=== PATIENT | female | born 1950 | race Caucasian/White ===

== ENCOUNTER → 2016-06-30 | Outpatient (CLI) | payer MEDICARE, OTHER ==
[~2016-06-30] MED LIST: ALFU10TA PO; ASPI-587 PO; ASPI-999 PO; CALC-654 PO; CATHETER FLUSH 10 ML SYR IV PRN; CEFU250T PO; CEPH500T PO; CLOT10TR11 PO; DICL50TA4 PO; EFFEXOR; ERGO400C PO; GABA-488 PO; HYDR-3720 PO; HYDR-3812 PO; HYOS0.1283 SL; INSU100C7 SQ; INSU100V5 SQ; INSULIN; IOHEXOL 350 MG/ML 100 ML (OMNIPAQUE 350) VIAL IV ONE; LEVO750T9 PO; LINA5TAB PO; LISI-552 PO; LISI10TA2 PO; LOVA20TA2 PO; METF-479 PO; METF1000 PO; METF500T8 PO; NITR100C10 PO; NS 100 ML (IVPB) BAG IV ONE; OMEP20CA12 PO; ONDA4TAB11 PO; OXYC-465 PO; SULF1TAB35 PO; TERBIN250T PO; VENL150C PO; VNL37.5T PO; novalog SC
[2016-06-30 08:32] LABS: BLOOD UREA NITROGEN 13 MG/DL (7-18); BUN/CREATININE RATIO 17; CREATININE SERUM 0.75 MG/DL (0.60-1.30); GFR ESTIMATED > 60
--- NOTE | 2016-06-30 10:33 | Diagnostic Imaging Report ---
PROCEDURE: CT abdomen with contrast only. TECHNIQUE: Multiple contiguous axial images were obtained through the abdomen after the administration of intravenous contrast. INDICATION: Pyelonephritis. Unenhanced CT on 06/18/2016 demonstrated high density content within the right renal collecting system with mild distention. Rule out underlying mass. 100 mL of Omnipaque 350 is administered intravenously. FINDINGS: The lung bases appear clear. The liver demonstrates multiple low density lesions with well defined margins compatible with cysts up to 1.7 cm in the inferior aspect of the right hepatic lobe. The spleen is not enlarged. The pancreas appears unremarkable. Cholecystectomy clips are seen. The right renal pelvis is again noted to be minimally distended with slightly higher density content than simple fluid on the arterial phase similar to the previous exam. However, this fills completely with contrast on the delayed phase imaging with no evidence of a renal collecting system mass. The higher than simple urine density could be related to cellular or proteinaceous material from infection or proteinuria with no evidence of mass. Bilateral simple renal cysts seen. The abdominal aorta is normal in caliber. No para-aortic significantly enlarged lymph nodes are seen. No fluid collection or free fluid is seen in the abdomen. The osseous structures appear grossly unremarkable. IMPRESSION: No enhancing mass. The increased density in the uterine could relate to increased protein or cellular contents possibly from infection. Dictated by: Dictated on workstation # [id number]
== END ==
LOC: RAD 08:00
PROVIDERS: ATTEND Urology
DX: N12 Tubulo-interstitial nephritis, not specified as acute or chronic (principal)
CPT/HCPCS: 36415; 74160; 82565; 84520

== ENCOUNTER → 2016-08-30 | Outpatient (CLI) | payer MEDICARE, OTHER ==
[~2016-08-30] MED LIST changes: -CATHETER FLUSH 10 ML SYR IV PRN; -IOHEXOL 350 MG/ML 100 ML (OMNIPAQUE 350) VIAL IV ONE; -NS 100 ML (IVPB) BAG IV ONE
--- NOTE | 2016-08-30 13:43 | Diagnostic Imaging Report ---
PROCEDURE: CT cervical spine without contrast. TECHNIQUE: Multiple contiguous axial images were obtained through the cervical spine without the use of intravenous contrast. Sagittal and coronal reformations were then performed. INDICATION: Neck pain. Patient had cervical spine fusion surgery. FINDINGS: There is minimal anterior translation of C2 over C3 and minimal anterior translation of C4 over C5. There is also mild anterior translation at C7/T1 and mild disc height loss at this level. There is uncovertebral and facet joint fusion involving C2/C3, C3/C4, and C4/C5 level bilaterally. Minimal anterior syndesmophyte fusion along the vertebral body C3/C4 and C4/C5 is seen. At C5-C7, there is anterior fusion intact-appearing hardware and C6 corpectomy with prosthesis placed. There is suggestion of a fused bone graft bridging C5-C7 vertebral bodies through and around the prosthesis. At these levels, the facet joints demonstrate fusion on the left side at C5/C6 and suggestion of early fusion changes on the right side. At C6/C7 facet joints, there are no signs of osseous fusion. The neural foramina are generally patent without significant stenosis except for bilateral moderate to severe stenosis at C6/C7 foramina. There is no significant posterior osteophyte at any level that appears to compromise the spinal canal. There is degenerative change along the atlantodental joint. No widening of the predental space. Satisfactory alignment of the lateral masses of C1 and C2 and atlanto-occipital joint seen. IMPRESSION: There are minimal alignment abnormalities as described. Postsurgical changes and fusion are described above. There is moderate to severe neural foraminal narrowing bilaterally at C6/C7 level. Dictated by: Dictated on workstation # [id number]
== END ==
LOC: RAD 11:38
PROVIDERS: ATTEND Orthopaedic Surgery Orthopaedic Surgery of the Spine
DX: Z48.89 Encounter for other specified surgical aftercare (principal); Z98.1 Arthrodesis status
CPT/HCPCS: 72125

== ENCOUNTER 2016-09-08 16:49 | Emergency (ER) | payer MEDICARE, OTHER ==
[~2016-09-08] VITALS: Ht 175.3 cm; Wt 90.7 kg
[~2016-09-08 16:49] MED LIST changes: -ASPI-999 PO; -ERGO400C PO; -HYOS0.1283 SL; -OMEP20CA12 PO; -ONDA4TAB11 PO; -SULF1TAB35 PO
[2016-09-08] MEDS ORDERED: diphenhydrAMINE 50 MG/ML INJ (BENADRYL) IVP ONE (17:00)
--- NOTE | 2016-09-08 17:04 | ED Headache ---
General Chief Complaint: Head/Cervical Problems Stated Complaint: HEADACHE Nursing Triage Note: PT STATES SHE HAS HAD A HEADACHE FOR 5 DAYS, STATES SHE HAS BEEN TAKING OTC MEDICATIONS AND NOTHING HAS HELPED, STATES SHE HAS NOT TAKEN ANYTHING TODAY Nursing Sepsis Screen: No Definite Risk Source: patient Exam Limitations: no limitations History of Present Illness Time seen by provider: 17:00 Initial Comments To ER with reports of a global headache for 5 days. She states that on the first day of this it was in the front of her head. She believed at that time that may have just been sinus though she's not had any fevers or sinus congestion/nasal discharge. Over the course of the following 4 days the headache intensified and seemed to affect the entire head and she reports slightly blurred vision. As mentioned, no fevers or chills. She denies nausea or vomiting. She denies any focal neurologic symptoms such as unilateral weakness or tingling. She denies any history of headaches. She is unaware of any exacerbating or alleviating factors. She has taken [id number] Tylenol and Motrin at home without relief. Typically, when she gets a headache Motrin does relieve it. She denies any head trauma or anticoagulant use. Timing/Duration: 1 week Severity/Quality: constant Location: global Prior Headaches/Recent Trauma: no recent headache/trauma Associated Symptoms: No confusion, No fatigue, No facial pain, No fever/chills , No flushing, No loss of consciousness, No nausea/vomiting, No nasal congestion , No numbness in legs/feet, No seizures, No sinus infection, No stiff neck, No vision changes, No weakness Allergies and Home Medications Allergies Coded Allergies: No Known Drug Allergies (Unverified , 01/19/16) Home Medications Hydrocodone/Acetaminophen 1 Each Tablet, 1-2 TAB PO Q4H PRN for MODERATE TO SEVERE PAIN, #60 Ref 0 Prescribed by: ZAID MENG on 04/27/16 0507 Insulin Determir 1,000 Units/10 Ml Soln, 30 UNITS SQ BID, (Reported) USES NO MATTER WHAT BS IS Lisinopril 20 Mg Tablet, 20 MG PO DAILY, (Reported) Lovastatin 20 Mg Tablet, 20 MG PO DAILY, (Reported) Metformin HCl 1,000 Mg Tab.er.24, 1,000 MG PO DAILY, (Reported) Sulfamethoxazole/Trimethoprim 1 Each Tablet, 1 EACH PO BID for 7 Days Prescribed by: ADRIA DIALLO on 09/08/16 1740 Venlafaxine HCl 150 Mg Cap.er.24h, 150 MG PO DAILY, (Reported) Constitutional: see HPI, No chills, No fever Eyes: See HPI, Blurred Vision, Denies Foreign Body Sensation, Denies Inflammation, Denies Pain, Denies Photophobia, Denies Shadows, Denies Tunnel Vision, Denies Vision Changes, Denies Contact Lenses Ears, Nose, Mouth, Throat: no symptoms reported Respiratory: no symptoms reported Cardiovascular: no symptoms reported Genitourinary: no symptoms reported Musculoskeletal: no symptoms reported Skin: no symptoms reported Psychiatric/Neurological: No Symptoms Reported Past Egshyzv-Wzrqin-Sbsnkt Hx Patient Social History Alcohol Use: Denies Use Recreational Drug Use: No Smoking Status: Never a Smoker Recent Foreign Travel: No Contact w/Someone Who Travel: No Recent Infectious Disease Expo: No Recent Hopitalizations: No Immunizations Up To Date Tetanus Booster (TDap): More than 5yrs PED Vaccines UTD: No Seasonal Allergies Seasonal Allergies: No Surgeries HX Surgeries: Yes (neck surg) Surgeries: Gallbladder, Hysterectomy Respiratory Hx Respiratory Disorders: No Cardiovascular Hx Cardiac Disorders: Yes Cardiac Disorders: Hypertension Neurological Hx Neurological Disorders: Yes (VERY LITTLE NEUROPATHY IN FEET) 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 System Hx 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 Disorders: No Sexually Transmitted Disease: No HIV/AIDS: No Female 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 Disorders: Denies 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 Genitourinary Hx Genitourinary Disorders: Yes (SEPSIS FROM UTI Apr) Genitourinary Disorders: Kidney Stones, UTI-Chronic Gastrointestinal Hx Gastrointestinal Disorders: Yes Gastrointestinal Disorders: Gastroesophageal Reflux Musculoskeletal Hx Musculoskeletal Disorders: Yes (CHRONIC NECK PAIN, STENOSIS) Musculoskeletal Disorders: Degenerate Disk Disease, Arthritis Endocrine Hx Endocrine Disorders: Yes Endocrine Disorders: Diabetes, Insulin dep HEENT HX ENT Disorders: Yes (GLASSES, DRY EYES) Loss of Vision: Bilateral Hearing Impairment: Denies Cancer Hx Cancer: No Psychosocial Hx Psychiatric Problems: Yes Behavioral Health Disorders: Depression Integumentary HX Skin/Integumentary Disorder: No Blood Transfusions Hx Blood Disorders: Yes (HX OF ANEMIA PRIOR TO HYSTERECTOMY) Adverse Reaction to a Blood Tr: No (HAS HAD BLOOD TRANSFUSION WITH NO PROBLEMS) Family Medical History Family Medial History: Arthritis 19 MOTHER Cataracts 19 FATHER 19 MOTHER Hypercholesterolemia 19 FATHER Hypertension 19 FATHER Physical Exam Vital Signs Vital Sign - Last 12Hours 3/22/17 16:56 Temp 98.5 Pulse 112 Resp 16 B/P (MAP) 151/79 Capillary Refill : Less Than 3 Seconds General Appearance: WD/WN, no apparent distress HEENT: PERRL/EOMI, normal ENT inspection, TMs normal, other (pupils equal round react to light and accommodate. There is no scleral injection) Neck: non-tender, full range of motion Cardiovascular: no edema, tachycardia Respiratory: no respiratory distress, no accessory muscle use Gastrointestinal: normal bowel sounds, non tender, soft Extremities: normal range of motion, non-tender Psychiatric: alert, oriented x 3 Crainal Nerves: normal hearing, normal speech Motor/Sensory: no motor deficit, no sensory deficit Skin: normal color, warm/dry Progress/Results/Core Measures Results/Orders Lab Results Laboratory Tests Test 09/08/16 17:05 09/08/16 17:11 Range/Units White Blood Count 13.2 H 4.3-11.0 10^3/uL Red Blood Count 4.62 4.35-5.85 10^6/uL Hemoglobin 13.9 11.5-16.0 G/DL Hematocrit 40 35-52 % Mean Corpuscular Volume 87 80-99 FL Mean Corpuscular Hemoglobin 30 25-34 PG Mean Corpuscular Hemoglobin Concent 35 32-36 G/DL Red Cell Distribution Width 13.3 10.0-14.5 % Platelet Count 272 130-400 10^3/uL Mean Platelet Volume 10.4 7.4-10.4 FL Neutrophils (%) (Auto) 76 H 42-75 % Lymphocytes (%) (Auto) 15 12-44 % Monocytes (%) (Auto) 9 0-12 % Eosinophils (%) (Auto) 1 0-10 % Basophils (%) (Auto) 0 0-10 % Neutrophils # (Auto) 10.0 H 1.8-7.8 X 10^3 Lymphocytes # (Auto) 2.0 1.0-4.0 X 10^3 Monocytes # (Auto) 1.2 H 0.0-1.0 X 10^3 Eosinophils # (Auto) 0.1 0.0-0.3 10^3/uL Basophils # (Auto) 0.0 0.0-0.1 10^3/uL Erythrocyte Sedimentation Rate 4 0-30 MM/HR Sodium Level 136 135-145 MMOL/L Potassium Level 4.4 3.6-5.0 MMOL/L Chloride Level 100 98-107 MMOL/L Carbon Dioxide Level 20 L 21-32 MMOL/L Anion Gap 16 H 5-14 MMOL/L Blood Urea Nitrogen 10 7-18 MG/DL Creatinine 0.76 0.60-1.30 MG/DL Estimat Glomerular Filtration Rate > 60 BUN/Creatinine Ratio 13 Glucose Level 240 H 70-105 MG/DL Calcium Level 9.3 8.5-10.1 MG/DL Total Bilirubin 0.7 0.1-1.0 MG/DL Aspartate Amino Transf (AST/SGOT) 25 5-34 U/L Alanine Aminotransferase (ALT/SGPT) 19 0-55 U/L Alkaline Phosphatase 87 40-136 U/L Total Protein 7.0 6.4-8.2 G/DL Albumin 4.0 3.2-4.5 G/DL Urine Color YELLOW Urine Clarity SLIGHTLY CLOUDY Urine pH 5 5-9 Urine Specific [place] 1.020 1.016-1.022 Urine Protein 2+ H NEGATIVE Urine Glucose (UA) 3+ H NEGATIVE Urine Ketones 1+ H NEGATIVE Urine Nitrite POSITIVE H NEGATIVE Urine Bilirubin NEGATIVE NEGATIVE Urine Urobilinogen NORMAL NORMAL MG/DL Urine Leukocyte Esterase 3+ H NEGATIVE Urine RBC (Auto) 5+ H NEGATIVE Urine RBC 50-100 H /HPF Urine WBC 25-50 H /HPF Urine Squamous Epithelial Cells 10-25 H /HPF Urine Crystals NONE /LPF Urine Bacteria LARGE H /HPF Urine Casts NONE /LPF Urine Mucus NEGATIVE /LPF Urine Culture Indicated YES My Orders Orders - ADRIA DIALLO APRN Cbc With Automated Diff (09/08/16 16:58) Erythrocyte Sedimentation Rate (09/08/16 16:58) Comprehensive Metabolic Panel (09/08/16 16:58) Saline Lock/Iv-Start (09/08/16 16:58) Ua Culture If Indicated (09/08/16 16:58) Ct Head Wo (09/08/16 16:58) Diphenhydramine Injection (Benadryl Inje (09/08/16 17:00) Urine Culture (09/08/16 17:11) Ceftriaxone Injection (Rocephin Injectio (09/08/16 17:45) Fentanyl Injection (Sublimaze Injection (09/08/16 18:15) Medications Given in ED Current Medications Medications Dose Ordered Sig/Asuncion Route Start Time Stop Time Status Last Admin Dose Admin Ceftriaxone Sodium 1000 mg/ Sodium Chloride 50 ml @ 100 mls/hr ONCE ONCE IV 09/08/16 17:45 09/08/16 18:14 09/08/16 17:47 100 MLS/HR Diphenhydramine HCl 12.5 mg ONCE ONCE IVP 09/08/16 17:00 09/08/16 17:52 DC 09/08/16 17:15 12.5 MG Vital Signs/I&O Vital Sign - Last 12Hours 09/08/16 16:56 Temp 98.5 Pulse 112 Resp 16 B/P (MAP) 151/79 Blood Pressure Mean: 103 Departure Communication Progress Notes I discussed her urinary tract infection with her. She reports a history of these but currently denies any suprapubic, abdominal or flank pain. No nausea. Impression Impression: Primary Impression: Urinary tract infection Qualified Codes: N30.00 - Acute cystitis without hematuria Additional Impression: Headache Disposition: HOME, SELF-CARE Condition: Stable Departure-Patient Inst. Decision time for Depature: 17:39 Referrals: [facility] (PCP) Primary Care Physician SUZE KIM APRN (Family) Primary Care Physician Patient Instructions: Headache, Adult (DC) Add. Discharge Instructions: 1. Return to emergency room for any concerns 2. Antibiotic as directed 3. Follow-up with your doctor later this week for recheck 4. All discharge instructions reviewed with patient and/or family. Voiced understanding. Scripts Sulfamethoxazole/Trimethoprim (Bactrim Ds Tablet) 1 Each Tablet 1 EACH PO BID for 7 Days, TAB Prov: ADRIA DIALLO APRN 09/08/16 ADRIA DIALLO APRN Sep 08, 2016 17:04
[2016-09-08 17:11] LABS: BASOPHILS % (AUTO) 0 % (0-10); EOSINOPHILS # (AUTO) 0.1 10^3/uL (0.0-0.3); EOSINOPHILS % (AUTO) 1 % (0-10); LYMPHOCYTES % (AUTO) 15 % (12-44); MEAN CORPUSCULAR HEMOGLOBIN 30 PG (25-34); MEAN CORPUSCULAR HGB CONC 35 G/DL (32-36); MEAN CORPUSCULAR VOLUME 87 FL (80-99); MEAN PLATELET VOLUME 10.4 FL (7.4-10.4); MONOCYTES # (AUTO) 1.2 X 10^3 (0.0-1.0); MONOCYTES % (AUTO) 9 % (0-12); NEUTROPHILS % (AUTO) 76 % (42-75); PLATELET COUNT 272 10^3/uL (130-400); RED BLOOD COUNT 4.62 10^6/uL (4.35-5.85); RED CELL DISTRIBUTION WIDTH 13.3 % (10.0-14.5); WHITE BLOOD COUNT 13.2 10^3/uL (4.3-11.0)
[2016-09-08 17:27] LABS: BILIRUBIN,URINE NEGATIVE (NEGATIVE); KETONES,URINE 1+ (NEGATIVE); LEUKOCYTE ESTERASE ,URINE 3+ (NEGATIVE); NITRITE,URINE POSITIVE (NEGATIVE); PH,URINE 5 (5-9); PROTEIN,URINE 2+ (NEGATIVE); UROBILINOGEN,URINE NORMAL (NORMAL)
[2016-09-08 17:33] LABS: ALANINE AMINOTRANSFERASE 19 U/L (0-55); ANION GAP 16 MMOL/L (5-14); ASPARTATE AMINO TRANSFERASE 25 U/L (5-34); BILIRUBIN,TOTAL 0.7 MG/DL (0.1-1.0); BLOOD UREA NITROGEN 10 MG/DL (7-18); BUN/CREATININE RATIO 13; CALCIUM 9.3 MG/DL (8.5-10.1); CARBON DIOXIDE 20 MMOL/L (21-32); CHLORIDE 100 MMOL/L (98-107); CREATININE SERUM 0.76 MG/DL (0.60-1.30); ERYTHROCYTE SEDIMENTATION RATE 4 MM/HR (0-30); GFR ESTIMATED > 60; GLUCOSE 240 MG/DL (70-105); POTASSIUM 4.4 MMOL/L (3.6-5.0); SODIUM 136 MMOL/L (135-145)
[2016-09-08 17:34] LABS: WBC,URINE 25-50 /HPF
[2016-09-08] MEDS ORDERED: SULF1TAB35 PO (17:40)
[2016-09-08] MEDS ORDERED: cefTRIAXone INJECTION 1,000 MG in NS (IVPB) 50 ML IV ONE (17:45)
--- NOTE | 2016-09-08 17:59 | Diagnostic Imaging Report ---
INDICATION: Headache x5 days. Noncontrast brain CT is performed. There are mild diffuse atrophic changes. There are patchy low-density changes in the deep white matter compatible with chronic ischemic change. There is no acute hemorrhage, mass effect, or midline shift. There are vascular calcifications noted. Calvarial windows show no overt bony abnormality. Visualized portions of the sinuses and mastoid air cells show no fluid. IMPRESSION: Mild atrophic changes and chronic changes in deep white matter. No acute intracranial abnormality. Dictated by: Dictated on workstation # [id number]
[2016-09-08] MEDS ORDERED: fentaNYL INJECTION 100 MCG/2 ML AMP IVP ONE (18:15)
[2016-09-08 18:45] VITALS: BP 153/75
--- OUTSIDE RECORDS SUMMARY | 2016-09-12 05:12 | XMS REPORT ---
Author Author JULI GARRIDO [facility] eClinicalWorks Address Unknown Phone Unavailable Care Team Providers Care Rigger Helper Name Role Phone JULI GARRIDO Unavailable Allergies No Known Allergies Problems Problem Type Condition Code Onset Dates Condition Status Problem Unspecified astigmatism 367.20 Active Problem Diabetes with ophthalmic manifestations, type II or unspecified type, not stated as uncontrolled 250.50 Active Problem Presbyopia 367.4 Active Problem Diarrhea 787.91 Active Problem Hypercholesterolemia 272.0 Active Problem Urinary tract infection N39.0 Active Problem Unspecified cataract 366.9 Active Problem Hypermetropia 367.0 Active Problem Depression 311 Active Problem Neuropathy 355.9 Active Problem Personal history of noncompliance with medical treatment, presenting hazards to health V15.81 Active Problem Other chronic pain 338.29 Active Problem Diabetes mellitus without mention of complication, type II or unspecified type, uncontrolled 250.02 Active Problem Diabetes with neurological manifestations, type II or unspecified type , not stated as uncontrolled 250.60 Active Problem Dietary surveillance and counseling V65.3 Active Problem Essential hypertension, benign 401.1 Active Problem Other mucopurulent conjunctivitis 372.03 Active Medications No Known Medications Results No Known Results Summary Purpose eClinicalWorks Submission
--- OUTSIDE RECORDS SUMMARY | 2016-09-12 05:12 | XMS REPORT ---
Author Author SUZE KIM Organization e[employer] Address Unknown Phone Unavailable Care Team Providers Care Sample Grinder Name Role Phone USZE KIM CP Unavailable Allergies No Known Allergies Problems Problem Type Condition Code Onset Dates Condition Status Problem Peripheral neuropathy G62.9 Active Problem Chronic pain G89.29 Active Problem Anxiety associated with depression F41.8 Active Problem Type 2 diabetes mellitus with hyperglycemia E11.65 Active Problem Pain in right hip M25.551 Active Problem Onycholysis L60.1 Active Problem Hypertension I10 Active Problem Hypertriglyceridemia E78.1 Active Problem Pain in left hip M25.552 Active Problem History of spinal stenosis Z87.39 Active Problem Degenerative disc disease, 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
--- OUTSIDE RECORDS SUMMARY | 2016-09-12 05:12 | XMS REPORT ---
Author Author JULI GARRIDO [facility] eClinicalWorks Address Unknown Phone Unavailable Care Team Providers Care Estimator Lumber Name Role Phone JUIL GARRIDO CP Unavailable Allergies, Adverse Reactions, Alerts Substance Reaction Event Type N.K.D.A. Info Not Available Non Drug Allergy Problems Problem Type Condition Code Onset Dates [...] Depression 311 Active Problem Neuropathy 355.9 Active Assessment Dysuria R30.0 Active Problem Personal history of noncompliance with medical treatment, presenting hazards to health V15.81 Active Assessment Urinary tract infection N39.0 Active Problem Other chronic pain 338.29 Active Problem Diabetes mellitus without mention of complication, type II or unspecified type, uncontrolled 250.02 Active Problem Diabetes with neurological manifestations, type II or unspecified type , not stated as uncontrolled 250.60 Active Problem Dietary surveillance and counseling V65.3 Active Problem Essential hypertension, benign 401.1 Active Problem Other mucopurulent conjunctivitis 372.03 Active Medications Medication Code System Code Instructions Start Date End Date Status Dosage Lisinopril [facility] 02673560112 20 MG Orally Once a day 1 tablet Levemir FlexTouch [facility] [address]-22 100 UNIT/ML Subcutaneous 2 times a day 30 units Calcium 500 + D [facility] 37543-69169 500 mg(1,250mg) -200 unit November 05, 2013 1 Tablet 1 time per day Aspirin [facility] [address]-92 81 mg November 05, 2013 1 tablet by Oral route 1 time per day Effexor XR [facility] [address]-62 150 MG Orally Once a day November 05, 2013 1 capsule with food Neurontin [facility] [address]-58 300 MG Orally Three times a day Aug 02, 2014 1 capsule by Oral route 3 times per day PRN for pain MetFORMIN HCl ER [facility] 41779240598 500 MG TAKE TWO TABLETS BY MOUTH TWICE DAILY WITH MEALS Lancets [facility] 0 - November 05, 2013 1 time per day Macrobid [facility] [address]-85 100 MG Orally every 12 hrs Apr 23, 2015Apr 1 capsule with food Lovastatin [facility] 11888692779 20 MG Orally Once a day 1 tablet with a meal Procedures Procedure Coding System Code Date URINE CULTURE/COLONY COUNT CPT-4 18024 Apr 23, 2015 Office Visit, Est Pt., Level 4 CPT-4 04088 Apr 23, 2015 URINALYSIS, AUTO, W/O SCOPE CPT-4 49796 Apr 23, 2015 Vital Signs Date/Time: Apr 23, 2015 Temperature 98.1 F Weight 203.4 lbs Height 69 in BMI 30.03 Index Blood Pressure Diastolic 76 mmHg Blood Pressure Systolic 116 mmHg Cardiac Monitoring Heart Rate 100 bpm Results Name Result Date Reference Range Unit Abnormality Flag UA LONG DIP (IN HOUSE) Summary Purpose eClinicalWorks Submission
--- OUTSIDE RECORDS SUMMARY | 2016-09-12 05:12 | XMS REPORT ---
Author Author JULI GARRIDO Organization e[employer] Address Unknown Phone Unavailable Care Team Providers Care Butcher Or Smallgoods Maker Name Role Phone JULI GARRIDO Unavailable Allergies No Known Allergies Problems Problem Type Condition Code Onset Dates Condition Status Problem Other mucopurulent conjunctivitis 372.03 Active Problem Presbyopia 367.4 Active Problem Unspecified astigmatism 367.20 Active Problem Hypercholesterolemia 272.0 Active Problem Depression 311 Active Problem Diarrhea 787.91 Active Problem Hypermetropia 367.0 Active Problem Diabetes with ophthalmic manifestations, type II or unspecified type, not stated as uncontrolled 250.50 Active Problem Neuropathy 355.9 Active Problem Unspecified cataract 366.9 Active Problem Essential hypertension, benign 401.1 Active Problem Other chronic pain 338.29 Active Problem Personal history of noncompliance with medical treatment, presenting hazards to health V15.81 Active Problem Diabetes mellitus without mention of complication, type II or unspecified type, uncontrolled 250.02 Active Problem Diabetes with neurological manifestations, type II or unspecified type , not stated as uncontrolled 250.60 Active Problem Dietary surveillance and counseling V65.3 Active Medications Medication Code System Code Instructions Start Date End Date Status Dosage Effexor XR [facility] [address]-56 150 MG Orally Once a day November 05, 2013 1 capsule with food Ceftin [facility] [address]-17 250 MG Orally Twice a day Apr 03, 2015 Apr 13, 2015 1 tablet Uroxatral [facility] [address]-89 10 MG Orally Once a day Apr 03, 2015 May 03, 2015 1 tablet immediately after the same meal Results No Known Results Summary Purpose eClinicalWorks Submission
--- OUTSIDE RECORDS SUMMARY | 2016-09-12 05:13 | XMS REPORT | Continuity of Care Document ---
Author Author [facility] Address Unknown Phone Unavailable Allergies Active Description Code Type Severity Reaction Onset Reported/Identified Relationship to Patient Clinical Status Yes metformin 500 mg tablet Drug Allergy N/A N/A 11/05/2013 Yes No Known Drug Allergies [id number] Drug Allergy Unknown N/ A 01/19/2016 Medications Problems Date Dx Coded Attending Type Code Diagnosis Diagnosed By 12/23/2009 Ot 462 10/15/2013 ADRIA DIALLO APRN Ot 250.02 DIAB RENE WO COMPL, TYPE II OR UNSPEC TY 11/05/2013 JENN SPRINGER DO 250.02 DIABETES II UNCONTROLLED (UNCOMPLICATED) 11/05/2013 JENN SPRINGER DO 250.60 DIABETES WITH NEUROLOGICAL MANIFESTATIONS TYPE II OR UNSPECIFIED TYPE NOT STATED UNCONTROLLED 11/05/2013 JENN SPRINGER DO K 338.29 OTHER CHRONIC PAIN 11/05/2013 RHONDA SPRINGER DOA K 401.1 HYPERTENSION, BENIGN ESSENTIAL 11/05/2013 RHONDA SPRINGER DOA K V15.81 PERSONAL HISTORY OF NONCOMPLIANCE WITH MEDICAL TREATMENT PRESENTING HAZARDS TO HEALTH 11/05/2013 JENN SPRINGER DO V65.3 COUNSELING - DIETARY 11/05/2013 JENN SPRINGER DO 250.02 DIABETES II UNCONTROLLED (UNCOMPLICATED) 11/05/2013 JENN SPRINGER DO 250.60 DIABETES WITH NEUROLOGICAL MANIFESTATIONS TYPE II OR UNSPECIFIED TYPE NOT STATED UNCONTROLLED 11/05/2013 JENN SPRINGER DO K 338.29 OTHER CHRONIC PAIN 11/05/2013 RHONDA SPRINGER DOA K 401.1 HYPERTENSION, BENIGN ESSENTIAL 11/05/2013 RHONDA SPRINGER DOA K V15.81 PERSONAL HISTORY OF NONCOMPLIANCE WITH MEDICAL TREATMENT PRESENTING HAZARDS TO HEALTH 11/05/2013 RHONDA SPRINGER DOA K V65.3 COUNSELING - DIETARY 11/05/2013 RHONDA SPRINGER DOA K 250.02 DIABETES II UNCONTROLLED (UNCOMPLICATED) 11/05/2013 JENN SPRINGER DO 250.60 DIABETES WITH NEUROLOGICAL MANIFESTATIONS TYPE II OR UNSPECIFIED TYPE NOT STATED UNCONTROLLED 11/05/2013 SPRINGER DO, JENN K 338.29 OTHER CHRONIC PAIN 11/05/2013 SPRINGER DO, JENN K 401.1 HYPERTENSION, BENIGN ESSENTIAL 11/05/2013 SPRINGER DO, JENN K V15.81 PERSONAL HISTORY OF NONCOMPLIANCE WITH MEDICAL TREATMENT PRESENTING HAZARDS TO HEALTH 11/05/2013 SPRINGER DO, JENN K V65.3 COUNSELING - DIETARY 11/05/2013 MASOOD FLORENCE DDS 250.02 DIABETES II UNCONTROLLED (UNCOMPLICATED) 11/05/2013 [place] AIXASMASOOD 250.60 DIABETES WITH NEUROLOGICAL MANIFESTATIONS TYPE II OR UNSPECIFIED TYPE NOT STATED UNCONTROLLED 11/05/2013 [place] AIXASMASOOD 338.29 OTHER CHRONIC PAIN 11/05/2013 [place] MASOOD SNOW 401.1 HYPERTENSION, BENIGN ESSENTIAL 11/05/2013 [place] AIXASMASOOD V15.81 PERSONAL HISTORY OF NONCOMPLIANCE WITH MEDICAL TREATMENT PRESENTING HAZARDS TO HEALTH 11/05/2013 MASOOD [place] DDS V65.3 COUNSELING - DIETARY 11/05/2013 GIAN PEREIRA JENN K 250.02 DIABETES II UNCONTROLLED (UNCOMPLICATED) 11/05/2013 SPRINGER DO, JENN K 250.60 DIABETES WITH NEUROLOGICAL MANIFESTATIONS TYPE II OR UNSPECIFIED TYPE NOT STATED UNCONTROLLED 11/05/2013 SPRINGER DO, JENN K 338.29 OTHER CHRONIC PAIN 11/05/2013 SPRINGER DO, JENN K 401.1 HYPERTENSION, BENIGN ESSENTIAL 11/05/2013 SPRINGER DO, JENN K V15.81 PERSONAL HISTORY OF NONCOMPLIANCE WITH MEDICAL TREATMENT PRESENTING HAZARDS TO HEALTH 11/05/2013 SPRINGER DO, JENN K V65.3 COUNSELING - DIETARY 12/31/2013 SPRINGER DO, JENN K 250.50 DIABETES WITH OPHTHALMIC MANIFESTATIONS TYPE II OR UNSPECIFIED TYPE NOT STATED UNCONTROLLED 12/31/2013 SPRINGER DO, JENN K 366.9 UNSPECIFIED CATARACT 12/31/2013 SPRINGER DO, JENN K 367.0 HYPERMETROPIA 12/31/2013 SPRINGER DO, JENN K 367.20 ASTIGMATISM UNSPECIFIED 12/31/2013 SPRINGER DO, JENN K 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 12/31/2013 SPRINGER DO, JENN K 250.50 DIABETES WITH OPHTHALMIC MANIFESTATIONS TYPE II OR UNSPECIFIED TYPE NOT STATED UNCONTROLLED 12/31/2013 SPRINGER DO, JENN K 366.9 UNSPECIFIED CATARACT 12/31/2013 SPRINGER DO, JENN K 367.0 HYPERMETROPIA 12/31/2013 SPRINGER DO, JENN K 367.20 ASTIGMATISM UNSPECIFIED 12/31/2013 SPRINGER DO, JENN K 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 12/31/2013 [place] DDS, MASOOD 250.50 DIABETES WITH OPHTHALMIC MANIFESTATIONS TYPE II OR UNSPECIFIED TYPE NOT STATED UNCONTROLLED 12/31/2013 [place] DDS, MASOOD 366.9 UNSPECIFIED CATARACT 12/31/2013 [place] DDS, MASOOD 367.0 HYPERMETROPIA 12/31/2013 [place] DDS, MASOOD 367.20 ASTIGMATISM UNSPECIFIED 12/31/2013 [place] DDS, MASOOD 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 12/31/2013 SPRINGER DO, JENN K 250.50 DIABETES WITH OPHTHALMIC MANIFESTATIONS TYPE II OR UNSPECIFIED TYPE NOT STATED UNCONTROLLED 12/31/2013 SPRINGER DO, JENN K 366.9 UNSPECIFIED CATARACT 12/31/2013 SPRINGER DO, JENN K 367.0 HYPERMETROPIA 12/31/2013 SPRINGER DO, JENN K 367.20 ASTIGMATISM UNSPECIFIED 12/31/2013 SPRINGER DO, JENN K 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 04/02/2014 SPRINGER DO, JENN K 372.03 OTHER MUCOPURULENT CONJUNCTIVITIS 04/02/2014 [place] DDS, MASOOD 372.03 OTHER MUCOPURULENT CONJUNCTIVITIS 04/02/2014 SPRINGER DO, JENN K 372.03 OTHER MUCOPURULENT CONJUNCTIVITIS 03/20/2015 MATTHEW AMAYA [facility] Ot V76.12 03/20/2015 KATLIN FAULKNER MD Ot E11.9 TYPE 2 DIABETES MELLITUS WITHOUT COMPLIC 03/20/2015 KATLIN FAULKNER MD Ot R10.31 RIGHT LOWER QUADRANT PAIN 03/20/2015 KATLIN FAULKNER MD Ot R19.7 DIARRHEA, UNSPECIFIED 03/20/2015 KATLIN FAULKNER MD Ot Z79.4 GROUP HOME (CURRENT) USE OF INSULIN 03/20/2015 MATTHEW AMAYA [facility] Ot V76.12 03/29/2015 Ot E11.9 TYPE 2 DIABETES MELLITUS WITHOUT COMPLIC 03/29/2015 Ot I10 ESSENTIAL (PRIMARY) HYPERTENSION 03/29/2015 Ot N13.5 CROSSING VESSEL AND STRICTURE OF URETER 03/29/2015 Ot N39.0 URINARY TRACT INFECTION, SITE NOT SPECIF 03/29/2015 Ot R10.9 UNSPECIFIED ABDOMINAL PAIN 03/29/2015 Ot Z79.4 FRUIT FARMER (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) 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 OF INSULIN 04/22/2015 MATTHEW AMAYA GIN FEEDER Ot V76.12 05/02/2015 MATTHEW AMAYA GIN FEEDER Ot V76.12 05/05/2015 MARK LANDAVERDE, JAIMIE F Ot A41.89 05/05/2015 MARK LANDAVERDE, JAIMIE F Ot B96.1 05/05/2015 MARK LANDAVERDE, JAIMIE F Ot B96.89 05/05/2015 MARK LANDAVERDE, JAIMIE F Ot E11.9 05/05/2015 MARK LANDAVERDE, JAIMIE F Ot E78.5 05/05/2015 MARK LANDAVERDE, JAIMIE F Ot F32.9 05/05/2015 MARK LANDAVERDE, JAIMIE F Ot G60.9 05/05/2015 MARK LANDAVERDE, JAIMIE F Ot I10 05/05/2015 MARK LANDAVERDE, JAIMIE F Ot N12 05/05/2015 MARK LANDAVERDE, JAIMIE F Ot N13.30 05/05/2015 MARK LANDAVERDE, JAIMIE F Ot N13.5 05/05/2015 MARK LANDAVERDE, JAIMIE F Ot Z79.4 05/05/2015 MARK LANDAVERDE, JAIMIE F Ot Z87.442 05/09/2015 ALCIDES LANDAVERDE, HANNAH T Ot E87.6 HYPOKALEMIA 05/09/2015 ALCIDES LANDAVERDE, HANNAH T Ot M54.5 LOW BACK PAIN 05/09/2015 ALCIDES LANDAVERDE, HANNAH T Ot N12 TUBULO-INTERSTITIAL NEPHRITIS, NOT SPCF 05/09/2015 ALCIDES LANDAVERDE, HANNAH T Ot R10.10 UPPER ABDOMINAL PAIN, UNSPECIFIED 05/09/2015 MATTHEW AMAYA GIN FEEDER Ot V76.12 11/27/2015 MATTHEW AMAYA GIN FEEDER Ot V76.12 OT SCREEN MAMMO-MALIGN NEOPLASM OF DERIK 11/28/2015 SUZE KIM SAFETY EQUIPMENT TESTING SPECIALIST Ot M51.34 OTHER INTERVERTEBRAL DISC DEGENERATION , 12/03/2015 SUZE KIM SAFETY EQUIPMENT TESTING SPECIALIST Ot M50.30 OTHER CERVICAL DISC DEGENERATION, UNSP C 12/03/2015 SUZE KIM R SAFETY EQUIPMENT TESTING SPECIALIST Ot M51.16 INTERVERTEBRAL DISC DISORDERS W RADICULO 12/03/2015 SUZE KIM R SAFETY EQUIPMENT TESTING SPECIALIST Ot M51.34 OTHER INTERVERTEBRAL DISC DEGENERATION , 12/03/2015 SUZE KIM R SAFETY EQUIPMENT TESTING SPECIALIST Ot M51.36 OTHER INTERVERTEBRAL DISC DEGENERATION , 12/23/2015 MONIQUE MATTHEW Iza GIN FEEDER Ot V76.12 OTH SCREEN MAMMO-MALIGN NEOPLASM OF DERIK 12/23/2015 SUZE KIM R SAFETY EQUIPMENT TESTING SPECIALIST Ot M50.30 OTHER CERVICAL DISC DEGENERATION, [facility] C 12/23/2015 SUZE KIM R SAFETY EQUIPMENT TESTING SPECIALIST Ot M51.16 INTERVERTEBRAL DISC DISORDERS W RADICULO 12/23/2015 SUZE KIM R SAFETY EQUIPMENT TESTING SPECIALIST Ot M51.34 OTHER INTERVERTEBRAL DISC DEGENERATION , 12/23/2015 SUZE KIM R SAFETY EQUIPMENT TESTING SPECIALIST Ot M51.36 OTHER INTERVERTEBRAL DISC DEGENERATION , 12/24/2015 SUZE KIM R SAFETY EQUIPMENT TESTING SPECIALIST Ot M50.30 OTHER CERVICAL DISC DEGENERATION, [facility] C 12/24/2015 SUZE KIM R SAFETY EQUIPMENT TESTING SPECIALIST Ot M51.16 INTERVERTEBRAL DISC DISORDERS W RADICULO 12/24/2015 SUZE KIM R SAFETY EQUIPMENT TESTING SPECIALIST Ot M51.34 OTHER INTERVERTEBRAL DISC DEGENERATION , 12/24/2015 SUZE KIM R SAFETY EQUIPMENT TESTING SPECIALIST Ot M51.36 OTHER INTERVERTEBRAL DISC DEGENERATION , 01/16/2016 SUZE KIM R SAFETY EQUIPMENT TESTING SPECIALIST Ot M50.30 OTHER CERVICAL DISC DEGENERATION, [facility] C 01/16/2016 SUZE KIM R SAFETY EQUIPMENT TESTING SPECIALIST Ot M51.16 INTERVERTEBRAL DISC DISORDERS W RADICULO 01/16/2016 SUZE KIM R SAFETY EQUIPMENT TESTING SPECIALIST Ot M51.34 OTHER INTERVERTEBRAL DISC DEGENERATION , 01/16/2016 SUZE KIM R SAFETY EQUIPMENT TESTING SPECIALIST Ot M51.36 OTHER INTERVERTEBRAL DISC DEGENERATION , 01/16/2016 SUZE KIM R SAFETY EQUIPMENT TESTING SPECIALIST Ot M50.30 OTHER CERVICAL DISC DEGENERATION, [facility] C 01/16/2016 SUZE KIM R SAFETY EQUIPMENT TESTING SPECIALIST Ot M51.16 INTERVERTEBRAL DISC DISORDERS W RADICULO 01/16/2016 SUZE KIM R SAFETY EQUIPMENT TESTING SPECIALIST Ot M51.34 OTHER INTERVERTEBRAL DISC DEGENERATION , 01/16/2016 SUZE KIM R SAFETY EQUIPMENT TESTING SPECIALIST Ot M51.36 OTHER INTERVERTEBRAL DISC DEGENERATION , 01/19/2016 CHIDI LANDAVERDE, LAY Couch Ot M48.02 SPINAL STENOSIS, CERVICAL REGION 01/19/2016 LAY MURILLO MD, Ot Z01.812 ENCOUNTER FOR PREPROCEDURAL LABORATORY E 01/19/2016 LAY MURILLO MD, Ot Z11.2 ENCOUNTER FOR SCREENING FOR OTHER BACTER 02/04/2016 LAY MURILLO MD Ot E11.65 TYPE 2 DIABETES MELLITUS WITH HYPERGLYCE 02/04/2016 LAY MURILLO MD Ot E78.5 HYPERLIPIDEMIA, UNSPECIFIED 02/04/2016 LAY MURILLO MD, Ot F32.9 MAJOR DEPRESSIVE DISORDER, SINGLE EPISOD 02/04/2016 LAY MURILLO MD, Ot G62.9 POLYNEUROPATHY, UNSPECIFIED 02/04/2016 LAY MURILLO MD Ot I10 ESSENTIAL (PRIMARY) HYPERTENSION 02/04/2016 LAY MURILLO MD Ot M47.12 OTHER SPONDYLOSIS WITH MYELOPATHY, CERVI 02/04/2016 LAY MURILLO MD Ot M48.02 SPINAL STENOSIS, CERVICAL REGION 02/04/2016 LAY MURILLO MD Ot M54.12 RADICULOPATHY, CERVICAL REGION 04/13/2016 MATTHEW AMAYA GIN FEEDER Ot V76.12 OTH SCREEN MAMMO-MALIGN NEOPLASM OF DERIK 04/13/2016 SUZE KIM SAFETY EQUIPMENT TESTING SPECIALIST Ot M50.30 OTHER CERVICAL DISC DEGENERATION, UNSP C 04/13/2016 SUZE KIM SAFETY EQUIPMENT TESTING SPECIALIST Ot M51.16 INTERVERTEBRAL DISC DISORDERS W RADICULO 04/13/2016 SUZE KMI APRN Ot M51.34 OTHER INTERVERTEBRAL DISC DEGENERATION , 04/13/2016 SUZE KIM APRN Ot M51.36 OTHER INTERVERTEBRAL DISC DEGENERATION , 04/13/2016 ANTHONY URIBE MD Ot E11.9 TYPE 2 DIABETES MELLITUS WITHOUT COMPLIC 04/13/2016 ANTHONY URIBE MD Ot N39.0 URINARY TRACT INFECTION, SITE NOT SPECIF 04/13/2016 ANTHONY URIBE MD Ot R30.0 DYSURIA 04/13/2016 ANTHONY URIBE MD, Ot Z79.82 FRUIT FARMER (CURRENT) USE OF ASPIRIN 04/13/2016 ANTHONY URIBE MD, Ot Z79.84 GROUP HOME (CURRENT) USE OF ORAL HYPOGLYC 04/13/2016 ANTHONY URIBE MD, Ot Z79.899 OTHER GROUP HOME (CURRENT) DRUG THERAPY 04/14/2016 MATTHEW AMAYA Iza GIN FEEDER Ot V76.12 OTH SCREEN MAMMO-MALIGN NEOPLASM OF DERIK 04/14/2016 SUZE KIM APRN Ot M50.30 OTHER CERVICAL DISC DEGENERATION, UNSP C 04/14/2016 SUZE KIM SAFETY EQUIPMENT TESTING SPECIALIST Ot M51.16 INTERVERTEBRAL DISC DISORDERS W RADICULO 04/14/2016 SUZE KIM APRN Ot M51.34 OTHER INTERVERTEBRAL DISC DEGENERATION , 04/14/2016 SUZE KIM APRN Ot M51.36 OTHER INTERVERTEBRAL DISC DEGENERATION , 04/15/2016 ANTHONY URIBE MD, Ot E11.9 TYPE 2 DIABETES MELLITUS WITHOUT COMPLIC 04/15/2016 ANTHONY URIBE MD, Ot N39.0 URINARY TRACT INFECTION, SITE NOT SPECIF 04/15/2016 ANTHONY URIBE MD, Ot R30.0 DYSURIA 04/15/2016 ANTHONY URIBE MD Ot Z79.82 GROUP HOME (CURRENT) USE OF ASPIRIN 04/15/2016 ANTHONY URIBE MD Ot Z79.84 FRUIT FARMER (CURRENT) USE OF ORAL HYPOGLYC 04/15/2016 ANTHONY URIBE MD, Ot Z79.899 OTHER GROUP HOME (CURRENT) DRUG THERAPY 04/15/2016 LAY MURILLO MD Ot M48.06 SPINAL STENOSIS, LUMBAR REGION 04/15/2016 LAY MURILLO MD Ot Z01.818 ENCOUNTER FOR OTHER PREPROCEDURAL EXAMIN 04/15/2016 LAY MURILLO MD Ot Z11.2 ENCOUNTER FOR SCREENING FOR OTHER BACTER 04/15/2016 LAY MURILLO MD Ot M48.06 SPINAL STENOSIS, LUMBAR REGION 04/15/2016 LAY MURILLO MD Ot Z01.818 ENCOUNTER FOR OTHER PREPROCEDURAL EXAMIN 04/15/2016 LAY MURILLO MD Ot Z11.2 ENCOUNTER FOR SCREENING FOR OTHER BACTER 04/19/2016 ANTHONY URIBE MD Ot E11.9 TYPE 2 DIABETES MELLITUS WITHOUT COMPLIC 04/19/2016 ANTHONY URIBE MD Ot N39.0 URINARY TRACT INFECTION, SITE NOT SPECIF 04/19/2016 ANTHONY URIBE MD Ot R30.0 DYSURIA 04/19/2016 ANTHONY URIBE MD, Ot Z79.82 GROUP HOME (CURRENT) USE OF ASPIRIN 04/19/2016 ANTHONY URIBE MD, Ot Z79.84 GROUP HOME (CURRENT) USE OF ORAL HYPOGLYC 04/19/2016 ANTHONY URIBE MD, Ot Z79.899 OTHER GROUP HOME (CURRENT) DRUG THERAPY 04/27/2016 LAY MURILLO MD Ot E11.9 TYPE 2 DIABETES MELLITUS WITHOUT COMPLIC 04/27/2016 LAY MURILLO MD, Ot M48.06 SPINAL STENOSIS, LUMBAR REGION 04/27/2016 LAY MURILLO MD, Ot E11.9 TYPE 2 DIABETES MELLITUS WITHOUT COMPLIC 04/27/2016 LAY MURILLO MD, Ot M48.06 SPINAL STENOSIS, LUMBAR REGION 05/02/2016 LAY MURILLO MD, Ot E11.9 TYPE 2 DIABETES MELLITUS WITHOUT COMPLIC 05/02/2016 LAY MURILLO MD, Ot M48.06 SPINAL STENOSIS, LUMBAR REGION 06/18/2016 MATTHEW AMAYA GIN FEEDER Ot V76.12 OTH SCREEN MAMMO-MALIGN NEOPLASM OF DERIK 06/18/2016 SUZE KIM SAFETY EQUIPMENT TESTING SPECIALIST Ot M50.30 OTHER CERVICAL DISC DEGENERATION, UNSP C 06/18/2016 SUZE KIM SAFETY EQUIPMENT TESTING SPECIALIST Ot M51.16 INTERVERTEBRAL DISC DISORDERS W RADICULO 06/18/2016 SUZE KIM SAFETY EQUIPMENT TESTING SPECIALIST Ot M51.34 OTHER INTERVERTEBRAL DISC DEGENERATION , 06/18/2016 SUZE KIM SAFETY EQUIPMENT TESTING SPECIALIST Ot M51.36 OTHER INTERVERTEBRAL DISC DEGENERATION , 06/22/2016 POLLY LANDAVERDE, RALPH Malone Ot N12 TUBULO-INTERSTITIAL NEPHRITIS, NOT SPCF 07/01/2016 POLLY LANDAVERDE, RALPH A Ot 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 TUBULO-INTERSTITIAL NEPHRITIS, NOT SPCF 07/12/2016 POLLY LANDAVERDE, RALPH Malone Ot N12 TUBULO-INTERSTITIAL NEPHRITIS, NOT SPCF 07/30/2016 POLLY LANDAVERDE, RALPH A Ot N12 TUBULO-INTERSTITIAL NEPHRITIS, NOT SPCF 08/31/2016 LAY MURILLO MD, Ot Z48.89 ENCOUNTER FOR OTHER SPECIFIED SURGICAL A 08/31/2016 LAY MURILLO MD, Ot Z98.1 ARTHRODESIS STATUS 08/31/2016 LAY MURILLO MD, Ot Z48.89 ENCOUNTER FOR OTHER SPECIFIED SURGICAL A 08/31/2016 LAY MURILLO MD, Ot Z98.1 ARTHRODESIS STATUS Procedures Code Description Performed By Performed On FOOT EXAM PERFORMED 11/05/2013 3008F BODY MASS INDEX DOCD 11/05/2013 54196 EYE EXAM PERFORMED 11/05/2013 14271 MEDICAL NUTRITION INDIV IN 11/05/2013 FOOT EXAM PERFORMED 04/02/2014 69459 A1C (IN-HOUSE) 76177 CMP 04/02/2014 88432 A1C (IN-HOUSE) [id number] EXCISION OF CERVICAL VERTEBRAL JOINT, OP 02/02/2016 [id number] EXCISION OF CERVICAL VERTEBRAL DISC, OPE 02/02/2016 [id number] FUSION 2-6 C JT W INTBD FUS DEV, ANT ANGELINE 02/02/2016 Results Test Result Range Methicillin resistant Staphylococcus aureus (MRSA) screening culture - 14:30 Methicillin resistant Staphylococcus aureus (MRSA) screening culture NEG NRG Complete blood count (CBC) with automated white blood cell (WBC) differential - 01/19/16 14:35 Blood leukocytes automated count (number/volume) 7.2 10*3/ uL 4.3-11.0 Blood erythrocytes automated count (number/volume) 4.32 10*6 /uL 4.35-5.85 Venous blood hemoglobin measurement (mass/volume) 13.3 g/dL 11.5-16.0 Blood hematocrit (volume fraction) 39 % 35-52 Automated erythrocyte mean corpuscular volume 89 [foz_us] 80-99 Automated erythrocyte mean corpuscular hemoglobin (mass per erythrocyte) 31 pg 25-34 Automated erythrocyte mean corpuscular hemoglobin concentration measurement ( mass/volume) 35 g/dL 32-36 Automated erythrocyte distribution width ratio 12.9 % 10.0-14.5 Automated blood platelet count (count/volume) 282 10*3/uL 130-400 Automated blood platelet mean volume measurement 10.5 [foz_ us] 7.4-10.4 Automated blood neutrophils/100 leukocytes 69 % 42-75 Automated blood lymphocytes/100 leukocytes 22 % 12-44 Blood monocytes/100 leukocytes 7 % 0-12 Automated blood eosinophils/100 leukocytes 2 % 0-10 Automated blood basophils/100 leukocytes 0 % 0-10 Blood neutrophils automated count (number/volume) 5.0 10*3 1.8-7.8 Blood lymphocytes automated count (number/volume) 1.6 10*3 1.0-4.0 Blood monocytes automated count (number/volume) 0.5 10*3 0.0-1.0 Automated eosinophil count 0.1 10*3/uL 0.0-0.3 Automated blood basophil count (count/volume) 0.0 10*3/uL 0.0-0.1 Blood type T Indirect antibody screen panel - 01/19/16 14:35 ABO+Rh group OP NRG Blood group antibody screen NEGATIVE NRG Capillary blood glucose measurement by glucometer (mass/volume) - 02/02/16 06: 15 Capillary blood glucose measurement by glucometer (mass/volume) 208 mg/dL 70-110 Blood type T Indirect antibody screen panel - 02/02/16 06:16 ABO+Rh group OP NRG Transfusion band number [id number] NRG Blood group antibody screen NEGATIVE NRG Capillary blood glucose measurement by glucometer (mass/volume) - 02/02/16 10: 55 Capillary blood glucose measurement by glucometer (mass/volume) 260 mg/dL 70-110 Capillary blood glucose measurement by glucometer (mass/volume) - 02/02/16 16: 08 Capillary blood glucose measurement by glucometer (mass/volume) 225 mg/dL 70-110 Capillary blood glucose measurement by glucometer (mass/volume) - 02/02/16 20: 56 Capillary blood glucose measurement by glucometer (mass/volume) 234 mg/dL 70-110 Capillary blood glucose measurement by glucometer (mass/volume) - 02/03/16 05: 15 Capillary blood glucose measurement by glucometer (mass/volume) 144 mg/dL 70-110 Capillary blood glucose measurement by glucometer (mass/volume) - 02/03/16 10: 51 Capillary blood glucose measurement by glucometer (mass/volume) 350 mg/dL 70-110 Capillary blood glucose measurement by glucometer (mass/volume) - 02/03/16 15: 59 Capillary blood glucose measurement by glucometer (mass/volume) 279 mg/dL 70-110 Capillary blood glucose measurement by glucometer (mass/volume) - 02/03/16 20: 50 Capillary blood glucose measurement by glucometer (mass/volume) 238 mg/dL 70-110 Capillary blood glucose measurement by glucometer (mass/volume) - 02/04/16 05: 12 Capillary blood glucose measurement by glucometer (mass/volume) 203 mg/dL 70-110 Capillary blood glucose measurement by glucometer (mass/volume) - 02/04/16 08: 32 Capillary blood glucose measurement by glucometer (mass/volume) 215 mg/dL 70-110 Capillary blood glucose measurement by glucometer (mass/volume) - 02/04/16 11: 19 Capillary blood glucose measurement by glucometer (mass/volume) 247 mg/dL 70-110 Complete blood count (CBC) with automated white blood cell (WBC) differential - 04/13/16 09:25 Blood leukocytes automated count (number/volume) 11.7 10*3/ uL 4.3-11.0 Blood erythrocytes automated count (number/volume) 4.38 10*6 /uL 4.35-5.85 Venous blood hemoglobin measurement (mass/volume) 13.3 g/dL 11.5-16.0 Blood hematocrit (volume fraction) 39 % 35-52 Automated erythrocyte mean corpuscular volume 89 [foz_us] 80-99 Automated erythrocyte mean corpuscular hemoglobin (mass per erythrocyte) 30 pg 25-34 Automated erythrocyte mean corpuscular hemoglobin concentration measurement ( mass/volume) 34 g/dL 32-36 Automated erythrocyte distribution width ratio 13.1 % 10.0-14.5 Automated blood platelet count (count/volume) 310 10*3/uL 130-400 Automated blood platelet mean volume measurement 10.7 [foz_ us] 7.4-10.4 Automated blood neutrophils/100 leukocytes 82 % 42-75 Automated blood lymphocytes/100 leukocytes 8 % 12-44 Blood monocytes/100 leukocytes 8 % 0-12 Automated blood eosinophils/100 leukocytes 1 % 0-10 Automated blood basophils/100 leukocytes 0 % 0-10 Blood neutrophils automated count (number/volume) 9.7 10*3 1.8-7.8 Blood lymphocytes automated count (number/volume) 1.0 10*3 1.0-4.0 Blood monocytes automated count (number/volume) 1.0 10*3 0.0-1.0 Automated eosinophil count 0.1 10*3/uL 0.0-0.3 Automated blood basophil count (count/volume) 0.0 10*3/uL 0.0-0.1 Comprehensive metabolic panel - 04/13/16 09:25 Serum or plasma sodium measurement (moles/volume) 138 mmol/ L 135-145 Serum or plasma potassium measurement (moles/volume) 4.1 mmol/L 3.6-5.0 Serum or plasma chloride measurement (moles/volume) 106 mmol /L 98-107 Carbon dioxide 22 mmol/L 21-32 Serum or plasma anion gap determination (moles/volume) 10 mmol/L 5-14 Serum or plasma urea nitrogen measurement (mass/volume) 10 mg/dL 7-18 Serum or plasma creatinine measurement (mass/volume) 0.69 mg /dL 0.60-1.30 Serum or plasma urea nitrogen/creatinine mass ratio 14 NRG Serum or plasma creatinine measurement with calculation of estimated glomerular filtration rate > NRG Serum or plasma glucose measurement (mass/volume) 304 mg/dL 70-105 Serum or plasma calcium measurement (mass/volume) 8.9 mg/dL 8.5-10.1 Serum or plasma total bilirubin measurement (mass/volume) 0.6 mg/dL 0.1-1.0 Serum or plasma alkaline phosphatase measurement (enzymatic activity/volume) 100 U/L 40-136 Serum or plasma aspartate aminotransferase measurement (enzymatic activity/ volume) 14 U/L 5-34 Serum or plasma alanine aminotransferase measurement (enzymatic activity/volume ) 19 U/L 0-55 Serum or plasma protein measurement (mass/volume) 6.4 g/dL 6.4-8.2 Serum or plasma albumin measurement (mass/volume) 3.9 g/dL 3.2-4.5 Serum or plasma C reactive protein measurement (mass/volume) - 04/13/16 09:25 Serum or plasma C reactive protein measurement (mass/volume) 0.63 mg/dL 0.00-0.50 Complete urinalysis with reflex to culture - 04/13/16 09:30 Urine color determination YELLOW NRG Urine clarity determination SLIGHTLY CLOUDY NRG Urine pH measurement by test strip 5 5- 9 Specific gravity of urine by test strip 1.020 1.016-1.022 Urine protein assay by test strip, semi-quantitative 3+ NEGATIVE Urine glucose detection by automated test strip 4+ NEGATIVE Erythrocytes detection in urine sediment by light microscopy 4+ NEGATIVE Urine ketones detection by automated test strip 1+ NEGATIVE Urine nitrite detection by test strip NEGATIVE NEGATIVE Urine total bilirubin detection by test strip NEGATIVE NEGATIVE Urine urobilinogen measurement by automated test strip (mass/volume) NORMAL NORMAL Urine leukocyte esterase detection by dipstick 3+ NEGATIVE Automated urine sediment erythrocyte count by microscopy (number/high power field) [HPF] NRG Automated urine sediment leukocyte count by microscopy (number/high power field ) TNTC NRG Bacteria detection in urine sediment by light microscopy NEGATIVE NRG Squamous epithelial cells detection in urine sediment by light microscopy NONE NRG Crystals detection in urine sediment by light microscopy NONE NRG Casts detection in urine sediment by light microscopy NONE NRG Mucus detection in urine sediment by light microscopy NEGATIVE NRG Complete urinalysis with reflex to culture YES NRG Bacterial urine culture - 04/13/16 09:30 Bacterial urine culture [id number] NRG COLONY COUNT 10,000/ML - 100,000/ML NRG FTX;REPORTABLE SENSITIVITY REPORTED AT 0942, 04-15-16 NRG Bacterial susceptibility panel - 04/13/16 09:30 Gentamicin susceptibility test by minimum inhibitory concentration <= NRG Trimethoprim/sulfamethoxazole susceptibility test by minimum inhibitoryconcentration <= NRG Ampicillin susceptibility test by minimum inhibitory concentration >= NRG Tobramycin susceptibility test by minimum inhibitory concentration <= NRG Cefazolin susceptibility test by minimum inhibitory concentration <= NRG Ceftriaxone susceptibility test by minimum inhibitory concentration <= NRG Ampicillin/sulbactam susceptibility test by minimum inhibitory concentration 4 NRG Piperacillin/tazobactam susceptibility test by minimum inhibitory concentration <= NRG Ciprofloxacin susceptibility test by minimum inhibitory concentration <= NRG Meropenem susceptibility test by minimum inhibitory concentration <= NRG Nitrofurantoin susceptibility test by minimum inhibitory concentration 64 NRG Aztreonam susceptibility test by minimum inhibitory concentration <= NRG Extended spectrum beta lactamase (ESBL) producing bacteria susceptibility test by minimum inhibitory concentration - NRG Methicillin resistant Staphylococcus aureus (MRSA) screening culture - 10:00 Methicillin resistant Staphylococcus aureus (MRSA) screening culture NEG NRG Capillary blood glucose measurement by glucometer (mass/volume) - 04/26/16 07: 41 Capillary blood glucose measurement by glucometer (mass/volume) 248 mg/dL 70-110 Capillary blood glucose measurement by glucometer (mass/volume) - 04/26/16 10: 12 Capillary blood glucose measurement by glucometer (mass/volume) 278 mg/dL 70-110 Capillary blood glucose measurement by glucometer (mass/volume) - 04/26/16 15: 34 Capillary blood glucose measurement by glucometer (mass/volume) 295 mg/dL 70-110 Capillary blood glucose measurement by glucometer (mass/volume) - 04/26/16 21: 04 Capillary blood glucose measurement by glucometer (mass/volume) 284 mg/dL 70-110 Capillary blood glucose measurement by glucometer (mass/volume) - 04/27/16 05: 07 Capillary blood glucose measurement by glucometer (mass/volume) 153 mg/dL 70-110 Capillary blood glucose measurement by glucometer (mass/volume) - 04/27/16 10: 59 Capillary blood glucose measurement by glucometer (mass/volume) 256 mg/dL 70-110 [id number] - 06/30/16 08:09 Serum or plasma urea nitrogen measurement (mass/volume) 13 mg/dL 7-18 Serum or plasma creatinine measurement (mass/volume) 0.75 mg /dL 0.60-1.30 Serum or plasma urea nitrogen/creatinine mass ratio 17 NRG Serum or plasma creatinine measurement with calculation of estimated glomerular filtration rate > NRG Complete blood count (CBC) with automated white blood cell (WBC) differential - 09/08/16 17:05 Blood leukocytes automated count (number/volume) 13.2 10*3/ uL 4.3-11.0 Blood erythrocytes automated count (number/volume) 4.62 10*6 /uL 4.35-5.85 Venous blood hemoglobin measurement (mass/volume) 13.9 g/dL 11.5-16.0 Blood hematocrit (volume fraction) 40 % 35-52 Automated erythrocyte mean corpuscular volume 87 [foz_us] 80-99 Automated erythrocyte mean corpuscular hemoglobin (mass per erythrocyte) 30 pg 25-34 Automated erythrocyte mean corpuscular hemoglobin concentration measurement ( mass/volume) 35 g/dL 32-36 Automated erythrocyte distribution width ratio 13.3 % 10.0-14.5 Automated blood platelet count (count/volume) 272 10*3/uL 130-400 Automated blood platelet mean volume measurement 10.4 [foz_ us] 7.4-10.4 Automated blood neutrophils/100 leukocytes 76 % 42-75 Automated blood lymphocytes/100 leukocytes 15 % 12-44 Blood monocytes/100 leukocytes 9 % 0-12 Automated blood eosinophils/100 leukocytes 1 % 0-10 Automated blood basophils/100 leukocytes 0 % 0-10 Blood neutrophils automated count (number/volume) 10.0 10*3 1.8-7.8 Blood lymphocytes automated count (number/volume) 2.0 10*3 1.0-4.0 Blood monocytes automated count (number/volume) 1.2 10*3 0.0-1.0 Automated eosinophil count 0.1 10*3/uL 0.0-0.3 Automated blood basophil count (count/volume) 0.0 10*3/uL 0.0-0.1 Erythrocyte sedimentation rate by westergren method - 09/08/16 17:05 Erythrocyte sedimentation rate by westergren method 4 mm 0-30 Comprehensive metabolic panel - 09/08/16 17:05 Serum or plasma sodium measurement (moles/volume) 136 mmol/ L 135-145 Serum or plasma potassium measurement (moles/volume) 4.4 mmol/L 3.6-5.0 Serum or plasma chloride measurement (moles/volume) 100 mmol /L 98-107 Carbon dioxide 20 mmol/L 21-32 Serum or plasma anion gap determination (moles/volume) 16 mmol/L 5-14 Serum or plasma urea nitrogen measurement (mass/volume) 10 mg/dL 7-18 Serum or plasma creatinine measurement (mass/volume) 0.76 mg /dL 0.60-1.30 Serum or plasma urea nitrogen/creatinine mass ratio 13 NRG Serum or plasma creatinine measurement with calculation of estimated glomerular filtration rate > NRG Serum or plasma glucose measurement (mass/volume) 240 mg/dL 70-105 Serum or plasma calcium measurement (mass/volume) 9.3 mg/dL 8.5-10.1 Serum or plasma total bilirubin measurement (mass/volume) 0.7 mg/dL 0.1-1.0 Serum or plasma alkaline phosphatase measurement (enzymatic activity/volume) 87 U/L 40-136 Serum or plasma aspartate aminotransferase measurement (enzymatic activity/ volume) 25 U/L 5-34 Serum or plasma alanine aminotransferase measurement (enzymatic activity/volume ) 19 U/L 0-55 Serum or plasma protein measurement (mass/volume) 7.0 g/dL 6.4-8.2 Serum or plasma albumin measurement (mass/volume) 4.0 g/dL 3.2-4.5 Complete urinalysis with reflex to culture - 09/08/16 17:11 Urine color determination YELLOW NRG Urine clarity determination SLIGHTLY CLOUDY NRG Urine pH measurement by test strip 5 5- 9 Specific gravity of urine by test strip 1.020 1.016-1.022 Urine protein assay by test strip, semi-quantitative 2+ NEGATIVE Urine glucose detection by automated test strip 3+ NEGATIVE Erythrocytes detection in urine sediment by light microscopy 5+ NEGATIVE Urine ketones detection by automated test strip 1+ NEGATIVE Urine nitrite detection by test strip POSITIVE NEGATIVE Urine total bilirubin detection by test strip NEGATIVE NEGATIVE Urine urobilinogen measurement by automated test strip (mass/volume) NORMAL NORMAL Urine leukocyte esterase detection by dipstick 3+ NEGATIVE Automated urine sediment erythrocyte count by microscopy (number/high power field) [HPF] NRG Automated urine sediment leukocyte count by microscopy (number/high power field ) [HPF] NRG Bacteria detection in urine sediment by light microscopy LARGE NRG Squamous epithelial cells detection in urine sediment by light microscopy 10-25 NRG Crystals detection in urine sediment by light microscopy NONE NRG Casts detection in urine sediment by light microscopy NONE NRG Mucus detection in urine sediment by light microscopy NEGATIVE NRG Complete urinalysis with reflex to culture YES NRG Bacterial urine culture - 09/08/16 17:11 Bacterial urine culture FOOTNOTE NRG Encounters ACCT No. Visit Date/Time Discharge Status Pt. Type Provider Facility Loc./Unit Complaint [id number] 08/02/2014 15:41:00 08/02/2014 23: 59:59 [facility] Outpatient JENN SPRINGER DO [id number] 07/04/2014 00:00:00 07/04/2014 23: 59:59 [facility] Outpatient LUDIVINA SNOW MASOOD [id number] 04/02/2014 11:25:00 04/02/2014 23: 59:59 [facility] Outpatient JENN SPRINGER DO [id number] 12/14/2013 09:56:00 12/14/2013 23: 59:59 [facility] Outpatient JENN SPRINGER DO [id number] 11/05/2013 12:39:00 11/05/2013 23: 59:59 [facility] Outpatient JENN SPRINGER DO
--- OUTSIDE RECORDS SUMMARY | 2016-09-12 05:13 | XMS REPORT ---
Author Author JULI GARRIDO [facility] [place] eClinicalWorks Address Unknown Phone Unavailable Care Team Providers Care Peanut Separator Name Role Phone JULI GARRIDO Unavailable Allergies [...]
--- OUTSIDE RECORDS SUMMARY | 2016-09-12 05:13 | XMS REPORT ---
Author Author SUZE KIM Organization [employer] Address Unknown Phone Unavailable Care Team Providers Care Apartment Hotel Manager Name Role Phone SUZE KIM CP Unavailable Allergies No Known Allergies [...] Instructions Start Date End Date Status Dosage Cholecalciferol [facility] 41928-[address] 5000 UNIT Orally Once a day- start once 10380 unit rx is completed. Apr 27, 2016 1 tablet Cholecalciferol [facility] 59[address] 93628 UNIT Orally one time per week for 12 weeks Apr 27, 2016 1 tablet Results No Known Results Summary Purpose eClinicalWorks Submission
--- OUTSIDE RECORDS SUMMARY | 2016-09-12 05:13 | XMS REPORT ---
Author Author SUZE KIM Organization [employer] Address Unknown Phone Unavailable Care Team Providers Care Site Project Manager Name Role Phone SUZE KIM CP Unavailable Allergies No Known Allergies Problems Problem Type Condition Code Onset Dates Condition Status Problem Presbyopia 367.4 Active Problem Hypermetropia 367.0 Active Problem Diabetes with ophthalmic manifestations, type II or unspecified type, not stated as uncontrolled 250.50 Active Problem Urinary tract infection N39.0 Active Problem Diarrhea 787.91 Active Problem Diabetes mellitus without complication E11.9 Active Problem Neuropathy 355.9 Active Problem Unspecified cataract 366.9 Active Problem Hypercholesterolemia 272.0 Active Problem Depression 311 Active Problem Personal history of noncompliance with medical treatment, presenting hazards to health V15.81 Active Problem Diabetes with neurological manifestations, type II or unspecified type , not stated as uncontrolled 250.60 Active Problem Diabetes mellitus without mention of complication, type II or unspecified type, uncontrolled 250.02 Active Problem Dietary surveillance and counseling V65.3 Active Problem Essential hypertension, benign 401.1 Active Problem Other mucopurulent conjunctivitis 372.03 Active Problem Other chronic pain 338.29 Active Problem Unspecified astigmatism 367.20 Active Medications Medication Code System Code Instructions Start Date End Date Status Dosage Lisinopril [facility] 48076294708 20 MG Orally Once a day 1 tablet Levemir FlexTouch [facility] [address]-51 100 UNIT/ML Subcutaneous 2 times a day May 02, 2015 25 units Lovastatin [facility] 31653219557 20 MG Orally Once a day 1 tablet with a meal Results No Known Results Summary Purpose eClinicalWorks Submission
--- OUTSIDE RECORDS SUMMARY | 2016-09-12 05:13 | XMS REPORT ---
Author Author JULI GARRIDO [facility] eClinicalWorks Address Unknown Phone Unavailable Care Team Providers Care Supervisor Tubing Name Role Phone JULI GARRIDO CP Unavailable Allergies, Adverse Reactions, Alerts [...] 355.9 Active Problem Unspecified cataract 366.9 Active Assessment Diabetes mellitus without mention of complication, type II or unspecified type, uncontrolled 250.02 Active Assessment Diarrhea 787.91 Active Problem Essential hypertension, benign 401.1 Active [...] Date End Date Status Dosage Effexor XR [facility] [address]-72 150 MG Orally Once a day November 05, 2013 1 capsule with food Levemir FlexTouch [facility] [address]-75 100 UNIT/ML Subcutaneous 2 times a day 30 units Aspirin [facility] [address]-28 81 mg November 05, 2013 1 tablet by Oral route 1 time per day Lancets [facility] 0 - November 05, 2013 1 time per day Neurontin [facility] [address]-30 300 MG Orally Three times a day Aug 02, 2014 1 capsule by Oral route 3 times per day PRN for pain Bentyl [facility] [address]-57 10 MG Orally Four times a day Mar 21, 2015Apr 1 capsule Lisinopril [facility] [address]-73 20 MG Orally Once a day 1 tablet Calcium 500 + D [facility] [address] 500 mg(1,250mg) -200 unit November 05, 2013 1 Tablet 1 time per day metformin [place] 0 500 mg Apr 02, 2014 take 2 tablet by Oral route 2 times per day with the evening meal Lovastatin [facility] [address]-50 20 MG Orally Once a day 1 tablet with a meal Cipro [facility] [address]-13 500 MG Orally Twice a day Mar 21, 2015 Mar 31, 2015 1 tablet Probiotic [facility] [address]1292-[address]175 1 tablet Orally 2 times a day Mar 03, 2015 Jun 01, 2015 as directed Procedures Procedure Coding System Code Date Office Visit, Donn Pt., Level 4 CPT-4 43658 Mar 21, 2015 Vital Signs Date/Time: Mar 21, 2015 Temperature 96.6 F Weight 206.4 lbs Height 69 in BMI 30.48 Index Blood Pressure Diastolic 80 mmHg Blood Pressure Systolic 150 mmHg Cardiac Monitoring Heart Rate 88 bpm Results No Known Results Summary Purpose eClinicalWorks Submission
--- OUTSIDE RECORDS SUMMARY | 2016-09-12 05:14 | XMS REPORT ---
Author Author SUZE KIM Organization [employer] Address Unknown Phone Unavailable Care Team Providers Care Cardiac Tech Name Role Phone SUZE KIM CP Unavailable [...] , not stated as uncontrolled 250.60 Active Assessment Diabetes mellitus type 2, uncomplicated E11.9 Active Problem Diabetes mellitus without mention of complication, type II or unspecified type, uncontrolled 250.02 Active Problem Dietary surveillance and counseling V65.3 Active Problem Essential hypertension, benign 401.1 Active Problem Other mucopurulent conjunctivitis 372.03 Active Problem Other chronic pain 338.29 Active Problem Unspecified astigmatism 367.20 Active Medications Medication Code System Code Instructions Start Date End Date Status Dosage BD Ultra-Fine Pen [place] [facility] 8290-274360 32G x 4mm 2 times a day Jul 16, 2015 as directed Results No Known Results Summary Purpose eClinicalWorks Submission
--- OUTSIDE RECORDS SUMMARY | 2016-09-12 05:14 | XMS REPORT ---
Author Author SUZE KIM Organization e[employer] Address Unknown Phone Unavailable Care Team Providers Care Office Technology Instructor Name Role Phone SUZE KIM CP Unavailable [...] Instructions Start Date End Date Status Dosage MetFORMIN HCl ER [facility] [address]-72 500 MG Orally Once a day May 02, 2015 1 tablet with evening meal Results No Known Results Summary Purpose eClinicalWorks Submission
--- OUTSIDE RECORDS SUMMARY | 2016-09-12 05:14 | XMS REPORT ---
Author Author JENSEN REESE Organization e[employer] Address Unknown Phone Unavailable Care Team Providers Care Poising Inspector Name Role Phone JENSEN REESE Unavailable Allergies No Known Allergies Problems Problem Type Condition ICD-9 Code Onset Dates Condition Status Problem Essential hypertension, benign 401.1 Active Problem Diabetes mellitus without mention of complication, type II or unspecified type, uncontrolled 250.02 Active Problem Other chronic pain 338.29 Active Problem Hypermetropia 367.0 Active Problem Diabetes with ophthalmic manifestations, type II or unspecified type, not stated as uncontrolled 250.50 Active Problem Unspecified cataract 366.9 Active Problem Other mucopurulent conjunctivitis 372.03 Active Problem Dietary surveillance and counseling V65.3 Active Problem Presbyopia 367.4 Active Problem Unspecified astigmatism 367.20 Active Assessment Dental examination V72.2 Active Problem Personal history of noncompliance with medical treatment, presenting hazards to health V15.81 Active Problem Diabetes with neurological manifestations, type II or unspecified type , not stated as uncontrolled 250.60 Active Medications No Known Medications Procedures Procedure Coding System Code Date Billing Notes on claim CPT-4 EC109 December 04, 2014 Results No Known Results Summary Purpose eClinicalWorks Submission
--- OUTSIDE RECORDS SUMMARY | 2016-09-12 05:14 | XMS REPORT ---
Author Author JULI GARRIDO [facility] eClinicalWorks Address Unknown Phone Unavailable Care Team Providers Care Glass Mold Repairer Name Role Phone JULI GARRIDO CP Unavailable Allergies, Adverse Reactions, Alerts Substance Reaction Event Type N.K.D.A. Info Not Available Non Drug Allergy Problems Problem Type Condition ICD-9 Code Onset Dates Condition Status Problem Other mucopurulent conjunctivitis 372.03 Active Problem Presbyopia 367.4 Active Problem Unspecified astigmatism 367.20 Active Problem Hypercholesterolemia 272.0 Active Assessment Essential hypertension 401.9 Active Problem Depression 311 Active Problem Diarrhea 787.91 Active Problem Hypermetropia 367.0 Active Problem Diabetes with ophthalmic manifestations, type II or unspecified type, not stated as uncontrolled 250.50 Active Problem Neuropathy 355.9 Active Problem Unspecified cataract 366.9 Active Assessment Diabetes mellitus without mention of complication, type II or unspecified type, uncontrolled 250.02 Active Assessment Diarrhea 787.91 Active Assessment Depression 311 Active Assessment Other chronic pain 338.29 Active Problem Essential hypertension, benign 401.1 Active [...] Instructions Start Date End Date Status Dosage Aspirin [facility] [address]-57 81 mg November 05, 2013 1 tablet by Oral route 1 time per day Lovastatin [facility] [address]-66 20 MG Orally Once a day 1 tablet with a meal metformin [facility] 0 500 mg Apr 02, 2014 take 2 tablet by Oral route 2 times per day with the evening meal Lancets [facility] 0 - November 05, 2013 1 time per day Levemir FlexTouch [facility] [address]-15 100 UNIT/ML Subcutaneous 2 times a day 30 units Lisinopril [facility] [address]-20 20 MG Orally Once a day 1 tablet Probiotic [facility] [address]76 1 tablet Orally 2 times a day Mar 03, 2015 Jun 01, 2015 as directed Calcium 500 + D [facility] [address]24 500 mg(1,250mg) -200 unit November 05, 2013 1 Tablet 1 time per day Neurontin [facility] [address]-42 300 MG Orally Three times a day Aug 02, 2014 1 capsule by Oral route 3 times per day PRN for pain Effexor XR [facility] [address]-51 150 MG Orally Once a day November 05, 2013 1 capsule with food Procedures Procedure Coding System Code Date COMPREHEN METABOLIC PANEL CPT-4 31338 Mar 03, 2015 Office Visit, Est Pt., Level 4 CPT-4 79625 Mar 03, 2015 COMPLETE CBC W/AUTO DIFF WBC CPT-4 48093 Mar 03, 2015 VENIPUNCT, ROUTINE* CPT-4 52936 Mar 03, 2015 Vital Signs Date/Time: Mar 03, 2015 Temperature 96.8 F Weight 206.0 lbs Height 69 in BMI 30.42 Index Blood Pressure Diastolic 70 mmHg Blood Pressure Systolic 140 mmHg Cardiac Monitoring Heart Rate 92 bpm Results Name Result Date Reference Range Unit Abnormality Flag ROUTINE VENIPUNCTURE Summary Purpose eClinicalWorks Submission
--- OUTSIDE RECORDS SUMMARY | 2016-09-12 05:14 | XMS REPORT ---
Author Author SUZE KIM Organization eClinicalWorks Address Unknown Phone Unavailable Care Team Providers Care Adjunct Philosophy Faculty Name Role Phone SUZE KIM CP Unavailable Allergies, Adverse Reactions, Alerts Substance Reaction Event Type N.K.D.A. Info Not Available Non Drug Allergy Problems Problem Type Condition Code Onset Dates Condition Status Problem Peripheral neuropathy G62.9 Active Problem Chronic pain G89.29 Active Problem Anxiety associated with depression F41.8 Active Problem Type 2 diabetes mellitus with hyperglycemia E11.65 Active Assessment OM (onychomycosis) B35.1 Active Problem Pain in right hip M25.551 Active Problem Onycholysis L60.1 Active Problem Hypertension I10 Active Problem Hypertriglyceridemia E78.1 Active Problem Pain in left hip M25.552 Active Problem History of spinal stenosis Z87.39 Active Assessment Onycholysis L60.1 Active Assessment Hypertriglyceridemia E78.1 Active Assessment Anxiety associated with depression F41.8 Active Assessment Chronic pain G89.29 Active Problem Degenerative disc disease, 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 Problem Degenerative disc disease, lumbar M51.36 Active Assessment Hypertension I10 Active Problem Degenerative disc disease, cervical M50.30 Active Assessment Type 2 diabetes mellitus with hyperglycemia E11.65 Active Problem Radiculopathy due to disorder of intervertebral disc of lumbar spine M51.16 Active Medications Medication Code System Code Instructions Start Date End Date Status Dosage Levemir FlexTouch [facility] 51017313967 100 UNIT/ML Subcutaneous 2 times a day INJECT 25 UNITS SUBCUTANEOUSLY TWICE DAILY Lancets [facility] 0 - November 05, 2013 1 time per day Aspirin [facility] [address]-48 81 mg Orally Once a day November 05, 2013 1 tablet by Oral route 1 time per day BD Ultra-Fine Pen [place] [facility] 8290-706357 32G x 4mm 2 times a day Jul 16, 2015 as directed Lisinopril [facility] [address]-48 20 mg Orally Once a day 1 tablet Terbinafine HCl [facility] [address]-18 250 MG Orally MUST HAVE LABWORK FOR REFILL Once a day September 23, 2015 1 tablet MetFORMIN HCl ER (OSM) [facility] 33622017076 1000 MG Orally Once a day 1 tablet Calcium 500 + D [facility] [address]-11429 500 mg(1,250mg) -200 unit November 05, 2013 1 Tablet 1 time per day Tradjenta [facility] [address]-91 5 mg Orally Once a day January 13, 2016 1 tablet Effexor XR [facility] [address]-15 150 MG Orally Once a day 1 capsule with food Lovastatin [facility] [address]-98 20 mg Orally Once a day 1 tablet with a meal Effexor XR [facility] 93619702049 150 MG TAKE ONE CAPSULE BY MOUTH ONCE DAILY WITH FOOD Procedures Procedure Coding System Code Date [facility] VISIT ESTABLISHED PATIENT CPT-4 G0467 January 13, 2016 Office Visit, Est Pt., Level 3 CPT-4 91935 January 13, 2016 GLYCATED HEMOGLOBIN TEST CPT-4 39528 January 13, 2016 VENIPUNCT, ROUTINE* CPT-4 06942 January 13, 2016 LAB [facility]ILL[facility] C[facility]-4 NOBLL January 13, 2016 Vital Signs Date/Time: January 13, 2016 Cardiac Monitoring Heart Rate 86 bpm Weight 209.0 lbs Height 69 in BMI 30.86 Index Blood Pressure Diastolic 78 mmHg Blood Pressure Systolic 130 mmHg Results No Known Results Summary Purpose eClinicalWorks Submission
--- OUTSIDE RECORDS SUMMARY | 2016-09-12 05:14 | XMS REPORT ---
Author Author SUZE KIM Organization e[employer] Address Unknown Phone Unavailable Care Team Providers Care Pharmacovigilance Safety Expert Name Role Phone SUZE KIM CP Unavailable [...]
--- OUTSIDE RECORDS SUMMARY | 2016-09-12 05:14 | XMS REPORT ---
Author Author SUZE KIM Organization e[employer] Address Unknown Phone Unavailable Care Team Providers Care Identification And Records Commander Name Role Phone SUZE KIM CP Unavailable [...] as uncontrolled 250.60 Active Assessment Diabetes mellitus without complication E11.9 Active Problem Diabetes mellitus without mention of complication, type II or unspecified type, uncontrolled 250.02 Active Problem Dietary surveillance and counseling V65.3 Active Problem Essential hypertension, benign 401.1 Active Problem Other mucopurulent conjunctivitis 372.03 Active Problem Other chronic pain 338.29 Active Problem Unspecified astigmatism 367.20 Active Medications No Known Medications Procedures Procedure Coding System Code Date LIPID PANEL CPT-4 16385 May 22, 2015 COMPREHEN METABOLIC PANEL CPT-4 60160 May 22, 2015 COMPLETE CBC W/AUTO DIFF WBC CPT-4 96083 May 22, 2015 VENIPUNCT, ROUTINE* CPT-4 15492 May 22, 2015 Results No Known Results Summary Purpose eClinicalWorks Submission
--- OUTSIDE RECORDS SUMMARY | 2016-09-12 05:15 | XMS REPORT ---
Author Author SUZE KIM Organization [employer] Address Unknown Phone Unavailable Care Team Providers Care Sanitation Truck Cleaner Name Role Phone SUZE KIM CP Unavailable [...] not stated as uncontrolled 250.60 Active Assessment Hospital discharge follow-up Z09 Active Assessment Diabetes mellitus without complication E11.9 [...] Date End Date Status Dosage Effexor XR [facility] [id number] 150 MG Orally Once a day 1 capsule with food Lancets [facility] 0 - November 05, 2013 1 time per day Aspirin [facility] [address]-72 81 mg November 05, 2013 1 tablet by Oral route 1 time per day Calcium 500 + D [facility] 25224-59784 500 mg(1,250mg) -200 unit November 05, 2013 1 Tablet 1 time per day Lovastatin [facility] [id number] 20 MG Orally Once a day 1 tablet with a meal Lisinopril [facility] [id number] 20 MG Orally Once a day 1 tablet MetFORMIN HCl ER [facility] [address]-46 500 MG Orally Once a day May 02, 2015 1 tablet with evening meal Levemir FlexTouch [facility] [address]-22 100 UNIT/ML Subcutaneous May 02, 2015 not defined Procedures Procedure Coding System Code Date Office Visit, Est Pt., Level 3 CPT-4 25471 May 20, 2015 GLYCATED HEMOGLOBIN TEST CPT-4 79630 May 20, 2015 Vital Signs Date/Time: May 20, 2015 Temperature 97.6 F Weight 195.5 lbs Height 69 in BMI 28.87 Index Blood Pressure Diastolic 66 mmHg Blood Pressure Systolic 124 mmHg Cardiac Monitoring Heart Rate 84 bpm Results Name Result Date Reference Range Unit Abnormality Flag A1C (IN HOUSE) ----A1C IN HOUSE 8.3 20150520 4.30 - 5.6 % ----Previous A1c 9.1 20150520 ----Lot # [id number] ----Exp date [id number] Summary Purpose [employer] Submission
--- OUTSIDE RECORDS SUMMARY | 2016-09-12 05:15 | XMS REPORT ---
Author Author SUZE KIM Organization [employer] Address Unknown Phone Unavailable Care Team Providers Care Biophysics Scientist Name Role Phone SUZE KIM CP Unavailable [...] End Date Status Dosage MetFORMIN HCl ER ([facility] [address]-12 1000 MG Orally Once a day Jun 05, 2015 1 tablet Results No Known Results Summary Purpose [employer] Submission
== END 2016-09-08 18:49 | disposition home or self-care (01) ==
LOC: EDUNIT# 16:49 → ER 16:50
DX: N30.91 Cystitis, unspecified with hematuria (principal); E11.9 Type 2 diabetes mellitus without complications; Z79.84 Long term (current) use of oral hypoglycemic drugs; Z79.899 Other long term (current) drug therapy
CPT/HCPCS: 36415; 70450; 80053; 81000; 85025; 85652; 87088; 96374; 96375

== ENCOUNTER 2016-09-13 13:11 | Emergency (ER) | payer MEDICARE, OTHER ==
[~2016-09-13] VITALS: Ht 175.3 cm; Wt 88.5 kg
[~2016-09-13 13:11] MED LIST changes: +SULF1TAB35 PO
[2016-09-13] MEDS ORDERED: NS IV 1000 ML 1,000 ML IV ONE (14:09)
[2016-09-13 14:15] LABS: BASOPHILS % (AUTO) 0 % (0-10); EOSINOPHILS # (AUTO) 0.1 10^3/uL (0.0-0.3); EOSINOPHILS % (AUTO) 1 % (0-10); LYMPHOCYTES # (AUTO) 0.4 X 10^3 (1.0-4.0); LYMPHOCYTES % (AUTO) 3 % (12-44); MEAN CORPUSCULAR HEMOGLOBIN 30 PG (25-34); MEAN CORPUSCULAR HGB CONC 34 G/DL (32-36); MEAN CORPUSCULAR VOLUME 87 FL (80-99); MEAN PLATELET VOLUME 10.6 FL (7.4-10.4); MONOCYTES # (AUTO) 0.6 X 10^3 (0.0-1.0); MONOCYTES % (AUTO) 4 % (0-12); NEUTROPHILS # (AUTO) 14.6 X 10^3 (1.8-7.8); NEUTROPHILS % (AUTO) 93 % (42-75); PLATELET COUNT 279 10^3/uL (130-400); RED BLOOD COUNT 5.13 10^6/uL (4.35-5.85); RED CELL DISTRIBUTION WIDTH 13.6 % (10.0-14.5); WHITE BLOOD COUNT 15.8 10^3/uL (4.3-11.0)
[2016-09-13 14:28] LABS: ALANINE AMINOTRANSFERASE 20 U/L (0-55); ANION GAP 9 MMOL/L (5-14); ASPARTATE AMINO TRANSFERASE 24 U/L (5-34); BILIRUBIN,TOTAL 0.7 MG/DL (0.1-1.0); BLOOD UREA NITROGEN 14 MG/DL (7-18); BUN/CREATININE RATIO 17; CALCIUM 8.9 MG/DL (8.5-10.1); CARBON DIOXIDE 21 MMOL/L (21-32); CHLORIDE 106 MMOL/L (98-107); CREATININE SERUM 0.82 MG/DL (0.60-1.30); GFR ESTIMATED > 60; GLUCOSE 330 MG/DL (70-105); MAGNESIUM 1.6 MG/DL (1.8-2.4); SODIUM 136 MMOL/L (135-145)
[2016-09-13] MEDS ORDERED: KETOROLAC 30 MG/ML VIAL IVP STA (14:48)
[2016-09-13] MEDS ORDERED: FAMOTIDINE 20MG/2ML IV (PEPCID) IV STA (14:48)
--- NOTE | 2016-09-13 14:48 | ED Abdominal Pain ---
General Chief Complaint: Abdominal/GI Problems Stated Complaint: VOMITING/DIARRHEA Nursing Triage Note: PT CO OF DIARRHEA SEVERE TODAY, VOMITED X1. PT DIABETIC INSULIN DEP Sepsis Screen: No Definite Risk Source of Information: Patient Exam Limitations: No Limitations History of Present Illness Time Seen By Provider: 14:20 Initial Comments Here with report of onset of headache last night. She take ibuprofen and went to sleep. She woke up this morning with fever, chills, body aches and diarrhea. She's had 8-10 episodes of diarrhea today as well as one episode of vomiting. Overall feels achy. She is unable to take any of her medicines today. Denies blood in her vomit or stool. She was able to walk in okay and under her own power. Timing/Duration: 12-24 Hours Severity/Quality: Moderate, Cramping Location: Generalized Abdomen Radiation: No Radiation Activities at Onset: None Modifying Factors: Worsens With Eating, Improves With Resting Associated Symptoms: No Back Pain, No Chest Pain, Fever/Chills, Fatigue, Nausea /Vomiting, No Shortness of Air, Weakness Allergies and Home Medications Allergies Coded Allergies: No Known Drug Allergies (Unverified , 01/19/16) Home Medications Hydrocodone/Acetaminophen 1 Each Tablet, 1-2 TAB PO Q4H PRN for MODERATE TO SEVERE PAIN, #60 Ref 0 Prescribed by: ZAID MENG on 04/27/16 0507 Insulin Determir 1,000 Units/10 Ml Soln, 30 UNITS SQ BID, (Reported) USES NO MATTER WHAT BS IS Lisinopril 20 Mg Tablet, 20 MG PO DAILY, (Reported) Lovastatin 20 Mg Tablet, 20 MG PO DAILY, (Reported) Metformin HCl 1,000 Mg Tab.er.24, 1,000 MG PO DAILY, (Reported) Sulfamethoxazole/Trimethoprim 1 Each Tablet, 1 EACH PO BID for 7 Days Prescribed by: ADRIA DIALLO on 09/08/16 1740 Venlafaxine HCl 150 Mg Cap.er.24h, 150 MG PO DAILY, (Reported) Review of Systems Constitutional: see HPI, chills, fever EENTM: No Symptoms Reported Respiratory: No Symptoms Reported Cardiovascular: No Symptoms Reported Gastrointestinal: Abdominal Pain, Diarrhea, Nausea, Vomiting Genitourinary: No Symptoms Reported Musculoskeletal: see HPI, muscle pain, No muscle weakness Skin: no symptoms reported All Other Systems Reviewed Negative Unless Noted: Yes Past Drqzasz-Nzjubj-Oevtnx Hx Patient Social History Alcohol Use: Denies Use Recreational Drug Use: No Smoking Status: Never a Smoker Recent Foreign Travel: No Contact w/Someone Who Travel: No Recent Infectious Disease Expo: No Recent Hopitalizations: No Immunizations Up To Date Tetanus Booster (TDap): More than 5yrs PED Vaccines UTD: No Seasonal Allergies Seasonal Allergies: No Surgeries HX Surgeries: Yes (neck surg) Surgeries: Gallbladder, Hysterectomy Respiratory Hx Respiratory Disorders: No Cardiovascular Hx Cardiac Disorders: Yes Cardiac Disorders: Hypertension Neurological Hx Neurological Disorders: Yes (VERY LITTLE NEUROPATHY IN FEET) 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 System Hx 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 Disorders: No Sexually Transmitted Disease: No HIV/AIDS: No Female 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 Disorders: Denies 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 Genitourinary Hx Genitourinary Disorders: Yes (SEPSIS FROM UTI Apr) Genitourinary Disorders: Kidney Stones, UTI-Chronic Gastrointestinal Hx Gastrointestinal Disorders: Yes Gastrointestinal Disorders: Gastroesophageal Reflux Musculoskeletal Hx Musculoskeletal Disorders: Yes (CHRONIC NECK PAIN, STENOSIS) Musculoskeletal Disorders: Degenerate Disk Disease, Arthritis Endocrine Hx Endocrine Disorders: Yes Endocrine Disorders: Diabetes, Insulin dep HEENT HX ENT Disorders: Yes (GLASSES, DRY EYES) Loss of Vision: Bilateral Hearing Impairment: Denies Cancer Hx Cancer: No Psychosocial Hx Psychiatric Problems: Yes Behavioral Health Disorders: Depression Integumentary HX Skin/Integumentary Disorder: No Blood Transfusions Hx Blood Disorders: Yes (HX OF ANEMIA PRIOR TO HYSTERECTOMY) Adverse Reaction to a Blood Tr: No (HAS HAD BLOOD TRANSFUSION WITH NO PROBLEMS) Reviewed Nursing Assessment Reviewed/Agree w Nursing PMH: Yes Family Medical History Significant Family History: No Pertinent Family Hx Family Medial History: Arthritis 19 MOTHER Cataracts 19 FATHER 19 MOTHER Hypercholesterolemia 19 FATHER Hypertension 19 FATHER Physical Exam Vital Signs VS - Last 72 Hours, by Label 09/13/16 13:55 Temp 98.1 Pulse 112 Resp 18 B/P (MAP) 139/52 Pulse Ox 99 Capillary Refill : Less Than 3 Seconds General Appearance: WD/WN, no apparent distress HEENT: PERRL/EOMI, pharynx normal Neck: full range of motion, supple Respiratory: lungs clear, normal breath sounds Cardiovascular: no murmur, tachycardia Gastrointestinal: non tender, soft Extremities: non-tender, normal inspection Back: normal inspection, no CVA tenderness, no vertebral tenderness Neurologic/Psychiatric: alert, oriented x 3 Skin: normal color, warm/dry Progress/Results/Core Measures Results/Orders Lab Results Laboratory Tests Test 09/13/16 14:00 09/13/16 16:30 Range/Units White Blood Count 15.8 H 4.3-11.0 10^3/uL Red Blood Count 5.13 4.35-5.85 10^6/uL Hemoglobin 15.3 11.5-16.0 G/DL Hematocrit 45 35-52 % Mean Corpuscular Volume 87 80-99 FL Mean Corpuscular Hemoglobin 30 25-34 PG Mean Corpuscular Hemoglobin Concent 34 32-36 G/DL Red Cell Distribution Width 13.6 10.0-14.5 % Platelet Count 279 130-400 10^3/uL Mean Platelet Volume 10.6 H 7.4-10.4 FL Neutrophils (%) (Auto) 93 H 42-75 % Lymphocytes (%) (Auto) 3 L 12-44 % Monocytes (%) (Auto) 4 0-12 % Eosinophils (%) (Auto) 1 0-10 % Basophils (%) (Auto) 0 0-10 % Neutrophils # (Auto) 14.6 H 1.8-7.8 X 10^3 Lymphocytes # (Auto) 0.4 L 1.0-4.0 X 10^3 Monocytes # (Auto) 0.6 0.0-1.0 X 10^3 Eosinophils # (Auto) 0.1 0.0-0.3 10^3/uL Basophils # (Auto) 0.0 0.0-0.1 10^3/uL Neutrophils % (Manual) 89 % Lymphocytes % (Manual) 1 % Monocytes % (Manual) 4 % Eosinophils % (Manual) 2 % Basophils % (Manual) 0 % Band Neutrophils 4 % Blood Morphology Comment NORMAL Sodium Level 136 135-145 MMOL/L Potassium Level 5.0 3.6-5.0 MMOL/L Chloride Level 106 98-107 MMOL/L Carbon Dioxide Level 21 21-32 MMOL/L Anion Gap 9 5-14 MMOL/L Blood Urea Nitrogen 14 7-18 MG/DL Creatinine 0.82 0.60-1.30 MG/DL Estimat Glomerular Filtration Rate > 60 BUN/Creatinine Ratio 17 Glucose Level 330 H 70-105 MG/DL Calcium Level 8.9 8.5-10.1 MG/DL Magnesium Level 1.6 L 1.8-2.4 MG/DL Total Bilirubin 0.7 0.1-1.0 MG/DL Aspartate Amino Transf (AST/SGOT) 24 5-34 U/L Alanine Aminotransferase (ALT/SGPT) 20 0-55 U/L Alkaline Phosphatase 92 40-136 U/L Total Protein 7.0 6.4-8.2 G/DL Albumin 4.0 3.2-4.5 G/DL Urine Color YELLOW Urine Clarity CLEAR Urine pH 6 5-9 Urine Specific Call 1.020 1.016-1.022 Urine Protein 1+ H NEGATIVE Urine Glucose (UA) 4+ H NEGATIVE Urine Ketones 1+ H NEGATIVE Urine Nitrite NEGATIVE NEGATIVE Urine Bilirubin 1+ H NEGATIVE Urine Urobilinogen NORMAL NORMAL MG/DL Urine Leukocyte Esterase NEGATIVE NEGATIVE Urine RBC (Auto) NEGATIVE NEGATIVE Urine RBC RARE /HPF Urine WBC RARE /HPF Urine Squamous Epithelial Cells 5-10 /HPF Urine Crystals NONE /LPF Urine Bacteria NEGATIVE /HPF Urine Casts NONE /LPF Urine Mucus SMALL H /LPF Urine Culture Indicated NO My Orders Orders - ANTHONY URIBE MD Cbc With Automated Diff (09/13/16 14:09) Comprehensive Metabolic Panel (09/13/16 14:09) Magnesium (09/13/16 14:09) Ua Culture If Indicated (09/13/16 14:09) Saline Lock/Iv-Start (09/13/16 14:09) Ns Iv 1000 Ml (Sodium Chloride 0.9%) (09/13/16 14:09) Manual Differential (09/13/16 14:00) Famotidine Injection (Pepcid Injection) (09/13/16 14:48) Hyoscyamine Sl Tablet (Levsin Sl Tablet) (09/13/16 15:00) Ketorolac Injection (Toradol Injection) (09/13/16 14:48) Medications Given in ED Current Medications Medications Dose Ordered Sig/Asuncion Route Start Time Stop Time Status Last Admin Dose Admin Hyoscyamine Sulfate 0.125 mg ONCE ONCE SL 09/13/16 15:00 09/13/16 15:01 DC 09/13/16 15:18 0.125 MG Sodium Chloride 1,000 ml @ 0 mls/hr Q0M ONCE IV 09/13/16 14:09 09/13/16 14:10 DC 09/13/16 14:15 1,000 MLS/HR Vital Signs/I&O Vital Sign - Last 12Hours 09/13/16 13:55 Temp 98.1 Pulse 112 Resp 18 B/P (MAP) 139/52 Pulse Ox 99 Blood Pressure Mean: 81 Progress Note : Progress Note Seen and evaluated. IV, labs and UA ordered. Normal saline 1 L bolus. Pepcid 20 mg IV, Toradol 30 mg IV and Levsin 0.125 mg by mouth ordered. Monitor patient. 1710: Overall much improved. Discharged home with return precautions. Patient verbalize understanding instructions and agreement with plan. Departure Impression Impression: Primary Impression: Diarrhea Qualified Codes: R19.7 - Diarrhea, unspecified Additional Impression: Nausea and vomiting Qualified Codes: R11.14 - Bilious vomiting Disposition: HOME, SELF-CARE Condition: Improved Departure-Patient Inst. Decision time for Depature: 17:09 Referrals: [facility] (PCP/Family) Primary Care Physician Patient Instructions: Diarrhea in Adolescents and Adults, Nausea and Vomiting, Adult Add. Discharge Instructions: All discharge instructions reviewed with patient and/or family. Voiced understanding. Clear liquid diet for 24 hours and then advance as tolerated. Follow-up with your Dr. in 2-3 days for recheck. Return for worse pain, fever, vomiting, weakness, breathing problems or other concerns as needed. Take medications as directed. You may take Pepcid or the generic famotidine 20 mg once or twice daily for the next few days as needed for heartburn symptoms as well. Scripts Hyoscyamine Sulfate (Levsin-Sl) 0.125 Mg Tab.subl 0.125 MG SL Q4H Y for CRAMPS, #10 TAB Prov: ANTHONY URIBE MD 09/13/16 Ondansetron (Ondansetron Odt) 4 Mg Tab.rapdis 4 MG PO Q6H Y for NAUSEA/VOMITING, #8 TAB 0 Refills Prov: ANTHONY URIBE MD 09/13/16 ANTHONY URIBE MD Sep 13, 2016 14:48
[2016-09-13] MEDS ORDERED: HYOSCYAMINE 0.125 MG (LEVSIN) TAB SL ONE (15:00)
[2016-09-13 15:15] LABS: BAND NEUTROPHILS 4 %; BASOPHILS % (MANUAL) 0 %; EOSINOPHILS % (MANUAL) 2 %; LYMPHOCYTES % (MANUAL) 1 %; NEUTROPHILS % (MANUAL) 89 %
[2016-09-13 16:42] LABS: KETONES,URINE 1+ (NEGATIVE); LEUKOCYTE ESTERASE ,URINE NEGATIVE (NEGATIVE); NITRITE,URINE NEGATIVE (NEGATIVE); PH,URINE 6 (5-9); PROTEIN,URINE 1+ (NEGATIVE); UROBILINOGEN,URINE NORMAL (NORMAL)
[2016-09-13 16:57] LABS: BILIRUBIN,URINE 1+ (NEGATIVE); WBC,URINE RARE /HPF
[2016-09-13] MEDS ORDERED: ONDA4TAB11 PO (17:13)
[2016-09-13] MEDS ORDERED: HYOS0.1283 SL (17:13)
[2016-09-13 17:22] VITALS: BP 139/52
--- OUTSIDE RECORDS SUMMARY | 2016-09-28 18:17 | XMS REPORT | Continuity of Care Document ---
Author Author [facility] Address Unknown Phone Unavailable Allergies Active Description Code Type Severity Reaction Onset Reported/Identified Relationship to Patient Clinical Status Yes metformin 500 mg tablet Drug Allergy N/A N/A 11/05/2013 Yes No Known Drug Allergies [id number] Drug Allergy Unknown N/ A 01/19/2016 Medications Problems Date Dx Coded Attending Type Code Diagnosis Diagnosed By 12/23/2009 Ot 462 10/15/2013 ADRIA DIALLO APRN Ot 250.02 DIAB RENE WO COMPL, TYPE II OR UNSPEC TY 11/05/2013 JENN SPRNIGER DO 250.02 DIABETES II UNCONTROLLED (UNCOMPLICATED) 11/05/2013 [...] 372.03 OTHER MUCOPURULENT CONJUNCTIVITIS 03/20/2015 MATTHEW AMAYA [facility] Ot V76.12 03/20/2015 KATLIN FAULKNER MD Ot E11.9 TYPE 2 DIABETES MELLITUS WITHOUT COMPLIC 03/20/2015 KATLIN FAULKNER MD Ot R10.31 RIGHT LOWER QUADRANT PAIN 03/20/2015 KATLIN FAULKNER MD Ot R19.7 DIARRHEA, UNSPECIFIED 03/20/2015 KATLIN FAULKNER MD Ot Z79.4 CUSTODIAL (CURRENT) USE OF INSULIN 03/20/2015 MATTHEW AMAYA [facility] Ot V76.12 03/29/2015 Ot E11.9 TYPE 2 DIABETES MELLITUS WITHOUT COMPLIC 03/29/2015 Ot I10 ESSENTIAL (PRIMARY) HYPERTENSION 03/29/2015 Ot N13.5 CROSSING VESSEL AND STRICTURE OF URETER 03/29/2015 Ot N39.0 URINARY TRACT INFECTION, SITE NOT SPECIF 03/29/2015 Ot R10.9 UNSPECIFIED ABDOMINAL PAIN 03/29/2015 Ot Z79.4 FINANCE BUSINESS MANAGER (CURRENT) USE OF INSULIN 04/22/2015 MATTHEW AMAYA [employer] T[employer]OR Ot V76.12 05/02/2015 MATTHEW AMAYA GERMAN TUTOR Ot V76.12 05/05/2015 MARK LANDAVERDE, JAIMIE F [...] UPPER ABDOMINAL PAIN, UNSPECIFIED 05/09/2015 MATTHEW AMAYA GERMAN TUTOR Ot V76.12 11/27/2015 MATTHEW AMAYA GERMAN TUTOR Ot V76.12 OT SCREEN MAMMO-MALIGN NEOPLASM OF DERIK 11/28/2015 SUZE KIM MAGNETIC TESTING TECHNICIAN Ot M51.34 OTHER INTERVERTEBRAL DISC DEGENERATION , 12/03/2015 SUZE KIM MAGNETIC TESTING TECHNICIAN Ot M50.30 OTHER CERVICAL DISC DEGENERATION, UNSP C 12/03/2015 SUZE KIM R MAGNETIC TESTING TECHNICIAN Ot M51.16 INTERVERTEBRAL DISC DISORDERS W RADICULO 12/03/2015 SUZE KIM R MAGNETIC TESTING TECHNICIAN Ot M51.34 OTHER INTERVERTEBRAL DISC DEGENERATION , 12/03/2015 SUZE KIM R MAGNETIC TESTING TECHNICIAN Ot M51.36 OTHER INTERVERTEBRAL DISC DEGENERATION , 12/23/2015 MONIQUE MATTHEW Iza GERMAN TUTOR Ot V76.12 OTH SCREEN MAMMO-MALIGN NEOPLASM OF DERIK 12/23/2015 SUZE KIM R MAGNETIC TESTING TECHNICIAN Ot M50.30 OTHER CERVICAL DISC DEGENERATION, [facility] C 12/23/2015 SUZE KIM R MAGNETIC TESTING TECHNICIAN Ot M51.16 INTERVERTEBRAL DISC DISORDERS W RADICULO 12/23/2015 SUZE KIM R MAGNETIC TESTING TECHNICIAN Ot M51.34 OTHER INTERVERTEBRAL DISC DEGENERATION , 12/23/2015 SUZE KIM R MAGNETIC TESTING TECHNICIAN Ot M51.36 OTHER INTERVERTEBRAL DISC DEGENERATION , 12/24/2015 SUZE KIM R MAGNETIC TESTING TECHNICIAN Ot M50.30 OTHER CERVICAL DISC DEGENERATION, [facility] C 12/24/2015 SUZE KIM R MAGNETIC TESTING TECHNICIAN Ot M51.16 INTERVERTEBRAL DISC DISORDERS W RADICULO 12/24/2015 SUZE KIM R MAGNETIC TESTING TECHNICIAN Ot M51.34 OTHER INTERVERTEBRAL DISC DEGENERATION , 12/24/2015 SUZE KIM R MAGNETIC TESTING TECHNICIAN Ot M51.36 OTHER INTERVERTEBRAL DISC DEGENERATION , 01/16/2016 SUZE KIM R MAGNETIC TESTING TECHNICIAN Ot M50.30 OTHER CERVICAL DISC DEGENERATION, [facility] C 01/16/2016 SUZE KIM R MAGNETIC TESTING TECHNICIAN Ot M51.16 INTERVERTEBRAL DISC DISORDERS W RADICULO 01/16/2016 SUZE KIM R MAGNETIC TESTING TECHNICIAN Ot M51.34 OTHER INTERVERTEBRAL DISC DEGENERATION , 01/16/2016 SUZE KIM R MAGNETIC TESTING TECHNICIAN Ot M51.36 OTHER INTERVERTEBRAL DISC DEGENERATION , 01/16/2016 SUZE KIM R MAGNETIC TESTING TECHNICIAN Ot M50.30 OTHER CERVICAL DISC DEGENERATION, [facility] C 01/16/2016 SUZE KIM R MAGNETIC TESTING TECHNICIAN Ot M51.16 INTERVERTEBRAL DISC DISORDERS W RADICULO 01/16/2016 SUZE KIM R MAGNETIC TESTING TECHNICIAN Ot M51.34 OTHER INTERVERTEBRAL DISC DEGENERATION , 01/16/2016 SUZE KIM R MAGNETIC TESTING TECHNICIAN Ot M51.36 OTHER INTERVERTEBRAL DISC DEGENERATION , [...] M54.12 RADICULOPATHY, CERVICAL REGION 04/13/2016 MATTHEW AMAYA GERMAN TUTOR Ot V76.12 OTH SCREEN MAMMO-MALIGN NEOPLASM OF DERIK 04/13/2016 SUZE KIM MAGNETIC TESTING TECHNICIAN Ot M50.30 OTHER CERVICAL DISC DEGENERATION, UNSP C 04/13/2016 SUZE KIM MAGNETIC TESTING TECHNICIAN Ot M51.16 INTERVERTEBRAL DISC DISORDERS W RADICULO 04/13/2016 SUZE KIM APRN Ot M51.34 OTHER INTERVERTEBRAL DISC DEGENERATION , 04/13/2016 SUZE KIM APRN Ot M51.36 OTHER INTERVERTEBRAL DISC DEGENERATION , 04/13/2016 ANTHONY URIBE MD Ot E11.9 TYPE 2 DIABETES MELLITUS WITHOUT COMPLIC 04/13/2016 ANTHONY URIBE MD Ot N39.0 URINARY TRACT INFECTION, SITE NOT SPECIF 04/13/2016 ANTHONY URIBE MD Ot R30.0 DYSURIA 04/13/2016 ANTHONY URIBE MD, Ot Z79.82 FINANCE BUSINESS MANAGER (CURRENT) USE OF ASPIRIN 04/13/2016 ANTHONY URIBE MD, Ot Z79.84 CUSTODIAL (CURRENT) USE OF ORAL HYPOGLYC 04/13/2016 ANTHONY URIBE MD, Ot Z79.899 OTHER CUSTODIAL (CURRENT) DRUG THERAPY 04/14/2016 MATTHEW AMAYA Iza GERMAN TUTOR Ot V76.12 OTH SCREEN MAMMO-MALIGN NEOPLASM OF DERIK 04/14/2016 SUZE KIM APRN Ot M50.30 OTHER CERVICAL DISC DEGENERATION, UNSP C 04/14/2016 SUZE KIM MAGNETIC TESTING TECHNICIAN Ot M51.16 INTERVERTEBRAL DISC DISORDERS W RADICULO [...] DYSURIA 04/15/2016 ANTHONY URIBE MD Ot Z79.82 CUSTODIAL (CURRENT) USE OF ASPIRIN 04/15/2016 ANTHONY URIBE MD Ot Z79.84 FINANCE BUSINESS MANAGER (CURRENT) USE OF ORAL HYPOGLYC 04/15/2016 ANTHONY URIBE MD, Ot Z79.899 OTHER CUSTODIAL (CURRENT) DRUG THERAPY 04/15/2016 LAY MURILLO MD [...] DYSURIA 04/19/2016 ANTHONY URIBE MD, Ot Z79.82 CUSTODIAL (CURRENT) USE OF ASPIRIN 04/19/2016 ANTHONY URIBE MD, Ot Z79.84 CUSTODIAL (CURRENT) USE OF ORAL HYPOGLYC 04/19/2016 ANTHONY URIBE MD, Ot Z79.899 OTHER CUSTODIAL (CURRENT) DRUG THERAPY 04/27/2016 LAY MURILLO MD [...] SPINAL STENOSIS, LUMBAR REGION 06/18/2016 MATTHEW AMAYA GERMAN TUTOR Ot V76.12 OTH SCREEN MAMMO-MALIGN NEOPLASM OF DERIK 06/18/2016 SUZE KIM MAGNETIC TESTING TECHNICIAN Ot M50.30 OTHER CERVICAL DISC DEGENERATION, UNSP C 06/18/2016 SUZE KIM MAGNETIC TESTING TECHNICIAN Ot M51.16 INTERVERTEBRAL DISC DISORDERS W RADICULO 06/18/2016 SUZE KIM MAGNETIC TESTING TECHNICIAN Ot M51.34 OTHER INTERVERTEBRAL DISC DEGENERATION , 06/18/2016 SUZE KIM MAGNETIC TESTING TECHNICIAN Ot M51.36 OTHER INTERVERTEBRAL DISC DEGENERATION , [...] LAY MURILLO MD, Ot Z98.1 ARTHRODESIS STATUS 09/08/2016 ADRIA DIALLO MAGNETIC TESTING TECHNICIAN Ot E11.9 TYPE 2 DIABETES MELLITUS WITHOUT COMPLIC 09/08/2016 ADRIA DIALLO MAGNETIC TESTING TECHNICIAN Ot N30.91 CYSTITIS, UNSPECIFIED WITH HEMATURIA 09/08/2016 ADRIA DIALLO MAGNETIC TESTING TECHNICIAN Ot R51 HEADACHE 09/08/2016 ADRIA DIALLO MAGNETIC TESTING TECHNICIAN Ot Z79.84 CUSTODIAL (CURRENT) USE OF ORAL HYPOGLYC 09/08/2016 ADRIA DIALLO MAGNETIC TESTING TECHNICIAN Ot Z79.899 OTHER FINANCE BUSINESS MANAGER (CURRENT) DRUG THERAPY 09/09/2016 ADRIA DIALLO MAGNETIC TESTING TECHNICIAN Ot E11.9 TYPE 2 DIABETES MELLITUS WITHOUT COMPLIC 09/09/2016 ADRIA DIALLO MAGNETIC TESTING TECHNICIAN Ot N30.91 CYSTITIS, UNSPECIFIED WITH HEMATURIA 09/09/2016 ADRIA DIALLO APRN Ot R51 HEADACHE 09/09/2016 ADRIA DIALLO MAGNETIC TESTING TECHNICIAN Ot Z79.84 FINANCE BUSINESS MANAGER (CURRENT) USE OF ORAL HYPOGLYC 09/09/2016 ADRIA DIALLO MAGNETIC TESTING TECHNICIAN Ot Z79.899 OTHER FINANCE BUSINESS MANAGER (CURRENT) DRUG THERAPY 09/13/2016 MATTHEW AMAYA GERMAN TUTOR Ot V76.12 OTH SCREEN MAMMO-MALIGN NEOPLASM OF DERIK 09/13/2016 SUZE KIM MAGNETIC TESTING TECHNICIAN Ot M50.30 OTHER CERVICAL DISC DEGENERATION, UNSP C 09/13/2016 SUZE KIM MAGNETIC TESTING TECHNICIAN Ot M51.16 INTERVERTEBRAL DISC DISORDERS W RADICULO 09/13/2016 SUZE KIM MAGNETIC TESTING TECHNICIAN Ot M51.34 OTHER INTERVERTEBRAL DISC DEGENERATION , 09/13/2016 SUZE KIM MAGNETIC TESTING TECHNICIAN Ot M51.36 OTHER INTERVERTEBRAL DISC DEGENERATION , 09/13/2016 POLLY LANDAVERDE, RALPH Malone Ot N12 TUBULO-INTERSTITIAL NEPHRITIS, NOT SPCF 09/13/2016 RALPH MATIAS MD Ot 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 TUBULO-INTERSTITIAL NEPHRITIS, NOT SPCF 09/13/2016 LAY MURILLO MD, Ot Z48.89 ENCOUNTER FOR OTHER SPECIFIED SURGICAL A 09/13/2016 LAY MURILLO MD, Ot Z98.1 ARTHRODESIS STATUS 09/14/2016 ANTHONY URIBE MD Ot I10 ESSENTIAL (PRIMARY) HYPERTENSION 09/14/2016 ANTHONY URIBE MD Ot R11.2 NAUSEA WITH VOMITING, UNSPECIFIED 09/14/2016 ANTHONY URIBE MD Ot R19.7 DIARRHEA, UNSPECIFIED 09/14/2016 ANTHONY URIBE MD Ot Z79.4 CUSTODIAL (CURRENT) USE OF INSULIN 09/14/2016 ANTHONY URIBE MD Ot Z79.84 CUSTODIAL (CURRENT) USE OF ORAL HYPOGLYC 09/14/2016 ANTHONY URIBE MD Ot Z79.899 OTHER CUSTODIAL (CURRENT) DRUG THERAPY 09/15/2016 ANTHONY URIBE MD Ot I10 ESSENTIAL (PRIMARY) HYPERTENSION 09/15/2016 ANTHONY URIBE MD Ot R11.2 NAUSEA WITH VOMITING, UNSPECIFIED 09/15/2016 ANTHONY URIBE MD Ot R19.7 DIARRHEA, UNSPECIFIED 09/15/2016 ANTHONY URIBE MD Ot Z79.4 FINANCE BUSINESS MANAGER (CURRENT) USE OF INSULIN 09/15/2016 ANTHONY URIBE MD Ot Z79.84 CUSTODIAL (CURRENT) USE OF ORAL HYPOGLYC 09/15/2016 ANTHONY URIBE MD Ot Z79.899 OTHER FINANCE BUSINESS MANAGER (CURRENT) DRUG THERAPY 09/18/2016 ANTHONY URIBE MD Ot I10 ESSENTIAL (PRIMARY) HYPERTENSION 09/18/2016 ANTHONY URIBE MD Ot R11.2 NAUSEA WITH VOMITING, UNSPECIFIED 09/18/2016 ANTHONY URIBE MD Ot R19.7 DIARRHEA, UNSPECIFIED 09/18/2016 ANTHONY URIBE MD Ot Z79.4 FINANCE BUSINESS MANAGER (CURRENT) USE OF INSULIN 09/18/2016 ANTHONY URIBE MD Ot Z79.84 CUSTODIAL (CURRENT) USE OF ORAL HYPOGLYC 09/18/2016 ANTHONY URIBE MD Ot Z79.899 OTHER CUSTODIAL (CURRENT) DRUG THERAPY 09/24/2016 LAY MURILLO MD Ot Z48.89 ENCOUNTER FOR OTHER SPECIFIED SURGICAL A 09/24/2016 LAY MURILLO MD, Ot Z98.1 ARTHRODESIS STATUS Procedures Code Description Performed By Performed On FOOT EXAM PERFORMED 11/05/2013 3008F BODY MASS INDEX DOCD 11/05/2013 89109 EYE EXAM PERFORMED 11/05/2013 30550 MEDICAL NUTRITION INDIV IN 11/05/2013 2028F FOOT EXAM PERFORMED 04/02/2014 43398 A1C (IN-HOUSE) 76330 CMP 04/02/2014 20533 A1C (IN-HOUSE) [id number] EXCISION OF CERVICAL VERTEBRAL JOINT, OP 02/02/2016 [id number] EXCISION OF CERVICAL VERTEBRAL DISC, OPE 02/02/2016 [id number] FUSION 2-6 C JT W INTBD FUS [...] ABO+Rh group OP NRG Transfusion band number [id number] NRG Blood group antibody screen NEGATIVE NRG [...] culture - 04/13/16 09:30 Bacterial urine culture [id number] NRG COLONY COUNT 10,000/ML - 100,000/ML NRG [...] measurement by glucometer (mass/volume) 256 mg/dL 70-110 [id number] - 06/30/16 08:09 Serum or plasma urea [...] 09/08/16 17:11 Bacterial urine culture FOOTNOTE NRG Complete blood count (CBC) with automated white blood cell (WBC) differential - 09/13/16 14:00 Blood leukocytes automated count (number/volume) 15.8 10*3/ uL 4.3-11.0 Blood erythrocytes automated count (number/volume) 5.13 10*6 /uL 4.35-5.85 Venous blood hemoglobin measurement (mass/volume) 15.3 g/dL 11.5-16.0 Blood hematocrit (volume fraction) 45 % 35-52 Automated erythrocyte mean corpuscular volume 87 [foz_us] 80-99 Automated erythrocyte mean corpuscular hemoglobin (mass per erythrocyte) 30 pg 25-34 Automated erythrocyte mean corpuscular hemoglobin concentration measurement ( mass/volume) 34 g/dL 32-36 Automated erythrocyte distribution width ratio 13.6 % 10.0-14.5 Automated blood platelet count (count/volume) 279 10*3/uL 130-400 Automated blood platelet mean volume measurement 10.6 [foz_ us] 7.4-10.4 Automated blood neutrophils/100 leukocytes 93 % 42-75 Automated blood lymphocytes/100 leukocytes 3 % 12-44 Blood monocytes/100 leukocytes 4 % 0-12 Automated blood eosinophils/100 leukocytes 1 % 0-10 Automated blood basophils/100 leukocytes 0 % 0-10 Blood neutrophils automated count (number/volume) 14.6 10*3 1.8-7.8 Blood lymphocytes automated count (number/volume) 0.4 10*3 1.0-4.0 Blood monocytes automated count (number/volume) 0.6 10*3 0.0-1.0 Automated eosinophil count 0.1 10*3/uL 0.0-0.3 Automated blood basophil count (count/volume) 0.0 10*3/uL 0.0-0.1 Comprehensive metabolic panel - 09/13/16 14:00 Serum or plasma sodium measurement (moles/volume) 136 mmol/ L 135-145 Serum or plasma potassium measurement (moles/volume) 5.0 mmol/L 3.6-5.0 Serum or plasma chloride measurement (moles/volume) 106 mmol /L 98-107 Carbon dioxide 21 mmol/L 21-32 Serum or plasma anion gap determination (moles/volume) 9 mmol/L 5-14 Serum or plasma urea nitrogen measurement (mass/volume) 14 mg/dL 7-18 Serum or plasma creatinine measurement (mass/volume) 0.82 mg /dL 0.60-1.30 Serum or plasma urea nitrogen/creatinine mass ratio 17 NRG Serum or plasma creatinine measurement with calculation of estimated glomerular filtration rate > NRG Serum or plasma glucose measurement (mass/volume) 330 mg/dL 70-105 Serum or plasma calcium measurement (mass/volume) 8.9 mg/dL 8.5-10.1 Serum or plasma total bilirubin measurement (mass/volume) 0.7 mg/dL 0.1-1.0 Serum or plasma alkaline phosphatase measurement (enzymatic activity/volume) 92 U/L 40-136 Serum or plasma aspartate aminotransferase measurement (enzymatic activity/ volume) 24 U/L 5-34 Serum or plasma alanine aminotransferase measurement (enzymatic activity/volume ) 20 U/L 0-55 Serum or plasma protein measurement (mass/volume) 7.0 g/dL 6.4-8.2 Serum or plasma albumin measurement (mass/volume) 4.0 g/dL 3.2-4.5 Magnesium - 09/13/16 14:00 Magnesium 1.6 mg/dL 1.8-2.4 Blood manual differential performed detection - 09/13/16 14:00 Blood monocytes/100 leukocytes 4 % NRG Manual blood segmented neutrophils/100 leukocytes 89 % NRG Blood band neutrophils/100 leukocytes 4 % NRG Manual blood lymphocytes/100 leukocytes 1 % NRG Manual eosinophils/100 leukocytes in nose 2 % NRG Manual blood basophils/100 leukocytes 0 % NRG Blood erythrocyte morphology finding identification NORMAL NRG Complete urinalysis with reflex to culture - 09/13/16 16:30 Urine color determination YELLOW NRG Urine clarity determination CLEAR NRG Urine pH measurement by test strip 6 5- 9 Specific gravity of urine by test strip 1.020 1.016-1.022 Urine protein assay by test strip, semi-quantitative 1+ NEGATIVE Urine glucose detection by automated test strip 4+ NEGATIVE Erythrocytes detection in urine sediment by light microscopy NEGATIVE NEGATIVE Urine ketones detection by automated test strip 1+ NEGATIVE Urine nitrite detection by test strip NEGATIVE NEGATIVE Urine total bilirubin detection by test strip 1+ NEGATIVE Urine urobilinogen measurement by automated test strip (mass/volume) NORMAL NORMAL Urine leukocyte esterase detection by dipstick NEGATIVE NEGATIVE Automated urine sediment erythrocyte count by microscopy (number/high power field) RARE NRG Automated urine sediment leukocyte count by microscopy (number/high power field ) RARE NRG Bacteria detection in urine sediment by light microscopy NEGATIVE NRG Squamous epithelial cells detection in urine sediment by light microscopy 5-10 NRG Crystals detection in urine sediment by light microscopy NONE NRG Casts detection in urine sediment by light microscopy NONE NRG Mucus detection in urine sediment by light microscopy SMALL NRG Complete urinalysis with reflex to culture NO NRG Encounters ACCT No. Visit Date/Time Discharge Status Pt. Type Provider Facility Loc./Unit Complaint [id number] 08/02/2014 15:41:00 08/02/2014 23: 59:[facility] Outpatient JENN SPRINGER DO [id number] 07/04/2014 00:00:00 07/04/2014 23: 59:59 [facility] Outpatient LUDIVINA [facility]OW [facility]OOD [id number] 04/02/2014 11:25:00 04/02/2014 23: 59:59 [facility] Outpatient JENN SPRINGER DO [id number] 12/14/2013 09:56:00 12/14/2013 23: 59:59 [facility] Outpatient JENN SPRINGER DO [id number] 11/05/2013 12:39:00 11/05/2013 23: 59:59 [facility] Outpatient JENN SPRINGER DO
== END 2016-09-13 17:22 | disposition home or self-care (01) ==
LOC: EDUNIT# 13:11 → ER 13:12
DX: R11.2 Nausea with vomiting, unspecified (principal); R19.7 Diarrhea, unspecified; I10 Essential (primary) hypertension; Z79.84 Long term (current) use of oral hypoglycemic drugs; Z79.4 Long term (current) use of insulin; Z79.899 Other long term (current) drug therapy
CPT/HCPCS: 36415; 80053; 81000; 83735; 85007; 85027; 96374; 96375

== ENCOUNTER 2016-10-21 09:30 | Outpatient (RCR) | payer MEDICARE, OTHER ==
[~2016-10-21 09:30] MED LIST changes: +HYOS0.1283 SL; +ONDA4TAB11 PO
[2016-10-26] MEDS ORDERED: ERGO400C PO (19:18)
[2016-10-26] MEDS ORDERED: ASPI-999 PO (19:18)
[2016-10-26] MEDS ORDERED: OMEP20CA12 PO (21:49)
== END 2016-11-25 09:35 | disposition home or self-care (01) ==
PROVIDERS: ATTEND Physician Assistant
DX: M48.02 Spinal stenosis, cervical region (principal)

== ENCOUNTER 2016-10-26 18:05 | Emergency (ER) | payer MEDICARE, OTHER ==
[~2016-10-26] VITALS: Ht 175.3 cm; Wt 88.5 kg
[2016-10-26 19:04] LABS: BILIRUBIN,URINE NEGATIVE (NEGATIVE); KETONES,URINE NEGATIVE (NEGATIVE); LEUKOCYTE ESTERASE ,URINE NEGATIVE (NEGATIVE); NITRITE,URINE NEGATIVE (NEGATIVE); PH,URINE 6 (5-9); PROTEIN,URINE NEGATIVE (NEGATIVE); UROBILINOGEN,URINE NORMAL (NORMAL)
[2016-10-26] MEDS ORDERED: ASPIRIN 81 MG CHEW (CHILDREN'S ASA) PO ONE (19:15)
[2016-10-26 19:18] LABS: BASOPHILS % (AUTO) 0 % (0-10); EOSINOPHILS # (AUTO) 0.1 10^3/uL (0.0-0.3); EOSINOPHILS % (AUTO) 1 % (0-10); LYMPHOCYTES # (AUTO) 2.6 X 10^3 (1.0-4.0); LYMPHOCYTES % (AUTO) 27 % (12-44); MEAN CORPUSCULAR HEMOGLOBIN 30 PG (25-34); MEAN CORPUSCULAR HGB CONC 34 G/DL (32-36); MEAN CORPUSCULAR VOLUME 88 FL (80-99); MEAN PLATELET VOLUME 10.2 FL (7.4-10.4); MONOCYTES # (AUTO) 0.8 X 10^3 (0.0-1.0); MONOCYTES % (AUTO) 8 % (0-12); NEUTROPHILS # (AUTO) 6.1 X 10^3 (1.8-7.8); NEUTROPHILS % (AUTO) 64 % (42-75); PLATELET COUNT 304 10^3/uL (130-400); RED BLOOD COUNT 4.62 10^6/uL (4.35-5.85); RED CELL DISTRIBUTION WIDTH 12.9 % (10.0-14.5); WHITE BLOOD COUNT 9.6 10^3/uL (4.3-11.0)
[2016-10-26] MEDS ORDERED: ERGO400C PO (19:18)
[2016-10-26] MEDS ORDERED: ASPI-999 PO (19:18)
[2016-10-26 19:22] LABS: WBC,URINE 0-2 /HPF
[2016-10-26 19:27] LABS: PROTHROMBIN TIME PATIENT 12.7 SEC (12.2-14.7)
[2016-10-26 19:37] LABS: ALANINE AMINOTRANSFERASE 22 U/L (0-55); ALBUMIN 4.1 G/DL (3.2-4.5); ANION GAP 11 MMOL/L (5-14); ASPARTATE AMINO TRANSFERASE 17 U/L (5-34); BILIRUBIN,TOTAL 0.5 MG/DL (0.1-1.0); BLOOD UREA NITROGEN 11 MG/DL (7-18); BUN/CREATININE RATIO 16; CALCIUM 9.5 MG/DL (8.5-10.1); CARBON DIOXIDE 25 MMOL/L (21-32); CHLORIDE 104 MMOL/L (98-107); CREATININE SERUM 0.67 MG/DL (0.60-1.30); GFR ESTIMATED > 60; GLUCOSE 165 MG/DL (70-105); POTASSIUM 3.7 MMOL/L (3.6-5.0); SODIUM 140 MMOL/L (135-145); TOTAL PROTEIN 6.6 G/DL (6.4-8.2)
[2016-10-26 19:44] LABS: MAGNESIUM 1.6 MG/DL (1.8-2.4)
[2016-10-26 19:46] LABS: MYOGLOBIN SERUM 24.5 NG/ML (10.0-92.0)
--- NOTE | 2016-10-26 19:56 | ED General ---
General Chief Complaint: Head/Cervical Problems Stated Complaint: HEADACHE/HEARTBURN/STOMACH PAIN Nursing Triage Note: PT STATES A SEVERE PARK, RED ITCHY EYES, HEARTBURN, AND LEFT SIDED CHEST PAIN, AND STOMACH PAIN, AND DIZZINESS FOR APPROX 1 WEEK Nursing Sepsis Screen: No Definite Risk Source of Information: Patient Exam Limitations: No Limitations History of Present Illness Time Seen by Provider: 18:26 Initial Comments This 66-year-old woman presents to the emergency room with various complaints including headache, red itchy eyes, heartburn, lightheadedness, left upper chest discomfort, and generalized abdominal discomfort. Symptoms have been present for about one week. The chest pain is sharp in nature and occurs in very brief episodes lasting only seconds. She has 1 or 2 episodes per day. She has not identified any triggers. She has a chronic cough that is no worse now. She reports food often seems to get caught in her esophagus and becomes difficult to swallow. She frequently has a sensation for bowel movement and urgency along with her abdominal discomfort. She denies nausea, vomiting, diarrhea, or constipation. Her episode of chest discomfort today was before noon. Allergies and Home Medications Allergies Coded Allergies: No Known Drug Allergies (Unverified , 01/19/16) Home Medications Aspirin 81 Mg Tab.chew, 81 MG PO, (Reported) Cholecalciferol (Vitamin D3) 400 Unit Capsule, 400 UNIT PO, (Reported) Hyoscyamine Sulfate 0.125 Mg Tab.subl, 0.125 MG SL Q4H PRN for CRAMPS, #10 Prescribed by: ANTHONY URIBE on 09/13/16 1713 Insulin Determir 1,000 Units/10 Ml Soln, 30 UNITS SQ BID, (Reported) USES NO MATTER WHAT BS IS Lisinopril 20 Mg Tablet, 20 MG PO DAILY, (Reported) Lovastatin 20 Mg Tablet, 20 MG PO DAILY, (Reported) Metformin HCl 1,000 Mg Tab.er.24, 1,000 MG PO DAILY, (Reported) Omeprazole 20 Mg Capsule.dr, 20 MG PO DAILY, #30 Prescribed by: HANNAH BUSTOS on 10/26/169 Venlafaxine HCl 150 Mg Cap.er.24h, 150 MG PO DAILY, (Reported) Constitutional: no symptoms reported EENTM: see HPI Respiratory: no symptoms reported Cardiovascular: see HPI Gastrointestinal: see HPI Genitourinary: no symptoms reported : No Musculoskeletal: no symptoms reported Skin: no symptoms reported Psychiatric/Neurological: See HPI Hematologic/Lymphatic: No Symptoms Reported Past Qedxfzr-Nqkqhy-Wqxljp Hx Patient Social History Alcohol Use: Denies Use Recreational Drug Use: No Smoking Status: Never a Smoker 2nd Hand Smoke Exposure: No Recent Foreign Travel: No Contact w/Someone Who Travel: No Recent Infectious Disease Expo: No Recent Hopitalizations: No Immunizations Up To Date Tetanus Booster (TDap): More than 5yrs PED Vaccines UTD: No Seasonal Allergies Seasonal Allergies: No Surgeries HX Surgeries: Yes (neck surg) Surgeries: Gallbladder, Hysterectomy, Orthopedic Respiratory Hx Respiratory Disorders: No Cardiovascular Hx Cardiac Disorders: Yes Cardiac Disorders: Hypertension Neurological Hx Neurological Disorders: Yes (VERY LITTLE NEUROPATHY IN FEET) 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 System Hx 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 Disorders: No Sexually Transmitted Disease: No HIV/AIDS: No Female 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 Disorders: Denies 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 Genitourinary Hx Genitourinary Disorders: Yes (SEPSIS FROM UTI Apr) Genitourinary Disorders: Kidney Stones, UTI-Chronic Gastrointestinal Hx Gastrointestinal Disorders: Yes Gastrointestinal Disorders: Gastroesophageal Reflux Musculoskeletal Hx Musculoskeletal Disorders: Yes (CHRONIC NECK PAIN, STENOSIS) Musculoskeletal Disorders: Degenerate Disk Disease, Arthritis Endocrine Hx Endocrine Disorders: Yes Endocrine Disorders: Diabetes, Insulin dep HEENT HX ENT Disorders: Yes (GLASSES, DRY EYES) Loss of Vision: Bilateral Hearing Impairment: Denies Cancer Hx Cancer: No Psychosocial Hx Psychiatric Problems: Yes Behavioral Health Disorders: Depression Integumentary HX Skin/Integumentary Disorder: No Blood Transfusions Hx Blood Disorders: Yes (HX OF ANEMIA PRIOR TO HYSTERECTOMY) Adverse Reaction to a Blood Tr: No (HAS HAD BLOOD TRANSFUSION WITH NO PROBLEMS) Family Medical History Significant Family History: No Pertinent Family Hx Family Medial History: Arthritis 19 MOTHER Cataracts 19 FATHER 19 MOTHER Hypercholesterolemia 19 FATHER Hypertension 19 FATHER Physical Exam Vital Signs Vital Sign - Last 12Hours 10/26/16 18:56 Temp 98.2 Pulse 98 Resp 20 B/P (MAP) 148/112 Pulse Ox 95 O2 Delivery Room Air Capillary Refill : Less Than 3 Seconds General Appearance: No Apparent Distress, WD/WN HEENT: PERRL/EOMI, Normal ENT Inspection, Pharynx Normal Neck: Normal Inspection Respiratory: Lungs Clear, Normal Breath Sounds, No Accessory Muscle Use, No Respiratory Distress Cardiovascular: Regular Rate, Rhythm, No Edema, No Murmur Gastrointestinal: Normal Bowel Sounds, Non Tender, Soft Extremity: Normal Inspection, Non Tender, No Pedal Edema Neurologic/Psychiatric: Alert, Oriented x3, No Motor/Sensory Deficits, Normal 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, 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 Norm as Tested Skin: Normal Color, Warm/Dry Progress/Results/Core Measures Results/Orders Lab Results Laboratory Tests Test 10/26/16 18:56 10/26/16 19:08 Range/Units Urine Color YELLOW Urine Clarity CLEAR Urine pH 6 5-9 Urine Specific [place] 1.010 L 1.016-1.022 Urine Protein NEGATIVE NEGATIVE Urine Glucose (UA) 3+ H NEGATIVE Urine Ketones NEGATIVE NEGATIVE Urine Nitrite NEGATIVE NEGATIVE Urine Bilirubin NEGATIVE NEGATIVE Urine Urobilinogen NORMAL NORMAL MG/DL Urine Leukocyte Esterase NEGATIVE NEGATIVE Urine RBC (Auto) NEGATIVE NEGATIVE Urine RBC NONE /HPF Urine WBC 0-2 /HPF Urine Squamous Epithelial Cells 2-5 /HPF Urine Crystals NONE /LPF Urine Bacteria NEGATIVE /HPF Urine Casts NONE /LPF Urine Mucus NEGATIVE /LPF Urine Culture Indicated NO White Blood Count 9.6 4.3-11.0 10^3/uL Red Blood Count 4.62 4.35-5.85 10^6/uL Hemoglobin 13.8 11.5-16.0 G/DL Hematocrit 41 35-52 % Mean Corpuscular Volume 88 80-99 FL Mean Corpuscular Hemoglobin 30 25-34 PG Mean Corpuscular Hemoglobin Concent 34 32-36 G/DL Red Cell Distribution Width 12.9 10.0-14.5 % Platelet Count 304 130-400 10^3/uL Mean Platelet Volume 10.2 7.4-10.4 FL Neutrophils (%) (Auto) 64 42-75 % Lymphocytes (%) (Auto) 27 12-44 % Monocytes (%) (Auto) 8 0-12 % Eosinophils (%) (Auto) 1 0-10 % Basophils (%) (Auto) 0 0-10 % Neutrophils # (Auto) 6.1 1.8-7.8 X 10^3 Lymphocytes # (Auto) 2.6 1.0-4.0 X 10^3 Monocytes # (Auto) 0.8 0.0-1.0 X 10^3 Eosinophils # (Auto) 0.1 0.0-0.3 10^3/uL Basophils # (Auto) 0.0 0.0-0.1 10^3/uL Prothrombin Time 12.7 12.2-14.7 SEC INR Comment 1.0 0.8-1.4 Activated Partial Thromboplast Time 25 24-35 SEC Sodium Level 140 135-145 MMOL/L Potassium Level 3.7 3.6-5.0 MMOL/L Chloride Level 104 98-107 MMOL/L Carbon Dioxide Level 25 21-32 MMOL/L Anion Gap 11 5-14 MMOL/L Blood Urea Nitrogen 11 7-18 MG/DL Creatinine 0.67 0.60-1.30 MG/DL Estimat Glomerular Filtration Rate > 60 BUN/Creatinine Ratio 16 Glucose Level 165 H 70-105 MG/DL Calcium Level 9.5 8.5-10.1 MG/DL Magnesium Level 1.6 L 1.8-2.4 MG/DL Total Bilirubin 0.5 0.1-1.0 MG/DL Aspartate Amino Transf (AST/SGOT) 17 5-34 U/L Alanine Aminotransferase (ALT/SGPT) 22 0-55 U/L Alkaline Phosphatase 74 40-136 U/L Myoglobin 24.5 10.0-92.0 NG/ML Troponin I < 0.30 <0.30 NG/ML Total Protein 6.6 6.4-8.2 G/DL Albumin 4.1 3.2-4.5 G/DL TSH [place] Testing 1.15 0.35-4.94 UIU/ML My Orders Orders - HANNAH MCGRATH MD Cbc With Automated Diff (10/26/16 18:25) Comprehensive Metabolic Panel (10/26/16 18:25) Ua Culture If Indicated (10/26/16 18:25) Saline Lock/Iv-Start (10/26/16 18:25) Magnesium (10/26/16 19:12) Ekg Tracing (10/26/16 19:12) Cardiac Profile 1 (10/26/16 19:12) Myoglobin Serum (10/26/16 19:12) Protime With Inr (10/26/16 19:12) Partial Thromboplastin Time (10/26/16 19:12) O2 (10/26/16 19:12) Monitor-Rhythm Ecg Trace Only (10/26/16 19:12) Aspirin Chewable Tablet (Baby Aspirin Ch (10/26/16 19:15) Chest Pa/Lat (2 View) (10/26/16 19:12) Abdomen, Flat & Upright/Decub (10/26/16 19:12) Thyroid Analyzer (10/26/16 19:40) Magnesium Oxide Tablet (Mag Ox Tablet) (10/26/16 21:45) Medications Given in ED Vital Signs/I&O Blood Pressure Mean: 124 Progress Note : Progress Note Patient's workup was relatively unremarkable. She was given aspirin as part of the chest pain protocol. Magnesium supplementation was also provided orally. Patient was actually feeling better at the time of dismissal. Her last episode of chest pain was more than 4 hours prior to presentation. Follow-up as an outpatient was recommended. Patient's most pressing issue at this time seems to be the esophageal and swallowing problems. She was advised to follow-up with her primary care provider and seek endoscopy. In the meantime, she will be started on PPI therapy. ECG Initial ECG Impression Date: October 26, 2016 Initial ECG Impression Time: 19:22 Initial ECG Rate: 94 Initial ECG Rhythm: Normal Sinus Initial ECG Intervals: Normal Initial ECG Impression: Normal Comment Normal sinus rhythm with no ST elevation or depression. No abnormal intervals or axis deviation. Diagnostic Imaging Diagonstic Imaging: Xray Plain Films/CT/US/NM/MRI: chest Comments Chest x-ray viewed by me and report reviewed. See report below: NAME: JOB GORDON [facility] REC#: [id number] PT STATUS: REG ER : 1950 PHYSICIAN: HANNAH MCGRATH MD ADMIT DATE: 10/26/16/ER Draft Date of Exam:10/26/16 CHEST PA/LAT (2 VIEW) INDICATION: Heartburn and chest pain. COMPARISON: 05/03/15. EXAM: PA and lateral views of the chest were obtained. FINDINGS: The heart size, mediastinal configuration, and pulmonary vascularity are within normal limits. There is no pleural effusion, pneumothorax, or pneumonia. The osseous structures are unremarkable. IMPRESSION: No acute cardiopulmonary abnormality. Dictated on workstation # [id number] Dict: 10/26/162035 Trans: 10/26/162038 [facility] [id number] Interpreted by: BRENDA POE Diagonstic Imaging: Xray Plain Films/CT/US/NM/MRI: abdomen, pelvis Comments Abdominal x-ray viewed by me and report reviewed. See report below: NAME: JOB GORDON [facility] REC#: [id number] PT STATUS: REG ER : 1950 PHYSICIAN: HANNAH MCGRATH MD ADMIT DATE: 10/26/16/ER Draft Date of Exam:10/26/16 ABDOMEN, FLAT UPRIGHT/DECUB INDICATION: Heartburn, chest pain. FINDINGS: The lung bases are clear. The bowel gas pattern is nonspecific. There are surgical clips in the right upper quadrant. There is no free air. There are degenerative changes in the spine. IMPRESSION: Nonspecific bowel gas pattern. Dictated on workstation # [id number] Dict: 10/26/162039 Trans: 10/26/162048 [facility] [id number] Interpreted by: BRENDA POE Departure Impression Impression: Primary Impression: Atypical chest pain Additional Impressions: Lightheadedness Bilateral upper abdominal discomfort Eye irritation Disposition: 01 HOME, SELF-CARE Condition: Improved Departure-Patient Inst. Decision time for Depature: 21:45 Referrals: [facility] (PCP/Family) Primary Care Physician Patient Instructions: Acid Reflux (Gastroesophageal Reflux Disease) in Adults, Esophageal Stricture Add. Discharge Instructions: Your chest and abdominal symptoms may be related to acid reflux or delayed stomach emptying from diabetes. I recommend that you follow-up with your primary care provider soon as possible and discuss a referral for upper endoscopy. Add omeprazole to your Pepcid and use it daily. Drink plenty of clear liquids and avoid chunky foods such as chicken or steak that might get caught in your esophagus. Chew your foods well and drink plenty of clear liquids with your meals. For your eye irritation, try using a nondrowsy mjas-wkb-eupqzmj antihistamine such as loratadine. Discuss further with your primary care provider if this is not improving you're symptoms. If you suspect your abdominal discomfort is related to constipation, you may try gentle laxatives such as MiraLAX (generic is polyethylene glycol). If this is not helpful, discuss further with your primary care provider. All discharge instructions reviewed with patient and/or family. Voiced understanding. Scripts Omeprazole (Omeprazole) 20 Mg Capsule. 20 MG PO DAILY, #30 CAP Prov: HANNAH MCGRATH MD 10/26/16 Copy Copies To 1: LEONARDO CORONADO MD, JOSHUA T MD October 26, 2016 19:56
--- NOTE | 2016-10-26 20:39 | Diagnostic Imaging Report ---
INDICATION: Heartburn and chest pain. COMPARISON: 05/03/15. EXAM: PA and lateral views of the chest were obtained. FINDINGS: The heart size, mediastinal configuration, and pulmonary vascularity are within normal limits. There is no pleural effusion, pneumothorax, or pneumonia. The osseous structures are unremarkable. IMPRESSION: No acute cardiopulmonary abnormality. Dictated by: Dictated on workstation # [id number]
--- NOTE | 2016-10-26 20:50 | Diagnostic Imaging Report ---
INDICATION: Heartburn, chest pain. FINDINGS: The lung bases are clear. The bowel gas pattern is nonspecific. There are surgical clips in the right upper quadrant. There is no free air. There are degenerative changes in the spine. IMPRESSION: Nonspecific bowel gas pattern. Dictated by: Dictated on workstation # [id number]
[2016-10-26] MEDS ORDERED: MAGNESIUM OXIDE (MAG-OX)400 MG TAB PO ONE (21:45)
[2016-10-26] MEDS ORDERED: OMEP20CA12 PO (21:49)
[2016-10-26 22:06] VITALS: BP 147/81
== END 2016-10-26 22:06 | disposition home or self-care (01) ==
LOC: EDUNIT# 18:05 → ER 18:06
DX: R07.89 Other chest pain (principal); R10.13 Epigastric pain; H57.9 Unspecified disorder of eye and adnexa; R42 Dizziness and giddiness; E11.9 Type 2 diabetes mellitus without complications; Z79.82 Long term (current) use of aspirin; Z79.84 Long term (current) use of oral hypoglycemic drugs; Z79.4 Long term (current) use of insulin; Z79.899 Other long term (current) drug therapy
CPT/HCPCS: 36415; 71020; 74020; 80053; 81000; 83735; 83874; 84443; 84484; 85025; 85610; 85730; 93005

== ENCOUNTER 2017-06-28 17:25 | Emergency (ER) | payer MEDICARE, MEDICAID ==
[~2017-06-28] VITALS: Ht 175.3 cm; Wt 90.7 kg
[~2017-06-28 17:25] MED LIST changes: +ACHD5005 PO; +ASPI-999 PO; +ERGO400C PO; -HYDR-3812 PO; +OMEP20CA12 PO
[2017-06-28] MEDS ORDERED: ASPIRIN 81 MG CHEW (CHILDREN'S ASA) PO ONE (18:30)
--- NOTE | 2017-06-28 18:42 | ED Chest Pain ---
General Chief Complaint: Chest Wall/Rib Pain Stated Complaint: UPPER BACK PAIN Nursing Triage Note: pt reports having right chest pressure/tightness that radiates to right shoulder and back x 1 week with no improvement. states that initally when it started it radiated to left chest but has since stopped and now only right sided. pt denies worsening pain with deep breaths or any other symptoms. states pain increases with any movement Nursing Sepsis Screen: No Definite Risk Source: patient Exam Limitations: no limitations (HANNAH MCGRATH MD) History of Present Illness Time seen by provider: 18:14 Initial Comments This 66 year old woman presents to the ER with complaints of right-sided chest and upper back pain that is exacerbated with any kind of movement. She rates her pain as 10 but her demeanor does not match the stated level pain. She states pain in the chest actually started last week and was across the chest. It had no alleviating or exacerbating factors. Now the pain has shifted to the right upper chest and most prominently in the right upper back. She is tender to the touch in this location. She has hypertension and diabetes but denies any history of heart problems. She is noted to be mildly tachycardic with a heart rate in the 90s and low 100s on the monitor. She denies any lower extremity symptoms, smoking, or recent travel. Pain is not exacerbated with deep breathing. She has had a mild cough. (HANNAH MCGRATH MD) Allergies and Home Medications Allergies Coded Allergies: No Known Drug Allergies (Unverified , 01/19/16) Home Medications Aspirin 81 Mg Tab.chew, 81 MG PO, (Reported) Cholecalciferol (Vitamin D3) 400 Unit Capsule, 400 UNIT PO, (Reported) Insulin Determir 1,000 Units/10 Ml Soln, 30 UNITS SQ BID, (Reported) USES NO MATTER WHAT BS IS Lisinopril 20 Mg Tablet, 20 MG PO DAILY, (Reported) Lovastatin 20 Mg Tablet, 20 MG PO DAILY, (Reported) Metformin HCl 1,000 Mg Tab.er.24, 1,000 MG PO DAILY, (Reported) Omeprazole 20 Mg Capsule.dr, 20 MG PO DAILY, #30 Prescribed by: HANNAH BUSTOS on 10/26/16 5977 Venlafaxine HCl 150 Mg Cap.er.24h, 150 MG PO DAILY, (Reported) Review of Systems Constitutional: no symptoms reported EENTM: No Symptoms Reported Respiratory: See HPI Cardiovascular: See HPI Gastrointestinal: No Symptoms Reported Genitourinary: No Symptoms Reported Musculoskeletal: see HPI Skin: no symptoms reported Psychiatric/Neurological: No Symptoms Reported Endocrine: No Symptoms Reported Hematologic/Lymphatic: No Symptoms Reported (HANNAH MCGRATH MD) Past Ahwrkcc-Gpjmuj-Eajzws Hx Patient Social History Alcohol Use: Denies Use Recreational Drug Use: No Smoking Status: Never a Smoker 2nd Hand Smoke Exposure: No Recent Foreign Travel: No Contact w/Someone Who Travel: No Recent Infectious Disease Expo: No Recent Hopitalizations: No Physical Abuse: No Sexual Abuse: No Mistreated: No Fear: No (HANNAH MCGRATH MD) Immunizations Up To Date Tetanus Booster (TDap): More than 5yrs PED Vaccines UTD: No (HANNAH MCGRATH MD) Seasonal Allergies Seasonal Allergies: No (HANNAH MCGRATH MD) Surgeries History of Surgeries: Yes (NECK AND BACK SURGERY) Surgeries: Gallbladder, Hysterectomy, Orthopedic (HANNAH MCGRATH MD) Respiratory History of Respiratory Disorde: No Currently Using CPAP: No Currently Using BIPAP: No (HANNAH MCGRATH MD) Cardiovascular History of Cardiac Disorders: Yes Cardiac Disorders: Hypertension (HANNAH MCGRATH MD) Neurological History of Neurological Disord: Yes (VERY LITTLE NEUROPATHY IN FEET) Neurological Disorders: Neuropathy (HANNAH MCGRATH MD) 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 System : No Hx 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 Disorders: No Sexually Transmitted Disease: No HIV/AIDS: No Female 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 Disorders: Denies 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 (HANNAH MCGRATH MD) Genitourinary History of Genitourinary Disor: Yes Genitourinary Disorders: Kidney Stones, UTI-Chronic (HANNAH MCGRATH MD) Gastrointestinal History of Gastrointestinal Di: Yes Gastrointestinal Disorders: Gastroesophageal Reflux (HANNAH MCGRATH MD) Musculoskeletal History of Musculoskeletal Dis: Yes (CHRONIC NECK PAIN, STENOSIS) Musculoskeletal Disorders: Degenerate Disk Disease, Arthritis (HANNAH MCGRATH MD) Endocrine History of Endocrine Disorders: Yes Endocrine Disorders: Diabetes, Insulin dep (HANNAH MCGRATH MD) HEENT History of HEENT Disorders: No Loss of Vision: Bilateral Hearing Impairment: Denies (HANNAH MCGRATH MD) Cancer History of Cancer: No (HANNAH MCGRATH MD) Psychosocial History of Psychiatric Problem: Yes Behavioral Health Disorders: Depression Suicide Risk Score: 1 (HANNAH MCGRATH MD) Integumentary History of Skin or Integumenta: No (HANNAH MCGRATH MD) Blood Transfusions History of Blood Disorders: Yes (HX OF ANEMIA PRIOR TO HYSTERECTOMY) Adverse Reaction to a Blood Tr: No (HAS HAD BLOOD TRANSFUSION WITH NO PROBLEMS) (HANNAH MCGRATH MD) Family Medical History Significant Family History: No Pertinent Family Hx Family Medial History: Arthritis 19 MOTHER Cataracts 19 FATHER 19 MOTHER Hypercholesterolemia 19 FATHER Hypertension 19 FATHER (HANNAH MCGRATH MD) Family Medial History: Arthritis 19 MOTHER Cataracts 19 FATHER 19 MOTHER Hypercholesterolemia 19 FATHER Hypertension 19 FATHER (YONI VIRAMONTES MEDICAL STUDENT) Physical Exam Vital Signs Vital Sign - Last 12Hours 06/28/17 18:02 Temp 98.9 Pulse 100 Resp 18 B/P (MAP) 150/95 (113) Pulse Ox 97 O2 Delivery Room Air (YONI VIRAMONTES MEDICAL STUDENT) Vital Signs Capillary Refill : Less Than 3 Seconds (HANNAH MCGRATH MD) General Appearance: No Apparent Distress, WD/WN HEENT: Normal ENT Inspection, Pharynx Normal Neck: Normal Inspection Respiratory: Chest Non Tender, Lungs Clear, Normal Breath Sounds, No Accessory Muscle Use, No Respiratory Distress Cardiovascular: No Edema, No Murmur, Tachycardia (regular) Gastrointestinal: Normal Bowel Sounds, Non Tender, Soft Extremity: Normal Capillary Refill, Normal Inspection, Non Tender, No Calf Tenderness, No Pedal Edema, Other (negative Honey) Neurologic/Psychiatric: Alert, Oriented x3, No Motor/Sensory Deficits, Normal Mood/Affect, stereotype caster II-XII Norm as Tested Skin: Normal Color, Warm/Dry (HANNAH MCGRATH MD) Progress/Results/Core Measures Results/Orders Lab Results Laboratory Tests Test 06/28/17 19:02 Range/Units White Blood Count 11.8 H 4.3-11.0 10^3/uL Red Blood Count 4.32 L 4.35-5.85 10^6/uL Hemoglobin 13.1 11.5-16.0 G/DL Hematocrit 38 35-52 % Mean Corpuscular Volume 87 80-99 FL Mean Corpuscular Hemoglobin 30 25-34 PG Mean Corpuscular Hemoglobin Concent 35 32-36 G/DL Red Cell Distribution Width 12.6 10.0-14.5 % Platelet Count 289 130-400 10^3/uL Mean Platelet Volume 10.1 7.4-10.4 FL Neutrophils (%) (Auto) 69 42-75 % Lymphocytes (%) (Auto) 21 12-44 % Monocytes (%) (Auto) 8 0-12 % Eosinophils (%) (Auto) 1 0-10 % Basophils (%) (Auto) 0 0-10 % Neutrophils # (Auto) 8.2 H 1.8-7.8 X 10^3 Lymphocytes # (Auto) 2.5 1.0-4.0 X 10^3 Monocytes # (Auto) 1.0 0.0-1.0 X 10^3 Eosinophils # (Auto) 0.1 0.0-0.3 10^3/uL Basophils # (Auto) 0.0 0.0-0.1 10^3/uL Prothrombin Time 12.5 12.2-14.7 SEC INR Comment 0.9 0.8-1.4 Activated Partial Thromboplast Time 27 24-35 SEC D-Dimer < 0.27 0.00-0.49 UG/ML Sodium Level 138 135-145 MMOL/L Potassium Level 3.6 3.6-5.0 MMOL/L Chloride Level 102 98-107 MMOL/L Carbon Dioxide Level 25 21-32 MMOL/L Anion Gap 11 5-14 MMOL/L Blood Urea Nitrogen 10 7-18 MG/DL Creatinine 0.62 0.60-1.30 MG/DL Estimat Glomerular Filtration Rate > 60 BUN/Creatinine Ratio 16 Glucose Level 194 H 70-105 MG/DL Calcium Level 8.9 8.5-10.1 MG/DL Magnesium Level 1.2 L 1.8-2.4 MG/DL Total Bilirubin 0.3 0.1-1.0 MG/DL Aspartate Amino Transf (AST/SGOT) 16 5-34 U/L Alanine Aminotransferase (ALT/SGPT) 19 0-55 U/L Alkaline Phosphatase 74 40-136 U/L Myoglobin 35.0 10.0-92.0 NG/ML Troponin I < 0.30 <0.30 NG/ML Total Protein 6.3 L 6.4-8.2 GM/DL Albumin 3.8 3.2-4.5 GM/DL (YONI VIRAMONTES MEDICAL STUDENT) Medications Given in ED Current Medications Medications Dose Ordered Sig/Asuncion Route Start Time Stop Time Status Last Admin Dose Admin Aspirin 324 mg ONCE ONCE PO 06/28/17 18:30 06/28/17 18:31 DC 06/28/17 19:13 324 MG Ketorolac Tromethamine 15 mg ONCE ONCE IVP 06/28/17 18:45 06/28/17 18:46 DC 06/28/17 19:13 15 MG (YONI VIRAMONTES MEDICAL STUDENT) Vital Signs/I&O Vital Sign - Last 12Hours 06/28/17 06/28/17 06/28/17 18:02 19:00 20:45 Temp 98.9 Pulse 100 85 Resp 18 20 B/P (MAP) 150/95 (113) Pulse Ox 97 98 98 O2 Delivery Room Air Room Air Room Air (YONI VIRAMONTES MEDICAL STUDENT) Blood Pressure Mean: 113 Progress Note : Time: 18:45 Progress Note Patient was seen and examined. She was found to have tenderness around the right scapula and medial to the right scapula with palpation. Her syndrome appears to be musculoskeletal in nature at this time. However, her pain last week across the chest was of a different nature and deserves further evaluation. Chest pain workup was pursued for that reason. Toradol 15 mg IV was ordered for initial treatment of pain. (HANNAH MCGRATH MD) ECG Initial ECG Impression Date: Jun 28, 2017 Initial ECG Impression Time: 18:56 Initial ECG Rate: 91 Initial ECG Rhythm: Normal Sinus Initial ECG Intervals: Normal Initial ECG Impression: Normal Comment Normal sinus rhythm with no ST elevation or depression. No abnormal intervals or axis deviation. (HANNAH MCGRATH MD) Diagnostic Imaging Diagonstic Imaging: Xray Plain Films/CT/US/NM/MRI: chest Comments Chest x-ray viewed by me and report reviewed. See report below: NAME: JOB GORDON [facility] REC#: [id number] PT STATUS: REG ER : 1950 PHYSICIAN: HANNAH MCGRATH MD ADMIT DATE: 06/28/17/ER Draft Date of Exam:06/28/17 CHEST PA/LAT (2 VIEW) INDICATION: Right-sided chest pain. Comparison made with prior study from October 26, 2016. FINDINGS: There has been no evidence of interval change when compared to prior study. There is no focal infiltrate or effusion. There is no pneumothorax. The heart size is normal without evidence of failure. Prior surgical changes involving the cervical spine. IMPRESSION: Stable radiographic appearance of the chest. No acute cardiopulmonary process is demonstrated. Dictated on workstation # [id number] Dict: 06/28/171906 Trans: 06/28/171909 [id number] Interpreted by: ALEXI DUMONT MD (HANNAH MCGRATH MD) Departure Impression Impression: Primary Impression: Atypical chest pain Additional Impression: Musculoskeletal pain Disposition: HOME, SELF-CARE Condition: Improved Departure-Patient Inst. Referrals: [facility] (PCP/Family) Primary Care Physician Patient Instructions: Chest Pain That Is Not Caused by the Heart (DC) Add. Discharge Instructions: Take Ibuprofen 600mg every 6 hours as need and add Tylenol or Tramadol (Rx) for breakthrough pain. Follow-up with your Primary Care Physician. All discharge instructions reviewed with patient and/or family. Voiced understanding. HANNAH MCGRATH MD Jun 28, 2017 18:42 YONI VIRAMONTES MEDICAL STUDENT Jun 28, 2017 20:13
[2017-06-28] MEDS ORDERED: KETOROLAC 30 MG/ML VIAL IVP ONE (18:45)
[2017-06-28 19:08] LABS: BASOPHILS % (AUTO) 0 % (0-10); EOSINOPHILS # (AUTO) 0.1 10^3/uL (0.0-0.3); EOSINOPHILS % (AUTO) 1 % (0-10); HEMATOCRIT 38 % (35-52); HEMOGLOBIN 13.1 G/DL (11.5-16.0); LYMPHOCYTES # (AUTO) 2.5 X 10^3 (1.0-4.0); LYMPHOCYTES % (AUTO) 21 % (12-44); MEAN CORPUSCULAR HEMOGLOBIN 30 PG (25-34); MEAN CORPUSCULAR HGB CONC 35 G/DL (32-36); MEAN CORPUSCULAR VOLUME 87 FL (80-99); MEAN PLATELET VOLUME 10.1 FL (7.4-10.4); MONOCYTES % (AUTO) 8 % (0-12); NEUTROPHILS # (AUTO) 8.2 X 10^3 (1.8-7.8); NEUTROPHILS % (AUTO) 69 % (42-75); PLATELET COUNT 289 10^3/uL (130-400); RED BLOOD COUNT 4.32 10^6/uL (4.35-5.85); RED CELL DISTRIBUTION WIDTH 12.6 % (10.0-14.5); WHITE BLOOD COUNT 11.8 10^3/uL (4.3-11.0)
--- NOTE | 2017-06-28 19:11 | Diagnostic Imaging Report ---
INDICATION: Right-sided chest pain. Comparison made with prior study from October 26, 2016. FINDINGS: There has been no evidence of interval change when compared to prior study. There is no focal infiltrate or effusion. There is no pneumothorax. The heart size is normal without evidence of failure. Prior surgical changes involving the cervical spine. IMPRESSION: Stable radiographic appearance of the chest. No acute cardiopulmonary process is demonstrated. Dictated by: Dictated on workstation # [id number]
[2017-06-28 19:30] LABS: INR 0.9 (0.8-1.4); PROTHROMBIN TIME PATIENT 12.5 SEC (12.2-14.7)
[2017-06-28 19:40] LABS: ALANINE AMINOTRANSFERASE 19 U/L (0-55); ALBUMIN 3.8 GM/DL (3.2-4.5); ALKALINE PHOSPHATASE 74 U/L (40-136); BILIRUBIN,TOTAL 0.3 MG/DL (0.1-1.0); BUN/CREATININE RATIO 16; CALCIUM 8.9 MG/DL (8.5-10.1); CARBON DIOXIDE 25 MMOL/L (21-32); CHLORIDE 102 MMOL/L (98-107); CREATININE SERUM 0.62 MG/DL (0.60-1.30); GFR ESTIMATED > 60; GLUCOSE 194 MG/DL (70-105); MAGNESIUM 1.2 MG/DL (1.8-2.4); POTASSIUM 3.6 MMOL/L (3.6-5.0); SODIUM 138 MMOL/L (135-145); TOTAL PROTEIN 6.3 GM/DL (6.4-8.2)
[2017-06-28] MEDS ORDERED: RX-TRAMADOL 50 MG (ULTRAM) TAB PPK#4 PO STA (20:25)
[2017-06-28 20:45] VITALS: BP 149/73
--- OUTSIDE RECORDS SUMMARY | 2017-06-29 12:08 | XMS REPORT ---
Author Author NANCY SMITH Organization [facility] Address [address] [place] [address] Care Team Providers Care Timekeeper Supervisor Name Role Phone NATALIE SMITHIN Unavailable PROBLEMS Type Condition ICD9-CM Code [id number] Code Onset Dates Condition Status SNOMED Code Problem Pain in left hip M25.552 Active 335169906 Problem Type 2 diabetes mellitus with hyperglycemia E11.65 Active 030167196788972 Problem Pain in right hip M25.551 Active 156981113534416 Problem Other hammer toe(s) (acquired), right foot M20.41 Active 732538649 Problem Diabetic autonomic neuropathy associated with type 2 diabetes mellitus E11.43 Active 245594674 Problem Vitamin D deficiency E55.9 Active 80198067 Problem Onycholysis L60.1 Active 13047943 Problem Other diabetic neurological complication associated with type 2 diabetes mellitus E11.49 Active 560440499 Problem Osteopenia M85.80 Active 807485987 Problem Degenerative disc disease, lumbar M51.36 Active 98518451 Problem Degenerative disc disease, cervical M50.30 Active 75100990 Problem Radiculopathy due to disorder of intervertebral disc of lumbar spine M51.16 Active 323921127889052 Problem Degenerative disc disease, 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 01128204 Problem Hypertension I10 Active 23244152 Problem Anxiety associated with depression F41.8 Active 657239226 Problem Peripheral neuropathy G62.9 Active 48302298 Problem Chronic pain G89.29 Active 73799724 Problem Hypertriglyceridemia E78.1 Active 894774952 Problem History of spinal stenosis Z87.39 Active [id number] ALLERGIES No Information SOCIAL HISTORY Never Assessed PLAN OF CARE Activity Details Follow Up 3 Months Reason: VITAL SIGNS Height 69 in 2016-11-12 Blood pressure systolic 128 mmHg 2016-11-12 Blood pressure diastolic 64 mmHg 2016-11-12 MEDICATIONS Unknown Medications RESULTS No Results PROCEDURES Procedure Date Ordered Result Body Site DEBRIDE NAIL, 1-5 November 12, 2016 [facility] VISIT ESTABLISHED PATIENT November 12, 2016 IMMUNIZATIONS No Known Immunizations MEDICAL (GENERAL) HISTORY Type Description Date Medical History type II diabetes Medical History hypertension Medical History hyperlipidemia Medical History Other chronic pain Medical History Other chronic pain Surgical History hysterectomy 1996 Surgical History cholecystectomy Hospitalization History [facility]; chest pain. Negative work up Hospitalization History [facility]; chest pain. Negative work up Hospitalization History Severe Kidney Infection 2014 Hospitalization History C6 corpectomy-- 02/02/16 Hospitalization History back surgery--Dr. Lauren NGUYEN 05/05
--- OUTSIDE RECORDS SUMMARY | 2017-06-29 12:09 | XMS REPORT ---
Author Author JULIO SUZE Organization [facility] [place] Address [address] [place] [address] Care Team Providers Care Bag Making Machine Tender Name Role Phone KIMSUZE Weeks Unavailable PROBLEMS Type Condition ICD9-CM Code [id number] Code Onset Dates Condition Status SNOMED Code Problem Pain in left hip M25.552 Active 815109345 Problem Type 2 diabetes mellitus with hyperglycemia E11.65 Active 245344285623368 Problem Pain in right hip M25.551 Active 829156123876116 Problem Other hammer toe(s) (acquired), right foot M20.41 Active 154935724 Problem Diabetic autonomic neuropathy associated with type 2 diabetes mellitus E11.43 Active 613764545 Problem Vitamin D deficiency E55.9 Active 35933476 Problem Onycholysis L60.1 Active 60916796 Problem Other diabetic neurological complication associated with type 2 diabetes mellitus E11.49 Active 921421242 Problem Osteopenia M85.80 Active 932313645 Problem Degenerative disc disease, lumbar M51.36 Active 46875269 Problem Degenerative disc disease, cervical M50.30 Active 79440303 Problem Radiculopathy due to disorder of intervertebral disc of lumbar spine M51.16 Active 370222993737483 Problem Degenerative disc disease, 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 37894543 Problem Hypertension I10 Active 53853334 Problem Anxiety associated with depression F41.8 Active 623251167 Problem Peripheral neuropathy G62.9 Active 83253140 Problem Chronic pain G89.29 Active 07838992 Problem Hypertriglyceridemia E78.1 Active 722376140 Problem History of spinal stenosis Z87.39 Active [id number] ALLERGIES No Information SOCIAL HISTORY Never Assessed PLAN OF CARE VITAL SIGNS MEDICATIONS Medication Instructions Dosage Frequency Start Date End Date Duration Status Levemir FlexTouch 100 UNIT/ML Subcutaneous 2 times a day INJECT 30 UNITS 12h 30 Active RESULTS No Results PROCEDURES No Known procedures IMMUNIZATIONS No Known Immunizations MEDICAL (GENERAL) HISTORY Type Description Date Medical History type II diabetes Medical History hypertension Medical History hyperlipidemia Medical History Other chronic pain Medical History Other chronic pain Surgical History hysterectomy 1996 Surgical History cholecystectomy Hospitalization History [facility]; chest pain. Negative work up Hospitalization History [facility]; chest pain. Negative work up Hospitalization History Severe Kidney Infection 2014 Hospitalization History C6 corpectomy--[facility] 02/02/16 Hospitalization History back surgery--, Dr. Aguilra 05/05
--- OUTSIDE RECORDS SUMMARY | 2017-06-29 12:09 | XMS REPORT ---
Author Author JULIOBERNABESUZE Organization [facility] Address [address] [place] [address] Care Team Providers Care Delivery Truck Driver Name Role Phone KIMSUZE Weeks Unavailable PROBLEMS Type Condition ICD9-CM Code [id number] Code Onset Dates Condition Status SNOMED Code Problem Pain in left hip M25.552 Active 984950992 Problem Type 2 diabetes mellitus with hyperglycemia E11.65 Active 519567123345549 Problem Pain in right hip M25.551 Active 368601961972572 Problem Other hammer toe(s) (acquired), right foot M20.41 Active 218445834 Problem Diabetic autonomic neuropathy associated with type 2 diabetes mellitus E11.43 Active 094026801 Problem Vitamin D deficiency E55.9 Active 84232076 Problem Onycholysis L60.1 Active 93423022 Problem Other diabetic neurological complication associated with type 2 diabetes mellitus E11.49 Active 593075586 Problem Osteopenia M85.80 Active 527430882 Problem Degenerative disc disease, lumbar M51.36 Active 53655487 Problem Degenerative disc disease, cervical M50.30 Active 95530410 Problem Radiculopathy due to disorder of intervertebral disc of lumbar spine M51.16 Active 383858702440853 Problem Degenerative disc disease, 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 18565983 Problem Hypertension I10 Active 76024565 Problem Anxiety associated with depression F41.8 Active 179144986 Problem Peripheral neuropathy G62.9 Active 40178607 Problem Chronic pain G89.29 Active 18229155 Problem Hypertriglyceridemia E78.1 Active 782105489 Problem History of spinal stenosis Z87.39 Active 990192767 ALLERGIES No Information SOCIAL HISTORY Never Assessed PLAN OF CARE VITAL SIGNS MEDICATIONS Medication Instructions Dosage Frequency Start Date End Date Duration Status Omeprazole 20 mg Orally Once a day 1 capsule 24h Nov, 30 day(s ) Active RESULTS No Results PROCEDURES No Known procedures IMMUNIZATIONS No Known Immunizations MEDICAL (GENERAL) HISTORY Type Description Date Medical History type II diabetes Medical History hypertension Medical History hyperlipidemia Medical History Other chronic pain Medical History Other chronic pain Surgical History hysterectomy 1996 Surgical History cholecystectomy Hospitalization History [facility]; chest pain. Negative work up Hospitalization History [facility]; chest pain. Negative work up Hospitalization History Severe Kidney Infection 2014 Hospitalization History C6 [facility]pectomy--[facility] 02/02/16 Hospitalization History back surgery--, Dr. Aguilar 05/05
--- OUTSIDE RECORDS SUMMARY | 2017-06-29 12:09 | XMS REPORT ---
Author Author JULIO SUZE Organization [facility] Address [address] [place] [address] Care Team Providers Care Precision Thread Grinder Operator Name Role Phone KIMBERNABE WeeksELE Unavailable PROBLEMS Type Condition ICD9-CM Code [id number] Code Onset Dates Condition Status SNOMED Code Problem Pain in left hip M25.552 Active 537028174 Problem Type 2 diabetes mellitus with hyperglycemia E11.65 Active 834351906337470 Problem Pain in right hip M25.551 Active 001033470485323 Problem Other hammer toe(s) (acquired), right foot M20.41 Active 407957411 Problem Diabetic autonomic neuropathy associated with type 2 diabetes mellitus E11.43 Active 016265756 Problem Vitamin D deficiency E55.9 Active 66517929 Problem Onycholysis L60.1 Active 86611586 Problem Other diabetic neurological complication associated with type 2 diabetes mellitus E11.49 Active 386294742 Problem Osteopenia M85.80 Active 113354171 Problem Degenerative disc disease, lumbar M51.36 Active 42535097 Problem Degenerative disc disease, cervical M50.30 Active 71315778 Problem Radiculopathy due to disorder of intervertebral disc of lumbar spine M51.16 Active 725192253577703 Problem Degenerative disc disease, 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 35081216 Problem Hypertension I10 Active 87953060 Problem Anxiety associated with depression F41.8 Active 845931230 Problem Peripheral neuropathy G62.9 Active 81994650 Problem Chronic pain G89.29 Active 55715563 Problem Hypertriglyceridemia E78.1 Active 414500058 Problem History of spinal stenosis Z87.39 Active 499325877 ALLERGIES No Known Allergies SOCIAL HISTORY Never Assessed PLAN OF CARE Activity Details Follow Up 3 Months Reason:[facility] VITAL SIGNS Height 69 in 2016-09-02 Weight 206 lbs 2016-09-02 Temperature 98.8 degrees Fahrenheit 2016-09-02 Heart Rate 100 bpm 2016-09-02 Respiratory Rate 20 2016-09-02 BMI 30.42 kg/m2 2016-09-02 Blood pressure systolic 124 mmHg 2016-09-02 Blood pressure diastolic 62 mmHg 2016-09-02 MEDICATIONS Medication Instructions Dosage Frequency Start Date End Date Duration Status BD Ultra-Fine Pen [place] 32G x 4mm as directed 12h Jun, Active Cholecalciferol 5000 UNIT Orally Once a day 1 tablet 24h Apr, Nov, 90 days Active Venlafaxine HCl ER 150 MG Orally Once a day 1 capsule with food 24h Aug 90 days Active Lancets - 1 time per day October, Active Aspirin 81 mg Orally Once a day 1 tablet by Oral route 1 time per day 24h October, Active MetFORMIN HCl ER (OSM) 1000 MG Orally twice a day 1 tablet with meal 12h Aug, 90 days Active Lisinopril 20 mg Orally Once a day 1 tablet 24h 90 days Active Levemir FlexTouch 100 UNIT/ML Subcutaneous 2 times a day INJECT 30 UNITS 12h 90 days Active Calcium 500 + D 500 mg(1,250mg) -200 unit 1 Tablet 1 time per day October, Active Lisinopril 20 MG TAKE ONE TABLET BY MOUTH ONCE DAILY 90 Active Lovastatin 20 mg Orally Once a day 1 tablet with a meal 24h 90 days Active Cholecalciferol 5000 UNIT Orally Once a day- start once 02945 unit rx is completed. 1 tablet Apr, Active Lovastatin 20 mg Orally Once a day must have appt for refills 1 tablet with a meal 30 Active RESULTS Name Result Date Reference Range A1C (IN HOUSE) 2016-09-02 A1C IN HOUSE 11.7 4.3 - 5.6 % Previous A1c 9.8 Lot [id number] Exp date 07/08 PATHOLOGY REPORT 2016-09-02 . . . . . . . . PDF Report 2016-09-02 PDF Report1 [facility] PROCEDURES Procedure Date Ordered Result Body Site GLYCATED HEMOGLOBIN TEST September 02, 2016 [facility] VISIT ESTABLISHED PATIENT September 02, 2016 IMMUNIZATIONS No Known Immunizations MEDICAL (GENERAL) HISTORY Type Description Date Medical History type II diabetes Medical History hypertension Medical History hyperlipidemia Medical History Other chronic pain Medical History Other chronic pain Surgical History hysterectomy 1996 Surgical History cholecystectomy Hospitalization History [facility]; chest pain. Negative work up Hospitalization History [facility]; chest pain. Negative work up Hospitalization History Severe Kidney Infection 2014 Hospitalization History C6 corpectomy--[facility] 02/02/16 Hospitalization History back surgery--[facility], Dr. Aguilar 05/05
--- OUTSIDE RECORDS SUMMARY | 2017-06-29 12:09 | XMS REPORT ---
Author Author JULIO SUZE Organization [facility] Address [address] [place] [address] Care Team Providers Care Yard Switch Operator Name Role Phone KIMBERNABE WeeksELE Unavailable PROBLEMS Type Condition ICD9-CM Code [id number] Code Onset Dates Condition Status SNOMED Code Problem Pain in left hip M25.552 Active 190689757 Problem Type 2 diabetes mellitus with hyperglycemia E11.65 Active 727224803017363 Problem Pain in right hip M25.551 Active 110003096 Problem Other hammer toe(s) (acquired), right foot M20.41 Active 817877768 Problem Diabetic autonomic neuropathy associated with type 2 diabetes mellitus E11.43 Active 959806864 Problem Vitamin D deficiency E55.9 Active 62605582 Problem Onycholysis L60.1 Active 47219404 Problem Other diabetic neurological complication associated with type 2 diabetes mellitus E11.49 Active 210593172 Problem Osteopenia M85.80 Active 080826759 Problem Degenerative disc disease, lumbar M51.36 Active 93390892 Problem Degenerative disc disease, cervical M50.30 Active 41231326 Problem Radiculopathy due to disorder of intervertebral disc of lumbar spine M51.16 Active 744814809836072 Problem Degenerative disc disease, 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 87144256 Problem Hypertension I10 Active 86575154 Problem Anxiety associated with depression F41.8 Active 897445207 Problem Peripheral neuropathy G62.9 Active 71593497 Problem Chronic pain G89.29 Active 11576582 Problem Hypertriglyceridemia E78.1 Active 076086672 Problem History of spinal stenosis Z87.39 Active 982729729 ALLERGIES No Information SOCIAL HISTORY Never Assessed PLAN OF CARE VITAL SIGNS MEDICATIONS Unknown Medications RESULTS No Results PROCEDURES No Known procedures IMMUNIZATIONS No Known Immunizations MEDICAL (GENERAL) HISTORY Type Description Date Medical History type II diabetes Medical History hypertension Medical History hyperlipidemia Medical History Other chronic pain Medical History Other chronic pain Surgical History hysterectomy 1996 Surgical History cholecystectomy Hospitalization History [facility]; chest pain. Negative work up Hospitalization History [facility]; chest pain. Negative work up Hospitalization History Severe Kidney Infection 2014 Hospitalization History C6 corpectomy--[facility] 02/02/16 Hospitalization History back surgery--Dr. Lauren NGUYEN 05/05
--- OUTSIDE RECORDS SUMMARY | 2017-06-29 12:11 | XMS REPORT ---
Author Author JULIO SUZE Organization [facility] Address [address] [place] [address] Care Team Providers Care Mandarin Teacher Name Role Phone KIMSUZE Weeks Unavailable PROBLEMS Type Condition ICD9-CM Code FAS90-BO Code Onset Dates Condition Status SNOMED Code Problem Pain in left hip M25.552 Active 826168022 Problem Type 2 diabetes mellitus with hyperglycemia E11.65 Active 273515759397023 Problem Pain in right hip M25.551 Active 838583469896769 Problem Other hammer toe(s) (acquired), right foot M20.41 Active 924931215 Problem Diabetic autonomic neuropathy associated with type 2 diabetes mellitus E11.43 Active 132290252 Problem Vitamin D deficiency E55.9 Active 06250131 Problem Onycholysis L60.1 Active 60172120 Problem Other diabetic neurological complication associated with type 2 diabetes mellitus E11.49 Active 106561017 Problem Osteopenia M85.80 Active 468099866 Problem Degenerative disc disease, lumbar M51.36 Active 90375247 Problem Degenerative disc disease, cervical M50.30 Active 72530309 Problem Radiculopathy due to disorder of intervertebral disc of lumbar spine M51.16 Active 183151707641781 Problem Degenerative disc disease, 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 01982944 Problem Hypertension I10 Active 30595868 Problem Anxiety associated with depression F41.8 Active 820766970 Problem Peripheral neuropathy G62.9 Active 69834947 Problem Chronic pain G89.29 Active 87821517 Problem Hypertriglyceridemia E78.1 Active 381917449 Problem History of spinal stenosis Z87.39 Active 634670653 ALLERGIES No Information SOCIAL HISTORY Never Assessed PLAN OF CARE VITAL SIGNS MEDICATIONS Unknown Medications RESULTS No Results PROCEDURES No Known procedures IMMUNIZATIONS No Known Immunizations MEDICAL (GENERAL) HISTORY Type Description Date Medical History type II diabetes Medical History hypertension Medical History hyperlipidemia Medical History Other chronic pain Medical History Other chronic pain Surgical History hysterectomy 1996 Surgical History cholecystectomy Hospitalization History [facility]; chest pain. Negative work up Hospitalization History [facility]; chest pain. Negative work up Hospitalization History Severe Kidney Infection 2014 Hospitalization History C6 corpectomy--[facility] 02/02/16 Hospitalization History back surgery--Dr. Aguilar 05/05
--- OUTSIDE RECORDS SUMMARY | 2017-06-29 12:14 | XMS REPORT | Continuity of Care Document ---
Author Author Formerly [facility] Address Unknown Phone Unavailable Allergies Active Description Code Type Severity Reaction Onset Reported/Identified Relationship to Patient Clinical Status Yes metformin 500 mg tablet Drug Allergy N/A N/A 11/05/2013 Yes No Known Drug Allergies [id number] Drug Allergy Unknown N/A 01/19/2016 Medications There is no data. Problems Date Dx Coded Attending Type Code Diagnosis Diagnosed By ZAID WOODS Ot M48.02 SPINAL STENOSIS, CERVICAL REGION 12/23/2009 Ot 462 10/15/2013 ADRIA DIALLO APRN Ot 250.02 DIAB RENE WO COMPL, TYPE II OR UNSPEC TY 11/05/2013 JENN SPRINGER DO 250.02 DIABETES II UNCONTROLLED (UNCOMPLICATED) 11/05/2013 JENN SPRINGER DO K 250.60 DIABETES WITH NEUROLOGICAL MANIFESTATIONS TYPE II OR UNSPECIFIED TYPE NOT STATED UNCONTROLLED 11/05/2013 JENN SPRINGER DO K 338.29 OTHER CHRONIC PAIN 11/05/2013 JENN SPRINGER DO 401.1 HYPERTENSION, BENIGN ESSENTIAL 11/05/2013 RHONDA SPRINGER DOA K V15.81 PERSONAL HISTORY OF NONCOMPLIANCE WITH MEDICAL TREATMENT PRESENTING HAZARDS TO HEALTH 11/05/2013 JENN SPRINGER DO V65.3 COUNSELING - DIETARY 11/05/2013 JENN SPRINGER DO 250.02 DIABETES II UNCONTROLLED (UNCOMPLICATED) 11/05/2013 JENN SPRINGER DO K 250.60 DIABETES WITH NEUROLOGICAL MANIFESTATIONS TYPE II OR UNSPECIFIED TYPE NOT STATED UNCONTROLLED 11/05/2013 JENN SPRINGER DO K 338.29 OTHER CHRONIC PAIN 11/05/2013 JENN SPRINGER DO K 401.1 HYPERTENSION, BENIGN ESSENTIAL 11/05/2013 RHONDA SPRINGER DOA K V15.81 PERSONAL HISTORY OF NONCOMPLIANCE WITH MEDICAL TREATMENT PRESENTING HAZARDS TO HEALTH 11/05/2013 JENN SPRINGER DO V65.3 COUNSELING - DIETARY 11/05/2013 JENN SPRINGER DO K 250.02 DIABETES II UNCONTROLLED (UNCOMPLICATED) 11/05/2013 SPRINGER DO JENN K 250.60 DIABETES WITH NEUROLOGICAL MANIFESTATIONS TYPE II OR UNSPECIFIED TYPE NOT STATED UNCONTROLLED 11/05/2013 SPRINGER DO, JENN K 338.29 OTHER CHRONIC PAIN 11/05/2013 SPRINGER DO, JENN K 401.1 HYPERTENSION, BENIGN ESSENTIAL 11/05/2013 SPRINGER DO, JENN K V15.81 PERSONAL HISTORY OF NONCOMPLIANCE WITH MEDICAL TREATMENT PRESENTING HAZARDS TO HEALTH 11/05/2013 GIAN PEREIRA JENN K V65.3 COUNSELING - DIETARY 11/05/2013 FLORENCE DDSMASOOD 250.02 DIABETES II UNCONTROLLED (UNCOMPLICATED) 11/05/2013 FLORENCE AIXASMASOOD 250.60 DIABETES WITH NEUROLOGICAL MANIFESTATIONS TYPE II OR UNSPECIFIED TYPE NOT STATED UNCONTROLLED 11/05/2013 MASOOD FLORENCE DDS 338.29 OTHER CHRONIC PAIN 11/05/2013 FLORENCE AIXASMASOOD 401.1 HYPERTENSION, BENIGN ESSENTIAL 11/05/2013 FLORENCE DDSMASOOD V15.81 PERSONAL HISTORY OF NONCOMPLIANCE WITH MEDICAL TREATMENT PRESENTING HAZARDS TO HEALTH 11/05/2013 MASOOD [place]OR[place] DDS V65.3 COUNSELING - DIETARY 11/05/2013 GIAN PEREIRA JENN K 250.02 DIABETES II UNCONTROLLED (UNCOMPLICATED) 11/05/2013 GIAN PEREIRA JENN K 250.60 DIABETES WITH NEUROLOGICAL MANIFESTATIONS TYPE II OR UNSPECIFIED TYPE NOT STATED UNCONTROLLED 11/05/2013 GIAN PEREIRA JENN K 338.29 OTHER CHRONIC PAIN 11/05/2013 GIAN PEREIRA JENN K 401.1 HYPERTENSION, BENIGN ESSENTIAL 11/05/2013 GIAN PEREIRA JENN K V15.81 PERSONAL HISTORY OF NONCOMPLIANCE WITH MEDICAL TREATMENT PRESENTING HAZARDS TO HEALTH 11/05/2013 GIAN PEREIRA JENN K V65.3 COUNSELING - DIETARY 12/31/2013 SPRINGER DO JENN K 250.50 DIABETES WITH OPHTHALMIC MANIFESTATIONS TYPE II OR UNSPECIFIED TYPE NOT STATED UNCONTROLLED 12/31/2013 SPRINGER DO JENN K 366.9 UNSPECIFIED CATARACT 12/31/2013 SPRINGER DO, JENN K 367.0 HYPERMETROPIA 12/31/2013 SPRINGER DO, JENN K 367.20 ASTIGMATISM UNSPECIFIED 12/31/2013 SPRINGER DO, JENN K 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 12/31/2013 SPRINGER DO JENN K 250.50 DIABETES WITH OPHTHALMIC MANIFESTATIONS [...] 372.03 OTHER MUCOPURULENT CONJUNCTIVITIS 03/20/2015 MATTHEW AMAYA [facility] Ot V76.12 03/20/2015 KATLIN FAULKNER MD Ot E11.9 TYPE 2 DIABETES MELLITUS WITHOUT COMPLIC 03/20/2015 KATLIN FAULKNER MD Ot R10.31 RIGHT LOWER QUADRANT PAIN 03/20/2015 KATLIN FAULKNER MD Ot R19.7 DIARRHEA, UNSPECIFIED 03/20/2015 KATLIN FAULKNER MD Ot Z79.4 MEDICAL TECHNOLOGIST HEMATOLOGY (CURRENT) USE OF INSULIN 03/20/2015 MATTHEW AMAYA [facility] Ot V76.12 03/29/2015 Ot E11.9 TYPE 2 DIABETES MELLITUS WITHOUT COMPLIC 03/29/2015 Ot I10 ESSENTIAL ( PRIMARY) HYPERTENSION 03/29/2015 Ot N13.5 CROSSING VESSEL AND STRICTURE OF URETER 03/29/2015 Ot N39.0 URINARY TRACT INFECTION, SITE NOT SPECIF 03/29/2015 Ot R10.9 UNSPECIFIED ABDOMINAL PAIN 03/29/2015 Ot Z79.4 MEDICAL TECHNOLOGIST HEMATOLOGY ( CURRENT) USE OF INSULIN 04/22/2015 MATTHEW AMAYA FORESTRY FIRE AIDE Ot V76.12 05/02/2015 MATTHEW AMAYA FORESTRY FIRE AIDE Ot V76.12 05/05/2015 MARK LANDAVERDE, JAIMIE F [...] F Ot Z87.442 05/09/2015 ALCIDES LANDAVERDE, HANNAH Kline Ot E87.6 HYPOKALEMIA 05/09/2015 ALCIDES LANDAVERDE, HANNAH Kline Ot M54.5 LOW BACK PAIN 05/09/2015 ALCIDES LANDAVERDE, HANNAH Kline Ot N12 TUBULO-INTERSTITIAL NEPHRITIS, NOT SPCF 05/09/2015 ALCIDES LANDAVERDE, HANNAH Kline Ot R10.10 UPPER ABDOMINAL PAIN, UNSPECIFIED 05/09/2015 MATTHEW AMAYA FORESTRY FIRE AIDE Ot V76.12 11/27/2015 MATTHEW AMAYAP Ot V76.12 OTH SCREEN MAMMO-MALIGN NEOPLASM OF DERIK 11/28/2015 SUZE KIM APRN Ot M51.34 OTHER INTERVERTEBRAL DISC DEGENERATION, 12/03/2015 SUZE KIM R COUNTY DEMONSTRATOR Ot M50.30 OTHER CERVICAL DISC DEGENERATION, UNSP C 12/03/2015 SUZE KIM R COUNTY DEMONSTRATOR Ot M51.16 INTERVERTEBRAL DISC DISORDERS W RADICULO 12/03/2015 SUZE KIM R COUNTY DEMONSTRATOR Ot M51.34 OTHER INTERVERTEBRAL DISC DEGENERATION, 12/03/2015 SUZE KIM R COUNTY DEMONSTRATOR Ot M51.36 OTHER INTERVERTEBRAL DISC DEGENERATION, 12/23/2015 MATTHEW AMAYA Iza [facility] Ot V76.12 OT SCREEN MAMMO-MALIGN NEOPLASM OF DERIK 12/23/2015 SUZE KIM R COUNTY DEMONSTRATOR Ot M50.30 OTHER CERVICAL DISC DEGENERATION, [facility] C 12/23/2015 SUZE KIM R COUNTY DEMONSTRATOR Ot M51.16 INTERVERTEBRAL DISC DISORDERS W RADICULO 12/23/2015 SUZE KIM COUNTY DEMONSTRATOR Ot M51.34 OTHER INTERVERTEBRAL DISC DEGENERATION, 12/23/2015 SZUE KIM R COUNTY DEMONSTRATOR Ot M51.36 OTHER INTERVERTEBRAL DISC DEGENERATION, 12/24/2015 SUZE KIM R COUNTY DEMONSTRATOR Ot M50.30 OTHER CERVICAL DISC DEGENERATION, [facility] C 12/24/2015 SUZE KIM R COUNTY DEMONSTRATOR Ot M51.16 INTERVERTEBRAL DISC DISORDERS W RADICULO 12/24/2015 SUZE KIM R COUNTY DEMONSTRATOR Ot M51.34 OTHER INTERVERTEBRAL DISC DEGENERATION, 12/24/2015 SUZE KIM R COUNTY DEMONSTRATOR Ot M51.36 OTHER INTERVERTEBRAL DISC DEGENERATION, 01/16/2016 SUZE KIM R COUNTY DEMONSTRATOR Ot M50.30 OTHER CERVICAL DISC DEGENERATION, [facility] C 01/16/2016 SUZE KIM R COUNTY DEMONSTRATOR Ot M51.16 INTERVERTEBRAL DISC DISORDERS W RADICULO 01/16/2016 SUZE KMI R COUNTY DEMONSTRATOR Ot M51.34 OTHER INTERVERTEBRAL DISC DEGENERATION, 01/16/2016 SUZE KIM R COUNTY DEMONSTRATOR Ot M51.36 OTHER INTERVERTEBRAL DISC DEGENERATION, 01/16/2016 SUZE KIM R COUNTY DEMONSTRATOR Ot M50.30 OTHER CERVICAL DISC DEGENERATION, UNSP C 01/16/2016 SUZE KIM R COUNTY DEMONSTRATOR Ot M51.16 INTERVERTEBRAL DISC DISORDERS W RADICULO 01/16/2016 SUZE KIM R COUNTY DEMONSTRATOR Ot M51.34 OTHER INTERVERTEBRAL DISC DEGENERATION, 01/16/2016 SUZE KIM APRN Ot M51.36 OTHER INTERVERTEBRAL DISC DEGENERATION, 01/19/2016 LAY MURILLO MD Ot M48.02 SPINAL STENOSIS, CERVICAL REGION 01/19/2016 LAY MURILLO MD Ot Z01.812 ENCOUNTER FOR PREPROCEDURAL LABORATORY E 01/19/2016 LAY MURILLO MD Ot Z11.2 ENCOUNTER FOR SCREENING FOR OTHER BACTER 02/04/2016 LAY MURILLO MD Ot E11.65 TYPE 2 DIABETES MELLITUS WITH HYPERGLYCE 02/04/2016 LAY MURILLO MD Ot E78.5 HYPERLIPIDEMIA, UNSPECIFIED 02/04/2016 LAY MURILLO MD Ot F32.9 MAJOR DEPRESSIVE DISORDER, SINGLE EPISOD 02/04/2016 LAY MURILLO MD Ot G62.9 POLYNEUROPATHY, UNSPECIFIED 02/04/2016 LAY MURILLO MD Ot I10 ESSENTIAL (PRIMARY) HYPERTENSION 02/04/2016 LAY MURILLO MD Ot M47.12 OTHER SPONDYLOSIS WITH MYELOPATHY, CERVI 02/04/2016 LAY MURILLO MD Ot M48.02 SPINAL STENOSIS, CERVICAL REGION 02/04/2016 LAY MURILLO MD Ot M54.12 RADICULOPATHY, CERVICAL REGION 04/13/2016 MATTHEW AMAYA FORESTRY FIRE AIDE Ot V76.12 OTH SCREEN MAMMO-MALIGN NEOPLASM OF DERIK 04/13/2016 SUZE KIM COUNTY DEMONSTRATOR Ot M50.30 OTHER CERVICAL DISC DEGENERATION, UNSP C 04/13/2016 SUZE KIM APRN Ot M51.16 INTERVERTEBRAL DISC DISORDERS W RADICULO 04/13/2016 SUZE KIM COUNTY DEMONSTRATOR Ot M51.34 OTHER INTERVERTEBRAL DISC DEGENERATION, 04/13/2016 SUZE KIM COUNTY DEMONSTRATOR Ot M51.36 OTHER INTERVERTEBRAL DISC DEGENERATION, 04/13/2016 ANTHONY URIBE MD Ot E11.9 TYPE 2 DIABETES MELLITUS WITHOUT COMPLIC 04/13/2016 ANTHONY URIBE MD, Ot N39.0 URINARY TRACT INFECTION, SITE NOT SPECIF 04/13/2016 ANTHONY URIBE MD, Ot R30.0 DYSURIA 04/13/2016 ANTHONY URIBE MD Ot Z79.82 MEDICAL TECHNOLOGIST HEMATOLOGY (CURRENT) USE OF ASPIRIN 04/13/2016 ANTHONY URIBE MD, Ot Z79.84 USP (CURRENT) USE OF ORAL HYPOGLYC 04/13/2016 ANTHONY URIBE MD, Ot Z79.899 OTHER MEDICAL TECHNOLOGIST HEMATOLOGY (CURRENT) DRUG THERAPY 04/14/2016 MATTHEW AMAYA Iza FORESTRY FIRE AIDE Ot V76.12 OTH SCREEN MAMMO-MALIGN NEOPLASM OF DERIK 04/14/2016 SUZE KIM [place] DEMONSTRATOR Ot M50.30 OTHER CERVICAL DISC DEGENERATION, UNSP C 04/14/2016 SUZE KIM APRN Ot M51.16 INTERVERTEBRAL DISC DISORDERS W RADICULO 04/14/2016 SUZE KIM APRN Ot M51.34 OTHER INTERVERTEBRAL DISC DEGENERATION, 04/14/2016 SUZE KIM APRN Ot M51.36 OTHER INTERVERTEBRAL DISC DEGENERATION, 04/15/2016 ANTHONY URIBE MD, Ot E11.9 TYPE 2 DIABETES MELLITUS WITHOUT COMPLIC 04/15/2016 ANTHONY RUIBE MD, Ot N39.0 URINARY TRACT INFECTION, SITE NOT SPECIF 04/15/2016 ANTHONY URIBE MD Ot R30.0 DYSURIA 04/15/2016 ANTHONY URIBE MD Ot Z79.82 MEDICAL TECHNOLOGIST HEMATOLOGY (CURRENT) USE OF ASPIRIN 04/15/2016 ANTHONY URIBE MD Ot Z79.84 USP (CURRENT) USE OF ORAL HYPOGLYC 04/15/2016 ANTHONY URIBE MD, Ot Z79.899 OTHER MEDICAL TECHNOLOGIST HEMATOLOGY (CURRENT) DRUG THERAPY 04/15/2016 LAY MURILLO MD [...] DIABETES MELLITUS WITHOUT COMPLIC 04/19/2016 ANTHONY URIBE MD, Ot N39.0 URINARY TRACT INFECTION, SITE NOT SPECIF 04/19/2016 ANTHONY URIBE MD, Ot R30.0 DYSURIA 04/19/2016 ANTHONY URIBE MD Ot Z79.82 MEDICAL TECHNOLOGIST HEMATOLOGY (CURRENT) USE OF ASPIRIN 04/19/2016 ANTHONY URIBE MD, Ot Z79.84 MEDICAL TECHNOLOGIST HEMATOLOGY (CURRENT) USE OF ORAL HYPOGLYC 04/19/2016 ANTHONY URIBE MD, Ot Z79.899 OTHER USP (CURRENT) DRUG THERAPY 04/27/2016 LAY MURILLO MD Ot E11.9 TYPE 2 DIABETES MELLITUS WITHOUT COMPLIC 04/27/2016 LAY MURILLO MD Ot M48.06 SPINAL STENOSIS, LUMBAR REGION 04/27/2016 LAY MURILLO MD Ot E11.9 TYPE 2 DIABETES MELLITUS WITHOUT COMPLIC 04/27/2016 LAY MURILLO MD Ot M48.06 SPINAL STENOSIS, LUMBAR REGION 05/02/2016 LAY MURILLO MD Ot E11.9 TYPE 2 DIABETES MELLITUS WITHOUT COMPLIC 05/02/2016 LAY MURILLO MD Ot M48.06 SPINAL STENOSIS, LUMBAR REGION 06/18/2016 MATTHEW AMAYA FORESTRY FIRE AIDE Ot V76.12 OTH SCREEN MAMMO-MALIGN NEOPLASM OF DERIK 06/18/2016 SUZE KIM APRN Ot M50.30 OTHER CERVICAL DISC DEGENERATION, UNSP C 06/18/2016 SUZE KIM APRN Ot M51.16 INTERVERTEBRAL DISC DISORDERS W RADICULO 06/18/2016 SUZE KIM APRN Ot M51.34 OTHER INTERVERTEBRAL DISC DEGENERATION, 06/18/2016 SUZE KIM [place] DEMONSTRATOR Ot M51.36 OTHER INTERVERTEBRAL DISC DEGENERATION, 06/22/2016 POLLY LANDAVERDE, RALPH A Ot N12 TUBULO-INTERSTITIAL NEPHRITIS, NOT SPCF 07/01/2016 POLLY LANDAVERDE, RALPH A Ot N12 TUBULO-INTERSTITIAL NEPHRITIS, NOT SPCF 07/12/2016 POLLY LANDAVERDE, RALPH A Ot N12 TUBULO-INTERSTITIAL NEPHRITIS, NOT SPCF 07/30/2016 RALPH MATIAS MD Ot N12 TUBULO-INTERSTITIAL NEPHRITIS, NOT SPCF 08/31/2016 LAY MURILLO MD Ot Z48.89 ENCOUNTER FOR OTHER SPECIFIED SURGICAL A 08/31/2016 LAY MURILLO MD, Ot Z98.1 ARTHRODESIS STATUS 08/31/2016 LAY MURILLO MD, Ot Z48.89 ENCOUNTER FOR OTHER SPECIFIED SURGICAL A 08/31/2016 LAY MURILLO MD, Ot Z98.1 ARTHRODESIS STATUS 09/08/2016 ADRIA DIALLO [place] DEMONSTRATOR Ot E11.9 TYPE 2 DIABETES MELLITUS WITHOUT COMPLIC 09/08/2016 ADRIA DIALLO COUNTY DEMONSTRATOR Ot N30.91 CYSTITIS, UNSPECIFIED WITH HEMATURIA 09/08/2016 ADRIA DIALLO COUNTY DEMONSTRATOR Ot R51 HEADACHE 09/08/2016 ADRIA DIALLO COUNTY DEMONSTRATOR Ot Z79.84 USP (CURRENT) USE OF ORAL HYPOGLYC 09/08/2016 ADRIA DIALLO COUNTY DEMONSTRATOR Ot Z79.899 OTHER USP (CURRENT) DRUG THERAPY 09/09/2016 ADRIA DIALLO COUNTY DEMONSTRATOR Ot E11.9 TYPE 2 DIABETES MELLITUS WITHOUT COMPLIC 09/09/2016 ADRIA DIALLO COUNTY DEMONSTRATOR Ot N30.91 CYSTITIS, UNSPECIFIED WITH HEMATURIA 09/09/2016 ADRIA DIALLO COUNTY DEMONSTRATOR Ot R51 HEADACHE 09/09/2016 ADRIA DIALLO [place] DEMONSTRATOR Ot Z79.84 MEDICAL TECHNOLOGIST HEMATOLOGY (CURRENT) USE OF ORAL HYPOGLYC 09/09/2016 ADRIA DIALLO [place] DEMONSTRATOR Ot Z79.899 OTHER MEDICAL TECHNOLOGIST HEMATOLOGY (CURRENT) DRUG THERAPY 09/13/2016 MATTHEW AMAYA FORESTRY FIRE AIDE Ot V76.12 OTH SCREEN MAMMO-MALIGN NEOPLASM OF DERIK 09/13/2016 SUZE KIM [place] DEMONSTRATOR Ot M50.30 OTHER CERVICAL DISC DEGENERATION, UNSP C 09/13/2016 SUZE KIM COUNTY DEMONSTRATOR Ot M51.16 INTERVERTEBRAL DISC DISORDERS W RADICULO 09/13/2016 SUZE KIM COUNTY DEMONSTRATOR Ot M51.34 OTHER INTERVERTEBRAL DISC DEGENERATION, 09/13/2016 SUZE KIM [place] DEMONSTRATOR Ot M51.36 OTHER INTERVERTEBRAL DISC DEGENERATION, 09/13/2016 POLLY LANDAVERDE, RALPH Malone Ot N12 TUBULO-INTERSTITIAL NEPHRITIS, NOT SPCF 09/13/2016 POLLY LANDAVERDE, RALPH Malone Ot N12 TUBULO-INTERSTITIAL NEPHRITIS, NOT SPCF 09/13/2016 LAY MURILLO MD Ot Z48.89 ENCOUNTER FOR OTHER SPECIFIED SURGICAL A 09/13/2016 CHIDI LANDAVERDE, LAY Couch Ot Z98.1 ARTHRODESIS STATUS 09/13/2016 ANTHONY URIBE MD Ot I10 ESSENTIAL (PRIMARY) HYPERTENSION 09/13/2016 ANTHONY URIBE MD Ot R11.2 NAUSEA WITH VOMITING, UNSPECIFIED 09/13/2016 ANTHONY URIBE MD Ot R19.7 DIARRHEA, UNSPECIFIED 09/13/2016 ANTHONY URIBE MD Ot Z79.4 USP (CURRENT) USE OF INSULIN 09/13/2016 ANTHONY URIBE MD Ot Z79.84 MEDICAL TECHNOLOGIST HEMATOLOGY (CURRENT) USE OF ORAL HYPOGLYC 09/13/2016 ANTHONY URIBE MD Ot Z79.899 OTHER USP (CURRENT) DRUG THERAPY 09/14/2016 ANTHONY URIBE MD, Ot I10 ESSENTIAL (PRIMARY) HYPERTENSION 09/14/2016 ANTHONY URIBE MD Ot R11.2 NAUSEA WITH VOMITING, UNSPECIFIED 09/14/2016 ANTHONY URIBE MD Ot R19.7 DIARRHEA, UNSPECIFIED 09/14/2016 ANTHONY URIBE MD Ot Z79.4 USP (CURRENT) USE OF INSULIN 09/14/2016 ANTHONY URIBE MD Ot Z79.84 USP (CURRENT) USE OF ORAL HYPOGLYC 09/14/2016 ANTHONY URIBE MD Ot Z79.899 OTHER USP (CURRENT) DRUG THERAPY 09/15/2016 ANTHONY URIBE MD Ot I10 ESSENTIAL (PRIMARY) HYPERTENSION 09/15/2016 ANTHONY URIBE MD Ot R11.2 NAUSEA WITH VOMITING, UNSPECIFIED 09/15/2016 ANTHONY URIBE MD Ot R19.7 DIARRHEA, UNSPECIFIED 09/15/2016 ANTHONY URIBE MD Ot Z79.4 USP (CURRENT) USE OF INSULIN 09/15/2016 ANTHONY URIBE MD Ot Z79.84 USP (CURRENT) USE OF ORAL HYPOGLYC 09/15/2016 ANTHONY URIBE MD Ot Z79.899 OTHER MEDICAL TECHNOLOGIST HEMATOLOGY (CURRENT) DRUG THERAPY 09/18/2016 ANTHONY URIBE MD Ot I10 ESSENTIAL (PRIMARY) HYPERTENSION 09/18/2016 ANTHONY URIBE MD Ot R11.2 NAUSEA WITH VOMITING, UNSPECIFIED 09/18/2016 ANTHONY URIBE MD, Ot R19.7 DIARRHEA, UNSPECIFIED 09/18/2016 ANTHONY URIBE MD, Ot Z79.4 USP (CURRENT) USE OF INSULIN 09/18/2016 ANTHONY URIBE MD, Ot Z79.84 MEDICAL TECHNOLOGIST HEMATOLOGY (CURRENT) USE OF ORAL HYPOGLYC 09/18/2016 ANTHONY URIBE MD, Ot Z79.899 OTHER USP (CURRENT) DRUG THERAPY 09/24/2016 LAY MURILLO MD Ot Z48.89 ENCOUNTER FOR OTHER SPECIFIED SURGICAL A 09/24/2016 LAY MURILLO MD, Ot Z98.1 ARTHRODESIS STATUS 09/29/2016 ZAID WOODS Ot M48.02 SPINAL STENOSIS, CERVICAL REGION 10/26/2016 HANNAH MCGRATH MD Ot E11.9 TYPE 2 DIABETES MELLITUS WITHOUT COMPLIC 10/26/2016 HANNAH MCGRATH MD Ot H57.9 UNSPECIFIED DISORDER OF EYE AND ADNEXA 10/26/2016 HANNAH MCGRATH MD Ot R07.89 OTHER CHEST PAIN 10/26/2016 HANNAH MCGRATH MD Ot R10.13 EPIGASTRIC PAIN 10/26/2016 HANNAH MCGRATH MD Ot R42 DIZZINESS AND GIDDINESS 10/26/2016 HANNAH MCGRATH MD Ot Z79.4 USP (CURRENT) USE OF INSULIN 10/26/2016 HANNAH MCGRATH MD Ot Z79.82 USP (CURRENT) USE OF ASPIRIN 10/26/2016 HANNAH MCGRATH MD Ot Z79.84 USP (CURRENT) USE OF ORAL HYPOGLYC 10/26/2016 HANNAH MCGRATH MD Ot Z79.899 OTHER USP (CURRENT) DRUG THERAPY 11/10/2016 ZAID WOODS Ot M48.02 SPINAL STENOSIS, CERVICAL REGION Procedures Code Description Performed By Performed On FOOT EXAM PERFORMED 11/05/2013 3008F BODY MASS INDEX DOCD 11/05/2013 40003 EYE EXAM PERFORMED 11/05/2013 11095 MEDICAL NUTRITION INDIV IN 11/05/2013 2028F FOOT EXAM PERFORMED 04/02/2014 55442 A1C (IN-HOUSE) 04/02/2014 69222 CMP 04/02/2014 73084 A1C (IN-HOUSE) 08/02/2014 [id number] EXCISION OF CERVICAL VERTEBRAL JOINT, OP 02/02/2016 [id number] EXCISION OF CERVICAL VERTEBRAL DISC, OPE 02/02/2016 [id number] FUSION 2-6 C JT W INTBD FUS DEV, ANT ANGELINE 02/02/2016 Results Test Result Range Methicillin resistant Staphylococcus aureus (MRSA) screening culture - 14:30 Methicillin resistant Staphylococcus aureus (MRSA) screening culture NEG NRG Complete blood count (CBC) with automated white blood cell (WBC) differential - 01/19/16 14:35 Blood leukocytes automated count (number/volume) 7.2 10*3/uL 4.3-11.0 Blood erythrocytes automated count (number/volume) 4.32 10*6/uL 4.35-5.85 Venous blood hemoglobin measurement (mass/volume) 13.3 [...] Automated blood platelet mean volume measurement 10.5 [foz_us] 7.4-10.4 Automated blood neutrophils/100 leukocytes 69 % [...] ABO+Rh group OP NRG Transfusion band number [id number] NRG Blood group antibody screen NEGATIVE NRG [...] 09:25 Blood leukocytes automated count (number/volume) 11.7 10*3/uL 4.3-11.0 Blood erythrocytes automated count (number/volume) 4.38 10*6/uL 4.35-5.85 Venous blood hemoglobin measurement (mass/volume) 13.3 [...] Automated blood platelet mean volume measurement 10.7 [foz_us] 7.4-10.4 Automated blood neutrophils/100 leukocytes 82 % [...] Serum or plasma sodium measurement (moles/volume) 138 mmol/L 135-145 Serum or plasma potassium measurement (moles/volume) 4.1 mmol/L 3.6-5.0 Serum or plasma chloride measurement (moles/volume) 106 mmol/L 98-107 Carbon dioxide 22 mmol/L 21-32 Serum or plasma anion gap determination (moles/volume) 10 mmol/L 5-14 Serum or plasma urea nitrogen measurement (mass/volume) 10 mg/dL 7-18 Serum or plasma creatinine measurement (mass/volume) 0.69 mg/dL 0.60-1.30 Serum or plasma urea nitrogen/creatinine mass [...] plasma C reactive protein measurement (mass/volume) 0.63 mg /dL 0.00-0.50 Complete urinalysis with reflex to culture - 04/13/16 09:30 Urine color determination YELLOW NRG Urine clarity determination SLIGHTLY CLOUDY NRG Urine pH measurement by test strip 5 5-9 Specific gravity of urine by test strip 1.020 1.016- 1.022 Urine protein assay by test strip, semi-quantitative [...] culture - 04/13/16 09:30 Bacterial urine culture [id number] NRG COLONY COUNT 10,000/ML - 100,000/ML NRG FTX;REPORTABLE SENSITIVITY REPORTED AT 0942, 04-15-16 NRG Bacterial susceptibility panel - 04/13/16 09:30 Gentamicin susceptibility test by minimum inhibitory concentration < = NRG Trimethoprim/sulfamethoxazole susceptibility test by minimum inhibitoryconcentration <= NRG Ampicillin susceptibility test by minimum inhibitory concentration > = NRG Tobramycin susceptibility test by minimum inhibitory concentration < = NRG Cefazolin susceptibility test by minimum inhibitory concentration < = NRG Ceftriaxone susceptibility test by minimum inhibitory concentration <= NRG Ampicillin/sulbactam susceptibility test by minimum inhibitory concentration 4 NRG Piperacillin/tazobactam susceptibility test by minimum inhibitory concentration <= NRG Ciprofloxacin susceptibility test by minimum inhibitory concentration <= NRG Meropenem susceptibility test by minimum inhibitory concentration < = NRG Nitrofurantoin susceptibility test by minimum inhibitory concentration 64 NRG Aztreonam susceptibility test by minimum inhibitory concentration < = NRG Extended spectrum beta lactamase (ESBL) producing [...] measurement by glucometer (mass/volume) 256 mg/dL 70-110 [id number] - 06/30/16 08:09 Serum or plasma urea nitrogen measurement (mass/volume) 13 mg/dL 7-18 Serum or plasma creatinine measurement (mass/volume) 0.75 mg/dL 0.60-1.30 Serum or plasma urea nitrogen/creatinine mass ratio 17 NRG Serum or plasma creatinine measurement with calculation of estimated glomerular filtration rate > NRG Complete blood count (CBC) with automated white blood cell (WBC) differential - 09/08/16 17:05 Blood leukocytes automated count (number/volume) 13.2 10*3/uL 4.3-11.0 Blood erythrocytes automated count (number/volume) 4.62 10*6/uL 4.35-5.85 Venous blood hemoglobin measurement (mass/volume) 13.9 [...] Automated blood platelet mean volume measurement 10.4 [foz_us] 7.4-10.4 Automated blood neutrophils/100 leukocytes 76 % [...] Serum or plasma sodium measurement (moles/volume) 136 mmol/L 135-145 Serum or plasma potassium measurement (moles/volume) 4.4 mmol/L 3.6-5.0 Serum or plasma chloride measurement (moles/volume) 100 mmol/L 98-107 Carbon dioxide 20 mmol/L 21-32 Serum or plasma anion gap determination (moles/volume) 16 mmol/L 5-14 Serum or plasma urea nitrogen measurement (mass/volume) 10 mg/dL 7-18 Serum or plasma creatinine measurement (mass/volume) 0.76 mg/dL 0.60-1.30 Serum or plasma urea nitrogen/creatinine mass [...] Urine pH measurement by test strip 5 5-9 Specific gravity of urine by test strip 1.020 1.016- 1.022 Urine protein assay by test strip, semi-quantitative [...] 14:00 Blood leukocytes automated count (number/volume) 15.8 10*3/uL 4.3-11.0 Blood erythrocytes automated count (number/volume) 5.13 10*6/uL 4.35-5.85 Venous blood hemoglobin measurement (mass/volume) 15.3 [...] Automated blood platelet mean volume measurement 10.6 [foz_us] 7.4-10.4 Automated blood neutrophils/100 leukocytes 93 % [...] Serum or plasma sodium measurement (moles/volume) 136 mmol/L 135-145 Serum or plasma potassium measurement (moles/volume) 5.0 mmol/L 3.6-5.0 Serum or plasma chloride measurement (moles/volume) 106 mmol/L 98-107 Carbon dioxide 21 mmol/L 21-32 Serum or plasma anion gap determination (moles/volume) 9 mmol/L 5-14 Serum or plasma urea nitrogen measurement (mass/volume) 14 mg/dL 7-18 Serum or plasma creatinine measurement (mass/volume) 0.82 mg/dL 0.60-1.30 Serum or plasma urea nitrogen/creatinine mass [...] Urine pH measurement by test strip 6 5-9 Specific gravity of urine by test strip 1.020 1.016- 1.022 Urine protein assay by test strip, semi-quantitative [...] urinalysis with reflex to culture NO NRG Complete urinalysis with reflex to culture - 10/26/16 18:56 Urine color determination YELLOW NRG Urine clarity determination CLEAR NRG Urine pH measurement by test strip 6 5-9 Specific gravity of urine by test strip 1.010 1.016- 1.022 Urine protein assay by test strip, semi-quantitative NEGATIVE NEGATIVE Urine glucose detection by automated test strip 3+ NEGATIVE Erythrocytes detection in urine sediment by light microscopy NEGATIVE NEGATIVE Urine ketones detection by automated test strip NEGATIVE NEGATIVE Urine nitrite detection by test strip NEGATIVE NEGATIVE Urine total bilirubin detection by test strip NEGATIVE NEGATIVE Urine urobilinogen measurement by automated test strip (mass/volume) NORMAL NORMAL Urine leukocyte esterase detection by dipstick NEGATIVE NEGATIVE Automated urine sediment erythrocyte count by microscopy (number/high power field) NONE NRG Automated urine sediment leukocyte count by microscopy (number/high power field ) [HPF] NRG Bacteria detection in urine sediment by light microscopy NEGATIVE NRG Squamous epithelial cells detection in urine sediment by light microscopy 2-5 NRG Crystals detection in urine sediment by light microscopy NONE NRG Casts detection in urine sediment by light microscopy NONE NRG Mucus detection in urine sediment by light microscopy NEGATIVE NRG Complete urinalysis with reflex to culture NO NRG Complete blood count (CBC) with automated white blood cell (WBC) differential - 10/26/16 19:08 Blood leukocytes automated count (number/volume) 9.6 10*3/uL 4.3-11.0 Blood erythrocytes automated count (number/volume) 4.62 10*6/uL 4.35-5.85 Venous blood hemoglobin measurement (mass/volume) 13.8 g/dL 11.5-16.0 Blood hematocrit (volume fraction) 41 % 35-52 Automated erythrocyte mean corpuscular volume 88 [foz_us] 80-99 Automated erythrocyte mean corpuscular hemoglobin (mass per erythrocyte) 30 pg 25-34 Automated erythrocyte mean corpuscular hemoglobin concentration measurement ( mass/volume) 34 g/dL 32-36 Automated erythrocyte distribution width ratio 12.9 % 10.0-14.5 Automated blood platelet count (count/volume) 304 10*3/uL 130-400 Automated blood platelet mean volume measurement 10.2 [foz_us] 7.4-10.4 Automated blood neutrophils/100 leukocytes 64 % 42-75 Automated blood lymphocytes/100 leukocytes 27 % 12-44 Blood monocytes/100 leukocytes 8 % 0-12 Automated blood eosinophils/100 leukocytes 1 % 0-10 Automated blood basophils/100 leukocytes 0 % 0-10 Blood neutrophils automated count (number/volume) 6.1 10*3 1.8-7.8 Blood lymphocytes automated count (number/volume) 2.6 10*3 1.0-4.0 Blood monocytes automated count (number/volume) 0.8 10*3 0.0-1.0 Automated eosinophil count 0.1 10*3/uL 0.0-0.3 Automated blood basophil count (count/volume) 0.0 10*3/uL 0.0-0.1 PT panel in platelet poor plasma by coagulation assay - 10/26/16 19:08 Prothrombin time (PT) in platelet poor plasma by coagulation assay 12.7 s 12.2-14.7 INR in platelet poor plasma or blood by coagulation assay 1.0 0.8-1.4 Activated partial thromboplastin time (aPTT) in platelet poor plasma bycoagulation assay - 10/26/16 19:08 Activated partial thromboplastin time (aPTT) in platelet poor plasma bycoagulation assay 25 s 24-35 Comprehensive metabolic panel - 10/26/16 19:08 Serum or plasma sodium measurement (moles/volume) 140 mmol/L 135-145 Serum or plasma potassium measurement (moles/volume) 3.7 mmol/L 3.6-5.0 Serum or plasma chloride measurement (moles/volume) 104 mmol/L 98-107 Carbon dioxide 25 mmol/L 21-32 Serum or plasma anion gap determination (moles/volume) 11 mmol/L 5-14 Serum or plasma urea nitrogen measurement (mass/volume) 11 mg/dL 7-18 Serum or plasma creatinine measurement (mass/volume) 0.67 mg/dL 0.60-1.30 Serum or plasma urea nitrogen/creatinine mass ratio 16 NRG Serum or plasma creatinine measurement with calculation of estimated glomerular filtration rate > NRG Serum or plasma glucose measurement (mass/volume) 165 mg/dL 70-105 Serum or plasma calcium measurement (mass/volume) 9.5 mg/dL 8.5-10.1 Serum or plasma total bilirubin measurement (mass/volume) 0.5 mg/dL 0.1-1.0 Serum or plasma alkaline phosphatase measurement (enzymatic activity/volume) 74 U/L 40-136 Serum or plasma aspartate aminotransferase measurement (enzymatic activity/ volume) 17 U/L 5-34 Serum or plasma alanine aminotransferase measurement (enzymatic activity/volume ) 22 U/L 0-55 Serum or plasma protein measurement (mass/volume) 6.6 g/dL 6.4-8.2 Serum or plasma albumin measurement (mass/volume) 4.1 g/dL 3.2-4.5 Magnesium - 10/26/16 19:08 Magnesium 1.6 mg/dL 1.8-2.4 Serum or plasma troponin i.cardiac measurement (mass/volume) - 10/26/16 19:08 Serum or plasma troponin i.cardiac measurement (mass/volume) < ng/ mL <0.30 Myoglobin, serum - 10/26/16 19:08 Myoglobin, serum 24.5 ng/mL 10.0-92.0 Serum or plasma thyrotropin measurement by detection limit <=0.05 miu/l (units/ volume) - 10/26/16 19:08 Serum or plasma thyrotropin measurement by detection limit <=0.05 miu/l (units/ volume) 1.15 u[iU]/mL 0.35-4.94 Complete blood count (CBC) with automated white blood cell (WBC) differential - 06/28/17 19:02 Blood leukocytes automated count (number/volume) 11.8 10*3/uL 4.3-11.0 Blood erythrocytes automated count (number/volume) 4.32 10*6/uL 4.35-5.85 Venous blood hemoglobin measurement (mass/volume) 13.1 g/dL 11.5-16.0 Blood hematocrit (volume fraction) 38 % 35-52 Automated erythrocyte mean corpuscular volume 87 [foz_us] 80-99 Automated erythrocyte mean corpuscular hemoglobin (mass per erythrocyte) 30 pg 25-34 Automated erythrocyte mean corpuscular hemoglobin concentration measurement ( mass/volume) 35 g/dL 32-36 Automated erythrocyte distribution width ratio 12.6 % 10.0-14.5 Automated blood platelet count (count/volume) 289 10*3/uL 130-400 Automated blood platelet mean volume measurement 10.1 [foz_us] 7.4-10.4 Automated blood neutrophils/100 leukocytes 69 % 42-75 Automated blood lymphocytes/100 leukocytes 21 % 12-44 Blood monocytes/100 leukocytes 8 % 0-12 Automated blood eosinophils/100 leukocytes 1 % 0-10 Automated blood basophils/100 leukocytes 0 % 0-10 Blood neutrophils automated count (number/volume) 8.2 10*3 1.8-7.8 Blood lymphocytes automated count (number/volume) 2.5 10*3 1.0-4.0 Blood monocytes automated count (number/volume) 1.0 10*3 0.0-1.0 Automated eosinophil count 0.1 10*3/uL 0.0-0.3 Automated blood basophil count (count/volume) 0.0 10*3/uL 0.0-0.1 PT panel in platelet poor plasma by coagulation assay - 06/28/17 19:02 Prothrombin time (PT) in platelet poor plasma by coagulation assay 12.5 s 12.2-14.7 INR in platelet poor plasma or blood by coagulation assay 0.9 0.8-1.4 Activated partial thromboplastin time (aPTT) in platelet poor plasma bycoagulation assay - 06/28/17 19:02 Activated partial thromboplastin time (aPTT) in platelet poor plasma bycoagulation assay 27 s 24-35 Fibrin D-dimer FEU measurement in platelet poor plasma (mass/volume) - 19:02 Fibrin D-dimer FEU measurement in platelet poor plasma (mass/volume) < ug/mL 0.00-0.49 Comprehensive metabolic panel - 06/28/17 19:02 Serum or plasma sodium measurement (moles/volume) 138 mmol/L 135-145 Serum or plasma potassium measurement (moles/volume) 3.6 mmol/L 3.6-5.0 Serum or plasma chloride measurement (moles/volume) 102 mmol/L 98-107 Carbon dioxide 25 mmol/L 21-32 Serum or plasma anion gap determination (moles/volume) 11 mmol/L 5-14 Serum or plasma urea nitrogen measurement (mass/volume) 10 mg/dL 7-18 Serum or plasma creatinine measurement (mass/volume) 0.62 mg/dL 0.60-1.30 Serum or plasma urea nitrogen/creatinine mass ratio 16 NRG Serum or plasma creatinine measurement with calculation of estimated glomerular filtration rate > NRG Serum or plasma glucose measurement (mass/volume) 194 mg/dL 70-105 Serum or plasma calcium measurement (mass/volume) 8.9 mg/dL 8.5-10.1 Serum or plasma total bilirubin measurement (mass/volume) 0.3 mg/dL 0.1-1.0 Serum or plasma alkaline phosphatase measurement (enzymatic activity/volume) 74 U/L 40-136 Serum or plasma aspartate aminotransferase measurement (enzymatic activity/ volume) 16 U/L 5-34 Serum or plasma alanine aminotransferase measurement (enzymatic activity/volume ) 19 U/L 0-55 Serum or plasma protein measurement (mass/volume) 6.3 g/dL 6.4-8.2 Serum or plasma albumin measurement (mass/volume) 3.8 g/dL 3.2-4.5 Magnesium - 06/28/17 19:02 Magnesium 1.2 mg/dL 1.8-2.4 Serum or plasma troponin i.cardiac measurement (mass/volume) - 06/28/17 19:02 Serum or plasma troponin i.cardiac measurement (mass/volume) < ng/ mL <0.30 Myoglobin, serum - 06/28/17 19:02 Myoglobin, serum 35.0 ng/mL 10.0-92.0 Encounters ACCT No. Visit Date/Time Discharge Status Pt. Type Provider Facility Loc./Unit Complaint [id number] 08/02/2014 15:41:00 08/02/2014 23:59:59 CLS Outpatient JENN SPRINGER DO [id number] 07/04/2014 00:00:00 07/04/2014 23:59:59 CLS Outpatient MASOOD FLORENCE DDS [id number] 04/02/2014 11:25:00 04/02/2014 23:59:59 CLS Outpatient JENN SPRINGER DO [id number] 12/14/2013 09:56:00 12/14/2013 23:59:59 CLS Outpatient JENN SPRINGER DO [id number] 11/05/2013 12:39:00 11/05/2013 23:59:59 CLS Outpatient JENN SPRINGER DO [id number] 10/21/2016 09:30:00 11/25/2016 09:35:00 DIS Outpatient ZAID WOODS [facility] REHAB CERVICAL LUMBAR STENOSIS W/ RADICULOPATHY;S/PL3-5 [id number] 10/26/2016 18:06:00 10/26/2016 22:06:00 DIS Emergency HANNAH MCGRATH MD [facility] ER HEADACHE/HEARTBURN/ STOMACH PAIN [id number] 09/13/2016 13:12:00 09/13/2016 17:22:00 DIS Emergency ANTHONY URIBE MD [facility] ER VOMITING/DIARRHEA [id number] 09/08/2016 16:50:00 09/08/2016 18:49:00 DIS Emergency [place] [employer] [facility] ER HEADACHE [id number] 08/30/2016 11:38:00 08/30/2016 23:59:59 CLS Outpatient LAY MURILLO MD [facility] RAD POST FUSION Z48.81 [id number] 06/30/2016 08:00:00 06/30/2016 23:59:59 CLS Outpatient RALPH MATIAS MD [facility] RAD PYELONEPHRITIS [id number] 06/18/2016 10:33:00 06/18/2016 23:59:59 CLS Outpatient RALPH MATIAS MD [facility] RAD RIGHT PYELONEPHRITIS [id number] 04/26/2016 07:30:00 04/27/2016 13:19:00 DIS Outpatient LAY MURILLO MD [facility] SDC SPINAL STENOSIS [id number] 04/15/2016 09:40:00 04/15/2016 10:05:00 DIS Outpatient LAY MURILLO MD [facility] PREOP SPINAL STENOSIS [id number] 04/13/2016 09:12:00 04/13/2016 11:24:00 DIS Emergency ANTHONY URIBE MD [facility] ER ABD PAIN/HEADACHE LOSS OF BLADDER CONTROL [id number] 02/02/2016 05:59:00 02/04/2016 13:20:00 DIS Inpatient LAY MURILLO MD [facility] 4TH STENOSIS [id number] 01/19/2016 13:46:00 01/19/2016 16:08:00 DIS Outpatient LAY MURILLO MD [facility] PREOP STENOSIS [id number] 11/27/2015 15:44:00 11/27/2015 23:59:59 CLS Outpatient [place] [employer] [facility] RAD RADICULOPATHY, DDD [id number] 05/09/2015 17:40:00 05/09/2015 21:07:00 DIS Emergency ALCIDES LANDAVERDE, HANNAH Kline [facility] ER TINGLING IN LT ARM AND ABD PAIN [id number] 05/02/2015 04:33:00 05/05/2015 16:56:00 DIS Inpatient MARK LANDAVERDE, JAIMIE Morin [facility] 4TH [id number] 03/20/2015 17:07:00 03/20/2015 20:00:00 DIS Emergency LUCIE LANDAVERDE, KATLIN Field [facility] ER ABD PAIN,DIARRHEA [id number] 10/15/2013 11:48:00 10/15/2013 13:31:00 DIS Emergency [place] [employer] [facility] ER HIGH BLOOD SUGAR [id number] 10/10/2013 14:44:00 10/10/2013 23:59:59 CLS Outpatient MATTHEW AMAYA FORESTRY [employer] [facility] RAD SCREENING [id number] 06/28/2017 19:09:00 Document Registration [id number] 03/29/2015 02:04:00 Document Registration [id number] 12/22/2009 23:27:00 Document Registration
== END 2017-06-28 20:47 | disposition home or self-care (01) ==
LOC: EDUNIT# 17:25 → ER 17:26
DX: R07.89 Other chest pain (principal); M79.1 Myalgia; I10 Essential (primary) hypertension; K21.9 Gastro-esophageal reflux disease without esophagitis; E11.40 Type 2 diabetes mellitus with diabetic neuropathy, unspecified; F32.9 Major depressive disorder, single episode, unspecified; Z82.49 Family history of ischemic heart disease and other diseases of the circulatory system; Z87.442 Personal history of urinary calculi; Z87.440 Personal history of urinary (tract) infections; Z79.82 Long term (current) use of aspirin; Z79.4 Long term (current) use of insulin; Z90.710 Acquired absence of both cervix and uterus
CPT/HCPCS: 36415; 71046; 80053; 83735; 83874; 84484; 85025; 85379; 85610; 85730; 93005; 93041; 96374

== ENCOUNTER 2018-03-09 11:14 | Outpatient (RCR) | payer MEDICARE, MEDICAID ==
[~2018-03-09 11:14] MED LIST changes: +METF-399 PO; -METF1000 PO
== END 2018-03-19 | disposition home or self-care (01) ==
LOC: LAB 11:14
PROVIDERS: ATTEND Surgery
DX: R19.7 Diarrhea, unspecified (principal)

== ENCOUNTER 2018-03-16 10:03 | Outpatient (RCR) | payer MEDICARE, MEDICAID | END 2018-03-19 | disposition home or self-care (01) | LOC: LAB 10:03 | PROVIDERS: ATTEND Surgery | DX: R19.7 Diarrhea, unspecified (principal) | CPT/HCPCS: 82274; 87045; 87046; 87324; 87328; 87329; 87449 ==

== ENCOUNTER 2018-03-22 15:00 | Outpatient (CLI) | payer MEDICARE, MEDICAID ==
[~2018-03-22] VITALS: Ht 175.3 cm; Wt 90.8 kg
[2018-03-22] MEDS ORDERED: TRAZ-189 PO (15:06)
[2018-03-22] MEDS ORDERED: METF-397 PO (15:06)
[2018-03-22] MEDS ORDERED: PREG100C PO (15:06)
[2018-03-22] MEDS ORDERED: CHOL5000 PO (15:06)
[2018-03-22] MEDS ORDERED: LOVA20TA2 PO (15:06)
== END 2018-03-22 15:11 | disposition home or self-care (01) ==
LOC: PREOP 15:00
PROVIDERS: ATTEND Surgery
DX: Z01.818 Encounter for other preprocedural examination (principal)

== ENCOUNTER 2018-11-01 05:36 | Outpatient (CLI) | payer MEDICARE, MEDICAID ==
[~2018-11-01] VITALS: Ht 175.3 cm; Wt 90.8 kg
[~2018-11-01 05:36] MED LIST changes: +CHOL5000 PO; +METF-397 PO; +PREG100C PO; +TRAZ-189 PO
[2018-11-02] MEDS ORDERED: ASPI-586 PO (09:10)
== END 2018-11-02 09:31 | disposition home or self-care (01) ==
LOC: PREOP 05:36
PROVIDERS: ATTEND Specialist
DX: Z01.818 Encounter for other preprocedural examination (principal)

== ENCOUNTER 2018-11-03 07:55 | Day surgery (SDC) | payer MEDICARE, MEDICAID ==
[~2018-11-03] VITALS: Ht 175.3 cm; Wt 90.8 kg
[~2018-11-03 07:55] MED LIST changes: +ASPI-586 PO
[2018-11-03] MEDS ORDERED: MOXIFLOXACIN OPHTH SOLN 5 MG/ML 0.3 ML SYRINGE OP ONE (08:00)
[2018-11-03] MEDS ORDERED: LIDOCAINE PF 1% 2 ML AMP IR PRN (08:00)
[2018-11-03] MEDS ORDERED: POVIDONE (BETADINE) OPHTH SOLN 5% 30 ML OP ONE (08:00)
[2018-11-03] MEDS ORDERED: TIMOLOL MALEATE 0.5% 5 ML (TIMOPTIC) BTL OU PRN (08:00)
--- OUTSIDE RECORDS SUMMARY | 2018-11-03 08:01 | XMS REPORT ---
Author Author Migration, Doctor Organization [facility] Address Unknown Phone Unavailable Care Team Providers Care Switch Operator Name Role Phone Migration, Doctor Unavailable Unavailable PROBLEMS Type Condition ICD9-CM Code ZIB56-RX Code Onset Dates Condition Status SNOMED Code Problem Hypertriglyceridemia E78.1 Active 590740567 Problem Chronic pain G89.29 Active 43021891 Problem History of spinal stenosis Z87.39 Active 819943603 Problem Hypertension I10 Active 27663809 Problem Vitamin D deficiency E55.9 Active 60855421 Problem Onycholysis L60.1 Active 92542271 Problem Other hammer toe(s) (acquired), right foot M20.41 Active 458855503 Problem Degenerative disc disease, 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 40794905 Problem Osteopenia M85.80 Active 267661839 Problem Radiculopathy due to disorder of intervertebral disc of lumbar spine M51.16 Active 862533100248803 Problem Type 2 diabetes mellitus with diabetic polyneuropathy, without long- term current use of insulin E11.42 Active 82148841 Problem OAB (overactive bladder) N32.81 Active 872815634 Problem Gastroesophageal reflux disease without esophagitis K21.9 Active 834918831 Problem Type 2 diabetes mellitus with hyperglycemia E11.65 Active 798621633209622 Problem Other diabetic neurological complication associated with type 2 diabetes mellitus E11.49 Active 249765007 Problem Degenerative disc disease, cervical M50.30 Active 62691692 Problem Recurrent major depressive disorder, in partial remission F33.41 Active 42842270 Problem Ulcer of right foot, unspecified ulcer stage L97.519 Active 13355538 Problem Degenerative disc disease, lumbar M51.36 Active 54777507 Problem Anxiety associated with depression F41.8 Active 781221545 Problem Type 2 diabetes mellitus with diabetic polyneuropathy E11.42 Active 79387478 Problem [facility] current use of insulin Z79.4 Active 999102121 Problem Other obesity due to excess calories E66.09 Active 271126506 Problem Primary insomnia F51.01 Active 6910660 ALLERGIES No Information ENCOUNTERS Encounter Location Date Diagnosis [place] [address] [address] Dec, [place] [address] [place] [id number] [place] [address]20[address]- 1985 Nov, [place] [address] [place] [id number] [place] [address] 85024- 6224 October, [place] [address] [id number] [place] [address] 91103- 6397 Sep, [place] [address] [id number] [place] [address] 92250- 3755 Sep, Type 2 diabetes mellitus with diabetic polyneuropathy E11.42 [place] [address] [place] [id number] [place] [address] 69301- 3998 Aug, Radiculopathy due to disorder of intervertebral disc of lumbar spine M51.16 ; Vitamin D deficiency E55.9 and Recurrent major depressive disorder, in partial remission F33.41 [place] [address] [id number] [place] [address] 03617- 3925 Aug, OM (onychomycosis) B35.1 ; Other hammer toe(s) (acquired), right foot M20.41 and Other diabetic neurological complication associated with type 2 diabetes mellitus E11.49 [place] [address] [place] [address] 78439- 2612 Aug, [place] [address] [place] [id number] [place] [address] 40312- 5094 Aug, Other diabetic neurological complication associated with type 2 diabetes mellitus E11.49 ; Ulcer of right foot, unspecified ulcer stage L97.519 ; Type 2 diabetes mellitus with diabetic polyneuropathy E11.42 ; Primary insomnia F51.01 and Anxiety associated with depression F41.8 [place] [address], [place] [address] 08 Jul, 2018 Type 2 diabetes mellitus with hyperglycemia E11.65 [place] [address] [id number] [place] [address] 91859- 9660 Jul, Type 2 diabetes mellitus with diabetic polyneuropathy E11.42 [place] [address] [place] [id number] [place] [address] 67785- 1839 May, Type 2 diabetes mellitus with diabetic polyneuropathy E11.42 [place] [address] [id number] [place] [address] 39972- 0269 May, Hypertriglyceridemia E78.1 and Chronic pain G89.29 [place] [address] [address]74- 2584 May, Hypertension I10 [address] [address]- 8[address] May, OM (onychomycosis) B35.1 and Type 2 diabetes mellitus with diabetic polyneuropathy E11.[address] 87168- 2102 Apr, Type 2 diabetes mellitus with diabetic polyneuropathy E11.42 ; Hypertension I10 ; Anxiety associated with depression F41.8 and Chronic pain G89.29 [place] [id number] [place] [address] 77177- 5057 Mar, Hypertriglyceridemia E78.1 [place] [id number] [place] [address] 50014- 7373 Jan, [place] [address] [place] [id number] [place] [address] 19248- 1154 Jan, Type 2 diabetes mellitus with diabetic polyneuropathy E11.42 ; Anxiety associated with depression F41.8 ; Other obesity due to excess calories E66.09 ; Hypertension I10 ; Hypertriglyceridemia E78.1 ; Chronic pain G89.29 ; [facility] current use of insulin Z79.4 ; Gastroesophageal reflux disease without esophagitis K21.9 ; Vitamin D deficiency E55.9 and Diarrhea, unspecified type R19.7 [place] [id number] [place] [address] 97998- 3740 Dec, [place] [address] [place] [id number] [place] [address] 67219- 2621 Dec, [place] [address] 17956- 8739 Nov, OAB (overactive bladder) N32.81 [facility] [id number] [place] [address] 93674 -9631 14 Nov, 2017 Insect bite (nonvenomous), right lower leg, initial encounter S80.861A and Bitten or stung by nonvenomous insect and other nonvenomous arthropods, initial encounter W57.XXXA [place] [address] 9[address]48- 3204 08 Nov, 2017 Ulcer of right foot, unspecified ulcer stage L97.519 and Other diabetic neurological complication associated with type 2 diabetes mellitus E11.[address] 32652- 5930 04 Nov, 2017 [place] [address] [id number] [place] [address] 23634- 6315 Nov, Type 2 diabetes mellitus with diabetic polyneuropathy E11.42 ; [facility] current use of insulin Z79.4 ; Hypertension I10 ; Hypertriglyceridemia E78.1 ; Vitamin D deficiency E55.9 ; Anxiety associated with depression F41.8 ; Chronic pain G89.29 ; OAB (overactive bladder) N32.81 ; Gastroesophageal reflux disease without esophagitis K21.9 ; Other obesity due to excess calories E66.09 and Body mass index (BMI) of 31.0-31.9 in adult Z68.31 [place] [address] [place] [id number] [place] [address] 35634- 1755 October, Onychomycosis B35.1 ; Ulcer of right foot, unspecified ulcer stage L97.519 and Diabetes mellitus type 2, uncomplicated E11.9 [place] [address] [place] [id number] [place] [address] 99649- 0144 Jul, OM (onychomycosis) B35.1 and Other diabetic neurological complication associated with type 2 diabetes mellitus E11.49 [facility] [id number] [place] [address] 85920 -7008 Jun, Impacted cerumen of right ear H61.21 [place] [address] [id number] [place] [address] 40074- 0932 Feb, [facility] [address] [address]45 -9126 Jan, Bronchitis J40 [place] [address] 90662- 6015 Jan, Hypertension I10 [place] [address] 55341- 1491 Jan, [facility] [address] [id number] Dec, Dental examination Z01.20 [place] [address] 71971- 9451 Nov, [place] [address] 41123- 4167 October, OM (onychomycosis) B35.1 ; Other hammer toe(s) (acquired), right foot M20.41 and Other diabetic neurological complication associated with type 2 diabetes mellitus E11.49 [place] [address] [place] [id number] [place] [address] 47364- 8732 Aug, [place] [address] 24640- 9184 Aug, Type 2 diabetes mellitus with hyperglycemia E11.65 ; Osteopenia M85.80 ; Hypertension I10 ; Hypertriglyceridemia E78.1 ; Chronic pain G89.29 ; Anxiety associated with depression F41.8 ; Vitamin D deficiency E55.9 and Atypical pigmented lesion L81.9 [place] [address] [place] [id number] [place] [address] 59989- 0349 Aug, [place] [address] [place] [address]- 6771 09 Jul, 2016 [place] [address] [place] [id number] [place] [address] 91898- 6748 Apr, [place] [address] [id number] [place] [address] 58359- 3672 Apr, Type 2 diabetes mellitus with hyperglycemia E11.65 and Osteopenia M85.80 [place] [address] 06243- 1669 Mar, [place] [address] [place] [id number] [place] [address] 79257- 1031 Jan, [place] [address] [place] [id number] [place] [address] 37451- 2146 Dec, Type 2 diabetes mellitus with hyperglycemia E11.65 ; Hypertension I10 ; Hypertriglyceridemia E78.1 ; Onycholysis L60.1 ; Chronic pain G89.29 ; Anxiety associated with depression F41.8 and OM (onychomycosis) B35.1 [place] [address] [place] [id number] [place] [address] 22337- 4020 Nov, [place] [id number] [place] [address] 39977- 2181 Nov, Type 2 diabetes mellitus with hyperglycemia E11.65 ; Radiculopathy due to disorder of intervertebral disc of lumbar spine M51.16 ; Degenerative disc disease, cervical M50.30 ; Degenerative disc disease, lumbar M51.36 and Degenerative disc disease, 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 [place] [address] [place] [id number] [place] [address] 19457- 6162 October, History of spinal stenosis Z87.39 [place] [address] [place] [id number] [place] [address] 72159- 5973 October, History of spinal stenosis Z87.39 [place] [address] [place] [id number] [place] [address] 76900- 7152 October, OM (onychomycosis) B35.[address] [place] [id number] [address]- 2203 October, OM (onychomycosis) B35.1 [place] [address] [place] [id number] [place] [address] 31761- 6323 October, OM (onychomycosis) B35.1 [place] [address] [place] [id number] [place] [address] 03450- 7217 October, [place] [address] [place] [id number] [place] [address] 11386- 5496 October, Hypertension I10 ; Chronic pain G89.29 ; Peripheral neuropathy G62.9 ; Pain in right hip M25.551 ; Pain in left hip M25.552 ; History of spinal stenosis Z87.39 and Diabetes mellitus without complication E11.9 [place] [address] [place] [id number] [place] [address] 83245- 4260 Sep, Type 2 diabetes mellitus without complications E11.9 ; Hypertension I10 ; Hypertriglyceridemia E78.1 ; Chronic pain G89.29 ; Anxiety associated with depression F41.8 ; Peripheral neuropathy G62.9 and OM ( onychomycosis) B35.1 [place] [address] [place] [address] 97182- 6412 Jul, [place] [address], [place] [address] Jun, Diabetes mellitus type 2, uncomplicated E11.9 [place] [address] [place] [address] 98148- 8445 Jun, [place] [id number] [address]- 6034 May, [place] [address] [place] [id number] [place] [address] 78406- 1838 May, [place] [id number] [address]- 1032 May, Diabetes mellitus without complication E11.9 [place] [address] [address] 7376 May, Diabetes mellitus without complication E11.9 and Hospital discharge follow-up Z09 [facility] [address], [place] [address]- 5109 Apr, [facility] [address], [place] [address]- 6580 Apr, [facility] [address] [place] [address] 13593- 6590 Apr, Dysuria R30.0 and Urinary tract infection N39.0 [place] [address] [place] [id number] [place] [address] 31664- 6293 Apr, [place] [address], [place] [address]- 2973 Mar, [place] [address] [place] [address] 32508- 0821 Mar, Diarrhea 787.91 and Diabetes mellitus without mention of complication, type II or unspecified type, uncontrolled 250.02 [place] [address], [place] [address]- 0113 Feb, Diarrhea 787.91 ; Diabetes mellitus without mention of complication, type II or unspecified type, uncontrolled 250.02 ; Other chronic pain 338.29 ; Depression 311 and Essential hypertension 401.9 [place] [address] [address]- 6135 Dec, [facility] [address] [place] [id number] [address]- 5454 Dec, [place] [id number] [address]- 7610 Dec, [facility] [address] [address] [id number]199 Dec, Diabetes mellitus without mention of complication, type II or unspecified type, uncontrolled 250.02 ; Essential hypertension, benign 401.1 ; Hypercholesterolemia 272.0 ; Depression 311 ; Neuropathy 355.9 and Post-nasal drip 784.91 [facility] [address] [place] [address] 90817- 8016 Nov, [facility] [address] [id number] Nov, Dental examination V72.2 [facility] [address] [place] [id number] [place] [address] 981635- 1939 October, Diarrhea 787.91 ; Diabetes mellitus without mention of complication, type II or unspecified type, uncontrolled 250.02 and Abdominal pain 789.00 [facility] [address] [id number] [place] [address] 072734- 1256 October, Diarrhea 787.91 ; Diabetes mellitus without mention of complication, type II or unspecified type, uncontrolled 250.02 and Abdominal pain 789.00 [facility] [address] [id number] [place] [address] 82839837- 6011 Sep, [facility] [id number] [place] [address] 64529- 2721 Sep, [facility] [address] [id number] [place] [address] 41076339- 6995 Aug, [facility] [id number] [place] [address] 25748226- 8736 Aug, [facility] [address] [id number] [place] [address] 24479100- 0484 Jul, [facility] [address] [place] [address] 618272- 5912 Jul, [facility] [address] [id number] [place] [address] 661949- 7586 Jul, [facility] [address] [place] [address] 065594- 6106 Jul, [facility] [address] [id number] [place] [address] 70036- 5125 Jun, [facility] [place] [facility] [address] [id number] [place] [address]- 5454 Jun, [facility] [place] [facility] [address] [id number] [place] [address]- 8697 Jun, [facility] [place] [facility] [address] [id number] [place] [address]- 2289 Jun, [facility] [place] [facility] [address] [id number] [place] [address]- 8886 Mar, [facility] [place] [facility] [address] [id number] [place] [address]- 4644 Mar, [facility] [place] [facility] [address] [id number] [place] [address]- 7753 Mar, [facility] [place] [facility] [address] [id number] [place] [address]- 1380 Mar, [facility] [place] [facility] [address] [id number] [place] [address]- 6747 Jan, [facility] [place] [facility] [address] [id number] [place] [address]- 6482 Jan, [facility] [place] [facility] [address] [id number] [place] [address]- 5266 Jan, [facility] [place] [facility] [address] [id number] [place] [address]- 7024 Jan, [facility] [place] [facility] [address] [id number] [place] [address]- 3463 Dec, [facility] [place] [facility] [address] [id number] [place] [address]- 9128 Dec, [facility] [place] [facility] [address] [id number] [place] [address]- 7933 Nov, [facility] [place] [facility] [address] [id number] [place] [address]- 7756 Nov, [facility] [place] [facility] [address] [facility] [id number] [place] [address] 2406 October, [facility] [address] [facility] [id number] [place] [address]- 8481 October, [facility] [address] [facility] [id number] [address]- 5167 October, [facility] [address] [facility] [id number] 7589 October, IMMUNIZATIONS No Known Immunizations SOCIAL HISTORY Never Assessed REASON FOR VISIT [facility] PLAN OF CARE VITAL SIGNS MEDICATIONS Unknown Medications RESULTS No Results PROCEDURES No Known procedures INSTRUCTIONS MEDICATIONS ADMINISTERED No Known Medications MEDICAL (GENERAL) HISTORY Type Description Date Medical History type II diabetes Medical History hypertension Medical History hyperlipidemia Medical History Other chronic pain Surgical History hysterectomy 1996 Surgical History cholecystectomy Hospitalization History [facility]; chest pain. Negative work up Hospitalization History [facility]; chest pain. Negative work up Hospitalization History Severe Kidney Infection 2014 Hospitalization History C6 corpectomy--[facility] 02/02/16 Hospitalization History back surgery--Dr. aLuren NGUYEN 05/05
--- OUTSIDE RECORDS SUMMARY | 2018-11-03 08:02 | XMS REPORT ---
Author Author FLORECITA NAVARRO Organization [facility] Address [address] [place] [address] Care Team Providers Care Financial Sales Assistant Name Role Phone FLORECITA NAVARRO Unavailable PROBLEMS Type Condition ICD9-CM Code GXB99-RY Code Onset Dates Condition Status SNOMED Code Problem Other hammer toe(s) (acquired), right foot M20.41 Active 492298903 Problem Other diabetic neurological complication associated with type 2 diabetes mellitus E11.49 Active 160522775 Problem Ulcer of right foot, unspecified ulcer stage L97.519 Active 08096060 Problem Type 2 diabetes mellitus with diabetic polyneuropathy E11.42 Active 99240191 Problem Degenerative disc disease, 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 59407841 Problem Other obesity due to excess calories E66.09 Active 567709097 Problem Radiculopathy due to disorder of intervertebral disc of lumbar spine M51.16 Active [id number] Problem OAB (overactive bladder) N32.81 Active 858587686 Problem Type 2 diabetes mellitus with diabetic polyneuropathy, without long- term current use of insulin E11.42 Active 94656303 Problem skilled nursing current use of insulin Z79.4 Active 236358941 Problem Gastroesophageal reflux disease without esophagitis K21.9 Active 913264325 Problem Hypertriglyceridemia E78.1 Active 086098888 Problem Hypertension I10 Active 70594552 Problem Degenerative disc disease, lumbar M51.36 Active 60124226 Problem Degenerative disc disease, cervical M50.30 Active 63795840 Problem History of spinal stenosis Z87.39 Active 480075972 Problem Onycholysis L60.1 Active 41201538 Problem Anxiety associated with depression F41.8 Active 102972727 Problem Osteopenia M85.80 Active 975564243 Problem Chronic pain G89.29 Active 81211183 Problem Vitamin D deficiency E55.9 Active 04363099 ALLERGIES No Known Allergies ENCOUNTERS Encounter Location Date Diagnosis [facility] [address] [facility] [id number] [place] [address] 86112- 5192 May, [place] [address] [address] Apr, Type 2 diabetes mellitus with diabetic polyneuropathy E11.42 ; Hypertension I10 ; Anxiety associated with depression F41.8 and Chronic pain G89.29 [place] [address] 91982- 2390 Mar, Hypertriglyceridemia E78.1 [place] [address] [address]- [address] Jan, [place] [address] 6[address]- 0585 Jan, Type 2 diabetes mellitus with diabetic polyneuropathy E11.42 ; Anxiety associated with depression F41.8 ; Other obesity due to excess calories E66.09 ; Hypertension I10 ; Hypertriglyceridemia E78.1 ; Chronic pain G89.29 ; skilled nursing current use of insulin Z79.4 ; Gastroesophageal reflux disease without esophagitis K21.9 ; Vitamin D deficiency E55.9 and Diarrhea, unspecified type R19.7 [place] [address] 72287- 5192 Dec, [place] [address] [address]57- 2447 Dec, [place] [address] [address]- 3594 Nov, OAB (overactive bladder) N32.81 [facility] [address] [place] [id number] [place] [address]52 -[address]74 14 Nov, 2017 Insect bite (nonvenomous), right lower leg, initial encounter S80.861A and Bitten or stung by nonvenomous insect and other nonvenomous arthropods, initial encounter W57.XXXA [place] [address] [address]- [address] 08 Nov, 2017 Ulcer of right foot, unspecified ulcer stage L97.519 and Other diabetic neurological complication associated with type 2 diabetes mellitus E11.49 [place] [address] 25423- 0262 Nov, [place] [address] 30666- 6629 Nov, Type 2 diabetes mellitus with diabetic polyneuropathy E11.42 ; skilled nursing current use of insulin Z79.4 ; Hypertension I10 ; Hypertriglyceridemia E78.1 ; Vitamin D deficiency E55.9 ; Anxiety associated with depression F41.8 ; Chronic pain G89.29 ; OAB (overactive bladder) N32.81 ; Gastroesophageal reflux disease without esophagitis K21.9 ; Other obesity due to excess calories E66.09 and Body mass index (BMI) of 31.0-31.9 in adult Z68.31 [place] [address] [address]- [address] October, Onychomycosis B35.1 ; Ulcer of right foot, unspecified ulcer stage L97.519 and Diabetes mellitus type 2, uncomplicated E11.9 [place] [address] 37[address]- 9972 Jul, OM (onychomycosis) B35.1 and Other diabetic neurological complication associated with type 2 diabetes mellitus E11.49 [facility] [address] [address] Jun, Impacted cerumen of right ear H61.21 [place] [address] 21321- 1406 Feb, [facility] [address] [address] Jan, Bronchitis J40 [place] [address] 76862- 5[address] Jan, Hypertension I10 [place] [address] [address]45- 5[address] Jan, [facility] [address] [id number] Dec, Dental examination Z01.20 [place] [address] [place] [id number] [place] [address] 28167- 8013 Nov, [place] [address] [place] [id number] [place] [address] 92798- [address] October, OM (onychomycosis) B35.1 ; Other hammer toe(s) (acquired), right foot M20.41 and Other diabetic neurological complication associated with type 2 diabetes mellitus E11.49 [place] [address] [place] [id number] [place] [address] 53092- 9551 Aug, [place] [address] [place] [id number] [place] [address] 86394- 2511 Aug, Type 2 diabetes mellitus with hyperglycemia E11.65 ; Osteopenia M85.80 ; Hypertension I10 ; Hypertriglyceridemia E78.1 ; Chronic pain G89.29 ; Anxiety associated with depression F41.8 ; Vitamin D deficiency E55.9 and Atypical pigmented lesion L81.9 [place] [address] [place] [id number] [place] [address] 17569- 2740 Aug, [place] [address] [place] [id number] [place] [address] 47402- 7615 Jul, [place] [address] [place] [id number] [place] [address] 10871- 4448 Apr, [place] [address] [place] [id number] [place] [address] 30608- 2707 Apr, Type 2 diabetes mellitus with hyperglycemia E11.65 and Osteopenia M85.80 [place] [address] [place] [id number] [place] [address] 68909- 6036 Mar, [facility] [address] [place] [id number] [place] [address] 73126- 8579 Jan, [facility] [address] [place] [id number] [place] [address] 52853- 5471 Dec, Type 2 diabetes mellitus with hyperglycemia E11.65 ; Hypertension I10 ; Hypertriglyceridemia E78.1 ; Onycholysis L60.1 ; Chronic pain G89.29 ; Anxiety associated with depression F41.8 and OM (onychomycosis) B35.1 [place] [address] [place] [id number] [place] [address] 46617- 2148 Nov, [place] [id number] [place] [address] 59078- 8118 Nov, Type 2 diabetes mellitus with hyperglycemia E11.65 ; Radiculopathy due to disorder of intervertebral disc of lumbar spine M51.16 ; Degenerative disc disease, cervical M50.30 ; Degenerative disc disease, lumbar M51.36 and Degenerative disc disease, 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 [place] [id number] [place] [address] 11106- 5276 October, History of spinal stenosis Z87.39 [place] [id number] [place] [address] 86579- 3193 October, History of spinal stenosis Z87.39 [place] [id number] [place] [address] 01564- 1739 October, OM (onychomycosis) B35.1 [place] [id number] [place] [address] 37787- 6368 October, OM (onychomycosis) B35.1 [place] [id number] [place] [address] 96095- 2416 October, OM (onychomycosis) B35.1 [place] [address] [place] [id number] [place] [address] 17135- 0334 October, [place] [id number] [place] [address] 95326- 6938 October, Hypertension I10 ; Chronic pain G89.29 ; Peripheral neuropathy G62.9 ; Pain in right hip M25.551 ; Pain in left hip M25.552 ; History of spinal stenosis Z87.39 and Diabetes mellitus without complication E11.9 [facility] [id number] [place] [address] 35663- 8118 Sep, Type 2 diabetes mellitus without complications E11.9 ; Hypertension I10 ; Hypertriglyceridemia E78.1 ; Chronic pain G89.29 ; Anxiety associated with depression F41.8 ; Peripheral neuropathy G62.9 and OM ( onychomycosis) B35.1 [facility] [address] [place] [id number] [place] [address] 66110- 3912 Jul, [facility] [address] [place] [id number] [place] [address] 00964- 4071 Jun, Diabetes mellitus type 2, uncomplicated E11.9 [place] [address] [place] [id number] [place] [address] 50229- 4591 Jun, [facility] [address] [place] [id number] [place] [address] 05582- 7875 May, [facility] [address] [place] [id number] [place] [address] 51439- 6540 May, [facility] [address] [place] [id number] [place] [address] 92183- 9189 May, Diabetes mellitus without complication E11.9 [facility] [address] [place] [id number] [place] [address] 43679- 5828 May, Diabetes mellitus without complication E11.9 and Hospital discharge follow-up Z09 [facility] [id number] [place] [address] 12140- 0816 Apr, [facility] [address] [place] [id number] [place] [address] 14208- 4963 Apr, [facility] [address] [place] [id number] [place] [address] 65746- 6084 Apr, Dysuria R30.0 and Urinary tract infection N39.0 [facility] [address] [place] [id number] [place] [address] 93103- 1575 Apr, [facility] [address] [place] [id number] [place] [address] 01109- 2306 Mar, [place] [address] 28534- 3846 Mar, Diarrhea 787.91 and Diabetes mellitus without mention of complication, type II or unspecified type, uncontrolled 250.02 [place] [address] [place] [id number] [place] [address] 47610- 0446 Feb, Diarrhea 787.91 ; Diabetes mellitus without mention of complication, type II or unspecified type, uncontrolled 250.02 ; Other chronic pain 338.29 ; Depression 311 and Essential hypertension 401.9 [place] [address] 94445- 4796 Dec, [place] [address] [place] [id number] [place] [address] 49223- 9816 Dec, [place] [address] 19051- 2194 Dec, [place] [address] [place] [id number] [place] [address] 94057- 7370 Dec, Diabetes mellitus without mention of complication, type II or unspecified type, uncontrolled 250.02 ; Essential hypertension, benign 401.1 ; Hypercholesterolemia 272.0 ; Depression 311 ; Neuropathy 355.9 and Post-nasal drip 784.91 [place] [address] [place] [id number] [place] [address] 66651- 9516 Nov, [facility] [address] [place] [id number] [place] [address] [id number] Nov, Dental examination V72.2 [place] [id number] [place] [address] 46802- 8196 October, Diarrhea 787.91 ; Diabetes mellitus without mention of complication, type II or unspecified type, uncontrolled 250.02 and Abdominal pain 789.00 [place] [address] [place] [id number] [place] [address] 53875- 1206 October, Diarrhea 787.91 ; Diabetes mellitus without mention of complication, type II or unspecified type, uncontrolled 250.02 and Abdominal pain 789.00 [facility] [address] [address]- [address] 14 Sep, 2014 [facility] [address] [place] [id number] [place] [address] 45397- 9309 Sep, [facility] [address] [place] [id number] [place] [address] 972249- 1459 Aug, [facility] [address] [place] [id number] [place] [address] 197203- 6426 Aug, [facility] [address] [place] [id number] [place] [address] 027843- 7683 Jul, [facility] [address] [place] [id number] [place] [address] 25911- 2485 Jul, [facility] [address] [place] [id number] [place] [address] 41508- 2594 Jul, [facility] [address] [place] [address] 33969- 4183 Jul, [facility] [address] [place] [id number] [place] [address] 98729- 8243 Jun, [facility] [address] [address]- 1257 Jun, [facility] [address] [address]- 8488 Jun, [facility] [address] [address]- 1256 Jun, [facility] [address] [place] [id number] [place] [address] 98504- 3216 Mar, [facility] [address] Mar, [facility] [address] [place] [address] 15508- 7978 Mar, [facility] [address] [facility] [id number] [address]- 9939 Mar, [facility] [address] [facility] [id number] [address]- 4526 Jan, [facility] [address] [place] [id number] [address]- 0257 Jan, [facility] [address] [facility] [id number] [address]- 8190 Jan, [facility] [address] [facility] [id number] [address]- 6291 Jan, [facility] [address] [place] [id number] [address]- 4679 Dec, [facility] [address] [address]- 8619 Dec, [facility] [address] [address]- 8773 Nov, [facility] [address] [place] [id number] [address]- 0151 Nov, [facility] [address] [place] [id number] [address]- 8605 October, [facility] [address] [place] [id number] [address]- 2141 October, [facility] [address] [place] [id number] [address]- 1842 October, [facility] [address] [place] [id number] [address]- 0194 October, IMMUNIZATIONS No Known Immunizations SOCIAL HISTORY Never Assessed REASON FOR VISIT New Provider Visit/ Check up on Diabetes- HUANG Maldonado, Needs A1C PLAN OF CARE Activity Details Follow Up 3 months or as indicated by lab Reason:DM/HTN VITAL SIGNS Height 69 in 2018-05-19 Weight 214.2 lbs 2018-05-19 Temperature 97.4 degrees Fahrenheit 2018-05-19 Heart Rate 96 bpm 2018-05-19 Respiratory Rate 18 2018-05-19 BMI 31.63 kg/m2 2018-05-19 Blood pressure systolic 130 mmHg 2018-05-19 Blood pressure diastolic 72 mmHg 2018-05-19 MEDICATIONS Medication Instructions Dosage Frequency Start Date End Date Duration Status Aspirin 81 mg Orally Once a day 1 tablet by Oral route 1 time per day 24h October, Active Levemir FlexTouch 100 UNIT/ML Subcutaneous 2 times a day INJECT 40 UNITS 12h Active Lancets - 1 time per day October, Active Vitamin D3 5000 UNIT TAKE ONE TABLET BY MOUTH ONCE DAILY Active BD Pen Needle Ultrafine 45DA3OA as directed 12h Active Vimovo 375-20 MG Orally Twice a day 1 tablet before meals 12h Apr, 30 day(s) Active Trazodone HCl 50 mg Orally Once a day 1 tablet at bedtime 24h 90 days Active Lyrica 100 mg Orally Three times a day 1 capsule 8h Jan, 28 days Active Lisinopril 20 mg Orally Once a day 1 tablet 24h Active MetFORMIN HCl ER 500 mg Orally twice a day 2 tablets 12h Feb, Active Venlafaxine HCl ER 150 MG Orally Once a day 1 capsule with food 24h 90 days Active Tylenol 500mg Orally as needed 2 cap Active Lovastatin 20 mg Orally Once a day 1 tablet with a meal 24h 30 days Active Gabapentin 100 mg Orally 2 times a day prn 1 capsule Active RESULTS Name Result Date Reference Range A1C (IN HOUSE) 2018-05-19 A1C IN HOUSE 8.1 4.3 - 5.6 % Previous A1c 8.4 Lot [id number] Exp date 08/2019 PROCEDURES Procedure Date Ordered Result Body Site GLYCATED HEMOGLOBIN TEST May 19, 2018 [facility] VISIT ESTABLISHED PATIENT May 19, 2018 INSTRUCTIONS MEDICATIONS ADMINISTERED No Known Medications MEDICAL (GENERAL) HISTORY Type Description Date Medical History type II diabetes Medical History hypertension Medical History hyperlipidemia Medical History Other chronic pain Surgical History hysterectomy 1996 Surgical History cholecystectomy [facility]; chest pain. Negative work up Hospitalization History [facility]; chest pain. Negative work up Hospitalization History Severe Kidney Infection 2014 Hospitalization History C6 corpectomy--[facility] 02/02/16 Hospitalization History back surgery--, Dr. Aguilar 05/05
--- OUTSIDE RECORDS SUMMARY | 2018-11-03 08:02 | XMS REPORT ---
Author Author JENN SPRINGER [facility] Address [address] [place] [address] Care Team Providers Care Mutuel Clerk Name Role Phone JENN SPRINGER Unavailable PROBLEMS Type Condition ICD9-CM Code FGU14-JC Code Onset Dates Condition Status SNOMED Code Problem Other hammer toe(s) (acquired), right foot M20.41 Active 496085614 Problem Other diabetic neurological complication associated with type 2 diabetes mellitus E11.49 Active 847050963 Problem Ulcer of right foot, unspecified ulcer stage L97.519 Active 01906764 Problem Type 2 diabetes mellitus with diabetic polyneuropathy E11.42 Active 32643008 Problem Degenerative disc disease, 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 08970174 Problem Other obesity due to excess calories E66.09 Active 565286289 Problem Radiculopathy due to disorder of intervertebral disc of lumbar spine M51.16 Active [id number] Problem OAB (overactive bladder) N32.81 Active 119611913 Problem Type 2 diabetes mellitus with diabetic polyneuropathy, without long- term current use of insulin E11.42 Active 24720923 Problem residential current use of insulin Z79.4 Active 588090595 Problem Gastroesophageal reflux disease without esophagitis K21.9 Active 233043822 Problem Hypertriglyceridemia E78.1 Active 623443959 Problem Hypertension I10 Active 71631530 Problem Degenerative disc disease, lumbar M51.36 Active 85114230 Problem Degenerative disc disease, cervical M50.30 Active 15326068 Problem History of spinal stenosis Z87.39 Active 719584648 Problem Onycholysis L60.1 Active 65739416 Problem Anxiety associated with depression F41.8 Active 977438596 Problem Osteopenia M85.80 Active 354524907 Problem Chronic pain G89.29 Active 41304632 Problem Vitamin D deficiency E55.9 Active 35049207 ALLERGIES No Information ENCOUNTERS Encounter Location Date Diagnosis [facility] [id number] [place] [address] 33506- 9252 May, [place] [id number] [place] [address] 78302- 0814 Mar, Hypertriglyceridemia E78.1 [place] [id number] [place] [address] 27660- 4273 Jan, [place] [address] [address]- [address]11 Jan, Type 2 diabetes mellitus with diabetic polyneuropathy E11.42 ; Anxiety associated with depression F41.8 ; Other obesity due to excess calories E66.09 ; Hypertension I10 ; Hypertriglyceridemia E78.1 ; Chronic pain G89.29 ; residential current use of insulin Z79.4 ; Gastroesophageal reflux disease without esophagitis K21.9 ; Vitamin D deficiency E55.9 and Diarrhea, unspecified type R19.[address] [address]- [address] Dec, [place] [address] 42389- 5831 Dec, [place] [address] 23441- 8688 Nov, OAB (overactive bladder) N32.81 [facility] [id number] [place] [address] 28597 -3670 14 Nov, 2017 Insect bite (nonvenomous), right lower leg, initial encounter S80.861A and Bitten or stung by nonvenomous insect and other nonvenomous arthropods, initial encounter W57.XXXA [id number] [place] [address] 07877- 7844 08 Nov, 2017 Ulcer of right foot, unspecified ulcer stage L97.519 and Other diabetic neurological complication associated with type 2 diabetes mellitus E11.49 [place] [address] 57311- 0146 Nov, [facility] [address] [place] [address]761 Nov, 2018 Type 2 diabetes mellitus with diabetic polyneuropathy E11.42 ; residential current use of insulin Z79.4 ; Hypertension I10 ; Hypertriglyceridemia E78.1 ; Vitamin D deficiency E55.9 ; Anxiety associated with depression F41.8 ; Chronic pain G89.29 ; OAB (overactive bladder) N32.81 ; Gastroesophageal reflux disease without esophagitis K21.9 ; Other obesity due to excess calories E66.09 and Body mass index (BMI) of 31.0-31.9 in adult Z68.31 [place] [address] 12146- 2285 October, Onychomycosis B35.1 ; Ulcer of right foot, unspecified ulcer stage L97.519 and Diabetes mellitus type 2, uncomplicated E11.9 [place] [address] 47202- 3779 Jul, OM (onychomycosis) B35.1 and Other diabetic neurological complication associated with type 2 diabetes mellitus E11.49 [facility] [address] [address] Jun, Impacted cerumen of right ear H61.21 [place] [address] 65692- 5816 Feb, [facility] [address] [address] -8856 Jan, Bronchitis J40 [place] [address] 68657- 2859 Jan, Hypertension I10 [place] [address] 83194- 7687 Jan, [facility] [address] [id number] Dec, Dental examination Z01.20 [place] [address] 83470- 2330 Nov, [place] [id number] [place] [address] 08395- 9523 October, OM (onychomycosis) B35.1 ; Other hammer toe(s) (acquired), right foot M20.41 and Other diabetic neurological complication associated with type 2 diabetes mellitus E11.49 [place] [id number] [place] [address] 22750- 0803 Aug, [place] [address] 40432- 3608 Aug, Type 2 diabetes mellitus with hyperglycemia E11.65 ; Osteopenia M85.80 ; Hypertension I10 ; Hypertriglyceridemia E78.1 ; Chronic pain G89.29 ; Anxiety associated with depression F41.8 ; Vitamin D deficiency E55.9 and Atypical pigmented lesion L81.9 [place] [id number] [place] [address] 38994- 3529 Aug, [place] [id number] [place] [address] 02689- 9851 Jul, [place] [id number] [place] [address] 14247- 8331 Apr, [place] [id number] [place] [address] 72668- 1903 Apr, Type 2 diabetes mellitus with hyperglycemia E11.65 and Osteopenia M85.80 [place] [id number] [place] [address] 61051- 2241 Mar, [place] [id number] [place] [address] 92945- 8186 Jan, [place] [id number] [place] [address] 02069- 4858 Dec, Type 2 diabetes mellitus with hyperglycemia E11.65 ; Hypertension I10 ; Hypertriglyceridemia E78.1 ; Onycholysis L60.1 ; Chronic pain G89.29 ; Anxiety associated with depression F41.8 and OM (onychomycosis) B35.[address] [id number] [address] Nov, [place] [id number] [place] [address] 76022- 5215 Nov, Type 2 diabetes mellitus with hyperglycemia E11.65 ; Radiculopathy due to disorder of intervertebral disc of lumbar spine M51.16 ; Degenerative disc disease, cervical M50.30 ; Degenerative disc disease, lumbar M51.36 and Degenerative disc disease, 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 [place] [id number] [place] [address] 51813- 2152 October, History of spinal stenosis Z87.39 [place] [id number] [place] [address] 34921- 6118 October, History of spinal stenosis Z87.39 [place] [id number] [place] [address] 90860- 3949 October, OM (onychomycosis) B35.1 [place] [id number] [place] [address] 19339- 2222 October, OM (onychomycosis) B35.1 [place] [id number] [place] [address] 44237- 5011 October, OM (onychomycosis) B35.1 [place] [address] [address] October, [place] [id number] [place] [address] 22260- 0902 October, Hypertension I10 ; Chronic pain G89.29 ; Peripheral neuropathy G62.9 ; Pain in right hip M25.551 ; Pain in left hip M25.552 ; History of spinal stenosis Z87.39 and Diabetes mellitus without complication E11.9 [address] [address] Sep, Type 2 diabetes mellitus without complications E11.9 ; Hypertension I10 ; Hypertriglyceridemia E78.1 ; Chronic pain G89.29 ; Anxiety associated with depression F41.8 ; Peripheral neuropathy G62.9 and OM ( onychomycosis) B35.1 [facility] [id number] [place] [address] 68391- 3242 Jul, [facility] [id number] [place] [address] 63782- 2345 Jun, Diabetes mellitus type 2, uncomplicated E11.9 [place] [address] 78856- 6600 Jun, [facility] [id number] [place] [address] 56003- 6487 May, [place] [id number] [place] [address] 27769- 0234 May, [place] [id number] [place] [address] 87453- 2270 May, Diabetes mellitus without complication E11.9 [place] [id number] [place] [address] 00739- 5974 May, Diabetes mellitus without complication E11.9 and Hospital discharge follow-up Z09 [place] [id number] [place] [address] 43765- 9986 Apr, [place] [id number] [place] [address] 76006- 6231 Apr, [facility] [id number] [place] [address] 87057- 3948 Apr, Dysuria R30.0 and Urinary tract infection N39.0 [place] [id number] [place] [address] 10297- 6188 Apr, [facility] [id number] [place] [address] 09540- 7587 Mar, [facility] [id number] [place] [address] 01164- 7760 Mar, Diarrhea 787.91 and Diabetes mellitus without mention of complication, type II or unspecified type, uncontrolled 250.02 [facility] [address] [address]- [address] Feb, Diarrhea 787.91 ; Diabetes mellitus without mention of complication, type II or unspecified type, uncontrolled 250.02 ; Other chronic pain 338.29 ; Depression 311 and Essential hypertension 401.9 [place] [id number] [place] [address] 21229- 5846 Dec, [facility] [id number] [place] [address] 06511- 1653 Dec, [place] [id number] [place] [address] 97967- 6817 Dec, [place] [id number] [place] [address] 20116- 1687 Dec, Diabetes mellitus without mention of complication, type II or unspecified type, uncontrolled 250.02 ; Essential hypertension, benign 401.1 ; Hypercholesterolemia 272.0 ; Depression 311 ; Neuropathy 355.9 and Post-nasal drip 784.91 [place] [id number] [place] [address] 72780- 0546 Nov, [facility] [id number] [place] [address] [id number] Nov, Dental examination V72.2 [place] [id number] [place] [address] 59681- 9054 October, Diarrhea 787.91 ; Diabetes mellitus without mention of complication, type II or unspecified type, uncontrolled 250.02 and Abdominal pain 789.00 [place] [id number] [place] [address] 34048- 1785 October, Diarrhea 787.91 ; Diabetes mellitus without mention of complication, type II or unspecified type, uncontrolled 250.02 and Abdominal pain 789.00 [place] [id number] [place] [address] [id number]- 2078 Sep, [facility] [id number] [place] [address]- 3200 Sep, [facility] [place] [facility] [address] [id number] [place] [address]- 7922 Aug, [facility] [place] [facility] [address] [id number] [place] [address]- 7436 Aug, [facility] [place] [facility] [address] [id number] [place] [address]- 3716 Jul, [facility] [place] [facility] [address] [id number] [place] [address]- 1422 Jul, [facility] [place] [facility] [address] [id number] [place] [address]- 7586 Jul, [facility] [place] [facility] [address] [id number] [place] [address]- 0568 Jul, [facility] [place] [facility] [address] [id number] [place] [address]- 6675 Jun, [facility] [place] [facility] [address] [id number] [place] [address]- 5290 Jun, [facility] [place] [facility] [address] [id number] [place] [address]- 5947 Jun, [facility] [place] [facility] [address] [facility] [id number] [place] [address]- 0368 Jun, [facility] [place] [facility] [address] [id number] [place] [address]- 8638 Mar, [facility] [place] [facility] [address] [id number] [place] [address]- 2277 Mar, [facility] [place] [facility] [address] [id number] [place] [address]- 5936 Mar, [facility] [place] [facility] [address] [id number] [place] [address]- 9716 Mar, [facility] [place] [facility] [address] [id number] [place] [address]- 1152 Jan, [facility] [address] [facility] [id number] [address]- 0279 Jan, [facility] [address] [facility] [id number] [address]- 9823 Jan, [facility] [address] [facility] [id number] 0777 Jan, [facility] [address] [facility] [id number], [place] [address]- 0739 Dec, [facility] [address] [facility] [id number], [place] [address]- 6194 Dec, [facility] [id number] [address]- 9925 Nov, [facility] [address] [address]- 4905 Nov, [facility] [address] [address]- 1988 October, [facility] [id number] [address]- 6682 October, [facility] [address] [address]- 7267 October, [facility] [id number] [address]- 0049 October, IMMUNIZATIONS No Known Immunizations SOCIAL HISTORY Never Assessed REASON FOR VISIT Refill request PLAN OF CARE VITAL SIGNS MEDICATIONS Medication Instructions Dosage Frequency Start Date End Date Duration Status Lovastatin 20 mg Orally Once a day 1 tablet with a meal 24h 30 days Active RESULTS No Results PROCEDURES No Known procedures INSTRUCTIONS MEDICATIONS ADMINISTERED No Known Medications MEDICAL (GENERAL) HISTORY Type Description Date Medical History type II diabetes Medical History hypertension Medical History hyperlipidemia Medical History Other chronic pain Surgical History hysterectomy 1996 Surgical History cholecystectomy Hospitalization History [facility]; chest pain. Negative work up Hospitalization History [facility]; chest pain. Negative work up Hospitalization History Severe Kidney Infection 2014 Hospitalization History C6 corpectomy--[facility] 02/02/16 Hospitalization History back surgery--[facility], Dr. Aguilar 05/05
--- OUTSIDE RECORDS SUMMARY | 2018-11-03 08:02 | XMS REPORT ---
Author Author FLORECITA NAVARRO Organization 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 Name Role Phone FLORECITA NAVARRO Unavailable PROBLEMS Type Condition ICD9-CM Code KVC63-JP Code Onset Dates Condition Status SNOMED Code Problem Other hammer toe(s) (acquired), right foot M20.41 Active 343967680 Problem Other diabetic neurological complication associated with type 2 diabetes mellitus E11.49 Active 299692623 Problem Ulcer of right foot, unspecified ulcer stage L97.519 Active 22726335 Problem Type 2 diabetes mellitus with diabetic polyneuropathy E11.42 Active 35451232 Problem Degenerative disc disease, 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 32883735 Problem Other obesity due to excess calories E66.09 Active 874751029 Problem Radiculopathy due to disorder of intervertebral disc of lumbar spine M51.16 Active 629902663368114 Problem OAB (overactive bladder) N32.81 Active 569366800 Problem Type 2 diabetes mellitus with diabetic polyneuropathy, without long- term current use of insulin E11.42 Active 63238169 Problem correction current use of insulin Z79.4 Active 308516282 Problem Gastroesophageal reflux disease without esophagitis K21.9 Active 000162737 Problem Hypertriglyceridemia E78.1 Active 912035534 Problem Hypertension I10 Active 23081137 Problem Degenerative disc disease, lumbar M51.36 Active 1950 Problem Degenerative disc disease, cervical M50.30 Active 66503885 Problem History of spinal stenosis Z87.39 Active 577115913 Problem Onycholysis L60.1 Active 81484060 Problem Anxiety associated with depression F41.8 Active 821319875 Problem Osteopenia M85.80 Active 184717430 Problem Chronic pain G89.29 Active 52067563 Problem Vitamin D deficiency E55.9 Active 83410103 ALLERGIES No Information ENCOUNTERS Encounter Location Date Diagnosis [facility] [address] [facility] [id number] [place] [address] 67053- 0627 08 Aug, 2018 [place] [address] [place] [id number] [place] [address] 12308- 0205 13 May, 2018 Hypertension I10 [address] [address]- [address] 07 May, 2018 OM (onychomycosis) B35.1 and Type 2 diabetes mellitus with diabetic polyneuropathy E11.[address] 37056- 5055 Apr, Type 2 diabetes mellitus with diabetic polyneuropathy E11.42 ; Hypertension I10 ; Anxiety associated with depression F41.8 and Chronic pain G89.29 [place] [id number] [place] [address] 94128- 1418 Mar, Hypertriglyceridemia E78.1 [place] [id number] [place] [address] 60119- 3655 Jan, [place] [id number] [place] [address] 28174- 8599 Jan, Type 2 diabetes mellitus with diabetic polyneuropathy E11.42 ; Anxiety associated with depression F41.8 ; Other obesity due to excess calories E66.09 ; Hypertension I10 ; Hypertriglyceridemia E78.1 ; Chronic pain G89.29 ; 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 ; Gastroesophageal reflux disease without esophagitis K21.9 ; Vitamin D deficiency E55.9 and Diarrhea, unspecified type R19.7 [place] [address] [place] [id number] [place] [address] 05130- 0893 Dec, [place] [id number] [place] [address] 53010- 4119 Dec, [address] 14476- 1881 Nov, OAB (overactive bladder) N32.81 [facility] [place] [id number] [place] [address] 65876 -2233 14 Nov, 2017 Insect bite (nonvenomous), right lower leg, initial encounter S80.861A and Bitten or stung by nonvenomous insect and other nonvenomous arthropods, initial encounter W57.XXXA [address] 57278- 5290 08 Nov, 2017 Ulcer of right foot, unspecified ulcer stage L97.519 and Other diabetic neurological complication associated with type 2 diabetes mellitus E11.[address] 14095- 3202 04 Nov, [address] 61628- 8714 Nov, Type 2 diabetes mellitus with diabetic polyneuropathy E11.42 ; correction current use of insulin Z79.4 ; Hypertension I10 ; Hypertriglyceridemia E78.1 ; Vitamin D deficiency E55.9 ; Anxiety associated with depression F41.8 ; Chronic pain G89.29 ; OAB (overactive bladder) N32.81 ; Gastroesophageal reflux disease without esophagitis K21.9 ; Other obesity due to excess calories E66.09 and Body mass index (BMI) of 31.0-31.9 in adult Z68.[address] 07896- 1598 October, Onychomycosis B35.1 ; Ulcer of right foot, unspecified ulcer stage L97.519 and Diabetes mellitus type 2, uncomplicated E11.9 [place] [id number] [place] [address] 71449- 4011 Jul, OM (onychomycosis) B35.1 and Other diabetic neurological complication associated with type 2 diabetes mellitus E11.49 [facility] [address] [address] Jun, Impacted cerumen of right ear H61.[address] 41474- 0251 Feb, [facility] [address] [place] [address] Jan, Bronchitis J40 [place] [address] [place] [id number] [place] [address] 09727- 2235 Jan, Hypertension I10 [place] [address] [place] [id number] [place] [address] 80723- 9615 Jan, [facility] [address] [id number] Dec, Dental examination Z01.20 [place] [address] 61945- 6758 Nov, [place] [address] 98563- 9846 October, OM (onychomycosis) B35.1 ; Other hammer toe(s) (acquired), right foot M20.41 and Other diabetic neurological complication associated with type 2 diabetes mellitus E11.49 [place] [address] [place] [id number] [place] [address] 85341- 3007 Aug, [place] [address] [place] [id number] [place] [address] 92707- 8573 Aug, Type 2 diabetes mellitus with hyperglycemia E11.65 ; Osteopenia M85.80 ; Hypertension I10 ; Hypertriglyceridemia E78.1 ; Chronic pain G89.29 ; Anxiety associated with depression F41.8 ; Vitamin D deficiency E55.9 and Atypical pigmented lesion L81.9 [place] [address] [place] [id number] [place] [address] 44991- 6291 Aug, [place] [address] [place] [id number] [place] [address] 75805- 8785 Jul, [place] [address] [place] [id number] [place] [address] 57752- 0030 Apr, [place] [address] [place] [id number] [place] [address] 75351- 5631 Apr, Type 2 diabetes mellitus with hyperglycemia E11.65 and Osteopenia M85.80 [place] [address] [place] [address] 10518- 2501 Mar, [place] [address] [place] [id number] [place] [address] 97055- 0837 Jan, [place] [address] [place] [id number] [place] [address] 19144- 4818 Dec, Type 2 diabetes mellitus with hyperglycemia E11.65 ; Hypertension I10 ; Hypertriglyceridemia E78.1 ; Onycholysis L60.1 ; Chronic pain G89.29 ; Anxiety associated with depression F41.8 and OM (onychomycosis) B35.1 [place] [id number] [place] [address] 49189- 1329 Nov, [place] [address] [place] [id number] [place] [address] 32222- 7751 Nov, Type 2 diabetes mellitus with hyperglycemia E11.65 ; Radiculopathy due to disorder of intervertebral disc of lumbar spine M51.16 ; Degenerative disc disease, cervical M50.30 ; Degenerative disc disease, lumbar M51.36 and Degenerative disc disease, 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 [place] [address] [place] [id number] [place] [address] 74228- 7844 October, History of spinal stenosis Z87.39 [place] [address] [place] [id number] [place] [address] 80203- 6205 October, History of spinal stenosis Z87.39 [place] [address] [place] [id number] [place] [address] 66623- 2003 October, OM (onychomycosis) B35.1 [place] [address] [place] [id number] [place] [address] 87140- 4197 October, OM (onychomycosis) B35.1 [place] [address] [place] [id number] [place] [address] 33554- 8551 October, OM (onychomycosis) B35.1 [place] [address] [place] [id number] [place] [address] 70692- 9055 October, [facility] [address] [place] [address] October, Hypertension I10 ; Chronic pain G89.29 ; Peripheral neuropathy G62.9 ; Pain in right hip M25.551 ; Pain in left hip M25.552 ; History of spinal stenosis Z87.39 and Diabetes mellitus without complication E11.9 [place] [address] [place] [id number] [place] [address] 40876- 6155 Sep, Type 2 diabetes mellitus without complications E11.9 ; Hypertension I10 ; Hypertriglyceridemia E78.1 ; Chronic pain G89.29 ; Anxiety associated with depression F41.8 ; Peripheral neuropathy G62.9 and OM ( onychomycosis) B35.1 [place] [address] [place] [id number] [place] [address] 00562- 9280 Jul, [place] [address] [place] [id number] [place] [address] 52414- 3986 Jun, Diabetes mellitus type 2, uncomplicated E11.9 [place] [address] [place] [id number] [place] [address] 54630- 5881 Jun, [place] [address] [place] [id number] [place] [address] 64460- 3011 May, [place] [address] [place] [address]- 3567 May, [place] [address] [place] [id number] [place] [address] 15885- 4330 May, Diabetes mellitus without complication E11.9 [place] [address] 9480 May, Diabetes mellitus without complication E11.9 and Hospital discharge follow-up Z09 [place] [address] [place] [address]- 1172 Apr, [place] [address] [place] [id number] [place] [address] 15617- 5825 Apr, [facility] [address] [place] [address]- 9088 Apr, Dysuria R30.0 and Urinary tract infection N39.0 [facility] [address] [place] [id number] [address]- 6308 Apr, [facility] [address] [place] [id number] [place] [address] 57862- 5856 Mar, [facility] [address] [place] [id number] [place] [address] 63045- 9650 Mar, Diarrhea 787.91 and Diabetes mellitus without mention of complication, type II or unspecified type, uncontrolled 250.02 [facility] [address] [place] [address] 43666- 9774 Feb, Diarrhea 787.91 ; Diabetes mellitus without mention of complication, type II or unspecified type, uncontrolled 250.02 ; Other chronic pain 338.29 ; Depression 311 [address] Essential hypertension 401.9 [facility] [address] [place] [address] 21681- 7809 Dec, [facility] [address] [place] [id number] [place] [address] 51116- 6616 Dec, [facility] [address] [place] [address] 02875- 4427 Dec, [facility] [address] [place] [address] 25183- 2925 Dec, Diabetes mellitus without mention of complication, type II or unspecified type, uncontrolled 250.02 ; Essential hypertension, benign 401.1 ; Hypercholesterolemia 272.0 ; Depression 311 ; Neuropathy 355.9 and Post-nasal drip 784.91 [facility] [address] [place] [address] 79593- 9288 Nov, [facility] [address] [address] Nov, Dental examination V72.2 [facility] [address] [place] [address] [address]- 9866 October, Diarrhea 787.91 ; Diabetes mellitus without mention of complication, type II or unspecified type, uncontrolled 250.02 and Abdominal pain 789.00 [facility] [address], [place] [address]- 9886 October, Diarrhea 787.91 ; Diabetes mellitus without mention of complication, type II or unspecified type, uncontrolled 250.02 and Abdominal pain 789.00 [facility] [address], [place] [address]- 9831 Sep, [facility] [address] [place] [id number] [place] [address] 17766- 7306 Sep, [facility] [address] [place] [id number] [place] [address] 07808- 0366 Aug, [facility] [address] [place] [id number] [place] [address] 49744- 1886 Aug, [facility] [address], [place] [address]- 5452 Jul, [facility] [address] [place] [address] 45220- 5766 Jul, [facility] [address] [address]657 Jul, [facility] [address] [place] [address]- 4246 Jul, [facility] [address], [place] [address]- 2082 Jun, [facility] [address] [place] [id number] [address]- 8296 Jun, [facility] [address], [place] [address]- 8816 Jun, [facility] [address], [place] [address]- 2216 Jun, [facility] [place] [facility] [address] [id number] [place] [address]- 6652 Mar, [facility] [place] [facility] [address] [id number] [place] [address]- 2771 Mar, [facility] [place] [facility] [address] [id number] [place] [address]- 6105 Mar, [facility] [place] [facility] [address] [id number] [place] [address]- 6342 Mar, [facility] [place] [facility] [address] [id number] [place] [address]- 0443 Jan, [facility] [place] [facility] [address] [id number] [place] [address]- 1654 Jan, [facility] [place] [facility] [address] [id number] [place] [address]- 5501 Jan, [facility] [place] [facility] [address] [id number] [place] [address]- 4847 Jan, [facility] [place] [facility] [address] [id number] [place] [address]- 9731 Dec, [facility] [place] [facility] [address] [id number] [place] [address]- 0836 Dec, [facility] [place] [facility] [address] [id number] [place] [address]- 6801 Nov, [facility] [place] [facility] [address] [id number] [place] [address]- 5713 Nov, [facility] [place] [facility] [address] [id number] [place] [address]- 2770 October, [facility] [place] [facility] [address] [id number] [place] [address]- 1309 October, [facility] [place] [facility] [address] [id number] [place] [address]- 1007 October, [facility] [place] [facility] [address] [id number] [place] [address] October, IMMUNIZATIONS No Known Immunizations SOCIAL HISTORY Never Assessed REASON FOR VISIT Refill request PLAN OF CARE VITAL SIGNS MEDICATIONS Medication Instructions Dosage Frequency Start Date End Date Duration Status Lisinopril 20 mg Orally Once a day 1 tablet 24h Active RESULTS No Results PROCEDURES No Known procedures INSTRUCTIONS MEDICATIONS ADMINISTERED No Known Medications MEDICAL (GENERAL) HISTORY Type Description Date Medical History type II diabetes Medical History hypertension Medical History hyperlipidemia Medical History Other chronic pain Surgical History hysterectomy 1996 Surgical History cholecystectomy Hospitalization History [facility]; chest pain. Negative work up Hospitalization History [facility]; chest pain. Negative work up Hospitalization History Severe Kidney Infection 2014 Hospitalization History C6 corpectomy--[facility] 02/02/16 Hospitalization History back surgery--Dr. Lauren NGUYEN 05/05
--- OUTSIDE RECORDS SUMMARY | 2018-11-03 08:02 | XMS REPORT ---
Author Author FLORECITA NAVARRO Organization [facility] Address [address] [place] [address] Care Team Providers Care Utilization Supervisor Name Role Phone MELANIE FLORECITA Unavailable PROBLEMS Type Condition ICD9-CM Code GBG68-XY Code Onset Dates Condition Status SNOMED Code Problem Chronic pain G89.29 Active 30042489 Problem Anxiety associated with depression F41.8 Active 676129470 Problem Hypertension I10 Active 38080607 Problem Hypertriglyceridemia E78.1 Active 927783642 Problem Onycholysis L60.1 Active 24329343 Problem History of spinal stenosis Z87.39 Active 216897860 Problem Osteopenia M85.80 Active 256495202 Problem Degenerative disc disease, 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 36526214 Problem Vitamin D deficiency E55.9 Active 68075608 Problem Other diabetic neurological complication associated with type 2 diabetes mellitus E11.49 Active 531667313 Problem Type 2 diabetes mellitus with diabetic polyneuropathy, without long- term current use of insulin E11.42 Active 53548550 Problem OAB (overactive bladder) N32.81 Active 370621121 Problem Primary insomnia F51.01 Active 8524101 Problem Ulcer of right foot, unspecified ulcer stage L97.519 Active 75329463 Problem Degenerative disc disease, lumbar M51.36 Active 14902865 Problem Type 2 diabetes mellitus with hyperglycemia E11.65 Active 426253740425912 Problem Other hammer toe(s) (acquired), right foot M20.41 Active 300439351 Problem Radiculopathy due to disorder of intervertebral disc of lumbar spine M51.16 Active 890400236334901 Problem Degenerative disc disease, cervical M50.30 Active 29292283 Problem Gastroesophageal reflux disease without esophagitis K21.9 Active 755339867 Problem Type 2 diabetes mellitus with diabetic polyneuropathy E11.42 Active 77409450 Problem 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 Active 786052120 Problem Other obesity due to excess calories E66.09 Active 478392489 ALLERGIES No Information ENCOUNTERS Encounter Location Date Diagnosis [place] [id number] [place] [address] 92150- 6890 Nov, [place] [address] 78[address]- [address] Aug, OM (onychomycosis) B35.1 ; Other hammer toe(s) (acquired), right foot M20.41 and Other diabetic neurological complication associated with type 2 diabetes mellitus E11.49 [place] [address] 59090- 9068 Aug, [place] [address] 26977- 3442 Aug, Other diabetic neurological complication associated with type 2 diabetes mellitus E11.49 ; Ulcer of right foot, unspecified ulcer stage L97.519 ; Type 2 diabetes mellitus with diabetic polyneuropathy E11.42 ; Primary insomnia F51.01 and Anxiety associated with depression F41.8 [place] [id number] [place] [address] 04341- 1572 08 Jul, 2018 Type 2 diabetes mellitus with hyperglycemia E11.65 [place] [id number] [place] [address] 51923- 5211 06 Jul, 2018 Type 2 diabetes mellitus with diabetic polyneuropathy E11.42 [place] [id number] [place] [address] 91155- 4246 May, Type 2 diabetes mellitus with diabetic polyneuropathy E11.42 [place] [id number] [place] [address] 17367- 7508 May, Hypertriglyceridemia E78.1 and Chronic pain G89.29 [place] [address] 31865- 2162 May, Hypertension I10 [place] [address] 05092- 6321 07 May, 2018 OM (onychomycosis) B35.1 and Type 2 diabetes mellitus with diabetic polyneuropathy E11.42 [place] [id number] [place] [address] 21498- 9069 Apr, Type 2 diabetes mellitus with diabetic polyneuropathy E11.42 ; Hypertension I10 ; Anxiety associated with depression F41.8 and Chronic pain G89.29 [place] [address] [place] [address] 49260- 3072 Mar, Hypertriglyceridemia E78.1 [place] [address] 96227- 1300 Jan, [place] [id number] [place] [address] 55467- 7844 Jan, Type 2 diabetes mellitus with diabetic polyneuropathy E11.42 ; Anxiety associated with depression F41.8 ; Other obesity due to excess calories E66.09 ; Hypertension I10 ; Hypertriglyceridemia E78.1 ; Chronic pain G89.29 ; 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 ; Gastroesophageal reflux disease without esophagitis K21.9 ; Vitamin D deficiency E55.9 and Diarrhea, unspecified type R19.7 [place] [address] [place] [address] 81248- 0092 Dec, [place] [address] [place] [address] 45073- 6871 Dec, [place] [id number] [place] [address] 30423- 2188 Nov, OAB (overactive bladder) N32.81 [facility] [id number] [place] [address] 93616 -5339 14 Nov, 2017 Insect bite (nonvenomous), right lower leg, initial encounter S80.861A and Bitten or stung by nonvenomous insect and other nonvenomous arthropods, initial encounter W57.XXXA [place] [id number] [place] [address] 53165- 8495 08 Nov, 2017 Ulcer of right foot, unspecified ulcer stage L97.519 and Other diabetic neurological complication associated with type 2 diabetes mellitus E11.49 [place] [id number] [place] [address] 27451- 0934 Nov, [place] [address] 45581- 9382 Nov, Type 2 diabetes mellitus with diabetic polyneuropathy E11.42 ; care home current use of insulin Z79.4 ; Hypertension I10 ; Hypertriglyceridemia E78.1 ; Vitamin D deficiency E55.9 ; Anxiety associated with depression F41.8 ; Chronic pain G89.29 ; OAB (overactive bladder) N32.81 ; Gastroesophageal reflux disease without esophagitis K21.9 ; Other obesity due to excess calories E66.09 and Body mass index (BMI) of 31.0-31.9 in adult Z68.[address] 91717- 6661 October, Onychomycosis B35.1 ; Ulcer of right foot, unspecified ulcer stage L97.519 and Diabetes mellitus type 2, uncomplicated E11.9 [place] [id number] [place] [address] 85331- 1903 Jul, OM (onychomycosis) B35.1 and Other diabetic neurological complication associated with type 2 diabetes mellitus E11.49 [facility] [id number] [place] [address] 83815 -7826 Jun, Impacted cerumen of right ear H61.21 [place] [id number] [place] [address] 30171- 2624 Feb, [facility] [address] 33479 -1561 Jan, Bronchitis J40 [place] [address] 88273- 0318 Jan, Hypertension I10 [place] [address] 46188- 6778 Jan, [facility] [address] [place] [id number] Dec, Dental examination Z01.20 [place] [id number] [place] [address] 13998- 8085 Nov, [place] [address] [place] [address] 296535- 8636 October, OM (onychomycosis) B35.1 ; Other hammer toe(s) (acquired), right foot M20.41 and Other diabetic neurological complication associated with type 2 diabetes mellitus E11.49 [place] [address] [place] [address] 59873- 6197 Aug, [place] [address] 32335- 6050 Aug, Type 2 diabetes mellitus with hyperglycemia E11.65 ; Osteopenia M85.80 ; Hypertension I10 ; Hypertriglyceridemia E78.1 ; Chronic pain G89.29 ; Anxiety associated with depression F41.8 ; Vitamin D deficiency E55.9 and Atypical pigmented lesion L81.9 [place] [address] [place] [address] 85543- 2172 Aug, [place] [address] [place] [address] 68079- 6806 Jul, [place] [address] [place] [address] 13998- 8412 Apr, [place] [address] [place] [address] 51190- 6567 Apr, Type 2 diabetes mellitus with hyperglycemia E11.65 and Osteopenia M85.80 [place] [address] [place] [address] 67567- 0310 Mar, [place] [address] [place] [address] 836138- 1387 Jan, [place] [address] [place] [address] 18084- 0306 Dec, Type 2 diabetes mellitus with hyperglycemia E11.65 ; Hypertension I10 ; Hypertriglyceridemia E78.1 ; Onycholysis L60.1 ; Chronic pain G89.29 ; Anxiety associated with depression F41.8 and OM (onychomycosis) B35.1 [place] [address] [place] [address] 73020- 0778 Nov, [place] [address] 55185- 5206 Nov, Type 2 diabetes mellitus with hyperglycemia E11.65 ; Radiculopathy due to disorder of intervertebral disc of lumbar spine M51.16 ; Degenerative disc disease, cervical M50.30 ; Degenerative disc disease, lumbar M51.36 and Degenerative disc disease, 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 [place] [address] [place] [address] 79471- 8590 October, History of spinal stenosis Z87.39 [place] [address] [place] [address] 56333- 3911 October, History of spinal stenosis Z87.39 [place] [address] [place] [address] 58550- 0553 October, OM (onychomycosis) B35.1 [place] [address] [place] [address] 83415- 0597 October, OM (onychomycosis) B35.1 [place] [address] [place] [address] 70012- 7633 October, OM (onychomycosis) B35.1 [place] [address] [place] [address] 44178- 1684 October, [place] [address] [place] [address] 57156- 3189 October, Hypertension I10 ; Chronic pain G89.29 ; Peripheral neuropathy G62.9 ; Pain in right hip M25.551 ; Pain in left hip M25.552 ; History of spinal stenosis Z87.39 and Diabetes mellitus without complication E11.9 [place] [address] [address]- 9515 Sep, Type 2 diabetes mellitus without complications E11.9 ; Hypertension I10 ; Hypertriglyceridemia E78.1 ; Chronic pain G89.29 ; Anxiety associated with depression F41.8 ; Peripheral neuropathy G62.9 and OM ( onychomycosis) B35.1 [facility] [address] [place] [address] 58615- 8775 Jul, [facility] [address] [place] [address] 53152- 9276 Jun, Diabetes mellitus type 2, uncomplicated E11.9 [place] [address] [place] [address] 54542- 7892 Jun, [place] [address] [place] [address] 30893- 8108 May, [place] [address] [place] [address] 03662- 2602 May, [place] [address] [place] [address] 24129- 4218 May, Diabetes mellitus without complication E11.9 [place] [address] [place] [address] 11383- 9551 May, Diabetes mellitus without complication E11.9 and Hospital discharge follow-up Z09 [place] [address] [place] [address] 45985- 7668 Apr, [facility] [address] [place] [address] 04656- 9453 Apr, [place] [address] [place] [address] 21775- 0381 Apr, Dysuria R30.0 and Urinary tract infection N39.0 [place] [address] [place] [address] 28197- 2901 Apr, [facility] [address] [place] [address] 57241- 7736 Mar, [place] [address] [place] [address] 20554- 4646 Mar, Diarrhea 787.91 and Diabetes mellitus without mention of complication, type II or unspecified type, uncontrolled 250.02 [place] [address] [place] [address] 00560- 2606 Feb, Diarrhea 787.91 ; Diabetes mellitus without mention of complication, type II or unspecified type, uncontrolled 250.02 ; Other chronic pain 338.29 ; Depression 311 and Essential hypertension 401.9 [place] [address] [place] [address] 42798- 1626 Dec, [place] [address] [place] [address] 68726- 2907 Dec, [place] [address] [place] [address] 297026- 3911 Dec, [place] [address] [place] [address] 34003479- 2072 Dec, Diabetes mellitus without mention of complication, type II or unspecified type, uncontrolled 250.02 ; Essential hypertension, benign 401.1 ; Hypercholesterolemia 272.0 ; Depression 311 ; Neuropathy 355.9 and Post-nasal drip 784.91 [place] [address] [address]- 74[address] Nov, [facility] [address] [place] [address] [id number] Nov, Dental examination V72.2 [place] [address] [place] [address] 86867- 4546 October, Diarrhea 787.91 ; Diabetes mellitus without mention of complication, type II or unspecified type, uncontrolled 250.02 and Abdominal pain 789.00 [place] [address] [place] [id number] [address]- 7706 October, Diarrhea 787.91 ; Diabetes mellitus without mention of complication, type II or unspecified type, uncontrolled 250.02 and Abdominal pain 789.00 [facility] [address], [place] [address]- 9900 14 Sep, 2014 [facility] [address], [place] [address]- 3293 Sep, [facility] [address] [address]- 3381 Aug, [facility] [id number] [place] [address] 18135- 6472 Aug, [facility] [address] [place] [address]- 1303 Jul, [facility] [id number] [place] [address] 67738- 1236 Jul, [facility] [address], [place] [address]- 2986 Jul, [facility] [address], [place] [address]- 8144 Jul, [facility] [address], [place] [address]- 5626 Jun, [facility] [address], [place] [address]- 6210 Jun, [facility] [address], [place] [address]- 6928 Jun, [facility] [address], [place] [address]- 6729 Jun, [facility] [address], [place] [address]- 1076 Mar, [facility] [address], [place] [address]- 0561 Mar, [facility] [address], [place] [address]- 8509 Mar, [facility] [address] [facility] [id number], [place] [address]- 6850 Mar, [facility] [address] [facility] [id number], [place] [address]- 1745 Jan, [facility] [address] [facility] [id number], [place] [address]- 0874 Jan, [facility] [address] [facility] [id number], [place] [address]- 2906 Jan, [facility] [address] [facility] [id number], [place] [address]- 3344 Jan, [facility] [address] [facility] [id number], [place] [address]- 4474 Dec, [facility] [address] [facility] [id number], [place] [address]- 8578 Dec, [facility] [address] [facility] [id number], [place] [address]- 5189 Nov, [facility] [address] [facility] [id number], [place] [address]- 1783 Nov, [facility] [address] [facility] [id number], [place] [address]- 7559 October, [facility] [id number] [address]- 6083 October, [facility] [address] [facility] [id number], [place] [address]- 5587 October, [facility] [address] [facility] [id number], [place] [address]- 0205 October, IMMUNIZATIONS No Known Immunizations SOCIAL HISTORY Never Assessed REASON FOR VISIT Requests return call PLAN OF CARE VITAL SIGNS MEDICATIONS Unknown Medications RESULTS No Results PROCEDURES No Known procedures INSTRUCTIONS MEDICATIONS ADMINISTERED No Known Medications MEDICAL (GENERAL) HISTORY Type Description Date Medical History type II diabetes Medical History hypertension Medical History hyperlipidemia Medical History Other chronic pain Surgical History hysterectomy 1996 Surgical History cholecystectomy Hospitalization History [facility]; chest pain. Negative work up Hospitalization History [facility]; chest pain. Negative work up Hospitalization History Severe Kidney Infection 2014 Hospitalization History C6 corpectomy--[facility] 02/02/16 Hospitalization History back surgery--, Dr. Aguilar 05/05
--- OUTSIDE RECORDS SUMMARY | 2018-11-03 08:03 | XMS REPORT ---
Author Author LUIS NANCY Organization [facility] Address [address] [place] [address] Care Team Providers Care Sail Finisher Hand Name Role Phone NANCY MARRERO Unavailable PROBLEMS Type Condition ICD9-CM Code DUH47-YQ Code Onset Dates Condition Status SNOMED Code Problem Other hammer toe(s) (acquired), right foot M20.41 Active 773382793 Problem Other diabetic neurological complication associated with type 2 diabetes mellitus E11.49 Active 953385017 Problem Ulcer of right foot, unspecified ulcer stage L97.519 Active 45702637 Problem Type 2 diabetes mellitus with diabetic polyneuropathy E11.42 Active 09093424 Problem Degenerative disc disease, 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 93398405 Problem Other obesity due to excess calories E66.09 Active 140295005 Problem Radiculopathy due to disorder of intervertebral disc of lumbar spine M51.16 Active [id number] Problem OAB (overactive bladder) N32.81 Active 219938603 Problem Type 2 diabetes mellitus with diabetic polyneuropathy, without long- term current use of insulin E11.42 Active 65180151 Problem 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 Active 994570875 Problem Gastroesophageal reflux disease without esophagitis K21.9 Active 312956131 Problem Hypertriglyceridemia E78.1 Active 774780087 Problem Hypertension I10 Active 28942949 Problem Degenerative disc disease, lumbar M51.36 Active 15551245 Problem Degenerative disc disease, cervical M50.30 Active 42048046 Problem History of spinal stenosis Z87.39 Active 678789608 Problem Onycholysis L60.1 Active 67883663 Problem Anxiety associated with depression F41.8 Active 721593239 Problem Osteopenia M85.80 Active 656207499 Problem Chronic pain G89.29 Active 12103731 Problem Vitamin D deficiency E55.9 Active 56967799 ALLERGIES No Information ENCOUNTERS Encounter Location Date Diagnosis [facility] [address] [place] [place] [id number] [place] [address] 79395- 6302 May, [place] [address] [address]- [address] Jan, [place] [address] [address]- [address] Jan, Type 2 diabetes mellitus with diabetic polyneuropathy E11.42 ; Anxiety associated with depression F41.8 ; Other obesity due to excess calories E66.09 ; Hypertension I10 ; Hypertriglyceridemia E78.1 ; Chronic pain G89.29 ; correction current use of insulin Z79.4 ; Gastroesophageal reflux disease without esophagitis K21.9 ; Vitamin D deficiency E55.9 and Diarrhea, unspecified type R19.7 [place] [address] [address]- 3514 Dec, [place] [address] 28819- 6377 Dec, [place] [address] 54547- 4819 Nov, OAB (overactive bladder) N32.81 [facility] [address] [address] 14 Nov, 2017 Insect bite (nonvenomous), right lower leg, initial encounter S80.861A and Bitten or stung by nonvenomous insect and other nonvenomous arthropods, initial encounter W57.XXXA [place] [address] [place] [id number] [place] [address] 52235- 0644 Nov, Ulcer of right foot, unspecified ulcer stage L97.519 and Other diabetic neurological complication associated with type 2 diabetes mellitus E11.49 [place] [address] 95269- 0981 Nov, [place] [address] 25847- 4518 Nov, Type 2 diabetes mellitus with diabetic polyneuropathy E11.42 ; 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 ; Hypertension I10 ; Hypertriglyceridemia E78.1 ; Vitamin D deficiency E55.9 ; Anxiety associated with depression F41.8 ; Chronic pain G89.29 ; OAB (overactive bladder) N32.81 ; Gastroesophageal reflux disease without esophagitis K21.9 ; Other obesity due to excess calories E66.09 and Body mass index (BMI) of 31.0-31.9 in adult Z68.31 [place] [address] 36[address]- 2854 October, Onychomycosis B35.1 ; Ulcer of right foot, unspecified ulcer stage L97.519 and Diabetes mellitus type 2, uncomplicated E11.9 [place] [address] 64[address]- 77[address] Jul, OM (onychomycosis) B35.1 and Other diabetic neurological complication associated with type 2 diabetes mellitus E11.49 [facility] [address] [address] Jun, Impacted cerumen of right ear H61.21 [place] [address] 065[address]- 5632 Feb, [facility] [place] [address] [address] Jan, Bronchitis J40 [place] [address] 18292- 5456 Jan, Hypertension I10 [place] [address] 7[address]60- 0734 Jan, [facility] [address] [id number] Dec, Dental examination Z01.20 [place] [address] 54972- 9681 Nov, [place] [address] 73747- 65[address] October, OM (onychomycosis) B35.1 ; Other hammer toe(s) (acquired), right foot M20.41 and Other diabetic neurological complication associated with type 2 diabetes mellitus E11.49 [place] [address] [place] [id number] [place] [address] 43614- 2481 Aug, [place] [address] [place] [id number] [place] [address] 82120- 8479 Aug, Type 2 diabetes mellitus with hyperglycemia E11.65 ; Osteopenia M85.80 ; Hypertension I10 ; Hypertriglyceridemia E78.1 ; Chronic pain G89.29 ; Anxiety associated with depression F41.8 ; Vitamin D deficiency E55.9 and Atypical pigmented lesion L81.9 [place] [address] [place] [id number] [place] [address] 23308- 6432 Aug, [place] [address] [place] [id number] [place] [address] 25966- 9985 Jul, [place] [address] [place] [id number] [place] [address] 15213- 3335 Apr, [place] [address] [place] [id number] [place] [address] 32992- 1197 Apr, Type 2 diabetes mellitus with hyperglycemia E11.65 and Osteopenia M85.80 [place] [address] [place] [id number] [place] [address] 32105- 7352 Mar, [place] [address] [place] [id number] [place] [address] 28944- 9863 Jan, [place] [address] [place] [id number] [place] [address] 41875- 6505 Dec, Type 2 diabetes mellitus with hyperglycemia E11.65 ; Hypertension I10 ; Hypertriglyceridemia E78.1 ; Onycholysis L60.1 ; Chronic pain G89.29 ; Anxiety associated with depression F41.8 and OM (onychomycosis) B35.1 [place] [address] [place] [id number] [place] [address] 76777- 7030 Nov, [place] [address] [place] [id number] [place] [address] 46237- 2545 Nov, Type 2 diabetes mellitus with hyperglycemia E11.65 ; Radiculopathy due to disorder of intervertebral disc of lumbar spine M51.16 ; Degenerative disc disease, cervical M50.30 ; Degenerative disc disease, lumbar M51.36 and Degenerative disc disease, 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 [place] [id number] [place] [address] 73667- 9079 October, History of spinal stenosis Z87.39 [place] [address] [place] [id number] [place] [address] 60806- 8299 October, History of spinal stenosis Z87.39 [place] [id number] [place] [address] 94294- 0851 October, OM (onychomycosis) B35.1 [place] [id number] [place] [address] 35128- 8777 October, OM (onychomycosis) B35.1 [place] [id number] [place] [address] 40187- 9670 October, OM (onychomycosis) B35.1 [place] [id number] [place] [address] 89218- 6156 October, [place] [id number] [place] [address] 40745- 2978 October, Hypertension I10 ; Chronic pain G89.29 ; Peripheral neuropathy G62.9 ; Pain in right hip M25.551 ; Pain in left hip M25.552 ; History of spinal stenosis Z87.39 and Diabetes mellitus without complication E11.9 [place] [id number] [place] [address] 88415- 0775 Sep, Type 2 diabetes mellitus without complications E11.9 ; Hypertension I10 ; Hypertriglyceridemia E78.1 ; Chronic pain G89.29 ; Anxiety associated with depression F41.8 ; Peripheral neuropathy G62.9 and OM ( onychomycosis) B35.[address] [id number] [address] Jul, [facility] [address] [place] [id number] [place] [address] 79091- 0600 Jun, Diabetes mellitus type 2, uncomplicated E11.9 [facility] [address] [place] [address] [id number] [place] [address] 11562- 4051 Jun, [facility] [address] [place] [address] [id number] [place] [address] 24465- 4576 May, [facility] [address] [place] [address] 13116- 3485 May, [facility] [address] [place] [id number] [place] [address] 72140- 6739 May, Diabetes mellitus without complication E11.9 [facility] [address] [place] [id number] [place] [address] 02230- 8011 May, Diabetes mellitus without complication E11.9 and Hospital discharge follow-up Z09 [facility] [address] [place] [address] 42491- 8439 Apr, [facility] [address] [place] [id number] [place] [address] 32417- 4642 Apr, [facility] [address] [place] [address] 41912- 9628 Apr, Dysuria R30.0 and Urinary tract infection N39.0 [facility] [address] [address]- 5766 Apr, [facility] [address] [place] [address] 71909- 2902 Mar, [facility] [address] [place] [id number] [place] [address] 80405- 3640 Mar, Diarrhea 787.91 and Diabetes mellitus without mention of complication, type II or unspecified type, uncontrolled 250.02 [facility] [address] [address] [id number] [place] [address] 52193- 3310 Feb, Diarrhea 787.91 ; Diabetes mellitus without mention of complication, type II or unspecified type, uncontrolled 250.02 ; Other chronic pain 338.29 ; Depression 311 and Essential hypertension 401.9 [facility] [address] [place] [address] 812599- 4006 Dec, [facility] [address] [place] [id number] [place] [address] 00796- 4290 Dec, [facility] [address] [place] [address] [id number] [place] [address] 32255- 9176 Dec, [place] [address] [place] [id number] [place] [address] 369710- 6331 Dec, Diabetes mellitus without mention of complication, type II or unspecified type, uncontrolled 250.02 ; Essential hypertension, benign 401.1 ; Hypercholesterolemia 272.0 ; Depression 311 ; Neuropathy 355.9 and Post-nasal drip 784.91 [place] [address] [place] [id number] [place] [address] 56404- 5095 Nov, [facility] [address] [id number] [place] [address] [id number] Nov, Dental examination V72.2 [place] [address] [place] [id number] [place] [address] 64694- 4462 October, Diarrhea 787.91 ; Diabetes mellitus without mention of complication, type II or unspecified type, uncontrolled 250.02 and Abdominal pain 789.00 [place] [address] [place] [address] 41606- 3723 October, Diarrhea 787.91 ; Diabetes mellitus without mention of complication, type II or unspecified type, uncontrolled 250.02 and Abdominal pain 789.00 [place] [address] [place] [id number] [place] [address] 19450- 5329 Sep, [facility] [address] [address] [id number] [place] [address] 42476- 6397 Sep, [facility] [address] [address] [id number] [place] [address]- 5036 Aug, [facility] [place] [facility] [address] [id number] [place] [address]- 1790 Aug, [facility] [place] [facility] [address] [id number] [place] 4782 Jul, [facility] [place] [facility] [address] [id number] [place] [address]- 9946 Jul, 2014 [facility] [place] [facility] [address] [id number] [place] [address]- 3219 Jul, [facility] [place] [facility] [address] [id number] [place] [address]- 5429 Jul, [facility] [place] [facility] [address] [id number] [place] [address]- 8317 Jun, [facility] [place] [facility] [address] [id number] [place] [address]- 1311 Jun, [facility] [place] [facility] [address] [id number] [place] [address]- 2694 Jun, [facility] [place] [facility] [address] [id number] [place] [address]- 3165 Jun, [facility] [place] [facility] [address] [facility] [id number] [place] [address]- 1232 Mar, [facility] [place] [facility] [address] [id number] [place] [address]- 9827 Mar, [facility] [place] [facility] [address] [id number] [place] [address]- 7042 Mar, [facility] [place] [facility] [address] [id number] [place] [address]- 1538 Mar, [facility] [place] [facility] [address] [id number] [place] [address]- 2697 Jan, [facility] [place] [facility] [address] [id number] [place] [address]- 2023 Jan, [facility] [address] [facility] [id number], [place] [address]- 8056 Jan, [facility] [address] [facility] [id number], [place] [address]- 0386 Jan, [facility] [address] [facility] [id number], [place] [address]- 6823 Dec, [facility] [address] [facility] [id number], [place] [address]- 9109 Dec, [facility] [address] [facility] [id number], [place] [address]- 6134 Nov, [facility] [address] [facility] [id number], [place] [address]- 6590 Nov, [facility] [id number] [address]- 2599 October, [facility] [id number] [address]- 5293 October, [facility] [id number] [address]- 0908 October, [facility] [id number] [address]- 8360 October, IMMUNIZATIONS No Known Immunizations SOCIAL HISTORY Never Assessed REASON FOR VISIT 2 week f/u. Consult Dr. Marrero;Riley RT(R) PLAN OF CARE Activity Details Follow Up 6 Months Reason: VITAL SIGNS MEDICATIONS Unknown Medications RESULTS No Results PROCEDURES Procedure Date Ordered Result Body Site [facility] VISIT ESTABLISHED PATIENT November 25, 2017 INSTRUCTIONS MEDICATIONS ADMINISTERED No Known Medications MEDICAL (GENERAL) HISTORY Type Description Date Medical History type II diabetes Medical History hypertension Medical History hyperlipidemia Medical History Other chronic pain Surgical History hysterectomy 1996 Surgical History cholecystectomy Hospitalization History [facility]; chest pain. Negative work up Hospitalization History [facility]; chest pain. Negative work up Hospitalization History Severe Kidney Infection 2014 Hospitalization History C6 corpectomy--[facility] 02/02/16 Hospitalization History back surgery--, Dr. Aguilar 05/05
--- OUTSIDE RECORDS SUMMARY | 2018-11-03 08:03 | XMS REPORT ---
Author Author SUZE KIM Organization [facility] Address [address] [place] [address] Care Team Providers Care Pad Tufter Name Role Phone KIMBERNABE WeeksELE Unavailable PROBLEMS Type Condition ICD9-CM Code GJR55-AR Code Onset Dates Condition Status SNOMED Code Problem Other hammer toe(s) (acquired), right foot M20.41 Active 704609605 Problem Other diabetic neurological complication associated with type 2 diabetes mellitus E11.49 Active 572380687 Problem Ulcer of right foot, unspecified ulcer stage L97.519 Active 42663614 Problem Type 2 diabetes mellitus with diabetic polyneuropathy E11.42 Active 60587424 Problem Degenerative disc disease, 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 53854732 Problem Other obesity due to excess calories E66.09 Active 525396814 Problem Radiculopathy due to disorder of intervertebral disc of lumbar spine M51.16 Active 826622705122662 Problem OAB (overactive bladder) N32.81 Active 771464435 Problem Type 2 diabetes mellitus with diabetic polyneuropathy, without long- term current use of insulin E11.42 Active 70519134 Problem senior care current use of insulin Z79.4 Active 682126082 Problem Gastroesophageal reflux disease without esophagitis K21.9 Active 758142080 Problem Hypertriglyceridemia E78.1 Active 409629808 Problem Hypertension I10 Active 55303470 Problem Degenerative disc disease, lumbar M51.36 Active 57158881 Problem Degenerative disc disease, cervical M50.30 Active 51088664 Problem History of spinal stenosis Z87.39 Active 629115064 Problem Onycholysis L60.1 Active 97603316 Problem Anxiety associated with depression F41.8 Active 133776168 Problem Osteopenia M85.80 Active 820085782 Problem Chronic pain G89.29 Active 38454593 Problem Vitamin D deficiency E55.9 Active 19687461 ALLERGIES No Information ENCOUNTERS Encounter Location Date Diagnosis [facility] [id number] [place] [address]99- 8942 May, [place] [address] [address] Jan, [place] [address] [address]- [address] Jan, Type 2 diabetes mellitus with diabetic polyneuropathy E11.42 ; Anxiety associated with depression F41.8 ; Other obesity due to excess calories E66.09 ; Hypertension I10 ; Hypertriglyceridemia E78.1 ; Chronic pain G89.29 ; 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 ; Gastroesophageal reflux disease without esophagitis K21.9 ; Vitamin D deficiency E55.9 and Diarrhea, unspecified type R19.7 [place] [address] [address] Dec, [place] [address] [address]- [address]79 Dec, [place] [address] [address] 2711 Nov, OAB (overactive bladder) N32.81 [facility] [address] [address] 14 Nov, 2017 Insect bite (nonvenomous), right lower leg, initial encounter S80.861A and Bitten or stung by nonvenomous insect and other nonvenomous arthropods, initial encounter W57.XXXA [place] [id number] [place] [address] 28388- 3022 Nov, Ulcer of right foot, unspecified ulcer stage L97.519 and Other diabetic neurological complication associated with type 2 diabetes mellitus E11.49 [place] [address] [address]- 4487 Nov, [place] [address] [address]- [address] Nov, Type 2 diabetes mellitus with diabetic polyneuropathy E11.42 ; senior care current use of insulin Z79.4 ; Hypertension I10 ; Hypertriglyceridemia E78.1 ; Vitamin D deficiency E55.9 ; Anxiety associated with depression F41.8 ; Chronic pain G89.29 ; OAB (overactive bladder) N32.81 ; Gastroesophageal reflux disease without esophagitis K21.9 ; Other obesity due to excess calories E66.09 and Body mass index (BMI) of 31.0-31.9 in adult Z68.31 [place] [address] [address]- [address] October, Onychomycosis B35.1 ; Ulcer of right foot, unspecified ulcer stage L97.519 and Diabetes mellitus type 2, uncomplicated E11.9 [place] [address] 46[address]- [address] Jul, OM (onychomycosis) B35.1 and Other diabetic neurological complication associated with type 2 diabetes mellitus E11.49 [facility] [address] [address] Jun, Impacted cerumen of right ear H61.21 [place] [address] [address]- [address]647 Feb, [facility] [place] [address] [address] Jan, Bronchitis J40 [place] [address] 42473- 1555 Jan, Hypertension I10 [place] [address] 28017- 1146 Jan, [facility] [address] [id number] Dec, Dental examination Z01.20 [place] [address] [address]77- [address] Nov, [place] [address] [address]72- [address] October, OM (onychomycosis) B35.1 ; Other hammer toe(s) (acquired), right foot M20.41 and Other diabetic neurological complication associated with type 2 diabetes mellitus E11.49 [place] [address] [id number] [place] [address] 23477- 4464 Aug, [place] [address] [id number] [place] [address] 89555- 4358 Aug, Type 2 diabetes mellitus with hyperglycemia E11.65 ; Osteopenia M85.80 ; Hypertension I10 ; Hypertriglyceridemia E78.1 ; Chronic pain G89.29 ; Anxiety associated with depression F41.8 ; Vitamin D deficiency E55.9 and Atypical pigmented lesion L81.9 [place] [address] [id number] [place] [address] 69617- 4677 Aug, [place] [address] [address] [id number] [place] [address] 77418- 9348 Jul, [place] [address] [id number] [place] [address] 82342- 3736 Apr, [place] [address] [id number] [place] [address] 48515- 3307 Apr, Type 2 diabetes mellitus with hyperglycemia E11.65 and Osteopenia M85.80 [place] [address] [address] [id number] [place] [address] 06829- 9127 Mar, [place] [address] [id number] [place] [address] 68757- 4856 Jan, [place] [address] [id number] [place] [address] 52464- 8124 Dec, Type 2 diabetes mellitus with hyperglycemia E11.65 ; Hypertension I10 ; Hypertriglyceridemia E78.1 ; Onycholysis L60.1 ; Chronic pain G89.29 ; Anxiety associated with depression F41.8 and OM (onychomycosis) B35.1 [place] [address] [id number] [place] [address] 66374- 6935 Nov, [place] [address] [place] [id number] [place] [address] 07448- 7630 Nov, Type 2 diabetes mellitus with hyperglycemia E11.65 ; Radiculopathy due to disorder of intervertebral disc of lumbar spine M51.16 ; Degenerative disc disease, cervical M50.30 ; Degenerative disc disease, lumbar M51.36 and Degenerative disc disease, 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 [place] [id number] [place] [address] 78256- 8974 October, History of spinal stenosis Z87.39 [place] [address] [address] [id number] [place] [address] 13248- 8547 October, History of spinal stenosis Z87.39 [place] [id number] [place] [address] 60610- 3294 October, OM (onychomycosis) B35.1 [place] [id number] [place] [address] 49577- 8017 October, OM (onychomycosis) B35.1 [place] [id number] [place] [address] 15915- 2580 October, OM (onychomycosis) B35.1 [place] [id number] [place] [address] 87354- 1634 October, [place] [id number] [place] [address] 05287- 5172 October, Hypertension I10 ; Chronic pain G89.29 ; Peripheral neuropathy G62.9 ; Pain in right hip M25.551 ; Pain in left hip M25.552 ; History of spinal stenosis Z87.39 and Diabetes mellitus without complication E11.9 [place] [id number] [place] [address] 65256- 4659 Sep, Type 2 diabetes mellitus without complications E11.9 ; Hypertension I10 ; Hypertriglyceridemia E78.1 ; Chronic pain G89.29 ; Anxiety associated with depression F41.8 ; Peripheral neuropathy G62.9 and OM ( onychomycosis) B35.[address] [id number] [address] Jul, [facility] [id number] [place] [address] 41126- 5675 Jun, Diabetes mellitus type 2, uncomplicated E11.9 [facility] [id number] [place] [address] 08619- 8706 Jun, [facility] [id number] [place] [address] 66776- 2112 May, [facility] [address] [place] [address] 81893- 0208 May, [facility] [id number] [place] [address] 78458- 8694 May, Diabetes mellitus without complication E11.9 [facility] [id number] [place] [address] 35018- 1297 May, Diabetes mellitus without complication E11.9 and Hospital discharge follow-up Z09 [facility] [address] [place] [address] 92295- 7357 Apr, [facility] [id number] [place] [address] 48843- 3569 Apr, [facility] [address] [place] [address] 32327- 3288 Apr, Dysuria R30.0 and Urinary tract infection N39.0 [facility] [address] [address] 5[address] Apr, [facility] [address] [place] [address] 84773- 3552 Mar, [facility] [id number] [place] [address] 55778- 4605 Mar, Diarrhea 787.91 and Diabetes mellitus without mention of complication, type II or unspecified type, uncontrolled 250.02 [facility] [id number] [place] [address] 05859- 3286 Feb, Diarrhea 787.91 ; Diabetes mellitus without mention of complication, type II or unspecified type, uncontrolled 250.02 ; Other chronic pain 338.29 ; Depression 311 and Essential hypertension 401.9 [facility] [address] [place] [address] 846675- 0986 Dec, [facility] [id number] [place] [address] 92171- 2685 Dec, [facility] [id number] [place] [address] 23273- 3323 Dec, [place] [id number] [place] [address] 082707- 3269 Dec, Diabetes mellitus without mention of complication, type II or unspecified type, uncontrolled 250.02 ; Essential hypertension, benign 401.1 ; Hypercholesterolemia 272.0 ; Depression 311 ; Neuropathy 355.9 and Post-nasal drip 784.91 [place] [id number] [place] [address] 71329- 8756 Nov, [facility] [id number] [place] [address] [id number] Nov, Dental examination V72.2 [place] [address] [address] [id number] [place] [address] 79146- 3607 October, Diarrhea 787.91 ; Diabetes mellitus without mention of complication, type II or unspecified type, uncontrolled 250.02 and Abdominal pain 789.00 [place] [address] [place] [address] 87669- 8849 October, Diarrhea 787.91 ; Diabetes mellitus without mention of complication, type II or unspecified type, uncontrolled 250.02 and Abdominal pain 789.00 [place] [id number] [place] [address] 50258- 3987 Sep, [facility] [id number] [place] [address] 00321- 1169 Sep, [facility] [address] [place] [id number] [place] [address] 2737 Aug, [facility] [place] [facility] [address] [id number] [place] [address]- 6105 Aug, [facility] [place] [facility] [address] [id number] [place]35 Jul, [facility] [place] [facility] [address] [id number] [place] [address]- 8566 Jul, 2014 [facility] [place] [facility] [address] [id number] [place] [address]- 6313 Jul, [facility] [place] [facility] [address] [id number] [place] [address]- 4150 Jul, [facility] [place] [facility] [address] [id number] [place] [address]- 8113 Jun, [facility] [place] [facility] [address] [id number] [place] [address]- 0394 Jun, [facility] [place] [facility] [address] [id number] [place] [address]- 2096 Jun, [facility] [place] [facility] [address] [id number] [place] [address]- 0573 Jun, [facility] [place] [facility] [address] [facility] [id number] [place] [address]- 6406 Mar, [facility] [place] [facility] [address] [id number] [place] [address]- 2840 Mar, [facility] [place] [facility] [address] [id number] [place] [address]- 8876 Mar, [facility] [place] [facility] [address] [id number] [place] [address]- 1654 Mar, [facility] [place] [facility] [address] [id number] [place] [address]- 9941 Jan, [facility] [place] [facility] [address] [id number] [place] [address]- 5641 Jan, [facility] [address] [facility] [id number] [address]- 9425 Jan, [facility] [address] [facility] [id number], [place] [address]- 8936 Jan, [facility] [address] [facility] [id number], [place] [address]- 6346 Dec, [facility] [address] [facility] [id number], [place] [address]- 0828 Dec, [facility] [address] [facility] [id number], [place] [address]- 8138 Nov, [facility] [address] [facility] [id number], [place] [address]- 0977 Nov, [facility] [address] [address]- 6431 October, [facility] [id number] [address]- 3815 October, [facility] [id number] [address]- 6485 October, [facility] [id number] [address]- 2100 October, IMMUNIZATIONS No Known Immunizations SOCIAL HISTORY Never Assessed REASON FOR VISIT [place] PLAN OF CARE VITAL SIGNS MEDICATIONS Unknown Medications RESULTS No Results PROCEDURES No Known procedures INSTRUCTIONS MEDICATIONS ADMINISTERED No Known Medications MEDICAL (GENERAL) HISTORY Type Description Date Medical History type II diabetes Medical History hypertension Medical History hyperlipidemia Medical History Other chronic pain Surgical History hysterectomy 1996 Surgical History cholecystectomy Hospitalization History [facility]; chest pain. Negative work up Hospitalization History [facility]; chest pain. Negative work up Hospitalization History Severe Kidney Infection 2014 Hospitalization History C6 corpectomy--[facility] 02/02/16 Hospitalization History back surgery--, Dr. Aguilar 05/05
--- OUTSIDE RECORDS SUMMARY | 2018-11-03 08:03 | XMS REPORT ---
Author Author SUZE KIM Organization [facility] Address [address] [place] [address] Care Team Providers [employer] Specialist Name Role Phone KIMBERNABE WeeksELE Unavailable PROBLEMS Type Condition ICD9-CM Code RAU26-SD Code Onset Dates Condition Status SNOMED Code Problem Other hammer toe(s) (acquired), right foot M20.41 Active 795418543 Problem Other diabetic neurological complication associated with type 2 diabetes mellitus E11.49 Active 577881171 Problem Ulcer of right foot, unspecified ulcer stage L97.519 Active 49627681 Problem Type 2 diabetes mellitus with diabetic polyneuropathy E11.42 Active 66978319 Problem Degenerative disc disease, 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 31438232 Problem Other obesity due to excess calories E66.09 Active 046263989 Problem Radiculopathy due to disorder of intervertebral disc of lumbar spine M51.16 Active 919156792485258 Problem OAB (overactive bladder) N32.81 Active 832505181 Problem Type 2 diabetes mellitus with diabetic polyneuropathy, without long- term current use of insulin E11.42 Active 28709767 Problem intermediate current use of insulin Z79.4 Active 561091337 Problem Gastroesophageal reflux disease without esophagitis K21.9 Active 894570851 Problem Hypertriglyceridemia E78.1 Active 995379207 Problem Hypertension I10 Active 90606872 Problem Degenerative disc disease, lumbar M51.36 Active 33766304 Problem Degenerative disc disease, cervical M50.30 Active 64822080 Problem History of spinal stenosis Z87.39 Active 110034193 Problem Onycholysis L60.1 Active 20964215 Problem Anxiety associated with depression F41.8 Active 115059156 Problem Osteopenia M85.80 Active 122913203 Problem Chronic pain G89.29 Active 80392736 Problem Vitamin D deficiency E55.9 Active 97144341 ALLERGIES No Known Allergies ENCOUNTERS Encounter Location Date Diagnosis [facility] [address] [address] May, [place] [address] [address] Jan, [place] [address] [address] Jan, Type 2 diabetes mellitus with diabetic polyneuropathy E11.42 ; Anxiety associated with depression F41.8 ; Other obesity due to excess calories E66.09 ; Hypertension I10 ; Hypertriglyceridemia E78.1 ; Chronic pain G89.29 ; intermediate current use of insulin Z79.4 ; Gastroesophageal reflux disease without esophagitis K21.9 ; Vitamin D deficiency E55.9 and Diarrhea, unspecified type R19.7 [place] [address] [address] Dec, [place] [address] [address] Dec, [place] [address] [address] Nov, OAB (overactive bladder) N32.81 [facility] [place] [facility] [address] [address] 14 Nov, 2017 Insect bite (nonvenomous), right lower leg, initial encounter S80.861A and Bitten or stung by nonvenomous insect and other nonvenomous arthropods, initial encounter W57.XXXA [place] [address] [address] 08 Nov, 2017 Ulcer of right foot, unspecified ulcer stage L97.519 and Other diabetic neurological complication associated with type 2 diabetes mellitus E11.49 [place] [address] [address] Nov, [place] [address] [address] Nov, Type 2 diabetes mellitus with diabetic polyneuropathy E11.42 ; 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 ; Hypertension I10 ; Hypertriglyceridemia E78.1 ; Vitamin D deficiency E55.9 ; Anxiety associated with depression F41.8 ; Chronic pain G89.29 ; OAB (overactive bladder) N32.81 ; Gastroesophageal reflux disease without esophagitis K21.9 ; Other obesity due to excess calories E66.09 and Body mass index (BMI) of 31.0-31.9 in adult Z68.31 [place] [address] [address] October, Onychomycosis B35.1 ; Ulcer of right foot, unspecified ulcer stage L97.519 and Diabetes mellitus type 2, uncomplicated E11.9 [place] [address] [address] Jul, OM (onychomycosis) B35.1 and Other diabetic neurological complication associated with type 2 diabetes mellitus E11.49 [facility] [address] [address] Jun, Impacted cerumen of right ear H61.21 [place] [address] [address] Feb, [facility] [place] [address] [address] Jan, Bronchitis J40 [place] [address] [address] Jan, Hypertension I10 [place] [address] [address] Jan, [facility] [address] [id number] Dec, Dental examination Z01.20 [place] [address] [address] Nov, [place] [address] [address] October, OM (onychomycosis) B35.1 ; Other hammer toe(s) (acquired), right foot M20.41 and Other diabetic neurological complication associated with type 2 diabetes mellitus E11.49 [place] [address] [address] [place] [id number] [place] [address] Aug, [place] [address] [place] [id number] [place] [address] Aug, Type 2 diabetes mellitus with hyperglycemia E11.65 ; Osteopenia M85.80 ; Hypertension I10 ; Hypertriglyceridemia E78.1 ; Chronic pain G89.29 ; Anxiety associated with depression F41.8 ; Vitamin D deficiency E55.9 and Atypical pigmented lesion L81.9 [place] [address] [place] [id number] [place] [address] Aug, [place] [address] [place] [id number] [place] [address] Jul, [place] [address] [place] [id number] [place] [address] Apr, [place] [address] [place] [id number] [place] [address] Apr, Type 2 diabetes mellitus with hyperglycemia E11.65 and Osteopenia M85.80 [place] [address] [place] [address] Mar, [place] [address] [place] [id number] [place] [address] Jan, [place] [address] [place] [id number] [place] [address] Dec, Type 2 diabetes mellitus with hyperglycemia E11.65 ; Hypertension I10 ; Hypertriglyceridemia E78.1 ; Onycholysis L60.1 ; Chronic pain G89.29 ; Anxiety associated with depression F41.8 and OM (onychomycosis) B35.1 [place] [address] [place] [address] Nov, [facility] [place] [address] [place] [address] Nov, Type 2 diabetes mellitus with hyperglycemia E11.65 ; Radiculopathy due to disorder of intervertebral disc of lumbar spine M51.16 ; Degenerative disc disease, cervical M50.30 ; Degenerative disc disease, lumbar M51.36 and Degenerative disc disease, 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 [place] [id number] [place] [address] October, History of spinal stenosis Z87.39 [place] [address] [address] [place] [id number] [place] [address] October, History of spinal stenosis Z87.39 [place] [id number] [place] [address] October, OM (onychomycosis) B35.1 [place] [id number] [place] [address] October, OM (onychomycosis) B35.1 [place] [id number] [place] [address]- [address] October, OM (onychomycosis) B35.1 [place] [id number] [place] [address] October, [address] [place] [address] October, Hypertension I10 ; Chronic pain G89.29 ; Peripheral neuropathy G62.9 ; Pain in right hip M25.551 ; Pain in left hip M25.552 ; History of spinal stenosis Z87.39 and Diabetes mellitus without complication E11.9 [place] [id number] [place] [address] Sep, Type 2 diabetes mellitus without complications E11.9 ; Hypertension I10 ; Hypertriglyceridemia E78.1 ; Chronic pain G89.29 ; Anxiety associated with depression F41.8 ; Peripheral neuropathy G62.9 and OM ( onychomycosis) B35.[address] [id number] [address] Jul, [facility] [address] [place] [id number] [place] [address] Jun, Diabetes mellitus type 2, uncomplicated E11.9 [facility] [address] [place] [address]- [address] Jun, [facility] [address] [place] [id number] [place] [address] May, [facility] [address] [place] [address] May, [facility] [address] [place] [id number] [place] [address] May, Diabetes mellitus without complication E11.9 [facility] [address] [place] [id number] [place] [address]- [address] May, Diabetes mellitus without complication E11.9 and Hospital discharge follow-up Z09 [facility] [address] [place] [address] Apr, [facility] [address] [place] [id number] [place] [address] 8[address]- [address] Apr, [facility] [address] [place] [address]- [address] Apr, Dysuria R30.0 and Urinary tract infection N39.0 [facility] [address] [place] [address]- [address] Apr, [facility] [address] [place] [address]- [address] Mar, [facility] [address] [place] [id number] [place] [address] Mar, Diarrhea 787.91 and Diabetes mellitus without mention of complication, type II or unspecified type, uncontrolled 250.02 [facility] [address] [place] [id number] [place] [id number]- [address] Feb, Diarrhea 787.91 ; Diabetes mellitus without mention of complication, type II or unspecified type, uncontrolled 250.02 ; Other chronic pain 338.29 ; Depression 311 and Essential hypertension 401.9 [facility] [address] [address] Dec, [facility] [address] [place] [id number] [place] [address]- [address] Dec, [facility] [address] [place] [id number] [place] [address]- [address] Dec, [place] [address] [place] [id number] [place] [address] 710858- 3468 Dec, Diabetes mellitus without mention of complication, type II or unspecified type, uncontrolled 250.02 ; Essential hypertension, benign 401.1 ; Hypercholesterolemia 272.0 ; Depression 311 ; Neuropathy 355.9 and Post-nasal drip 784.91 [place] [address] [address] [place] [id number] [place] [address]- [address] Nov, [facility] [address] [place] [id number] Nov, Dental examination V72.2 [place] [address] [place] [id number] [place] [address]92- [address] October, Diarrhea 787.91 ; Diabetes mellitus without mention of complication, type II or unspecified type, uncontrolled 250.02 and Abdominal pain 789.00 [place] [address] [place] [address]- [address] October, Diarrhea 787.91 ; Diabetes mellitus without mention of complication, type II or unspecified type, uncontrolled 250.02 and Abdominal pain 789.00 [place] [address] [place] [id number]- 1670 Sep, [facility] [address] [place] [address] 0[address]- 407[address] Sep, [facility] [address] [place] [id number] [place] [address] Aug, [facility] [place] [facility] [address] [id number] [place] [address] Aug, [facility] [place] [facility] [address] [id number] [place] Jul, 2014 [facility] [place] [facility] [address] [id number] [place] [address] Jul, 2014 [facility] [place] [facility] [address] [id number] [place] [address] Jul, [facility] [place] [facility] [address] [id number] [place] [address]- [address] Jul, [facility] [place] [facility] [address] [id number] [place] [address]- [address] Jun, [facility] [place] [facility] [address] [id number] [place] [address]- 3869 Jun, [facility] [place] [facility] [address] [id number] [place] [address]- 8662 Jun, [facility] [place] [facility] [address] [id number] [place] [address]- [address] Jun, [facility] [place] [facility] [address] [id number] [place] [address]- 8[address] Mar, [facility] [place] [facility] [address] [id number] [place] [address]- [address] Mar, [facility] [place] [facility] [address] [id number] [place] [address]- 1475 Mar, [facility] [place] [facility] [address] [id number] [place] [address]- 0969 Mar, [facility] [place] [facility] [address] [id number] [place] [address]- 4160 Jan, [facility] [place] [facility] [address] [id number] [place] Jan, [facility] [address] [facility] [id number], [place] [address] Jan, [facility] [address] [facility] [id number] Jan, [facility] [address] [facility] [id number], [place] [address] Dec, [facility] [address] [facility] [id number], [place] [address] Dec, [facility] [address] [facility] [id number] [address] Nov, [facility] [address] [facility] [id number], [place] [address]- [address] Nov, [facility] [address] [address] October, [facility] [address] [place] [id number] [address] October, [facility] [address] [place] [id number] [address] October, [facility] [address] [place] [id number] October, IMMUNIZATIONS No Known Immunizations SOCIAL HISTORY Never Assessed REASON FOR VISIT Diabetes-mpolskMA PLAN OF CARE Activity Details Follow Up 3 Months, prn Reason: Future/Pending Procedure ROUTINE VENIPUNCTURE VITAL SIGNS Height 69 in 2018-02-16 Weight 212.7 lbs 2018-02-16 Temperature 97.4 degrees Fahrenheit 2018-02-16 Heart Rate 100 bpm 2018-02-16 Respiratory Rate 20 2018-02-16 Oximetry 94 % 2018-02-16 BMI 31.41 kg/m2 2018-02-16 Blood pressure systolic 116 mmHg 2018-02-16 Blood pressure diastolic 68 mmHg 2018-02-16 MEDICATIONS Medication Instructions Dosage Frequency Start Date End Date Duration Status Tylenol 500mg Orally as needed 2 cap Active Aspirin 81 mg Orally Once a day 1 tablet by Oral route 1 time per day 24h October, Active Lisinopril 20 mg Orally Once a day 1 tablet 24h Active Ibuprofen 800 MG Orally Three times a day 1 tablet with food or milk as needed 8h Nov, Active Lyrica 100 mg Orally Three times a day 1 capsule 8h Jan, 28 days Active Venlafaxine HCl ER 150 MG Orally Once a day 1 capsule with food 24h Active Vitamin D3 5000 UNIT TAKE ONE TABLET BY MOUTH ONCE DAILY Active MetFORMIN HCl ER 500 mg Orally twice a day 2 tablets 12h Feb, Active BD Pen Needle Ultrafine 48LC5SZ as directed 12h Active Levemir FlexTouch 100 UNIT/ML Subcutaneous 2 times a day INJECT 40 UNITS 12h Active Omeprazole 20 mg Orally Once a day 1 capsule 24h Active Lovastatin 20 mg Orally Once a day 1 tablet with a meal 24h Active Trazodone HCl 50 MG Orally Once a day 1 tablet at bedtime 24h Active Lancets - 1 time per day October, Active RESULTS No Results PROCEDURES Procedure Date Ordered Result Body Site LAB NOT BILLED BY [facility] Feb 16, 2018 GLYCATED HEMOGLOBIN TEST Feb 16, 2018 [facility] VISIT ESTABLISHED PATIENT Feb 16, 2018 EDOUARD, ROUTINE* Feb 16, 2018 INSTRUCTIONS MEDICATIONS ADMINISTERED No Known Medications MEDICAL (GENERAL) HISTORY Type Description Date Medical History type II diabetes Medical History hypertension Medical History hyperlipidemia Medical History Other chronic pain Surgical History hysterectomy 1996 Surgical History cholecystectomy Hospitalization History [facility]; chest pain. Negative work up Hospitalization History [facility]; chest pain. Negative work up Hospitalization History Severe Kidney Infection 2014 Hospitalization History C6 corpectomy--[facility] 02/02/16 Hospitalization History back surgery--Dr. Lauren NGUYEN 05/05
--- OUTSIDE RECORDS SUMMARY | 2018-11-03 08:04 | XMS REPORT ---
Author Author SUZE KIM Organization [facility] [place] Address [address] [place] [address] Care Team Providers Care Paper Coater Name Role Phone KIMBERNABE WeeksELE Unavailable PROBLEMS Type Condition ICD9-CM Code DDM03-JW Code Onset Dates Condition Status SNOMED Code Problem Other hammer toe(s) (acquired), right foot M20.41 Active 511666660 Problem Other diabetic neurological complication associated with type 2 diabetes mellitus E11.49 Active 738639208 Problem Ulcer of right foot, unspecified ulcer stage L97.519 Active 63399999 Problem Type 2 diabetes mellitus with diabetic polyneuropathy E11.42 Active 51227144 Problem Degenerative disc disease, 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 13561695 Problem Other obesity due to excess calories E66.09 Active 744087002 Problem Radiculopathy due to disorder of intervertebral disc of lumbar spine M51.16 Active 588699329530789 Problem OAB (overactive bladder) N32.81 Active 617163621 Problem Type 2 diabetes mellitus with diabetic polyneuropathy, without long- term current use of insulin E11.42 Active 17789652 Problem longterm current use of insulin Z79.4 Active 438320463 Problem Gastroesophageal reflux disease without esophagitis K21.9 Active 321370539 Problem Hypertriglyceridemia E78.1 Active 820298297 Problem Hypertension I10 Active 90221607 Problem Degenerative disc disease, lumbar M51.36 Active 87629653 Problem Degenerative disc disease, cervical M50.30 Active 23645461 Problem History of spinal stenosis Z87.39 Active 922507251 Problem Onycholysis L60.1 Active 48852905 Problem Anxiety associated with depression F41.8 Active 003348395 Problem Osteopenia M85.80 Active 682627193 Problem Chronic pain G89.29 Active 00642773 Problem Vitamin D deficiency E55.9 Active 06802520 ALLERGIES No Information ENCOUNTERS Encounter Location Date Diagnosis [facility] [place] [address] [place] [id number] [place] [address]01- 8786 May, [place] [address] [address] Jan, [place] [address] [address]84- 0565 Jan, Type 2 diabetes mellitus with diabetic polyneuropathy E11.42 ; Anxiety associated with depression F41.8 ; Other obesity due to excess calories E66.09 ; Hypertension I10 ; Hypertriglyceridemia E78.1 ; Chronic pain G89.29 ; 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 [address] [address] 14 Nov, 2017 Insect bite (nonvenomous), right lower leg, initial encounter S80.861A and Bitten or stung by nonvenomous insect and other nonvenomous arthropods, initial encounter W57.XXXA [place] [address] [place] [id number] [place] [address]77- 6085 Nov, Ulcer of right foot, unspecified ulcer stage L97.519 and Other diabetic neurological complication associated with type 2 diabetes mellitus E11.49 [place] [address] [address]- 0[address] Nov, [place] [address] 04431- 2457 Nov, Type 2 diabetes mellitus with diabetic polyneuropathy E11.42 ; longterm current use of insulin Z79.4 ; Hypertension I10 ; Hypertriglyceridemia E78.1 ; Vitamin D deficiency E55.9 ; Anxiety associated with depression F41.8 ; Chronic pain G89.29 ; OAB (overactive bladder) N32.81 ; Gastroesophageal reflux disease without esophagitis K21.9 ; Other obesity due to excess calories E66.09 and Body mass index (BMI) of 31.0-31.9 in adult Z68.31 [place] [address] [address]- 39[address] October, Onychomycosis B35.1 ; Ulcer of right foot, unspecified ulcer stage L97.519 and Diabetes mellitus type 2, uncomplicated E11.9 [place] [address] 12[address]- 0920 Jul, OM (onychomycosis) B35.1 and Other diabetic neurological complication associated with type 2 diabetes mellitus E11.49 [facility] [address] [address] Jun, Impacted cerumen of right ear H61.21 [place] [address] 6[address]- 2602 Feb, [facility] [place] [address] [address] Jan, Bronchitis J40 [place] [address] 74315- 3639 Jan, Hypertension I10 [place] [address] 79524- 9475 Jan, [facility] [address] [id number] Dec, Dental examination Z01.20 [place] [address] 9[address]80- 477[address] Nov, [place] [address] 11444- 2430 October, OM (onychomycosis) B35.1 ; Other hammer toe(s) (acquired), right foot M20.41 and Other diabetic neurological complication associated with type 2 diabetes mellitus E11.49 [place] [address] [place] [id number] [place] [address] 85958- 8926 Aug, [place] [address] [place] [id number] [place] [address] 53273- 0546 Aug, Type 2 diabetes mellitus with hyperglycemia E11.65 ; Osteopenia M85.80 ; Hypertension I10 ; Hypertriglyceridemia E78.1 ; Chronic pain G89.29 ; Anxiety associated with depression F41.8 ; Vitamin D deficiency E55.9 and Atypical pigmented lesion L81.9 [place] [address] [place] [id number] [place] [address] 85818- 9710 Aug, [place] [address] [place] [id number] [place] [address] 28698- 5581 Jul, [place] [address] [place] [id number] [place] [address] 53079- 4617 Apr, [place] [address] [place] [id number] [place] [address] 14201- 1448 Apr, Type 2 diabetes mellitus with hyperglycemia E11.65 and Osteopenia M85.80 [place] [address] [place] [id number] [place] [address] 00004- 2886 Mar, [place] [address] [place] [id number] [place] [address] 04807- 3345 Jan, [place] [address] [place] [id number] [place] [address] 57416- 1257 Dec, Type 2 diabetes mellitus with hyperglycemia E11.65 ; Hypertension I10 ; Hypertriglyceridemia E78.1 ; Onycholysis L60.1 ; Chronic pain G89.29 ; Anxiety associated with depression F41.8 and OM (onychomycosis) B35.1 [place] [address] [place] [id number] [place] [address] 65940- 7496 Nov, [place] [address] [place] [id number] [place] [address] 33663- 6418 Nov, Type 2 diabetes mellitus with hyperglycemia E11.65 ; Radiculopathy due to disorder of intervertebral disc of lumbar spine M51.16 ; Degenerative disc disease, cervical M50.30 ; Degenerative disc disease, lumbar M51.36 and Degenerative disc disease, 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 [place] [id number] [place] [address] 26996- 6427 October, History of spinal stenosis Z87.39 [place] [address] [place] [id number] [place] [address] 72232- 0107 October, History of spinal stenosis Z87.39 [place] [id number] [place] [address] 85475- 6676 October, OM (onychomycosis) B35.1 [place] [id number] [place] [address] 62175- 1049 October, OM (onychomycosis) B35.1 [place] [id number] [place] [address] 95440- 5521 October, OM (onychomycosis) B35.1 [place] [id number] [place] [address] 43976- 0335 October, [place] [id number] [place] [address] 93718- 4211 October, Hypertension I10 ; Chronic pain G89.29 ; Peripheral neuropathy G62.9 ; Pain in right hip M25.551 ; Pain in left hip M25.552 ; History of spinal stenosis Z87.39 and Diabetes mellitus without complication E11.9 [place] [id number] [place] [address] 92553- 4998 Sep, Type 2 diabetes mellitus without complications E11.9 ; Hypertension I10 ; Hypertriglyceridemia E78.1 ; Chronic pain G89.29 ; Anxiety associated with depression F41.8 ; Peripheral neuropathy G62.9 and OM ( onychomycosis) B35.[address] [id number] [address] Jul, [facility] [place] [address] [place] [id number] [place] [address] 86300- 8170 Jun, Diabetes mellitus type 2, uncomplicated E11.9 [facility] [place] [address] [place] [address] [id number] [place] [address] 48542- 2275 Jun, [facility] [place] [address] [place] [id number] [place] [address] 21438- 3004 May, [facility] [place] [id number] [place] [address] 73179- 5203 May, [facility] [place] [address] [place] [id number] [place] [address] 27596- 0678 May, Diabetes mellitus without complication E11.9 [facility] [place] [address] [place] [id number] [place] [address] 09655- 5134 May, Diabetes mellitus without complication E11.9 and Hospital discharge follow-up Z09 [facility] [place] [id number] [place] [address] 08180- 2222 Apr, [facility] [place] [address] [place] [address] [id number] [place] [address] 60090- 3373 Apr, [facility] [place] [address] [place] [address] 68613- 8460 Apr, Dysuria R30.0 and Urinary tract infection N39.0 [facility] [place] [address] [address]- 3037 Apr, [facility] [place] [address] [place] [address] 73355- 0991 Mar, [facility] [place] [address] [place] [id number] [place] [address] 55400- 3657 Mar, Diarrhea 787.91 and Diabetes mellitus without mention of complication, type II or unspecified type, uncontrolled 250.02 [facility] [place] [address] [place] [address] [id number] [place] [address] 57878- 5428 Feb, Diarrhea 787.91 ; Diabetes mellitus without mention of complication, type II or unspecified type, uncontrolled 250.02 ; Other chronic pain 338.29 ; Depression 311 and Essential hypertension 401.9 [facility] [place] [address] [place] [address] 227820- 0356 Dec, [facility] [place] [address] [place] [id number] [place] [address] 02987- 3058 Dec, [facility] [place] [address] [place] [id number] [place] [address] 64116- 4174 Dec, [place] [address] [place] [id number] [place] [address] 583944- 1808 Dec, Diabetes mellitus without mention of complication, type II or unspecified type, uncontrolled 250.02 ; Essential hypertension, benign 401.1 ; Hypercholesterolemia 272.0 ; Depression 311 ; Neuropathy 355.9 and Post-nasal drip 784.91 [place] [address] [place] [id number] [place] [address] 15615- 2446 Nov, [facility] [address] [place] [id number] [place] [address] [id number] Nov, Dental examination V72.2 [place] [address] [place] [id number] [place] [address] 60714- 2595 October, Diarrhea 787.91 ; Diabetes mellitus without mention of complication, type II or unspecified type, uncontrolled 250.02 and Abdominal pain 789.00 [place] [address] [place] [address] 47051- 4597 October, Diarrhea 787.91 ; Diabetes mellitus without mention of complication, type II or unspecified type, uncontrolled 250.02 and Abdominal pain 789.00 [place] [address] [place] [id number] [place] [address] 43345- 1492 Sep, [facility] [place] [address] [place] [id number] [place] [address] 88157- 1239 Sep, [facility] [place] [address] [place] [address] [id number] [place] [address]- 3393 Aug, [facility] [place] [facility] [address] [id number] [place] [address]- 4163 Aug, [facility] [place] [facility] [address] [id number] [place]- 1797 Jul, [facility] [place] [facility] [address] [id number] [place] [address]- 1046 Jul, 2014 [facility] [place] [facility] [address] [id number] [place] [address]- 6553 Jul, [facility] [place] [facility] [address] [id number] [place] [address]- 2130 Jul, [facility] [place] [facility] [address] [id number] [place] [address]- 9315 Jun, [facility] [place] [facility] [address] [id number] [place] [address]- 4936 Jun, [facility] [place] [facility] [address] [id number] [place] [address]- 1216 Jun, [facility] [place] [facility] [address] [id number] [place] [address]- 5783 Jun, [facility] [place] [facility] [address] [facility] [id number] [place] [address]- 4149 Mar, [facility] [place] [facility] [address] [id number] [place] [address]- 0540 Mar, [facility] [place] [facility] [address] [id number] [place] [address]- 5941 Mar, [facility] [place] [facility] [address] [id number] [place] [address]- 5255 Mar, [facility] [place] [facility] [address] [id number] [place] [address]- 6163 Jan, [facility] [place] [facility] [address] [id number] [place] [address]- 0587 Jan, [facility] [place] [address] [facility] [id number] [address]- 2575 Jan, [facility] [place] [address] [facility] [id number], [place] [address]- 2126 Jan, [facility] [place] [address] [facility] [id number], [place] [address]- 3785 Dec, [facility] [place] [address] [facility] [id number], [place] [address]- 6867 Dec, [facility] [place] [address] [facility] [id number], [place] [address]- 2056 Nov, [facility] [place] [address] [facility] [id number], [place] [address]- 6840 Nov, [facility] [place] [address] [address]- 9304 October, [facility] [place] [id number] [address]- 5714 October, [facility] [place] [id number] [address]- 8188 October, [facility] [place] [id number] [address]- 9001 October, IMMUNIZATIONS No Known Immunizations SOCIAL HISTORY Never Assessed REASON FOR VISIT DM shoes PLAN OF CARE VITAL SIGNS MEDICATIONS Unknown Medications RESULTS No Results PROCEDURES No Known procedures INSTRUCTIONS MEDICATIONS ADMINISTERED No Known Medications MEDICAL (GENERAL) HISTORY Type Description Date Medical History type II diabetes Medical History hypertension Medical History hyperlipidemia Medical History Other chronic pain Surgical History hysterectomy 1996 Surgical History cholecystectomy Hospitalization History General acute hospital; chest pain. Negative work up Hospitalization History [facility]; chest pain. Negative work up Hospitalization History Severe Kidney Infection 2014 Hospitalization History C6 corpectomy--[facility] 02/02/16 Hospitalization History back surgery--, Dr. Aguilar 05/05
--- OUTSIDE RECORDS SUMMARY | 2018-11-03 08:04 | XMS REPORT ---
Author Author SUZE KIM Organization 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 Name Role Phone KIMBERNABE WeeksELE Unavailable PROBLEMS Type Condition ICD9-CM Code DUP73-IE Code Onset Dates Condition Status SNOMED Code Problem Other hammer toe(s) (acquired), right foot M20.41 Active 244910355 Problem Other diabetic neurological complication associated with type 2 diabetes mellitus E11.49 Active 073001222 Problem Ulcer of right foot, unspecified ulcer stage L97.519 Active 51447713 Problem Type 2 diabetes mellitus with diabetic polyneuropathy E11.42 Active 16448977 Problem Degenerative disc disease, 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 21334765 Problem Other obesity due to excess calories E66.09 Active 248973521 Problem Radiculopathy due to disorder of intervertebral disc of lumbar spine M51.16 Active 862315706779982 Problem OAB (overactive bladder) N32.81 Active 325508874 Problem Type 2 diabetes mellitus with diabetic polyneuropathy, without long- term current use of insulin E11.42 Active 93980450 Problem [facility] current use of insulin Z79.4 Active 904048487 Problem Gastroesophageal reflux disease without esophagitis K21.9 Active 067561100 Problem Hypertriglyceridemia E78.1 Active 459383857 Problem Hypertension I10 Active 15608932 Problem Degenerative disc disease, lumbar M51.36 Active 94849352 Problem Degenerative disc disease, cervical M50.30 Active 24798381 Problem History of spinal stenosis Z87.39 Active 889310029 Problem Onycholysis L60.1 Active 96902366 Problem Anxiety associated with depression F41.8 Active 084146806 Problem Osteopenia M85.80 Active 003426592 Problem Chronic pain G89.29 Active 40090411 Problem Vitamin D deficiency E55.9 Active 77383299 ALLERGIES No Information ENCOUNTERS Encounter Location Date Diagnosis [facility] [id number] [place] [address]61- 9147 May, [place] [address] [address]- [address] Jan, Hypertension I10 ; Hypertriglyceridemia E78.1 ; Chronic pain G89.29 ; Anxiety associated with depression F41.8 ; Type 2 diabetes mellitus with diabetic polyneuropathy E11.42 ; [facility] current use of insulin Z79.4 ; Gastroesophageal reflux disease without esophagitis K21.9 ; Other obesity due to excess calories E66.09 ; Vitamin D deficiency E55.9 ; Osteopenia M85.80 and Diarrhea, unspecified type R19.7 [place] [address] [address]- 5164 Dec, [place] [address] [address]70- 7701 Dec, [place] [address] 54[address]- 6980 Nov, OAB (overactive bladder) N32.81 [facility] [id number] [place] [address] 74338 -9194 14 Nov, 2017 Insect bite (nonvenomous), right lower leg, initial encounter S80.861A and Bitten or stung by nonvenomous insect and other nonvenomous arthropods, initial encounter W57.XXXA [place] [id number] [place] [address] 46027- 5428 08 Nov, 2017 Ulcer of right foot, unspecified ulcer stage L97.519 and Other diabetic neurological complication associated with type 2 diabetes mellitus E11.49 [place] [id number] [place] [address] 03304- 9775 Nov, [place] [address] 57953- 2787 Nov, Type 2 diabetes mellitus with diabetic polyneuropathy E11.42 ; 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1 and Other diabetic neurological complication associated with type 2 diabetes mellitus E11.49 [facility] [address] [address] Jun, Impacted cerumen of right ear H61.21 [place] [address] 77254- 9550 Feb, [facility] [address] [address] Jan, Bronchitis J40 [place] [address] 46135- 9823 14 Jan, 2017 Hypertension I10 [place] [address] 10558- 5272 09 Jan, 2017 [facility] [address] [id number] Dec, Dental examination Z01.20 [place] [address] 72393- 8017 06 Nov, 2016 [place] [address] 54246- 6525 October, OM (onychomycosis) B35.1 ; Other hammer toe(s) (acquired), right foot M20.41 and Other diabetic neurological complication associated with type 2 diabetes mellitus E11.49 [place] [id number] [place] [address] 57762- 7670 Aug, [place] [id number] [place] [address] 95745- 7729 Aug, Type 2 diabetes mellitus with hyperglycemia E11.65 ; Osteopenia M85.80 ; Hypertension I10 ; Hypertriglyceridemia E78.1 ; Chronic pain G89.29 ; Anxiety associated with depression F41.8 ; Vitamin D deficiency E55.9 and Atypical pigmented lesion L81.9 [place] [id number] [place] [address] 10267- 1033 Aug, [place] [address] 35116- 9314 Jul, [place] [id number] [place] [address] 41234- 6552 Apr, [place] [id number] [place] [address] 40678- 4507 Apr, Type 2 diabetes mellitus with hyperglycemia E11.65 and Osteopenia M85.80 [place] [id number] [place] [address] 57432- 1336 Mar, [place] [id number] [place] [address] 09167- 9630 Jan, [place] [id number] [place] [address] 39114- 5222 Dec, Type 2 diabetes mellitus with hyperglycemia E11.65 ; Hypertension I10 ; Hypertriglyceridemia E78.1 ; Onycholysis L60.1 ; Chronic pain G89.29 ; Anxiety associated with depression F41.8 and OM (onychomycosis) B35.1 [place] [id number] [place] [address] 74155- 6554 Nov, [place] [id number] [place] [address] 63464- 4021 02 [place], 2016 Type 2 diabetes mellitus with hyperglycemia E11.65 ; Radiculopathy due to disorder of intervertebral disc of lumbar spine M51.16 ; Degenerative disc disease, cervical M50.30 ; Degenerative disc disease, lumbar M51.36 and Degenerative disc disease, 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 [place] [address] [place] [address] 71997- 6115 October, History of spinal stenosis Z87.39 [place] [id number] [place] [address] 27937- 3487 October, History of spinal stenosis Z87.39 [place] [id number] [place] [address] 53502- 3000 October, OM (onychomycosis) B35.1 [place] [id number] [place] [address] 51906- 4160 October, OM (onychomycosis) B35.1 [place] [id number] [place] [address] 77177- 7158 October, OM (onychomycosis) B35.1 [place] [id number] [place] [address] 90314- 3755 October, [place] [id number] [place] [address] 40931- 7765 October, Hypertension I10 ; Chronic pain G89.29 ; Peripheral neuropathy G62.9 ; Pain in right hip M25.551 ; Pain in left hip M25.552 ; History of spinal stenosis Z87.39 and Diabetes mellitus without complication E11.[address] [place] [address] 39625- 4961 Sep, Type 2 diabetes mellitus without complications E11.9 ; Hypertension I10 ; Hypertriglyceridemia E78.1 ; Chronic pain G89.29 ; Anxiety associated with depression F41.8 ; Peripheral neuropathy G62.9 and OM ( onychomycosis) B35.1 [place] [id number] [place] [address] 02248- 6649 Jul, [facility] [address] [address] Jun, Diabetes mellitus type 2, uncomplicated E11.9 [facility] [address] [address] Jun, [facility] [address] [address]471 May, [facility] [id number] [place] [address] 41384- 0169 May, [facility] [address] [place] [address] 28881- 1525 May, Diabetes mellitus without complication E11.9 [facility] [address] [place] [address] 389352- 8024 May, Diabetes mellitus without complication E11.9 and Hospital discharge follow-up Z09 [place] [address] [place] [address] 75846- 8627 Apr, [facility] [address] [place] [address] 07809- 2980 Apr, [place] [id number] [place] [address] 40635- 1324 Apr, Dysuria R30.0 and Urinary tract infection N39.0 [place] [address] [address]85 Apr, [facility] [address] [address]164 Mar, [facility] [address] [place] [address] 699415- 4107 Mar, Diarrhea 787.91 and Diabetes mellitus without mention of complication, type II or unspecified type, uncontrolled 250.02 [facility] [address] [place] [address] 9101 14 Feb, 2015 Diarrhea 787.91 ; Diabetes mellitus without mention of complication, type II or unspecified type, uncontrolled 250.02 ; Other chronic pain 338.29 ; Depression 311 [address] Essential hypertension 401.9 [facility] [id number] [place] [address] 70388- 6923 Dec, [facility] [id number] [place] [address] 54202- 0808 Dec, [facility] [id number] [place] [address] 29688- 2577 Dec, [facility] [id number] [place] [address] 06211- 6126 Dec, Diabetes mellitus without mention of complication, type II or unspecified type, uncontrolled 250.02 ; Essential hypertension, benign 401.1 ; Hypercholesterolemia 272.0 ; Depression 311 ; Neuropathy 355.9 and Post-nasal drip 784.91 [place] [id number] [place] [address] 38680- 5416 Nov, [facility] [address] [id number] Nov, Dental examination V72.2 [place] [id number] [place] [address] 16130- 4600 October, Diarrhea 787.91 ; Diabetes mellitus without mention of complication, type II or unspecified type, uncontrolled 250.02 and Abdominal pain 789.00 [place] [id number] [place] [address] 08722- 8657 October, Diarrhea 787.91 ; Diabetes mellitus without mention of complication, type II or unspecified type, uncontrolled 250.02 and Abdominal pain 789.00 [facility] [id number] [place] [address] 57027- 4806 Sep, [facility] [id number] [place] [address] 59225- 6876 Sep, [facility] [id number] [place] [address] 34184- 7706 Aug, [facility] [address] [facility] [id number] [place] [address]- 0561 Aug, [facility] [place] [facility] [address] [id number] [place] [address]- 6328 Jul, [facility] [place] [facility] [address] [id number] [place] [address]- 0286 Jul, [facility] [place] [facility] [address] [id number] [place] [address]- 1808 Jul, [facility] [place] [facility] [address] [id number] [place] [address]- 8060 Jul, [facility] [place] [facility] [address] [id number] [place] [address]- 8671 Jun, [facility] [place] [facility] [address] [id number] [place] [address]- 1856 Jun, [facility] [place] [facility] [address] [id number] [place] [address]- 1528 Jun, [facility] [place] [facility] [address] [id number] [place] [address]- 5278 Jun, [facility] [place] [facility] [address] [id number] [place] [address]- 4663 Mar, [facility] [place] [facility] [address] [id number] [place] [address]- 2516 Mar, [facility] [place] [facility] [address] [id number] [place] [address]- 2713 Mar, [facility] [place] [facility] [address] [id number] [place] [address]- 8061 Mar, [facility] [place] [facility] [address] [id number] [place] [address]- 5474 Jan, [facility] [place] [facility] [address] [id number] [place] [address]- 9923 Jan, [facility] [place] [facility] [address] [id number] [place] [address]- 1806 Jan, [facility] [id number] [address]- [address]46 Jan, [facility] [address] [facility] [id number], [place] [address]- [address]46 Dec, [facility] [id number] [address]- 2546 Dec, [facility] [address] [facility] [id number] [address] Nov, [facility] [address] [facility] [id number] [address]- 2549 Nov, [facility] [address], [place] [address]- 8856 October, [facility] [id number] [address]- 4726 October, [facility] [id number] [address]- 4606 October, [facility] [id number], [place] [address]- 7508 October, IMMUNIZATIONS No Known Immunizations SOCIAL HISTORY Never Assessed REASON FOR VISIT medication refill PLAN OF CARE VITAL SIGNS MEDICATIONS Medication Instructions Dosage Frequency Start Date End Date Duration Status VESIcare 5 mg Orally Once a day 1 tablet 24h Jan, 30 days Active RESULTS No Results PROCEDURES No Known procedures INSTRUCTIONS MEDICATIONS ADMINISTERED No Known Medications MEDICAL (GENERAL) HISTORY Type Description Date Medical History type II diabetes Medical History hypertension Medical History hyperlipidemia Medical History Other chronic pain Surgical History hysterectomy 1996 Surgical History cholecystectomy Hospitalization History [facility]; chest pain. Negative work up Hospitalization History [facility]; chest pain. Negative work up Hospitalization History Severe Kidney Infection 2014 Hospitalization History C6 corpectomy--[facility] 02/02/16 Hospitalization History back surgery--, Dr. Aguilar 05/05
--- OUTSIDE RECORDS SUMMARY | 2018-11-03 08:04 | XMS REPORT ---
Author Author MALORIE JAMA [facility] [address] Address [address] [place] [address] Care Team Providers Care It Architect Name Role Phone MALORIE JAMA Unavailable PROBLEMS Type Condition ICD9-CM Code OGI31-LR Code Onset Dates Condition Status SNOMED Code Problem Other hammer toe(s) (acquired), right foot M20.41 Active 608561935 Problem Other diabetic neurological complication associated with type 2 diabetes mellitus E11.49 Active 938239475 Problem Ulcer of right foot, unspecified ulcer stage L97.519 Active 08528013 Problem Type 2 diabetes mellitus with diabetic polyneuropathy E11.42 Active 00545238 Problem Degenerative disc disease, 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 68302012 Problem Other obesity due to excess calories E66.09 Active 678256584 Problem Radiculopathy due to disorder of intervertebral disc of lumbar spine M51.16 Active [id number] Problem OAB (overactive bladder) N32.81 Active 777370930 Problem Type 2 diabetes mellitus with diabetic polyneuropathy, without long- term current use of insulin E11.42 Active 97271180 Problem jail current use of insulin Z79.4 Active 715854845 Problem Gastroesophageal reflux disease without esophagitis K21.9 Active 383673568 Problem Hypertriglyceridemia E78.1 Active 880467020 Problem Hypertension I10 Active 28927706 Problem Degenerative disc disease, lumbar M51.36 Active 76112568 Problem Degenerative disc disease, cervical M50.30 Active 40052032 Problem History of spinal stenosis Z87.39 Active 459822514 Problem Onycholysis L60.1 Active 92600740 Problem Anxiety associated with depression F41.8 Active 032865932 Problem Osteopenia M85.80 Active 184226542 Problem Chronic pain G89.29 Active 42933163 Problem Vitamin D deficiency E55.9 Active 34805680 ALLERGIES No Information ENCOUNTERS Encounter Location Date Diagnosis [facility] [address] [facility] [id number] [place] [address] 69641- 6066 May, [place] [address] [place] [id number] [place] [address] 93739- 9561 Jan, [place] [address] [address] Jan, Type 2 diabetes mellitus with diabetic polyneuropathy E11.42 ; Anxiety associated with depression F41.8 ; Other obesity due to excess calories E66.09 ; Hypertension I10 ; Hypertriglyceridemia E78.1 ; Chronic pain G89.29 ; 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 ; Gastroesophageal reflux disease without esophagitis K21.9 ; Vitamin D deficiency E55.9 and Diarrhea, unspecified type R19.7 [place] [address] [address]- [address]23 Dec, [place] [address] [address]- 2393 Dec, [place] [address] 6[address]- 5862 Nov, OAB (overactive bladder) N32.81 [facility] [place] [address] [address] Nov, Insect bite (nonvenomous), right lower leg, initial encounter S80.861A and Bitten or stung by nonvenomous insect and other nonvenomous arthropods, initial encounter W57.XXXA [place] [address] [place] [id number] [place] [address] 16999- 6887 Nov, Ulcer of right foot, unspecified ulcer stage L97.519 and Other diabetic neurological complication associated with type 2 diabetes mellitus E11.49 [place] [address] [address]- 7[address] Nov, [place] [address] 19091- 4[address] Nov, Type 2 diabetes mellitus with diabetic polyneuropathy E11.42 ; jail current use of insulin Z79.4 ; Hypertension I10 ; Hypertriglyceridemia E78.1 ; Vitamin D deficiency E55.9 ; Anxiety associated with depression F41.8 ; Chronic pain G89.29 ; OAB (overactive bladder) N32.81 ; Gastroesophageal reflux disease without esophagitis K21.9 ; Other obesity due to excess calories E66.09 and Body mass index (BMI) of 31.0-31.9 in adult Z68.31 [place] [address] [address] October, Onychomycosis B35.1 ; Ulcer of right foot, unspecified ulcer stage L97.519 and Diabetes mellitus type 2, uncomplicated E11.[address] [address]- [address] Jul, OM (onychomycosis) B35.1 and Other diabetic neurological complication associated with type 2 diabetes mellitus E11.49 [facility] [address] [address] Jun, Impacted cerumen of right ear H61.21 [place] [address] [address]- [address]80 Feb, [facility] [address] [address] Jan, Bronchitis J40 [address] [address]- [address] Jan, Hypertension I10 [place] [address] 43[address]- 1630 Jan, [facility] [address] [id number] Dec, Dental examination Z01.20 [place] [address] 31446- 8474 Nov, [place] [address] 61838- 1677 October, OM (onychomycosis) B35.1 ; Other hammer toe(s) (acquired), right foot M20.41 and Other diabetic neurological complication associated with type 2 diabetes mellitus E11.49 [place] [address] [place] [id number] [place] [address] 24906- 4110 Aug, [place] [address] [place] [id number] [place] [address] 90548- 7817 Aug, Type 2 diabetes mellitus with hyperglycemia E11.65 ; Osteopenia M85.80 ; Hypertension I10 ; Hypertriglyceridemia E78.1 ; Chronic pain G89.29 ; Anxiety associated with depression F41.8 ; Vitamin D deficiency E55.9 and Atypical pigmented lesion L81.9 [place] [address] [place] [id number] [place] [address] 25010- 3032 Aug, [place] [address] [place] [id number] [place] [address] 94525- 2747 Jul, [place] [address] [place] [id number] [place] [address] 83843- 7475 Apr, [place] [address] [place] [id number] [place] [address] 95696- 6033 Apr, Type 2 diabetes mellitus with hyperglycemia E11.65 and Osteopenia M85.80 [place] [address] [place] [id number] [place] [address] 33000- 2848 Mar, [place] [address] [place] [id number] [place] [address] 11555- 1015 Jan, [place] [address] [place] [id number] [place] [address] 00309- 6244 Dec, Type 2 diabetes mellitus with hyperglycemia E11.65 ; Hypertension I10 ; Hypertriglyceridemia E78.1 ; Onycholysis L60.1 ; Chronic pain G89.29 ; Anxiety associated with depression F41.8 and OM (onychomycosis) B35.1 [place] [address] [place] [id number] [place] [address] 29255- 2244 Nov, [place] [address] [place] [address] Nov, Type 2 diabetes mellitus with hyperglycemia E11.65 ; Radiculopathy due to disorder of intervertebral disc of lumbar spine M51.16 ; Degenerative disc disease, cervical M50.30 ; Degenerative disc disease, lumbar M51.36 and Degenerative disc disease, 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 [place] [address] [place] [id number] [place] [address] 32342- 5735 October, History of spinal stenosis Z87.39 [place] [address] [place] [id number] [place] [address] 03291- 3511 October, History of spinal stenosis Z87.39 [place] [address] [place] [id number] [place] [address] 54981- 4995 October, OM (onychomycosis) B35.1 [place] [address] [place] [id number] [place] [address] 98885- 9268 October, OM (onychomycosis) B35.1 [place] [address] [place] [id number] [place] [address] 73411- 2954 October, OM (onychomycosis) B35.1 [place] [address] [place] [id number] [place] [address] 71991- 7029 October, [place] [address] [place] [id number] [place] [address] 78827- 3432 October, Hypertension I10 ; Chronic pain G89.29 ; Peripheral neuropathy G62.9 ; Pain in right hip M25.551 ; Pain in left hip M25.552 ; History of spinal stenosis Z87.39 and Diabetes mellitus without complication E11.9 [place] [address] [place] [id number] [place] [address] 01871- 6535 Sep, Type 2 diabetes mellitus without complications E11.9 ; Hypertension I10 ; Hypertriglyceridemia E78.1 ; Chronic pain G89.29 ; Anxiety associated with depression F41.8 ; Peripheral neuropathy G62.9 and OM ( onychomycosis) B35.1 [place] [address] [address] Jul, [facility] [address] [place] [address] 71805- 6490 Jun, Diabetes mellitus type 2, uncomplicated E11.9 [facility] [address] [place] [address] 55804- 4217 Jun, [facility] [address] [place] [id number] [place] [address] 08450- 9492 May, [facility] [address] [place] [address] 37537- 3125 May, [facility] [address] [place] [id number] [place] [address] 32469- 3811 May, Diabetes mellitus without complication E11.9 [facility] [address] [place] [id number] [place] [address] 24453- 9957 May, Diabetes mellitus without complication E11.9 and Hospital discharge follow-up Z09 [facility] [address] [place] [address] 89283- 2318 Apr, [facility] [address] [place] [id number] [place] [address] 09529- 6595 Apr, [facility] [address] [place] [address] 38618- 3456 Apr, Dysuria R30.0 and Urinary tract infection N39.0 [facility] [address], [place] [address]- 6502 Apr, [facility] [address] [place] [address] 16611- 6875 Mar, [facility] [address] [place] [id number] [place] [address] 71664- 3145 Mar, Diarrhea 787.91 and Diabetes mellitus without mention of complication, type II or unspecified type, uncontrolled 250.02 [facility] [address] [place] [id number] [place] [address] 24980- 3476 Feb, Diarrhea 787.91 ; Diabetes mellitus without mention of complication, type II or unspecified type, uncontrolled 250.02 ; Other chronic pain 338.29 ; Depression 311 and Essential hypertension 401.9 [facility] [address] [place] [address] 901885- 8256 Dec, [facility] [address] [place] [id number] [place] [address] 26769- 4292 Dec, [facility] [address] [place] [id number] [place] [address] 36789- 2147 Dec, [place] [address] [place] [id number] [place] [address] 93371- 8913 Dec, Diabetes mellitus without mention of complication, type II or unspecified type, uncontrolled 250.02 ; Essential hypertension, benign 401.1 ; Hypercholesterolemia 272.0 ; Depression 311 ; Neuropathy 355.9 and Post-nasal drip 784.91 [place] [address] [place] [id number] [place] [address] 70712- 0310 Nov, [facility] [address] [place] [id number] [place] [address] [id number] Nov, Dental examination V72.2 [place] [address] [place] [id number] [place] [address] 76394- 5557 October, Diarrhea 787.91 ; Diabetes mellitus without mention of complication, type II or unspecified type, uncontrolled 250.02 and Abdominal pain 789.00 [place] [address] [place] [address] 14947- 7924 October, Diarrhea 787.91 ; Diabetes mellitus without mention of complication, type II or unspecified type, uncontrolled 250.02 and Abdominal pain 789.00 [place] [address] [place] [id number] [place] [address] 92117- 0255 Sep, [facility] [address] [place] [id number] [place] [address] 13394- 9953 Sep, [facility] [address] [place] [id number] [place] [address], [place] [address]- 6824 Aug, [facility] [place] [facility] [address] [id number] [place] [address]- 5520 Aug, [facility] [place] [facility] [address] [id number] [place] [address] Jul, [facility] [place] [facility] [address] [id number] [place] [address]- 1806 Jul, [facility] [place] [facility] [address] [id number] [place] [address]- 5054 Jul, [facility] [place] [facility] [address] [id number] [place] [address]- 4633 Jul, [facility] [place] [facility] [address] [id number] [place] [address]- 1799 Jun, [facility] [place] [facility] [address] [id number] [place] [address]- 9423 Jun, [facility] [place] [facility] [address] [id number] [place] [address]- 1869 Jun, [facility] [place] [facility] [address] [id number] [place] [address]- 6972 Jun, [facility] [place] [facility] [address] [id number] [place] [address]- 7053 Mar, [facility] [place] [facility] [address] [id number] [place] [address]- 6546 Mar, [facility] [place] [facility] [address] [id number] [place] [address]- 4575 Mar, [facility] [place] [facility] [address] [id number] [place] [address]- 4589 Mar, [facility] [place] [facility] [address] [id number] [place] [address]- 4326 Jan, [facility] [place] [facility] [address] [id number] [place] [address]- 8284 Jan, [facility] [address] [facility] [id number] [address]- 1726 Jan, [facility] [address] [facility] [id number] [address] 2546 Jan, [facility] [address] [facility] [id number], [place] [address]- 3130 Dec, [facility] [address] [facility] [id number], [place] [address] 2544 Dec, [facility] [address] [facility] [id number], [place] [address]- 0868 Nov, [facility] [address] [facility] [id number], [place] [address]- 5039 Nov, [facility] [address], [place] [address]- 0177 October, [facility] [address] [place] [id number], [place] [address]- 7569 October, [facility] [address] [place] [id number], [place] [address]- 6990 October, [facility] [address] [place] [id number], [place] [address]- 1429 October, IMMUNIZATIONS No Known Immunizations SOCIAL HISTORY Never Assessed REASON FOR VISIT Janes appt PLAN OF CARE VITAL SIGNS MEDICATIONS Unknown Medications RESULTS No Results PROCEDURES No Known procedures INSTRUCTIONS MEDICATIONS ADMINISTERED No Known Medications MEDICAL (GENERAL) HISTORY Type Description Date Medical History type II diabetes Medical History hypertension Medical History hyperlipidemia Medical History Other chronic pain Surgical History hysterectomy 1996 Surgical History cholecystectomy Hospitalization History [facility]; chest pain. Negative work up Hospitalization History [facility]; chest pain. Negative work up Hospitalization History Severe Kidney Infection 2014 Hospitalization History C6 corpectomy--[facility] 02/02/16 Hospitalization History back surgery--, Dr. Aguilar 05/05
--- OUTSIDE RECORDS SUMMARY | 2018-11-03 08:04 | XMS REPORT ---
Author Author JULIO SUZE Organization [facility] Address [address] [place] [address] Care Team Providers Care Delivery Driver/Customer Service Name Role Phone SUZE KIM Unavailable PROBLEMS Type Condition ICD9-CM Code UIR26-EK Code Onset Dates Condition Status SNOMED Code Problem Other hammer toe(s) (acquired), right foot M20.41 Active 413243007 Problem Other diabetic neurological complication associated with type 2 diabetes mellitus E11.49 Active 822826551 Problem Ulcer of right foot, unspecified ulcer stage L97.519 Active 77738502 Problem Type 2 diabetes mellitus with diabetic polyneuropathy E11.42 Active 86590175 Problem Degenerative disc disease, 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 93597603 Problem Other obesity due to excess calories E66.09 Active 811258225 Problem Radiculopathy due to disorder of intervertebral disc of lumbar spine M51.16 Active [id number] Problem OAB (overactive bladder) N32.81 Active 010648970 Problem Type 2 diabetes mellitus with diabetic polyneuropathy, without long- term current use of insulin E11.42 Active 72559302 Problem assisted current use of insulin Z79.4 Active 892135627 Problem Gastroesophageal reflux disease without esophagitis K21.9 Active 692305884 Problem Hypertriglyceridemia E78.1 Active 284408376 Problem Hypertension I10 Active 41874367 Problem Degenerative disc disease, lumbar M51.36 Active 81344894 Problem Degenerative disc disease, cervical M50.30 Active 01179940 Problem History of spinal stenosis Z87.39 Active 814437773 Problem Onycholysis L60.1 Active 07975483 Problem Anxiety associated with depression F41.8 Active 017397008 Problem Osteopenia M85.80 Active 384341728 Problem Chronic pain G89.29 Active 22475807 Problem Vitamin D deficiency E55.9 Active 86102844 ALLERGIES No Information ENCOUNTERS Encounter Location Date Diagnosis [facility] [address] [facility] [id number] [place] [address]39- 8061 May, [place] [address] [place] [id number] [place] [address] 05474- 9626 Jan, [place] [address] [address]- [address] Dec, [place] [address] [address]- 9433 Dec, [place] [address] [address]- [address] Nov, OAB (overactive bladder) N32.81 [facility] [address] [address] Nov, Insect bite (nonvenomous), right lower leg, initial encounter S80.861A and Bitten or stung by nonvenomous insect and other nonvenomous arthropods, initial encounter W57.XXXA [address] [address]- [address] 08 Nov, 2017 Ulcer of right foot, unspecified ulcer stage L97.519 and Other diabetic neurological complication associated with type 2 diabetes mellitus E11.[address] [address]- [address] Nov, [place] [address] [place] [id number] [place] [address] 76520- 3030 Nov, Type 2 diabetes mellitus with diabetic polyneuropathy E11.42 ; [employer]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 ; Hypertension I10 ; Hypertriglyceridemia E78.1 ; Vitamin D deficiency E55.9 ; Anxiety associated with depression F41.8 ; Chronic pain G89.29 ; OAB (overactive bladder) N32.81 ; Gastroesophageal reflux disease without esophagitis K21.9 ; Other obesity due to excess calories E66.09 and Body mass index (BMI) of 31.0-31.9 in adult Z68.[address] [address] October, Onychomycosis B35.1 ; Ulcer of right foot, unspecified ulcer stage L97.519 and Diabetes mellitus type 2, uncomplicated E11.9 [place] [address] [address]- [address] Jul, OM (onychomycosis) B35.1 and Other diabetic neurological complication associated with type 2 diabetes mellitus E11.49 [facility] [address] [address] Jun, Impacted cerumen of right ear H61.21 [place] [address] [address]- [address] Feb, [facility] [place] [address] [address] Jan, Bronchitis J40 [place] [address] [address]- [address] Jan, Hypertension I10 [place] [address] [address]- [address] Jan, [facility] [address] [id number] Dec, Dental examination Z01.20 [place] [address] [address]- [address]71 Nov, [place] [address] [address] October, OM (onychomycosis) B35.1 ; Other hammer toe(s) (acquired), right foot M20.41 and Other diabetic neurological complication associated with type 2 diabetes mellitus E11.49 [place] [address] [address]- [address] Aug, [place] [address] 39[address]- 9027 Aug, Type 2 diabetes mellitus with hyperglycemia E11.65 ; Osteopenia M85.80 ; Hypertension I10 ; Hypertriglyceridemia E78.1 ; Chronic pain G89.29 ; Anxiety associated with depression F41.8 ; Vitamin D deficiency E55.9 and Atypical pigmented lesion L81.9 [place] [id number] [place] [address]5625- 5756 Aug, [place] [address] [place] [id number] [place] [address] 13566- 9577 Jul, [place] [address] [address]- [address] Apr, [address] [address] Apr, Type 2 diabetes mellitus with hyperglycemia E11.65 and Osteopenia M85.80 [place] [id number] [place] [address] 64347- 6028 Mar, [address] [address]- [address] Jan, [place] [id number] [place] [address] 09659- 8022 Dec, Type 2 diabetes mellitus with hyperglycemia E11.65 ; Hypertension I10 ; Hypertriglyceridemia E78.1 ; Onycholysis L60.1 ; Chronic pain G89.29 ; Anxiety associated with depression F41.8 and OM (onychomycosis) B35.1 [place] [id number] [place] [address] 48307- 1225 Nov, [place] [id number] [place] [address] 64779- 5259 Nov, Type 2 diabetes mellitus with hyperglycemia E11.65 ; Radiculopathy due to disorder of intervertebral disc of lumbar spine M51.16 ; Degenerative disc disease, cervical M50.30 ; Degenerative disc disease, lumbar M51.36 and Degenerative disc disease, 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 [place] [id number] [place] [address] 91585- 5416 October, History of spinal stenosis Z87.39 [place] [address] [address] October, History of spinal stenosis Z87.39 [place] [address] [place] [id number] [place] [address]64- 3566 October, OM (onychomycosis) B35.1 [place] [address] [place] [id number] [address] October, OM (onychomycosis) B35.1 [place] [address] [place] [id number] [place] [address] 60106- 1809 October, OM (onychomycosis) B35.1 [place] [address] [place] [id number] [place] [address] 42199- 2678 October, [place] [address] [place] [id number] [place] [address] 54392- 6788 October, Hypertension I10 ; Chronic pain G89.29 ; Peripheral neuropathy G62.9 ; Pain in right hip M25.551 ; Pain in left hip M25.552 ; History of spinal stenosis Z87.39 and Diabetes mellitus without complication E11.9 [place] [address] [place] [address] 42946- 6338 Sep, Type 2 diabetes mellitus without complications E11.9 ; Hypertension I10 ; Hypertriglyceridemia E78.1 ; Chronic pain G89.29 ; Anxiety associated with depression F41.8 ; Peripheral neuropathy G62.9 and OM ( onychomycosis) B35.1 [place] [address] [address] Jul, [place] [id number] [place] [address] 90073- 4966 Jun, Diabetes mellitus type 2, uncomplicated E11.9 [place] [address] [address] 6672 Jun, [place] [address] [place] [id number] [place] [address] 41238- 3525 May, [facility] [address] [address] May, [facility] [address] [place] [id number] [place] [address] 129052- 7431 May, Diabetes mellitus without complication E11.9 [facility] [address] [place] [id number] [place] [address] 602979- 3430 May, Diabetes mellitus without complication E11.9 and Hospital discharge follow-up Z09 [facility] [address] [place] [id number] [place] [address] 16906- 7548 Apr, [facility] [address] [place] [id number] [place] [address] 37166- 4075 Apr, [facility] [address] [place] [id number] [place] [address] 19135- 5647 Apr, Dysuria R30.0 and Urinary tract infection N39.0 [place] [address] [place] [id number] [place] [address] 87767- 0706 Apr, [facility] [address] [place] [id number] [place] [address] 15134- 0836 Mar, [facility] [address] [place] [id number] [place] [address] 52224- 5998 Mar, Diarrhea 787.91 and Diabetes mellitus without mention of complication, type II or unspecified type, uncontrolled 250.02 [facility] [address] [place] [address] 18643- 9509 14 Feb, 2015 Diarrhea 787.91 ; Diabetes mellitus without mention of complication, type II or unspecified type, uncontrolled 250.02 ; Other chronic pain 338.29 ; Depression 311 and Essential hypertension 401.9 [facility] [address] [place] [address] 074723- 1099 Dec, [facility] [address] [place] [id number] [place] [address] 74927- 9298 Dec, [facility] [address] [place] [id number] [place] [address] 02113- 4032 Dec, [facility] [address] [place] [id number] [place] [address] 645620- 6732 Dec, Diabetes mellitus without mention of complication, type II or unspecified type, uncontrolled 250.02 ; Essential hypertension, benign 401.1 ; Hypercholesterolemia 272.0 ; Depression 311 ; Neuropathy 355.9 and Post-nasal drip 784.91 [facility] [address] [place] [id number] [place] [address] 26107- 7964 Nov, [facility] [address] [place] [id number] [place] [address] [id number] Nov, Dental examination V72.2 [place] [address] [place] [id number] [place] [address] 61295- 5956 October, Diarrhea 787.91 ; Diabetes mellitus without mention of complication, type II or unspecified type, uncontrolled 250.02 and Abdominal pain 789.00 [facility] [address] [place] [id number] [place] [address] 76987- 2667 October, Diarrhea 787.91 ; Diabetes mellitus without mention of complication, type II or unspecified type, uncontrolled 250.02 and Abdominal pain 789.00 [facility] [address] [place] [address] 67826- 7416 Sep, [facility] [address] [place] [id number] [place] [address] 62656- 9874 Sep, [facility] [address] [place] [id number] [place] [address] 30967- 5456 Aug, [facility] [address] [place] [id number] [place] [address] 64266- 7626 Aug, [facility] [address] [place] [id number] [place] [address] 48296- 4086 Jul, [facility] [address] [place] [id number] [place] [address] 21024- 3976 Jul, [facility] [place] [facility] [address] [id number] [place] [address]- 8002 Jul, [facility] [place] [facility] [address] [id number] [place] [address]- 2332 Jul, [facility] [place] [facility] [address] [id number] [place] [address]- 1449 Jun, [facility] [place] [facility] [address] [id number] [place] [address]- 3900 Jun, [facility] [place] [facility] [address] [id number] [place] [address]- 6769 Jun, [facility] [place] [facility] [address] [id number] [place] [address]- 2733 Jun, [facility] [place] [facility] [address] [id number] [place] [address]- 9931 Mar, [facility] [place] [facility] [address] [id number] [place] [address]- 9555 Mar, [facility] [place] [facility] [address] [id number] [place] [address]- 1975 Mar, [facility] [place] [facility] [address] [id number] [place] [address]- 9700 Mar, [facility] [place] [facility] [address] [id number] [place] [address]- 2420 Jan, [facility] [place] [facility] [address] [id number] [place] [address]- 1514 Jan, [facility] [place] [facility] [address] [id number] [place] [address]- 8411 Jan, [facility] [place] [facility] [address] [id number] [place] [address]- 6813 Jan, [facility] [place] [facility] [address] [id number] [place] [address]- 6966 Dec, [facility] [place] [facility] [address] [id number] [place] [address]- 5551 Dec, [facility] [address] [facility] [id number] [address]- 6275 Nov, [facility] [address] [facility] [id number] [address]- 0896 Nov, [facility] [address] [place] [id number] [address]- 8921 October, [facility] [address] [address]- 6296 October, [facility] [address] [place] [id number] [address]- 7535 October, [facility] [address] [place] [id number] [address]- 4376 October, IMMUNIZATIONS No Known Immunizations SOCIAL HISTORY [...] hysterectomy 1996 Surgical History cholecystectomy Hospitalization History [facility]; chest pain. Negative work up Hospitalization History [facility]; chest pain. Negative work up Hospitalization History Severe Kidney Infection 2014 Hospitalization History C6 corpectomy--[facility] 02/02/16 Hospitalization History back surgery--Dr. Lauren NGUYEN 05/05
--- OUTSIDE RECORDS SUMMARY | 2018-11-03 08:05 | XMS REPORT ---
Author Author WINDY GONZALEZ [facility] WALK IN [facility] Address [address] [place] [address] Care Team Providers Care Steel Pickler Name Role Phone WINDY GONZALEZ Unavailable PROBLEMS Type Condition ICD9-CM Code RLE41-CM Code Onset Dates Condition Status SNOMED Code Problem Other hammer toe(s) (acquired), right foot M20.41 Active 854939229 Problem Other diabetic neurological complication associated with type 2 diabetes mellitus E11.49 Active 039570573 Problem Ulcer of right foot, unspecified ulcer stage L97.519 Active 08837523 Problem Type 2 diabetes mellitus with diabetic polyneuropathy E11.42 Active 01293376 Problem Degenerative disc disease, 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 54000154 Problem Other obesity due to excess calories E66.09 Active 364201329 Problem Radiculopathy due to disorder of intervertebral disc of lumbar spine M51.16 Active [id number] Problem OAB (overactive bladder) N32.81 Active 300338001 Problem Type 2 diabetes mellitus with diabetic polyneuropathy, without long- term current use of insulin E11.42 Active 03915894 Problem FDC current use of insulin Z79.4 Active 108291542 Problem Gastroesophageal reflux disease without esophagitis K21.9 Active 297400800 Problem Hypertriglyceridemia E78.1 Active 220034568 Problem Hypertension I10 Active 89731482 Problem Degenerative disc disease, lumbar M51.36 Active 49423496 Problem Degenerative disc disease, cervical M50.30 Active 61591516 Problem History of spinal stenosis Z87.39 Active 706593151 Problem Onycholysis L60.1 Active 97534474 Problem Anxiety associated with depression F41.8 Active 987212939 Problem Osteopenia M85.80 Active 722033107 Problem Chronic pain G89.29 Active 05317403 Problem Vitamin D deficiency E55.9 Active 24889227 ALLERGIES No Known Allergies ENCOUNTERS Encounter Location Date Diagnosis [facility] [address] [id number] [place] [address]- [address] May, [place] [address] [address] Jan, [place] [address] [address]- [address] Dec, [place] [address] [address]- 7533 Dec, [place] [address] [address] Nov, OAB (overactive bladder) N32.81 [facility] WALK IN [address] [address] 14 Nov, 2017 Insect bite (nonvenomous), right lower leg, initial encounter S80.861A and Bitten or stung by nonvenomous insect and other nonvenomous arthropods, initial encounter W57.XXXA [address] [address] 08 Nov, 2017 Ulcer of right foot, unspecified ulcer stage L97.519 and Other diabetic neurological complication associated with type 2 diabetes mellitus E11.[address] [address] Nov, [address] [address]- [address] Nov, Type 2 diabetes mellitus with diabetic polyneuropathy E11.42 ; FDC current use of insulin Z79.4 ; Hypertension I10 ; Hypertriglyceridemia E78.1 ; Vitamin D deficiency E55.9 ; Anxiety associated with depression F41.8 ; Chronic pain G89.29 ; OAB (overactive bladder) N32.81 ; Gastroesophageal reflux disease without esophagitis K21.9 ; Other obesity due to excess calories E66.09 and Body mass index (BMI) of 31.0-31.9 in adult Z68.[address] [address] October, Onychomycosis B35.1 ; Ulcer of right foot, unspecified ulcer stage L97.519 and Diabetes mellitus type 2, uncomplicated E11.9 [place] [address] [address] Jul, OM (onychomycosis) B35.1 and Other diabetic neurological complication associated with type 2 diabetes mellitus E11.49 [facility] [address] [address] Jun, Impacted cerumen of right ear H61.21 [place] [address] [address]- [address] Feb, [facility] WALK IN [place] [address] [address] Jan, Bronchitis J40 [place] [address] [address]- [address] Jan, Hypertension I10 [place] [address] [address]- [address] Jan, [facility] [address] [id number] Dec, Dental examination Z01.20 [place] [address] [address]- [address] Nov, [place] [address] [address]- [address] October, OM (onychomycosis) B35.1 ; Other hammer toe(s) (acquired), right foot M20.41 and Other diabetic neurological complication associated with type 2 diabetes mellitus E11.49 [place] [address] [address]- [address] Aug, [place] [address] [address]- [address] Aug, Type 2 diabetes mellitus with hyperglycemia E11.65 ; Osteopenia M85.80 ; Hypertension I10 ; Hypertriglyceridemia E78.1 ; Chronic pain G89.29 ; Anxiety associated with depression F41.8 ; Vitamin D deficiency E55.9 and Atypical pigmented lesion L81.9 [place] [id number] [place] [address]641- 3583 Aug, [place] [address] [id number] [place] [address] 65716- 9982 Jul, [place] [address] [address] [id number] [place] [address] 90280- 7423 Apr, [place] [id number] [place] [address] 02759- 8512 Apr, Type 2 diabetes mellitus with hyperglycemia E11.65 and Osteopenia M85.80 [place] [id number] [place] [address]23- 3986 Mar, [address] [address]- [address] Jan, [place] [id number] [place] [address] 24846- 5574 Dec, Type 2 diabetes mellitus with hyperglycemia E11.65 ; Hypertension I10 ; Hypertriglyceridemia E78.1 ; Onycholysis L60.1 ; Chronic pain G89.29 ; Anxiety associated with depression F41.8 and OM (onychomycosis) B35.1 [place] [id number] [place] [address]71- 1745 Nov, [place] [id number] [place] [address] 45263- 5276 Nov, Type 2 diabetes mellitus with hyperglycemia E11.65 ; Radiculopathy due to disorder of intervertebral disc of lumbar spine M51.16 ; Degenerative disc disease, cervical M50.30 ; Degenerative disc disease, lumbar M51.36 and Degenerative disc disease, 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 [place] [id number] [place] [address] 94734- 9401 October, History of spinal stenosis Z87.39 [place] [id number] [place] [address] 24670- 0080 October, History of spinal stenosis Z87.39 [place] [address] [address] [id number] [place] [address] 71702- 9337 October, OM (onychomycosis) B35.1 [place] [address] [address] [id number] [place] [address] 69446- 5168 October, OM (onychomycosis) B35.1 [place] [address] [address] [id number] [place] [address] 60323- 2672 October, OM (onychomycosis) B35.1 [place] [address] [address] [id number] [place] [address] 84301- 9425 October, [place] [address] [id number] [place] [address] 20157- 7274 October, Hypertension I10 ; Chronic pain G89.29 ; Peripheral neuropathy G62.9 ; Pain in right hip M25.551 ; Pain in left hip M25.552 ; History of spinal stenosis Z87.39 and Diabetes mellitus without complication E11.9 [place] [address] [address] [id number] [place] [address] 92618- 8622 Sep, Type 2 diabetes mellitus without complications E11.9 ; Hypertension I10 ; Hypertriglyceridemia E78.1 ; Chronic pain G89.29 ; Anxiety associated with depression F41.8 ; Peripheral neuropathy G62.9 and OM ( onychomycosis) B35.1 [place] [id number] [place] [address] 03759- 1376 Jul, [place] [address] [address] [id number] [place] [address] 95016- 0262 Jun, Diabetes mellitus type 2, uncomplicated E11.9 [place] [id number] [place] [address] 23908- 7531 Jun, [place] [address] [place] [id number] [place] [address] 97545- 1189 May, [facility] [address] [address] May, [facility] [id number] [place] [address] 478814- 2270 May, Diabetes mellitus without complication E11.9 [facility] [address] [place] [id number] [place] [address] 747094- 1874 May, Diabetes mellitus without complication E11.9 and Hospital discharge follow-up Z09 [facility] [address] [address]- 16[address] Apr, [facility] [address] [address] [id number] [place] [address] 48378- 2083 Apr, [place] [address] [address] [id number] [place] [address] 01923- 8572 Apr, Dysuria R30.0 and Urinary tract infection N39.0 [facility] [address] [address]- 134[address] Apr, [facility] [address] [id number] [place] [address] 45419- 7705 Mar, [facility] [address] [place] [address]- 8843 Mar, Diarrhea 787.91 and Diabetes mellitus without mention of complication, type II or unspecified type, uncontrolled 250.02 [facility] [address] [id number] [address] 14 Feb, 2015 Diarrhea 787.91 ; Diabetes mellitus without mention of complication, type II or unspecified type, uncontrolled 250.02 ; Other chronic pain 338.29 ; Depression 311 and Essential hypertension 401.9 [facility] [address] [address] Dec, [facility] [id number] [place] [address] 02842- 8904 Dec, [facility] [address] [address]- 9215 Dec, [facility] [id number] [place] [address] 148736- 6708 Dec, Diabetes mellitus without mention of complication, type II or unspecified type, uncontrolled 250.02 ; Essential hypertension, benign 401.1 ; Hypercholesterolemia 272.0 ; Depression 311 ; Neuropathy 355.9 and Post-nasal drip 784.91 [facility] [id number] [place] [address] 28843- 7273 Nov, [facility] [id number] [place] [address] [id number] Nov, Dental examination V72.2 [facility] [address] [address] [id number] [place] [address] 01179- 9276 October, Diarrhea 787.91 ; Diabetes mellitus without mention of complication, type II or unspecified type, uncontrolled 250.02 and Abdominal pain 789.00 [facility] [id number] [place] [address] 18328- 1352 October, Diarrhea 787.91 ; Diabetes mellitus without mention of complication, type II or unspecified type, uncontrolled 250.02 and Abdominal pain 789.00 [facility] [id number] [place] [address] 76933- 4936 Sep, [facility] [id number] [place] [address] 01162- 4386 Sep, [facility] [address] [id number] [place] [address] 01016494- 3136 Aug, [facility] [id number] [place] [address] 08132- 2476 Aug, [facility] [id number] [place] [address] [id number]- 3519 Jul, [facility] [id number] [place] [address] 86002- 5166 Jul, [facility] [place] [facility] [address] [id number] [place] [address]- 9828 Jul, [facility] [place] [facility] [address] [id number] [place] [address]- 2989 Jul, [facility] [place] [facility] [address] [id number] [place] [address]- 2559 Jun, [facility] [place] [facility] [address] [id number] [place] [address]- 8183 Jun, [facility] [place] [facility] [address] [id number] [place] [address]- 4990 Jun, [facility] [place] [facility] [address] [id number] [place] [address]- 6876 Jun, [facility] [place] [facility] [address] [id number] [place] [address]- 9079 Mar, [facility] [place] [facility] [address] [id number] [place] [address]- 6233 Mar, [facility] [place] [facility] [address] [id number] [place] [address]- 3086 Mar, [facility] [place] [facility] [address] [id number] [place] [address]- 8972 Mar, [facility] [place] [facility] [address] [id number] [place] [address]- 0891 Jan, [facility] [place] [facility] [address] [id number] [place] [address]- 7546 Jan, [facility] [place] [facility] [address] [id number] [place] [address]- 1437 Jan, [facility] [place] [facility] [address] [id number] [place] [address]- 2067 Jan, [facility] [place] [facility] [address] [id number] [place] [address]- 0588 Dec, [facility] [place] [facility] [address] [id number], [place] [address]- 1416 Dec, [facility] [address] [facility] [id number] [address]- [address]111 Nov, [facility] [address] [facility] [id number] [address]- 7015 Nov, [facility] [address] [facility] [id number] [address]- 9730 October, [facility] [address] [facility] [id number], [place] [address]- 4812 October, [facility] [address] [facility] [id number], [place] [address]- [address] October, [facility] [address] [facility] [id number], [place] [address]- 8110 October, IMMUNIZATIONS No Known Immunizations SOCIAL HISTORY Never Assessed REASON FOR VISIT bug bite Pt c/o possible bug bite on calf of R leg, which itches and is somewhat swollen, she noticed it yesterday, states it looks a little better today HUANG Guzman PLAN OF CARE Activity Details Follow Up prn Reason:if develop worsening symptoms VITAL SIGNS Height 69 in 2017-12-01 Weight 215.6 lbs 2017-12-01 Temperature 97.8 degrees Fahrenheit 2017-12-01 Heart Rate 88 bpm 2017-12-01 Respiratory Rate 20 2017-12-01 BMI 31.84 kg/m2 2017-12-01 Blood pressure systolic 148 mmHg 2017-12-01 Blood pressure diastolic 80 mmHg 2017-12-01 MEDICATIONS Medication Instructions Dosage Frequency Start Date End Date Duration Status Trazodone HCl 50 MG Orally Once a day 1 tablet at bedtime 24h Active Ibuprofen 800 MG Orally Three times a day 1 tablet with food or milk as needed 8h Nov, Jan, 30 days Active Vitamin D3 5000 UNIT TAKE ONE TABLET BY MOUTH ONCE DAILY Active Tylenol 500mg Orally as needed 2 cap Active BD Pen Needle Ultrafine [id number] as directed 12h 50 Active Lovastatin 20 mg Orally Once a day 1 tablet with a meal 24h Active Neurontin 300 MG Orally Three times a day 1 capsule by Oral route 3 times per day PRN for pain 8h Jul, Active MetFORMIN HCl ER 500 mg Orally twice a day 2 tablets 12h Feb, Active Lisinopril 20 mg Orally Once a day 1 tablet 24h Active Levemir FlexTouch 100 UNIT/ML Subcutaneous 2 times a day INJECT 40 UNITS 12h Active Lancets - 1 time per day October, Active Venlafaxine HCl ER 150 MG Orally Once a day 1 capsule with food 24h Active Omeprazole 20 mg Orally Once a day 1 capsule 24h Active VESIcare 5 MG Orally Once a day 1 tablet 24h Active Aspirin 81 mg Orally Once a day 1 tablet by Oral route 1 time per day 24h October, Active RESULTS No Results PROCEDURES Procedure Date Ordered Result Body Site [facility] VISIT ESTABLISHED PATIENT December 01, 2017 INSTRUCTIONS MEDICATIONS ADMINISTERED No Known Medications MEDICAL (GENERAL) HISTORY Type Description Date Medical History type II diabetes Medical History hypertension Medical History hyperlipidemia Medical History Other chronic pain Surgical History hysterectomy 1996 Surgical History cholecystectomy Hospitalization History [facility]; chest pain. Negative work up Hospitalization History [facility]; chest pain. Negative work up Hospitalization History Severe Kidney Infection 2014 Hospitalization History C6 corpectomy--[facility] 02/02/16 Hospitalization History back surgery--Dr. Lauren NGUYEN 05/05
--- OUTSIDE RECORDS SUMMARY | 2018-11-03 08:05 | XMS REPORT ---
Author Author NANCY SMITH Organization [facility] Address [address] [place] [address] Care Team Providers Care Cctv Technician Name Role Phone NANCY SMITH Unavailable PROBLEMS Type Condition ICD9-CM Code BXU93-NL Code Onset Dates Condition Status SNOMED Code Problem Other hammer toe(s) (acquired), right foot M20.41 Active 625808181 Problem Other diabetic neurological complication associated with type 2 diabetes mellitus E11.49 Active 037085416 Problem Ulcer of right foot, unspecified ulcer stage L97.519 Active 97097268 Problem Type 2 diabetes mellitus with diabetic polyneuropathy E11.42 Active 59639334 Problem Degenerative disc disease, 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 68704828 Problem Other obesity due to excess calories E66.09 Active 414174179 Problem Radiculopathy due to disorder of intervertebral disc of lumbar spine M51.16 Active [id number] Problem OAB (overactive bladder) N32.81 Active 917860029 Problem Type 2 diabetes mellitus with diabetic polyneuropathy, without long- term current use of insulin E11.42 Active 20003095 Problem intermediate current use of insulin Z79.4 Active 648591395 Problem Gastroesophageal reflux disease without esophagitis K21.9 Active 432117154 Problem Hypertriglyceridemia E78.1 Active 352134640 Problem Hypertension I10 Active 55108431 Problem Degenerative disc disease, lumbar M51.36 Active 80142111 Problem Degenerative disc disease, cervical M50.30 Active 60740144 Problem History of spinal stenosis Z87.39 Active 249900181 Problem Onycholysis L60.1 Active 89802753 Problem Anxiety associated with depression F41.8 Active 145575971 Problem Osteopenia M85.80 Active 160972200 Problem Chronic pain G89.29 Active 29919262 Problem Vitamin D deficiency E55.9 Active 72853367 ALLERGIES No Information ENCOUNTERS Encounter Location Date Diagnosis [facility] [address] [facility] [id number] [place] [address]96- [address]6 May, [place] [address] [place] [id number] [place] [address] 52907- 2279 Jan, [place] [address] [address] Dec, [place] [address] [address]- [address]23 Dec, [place] [address] [address]- [address] Nov, OAB (overactive bladder) N32.81 [facility] [address] [address] Nov, Insect bite (nonvenomous), right lower leg, initial encounter S80.861A and Bitten or stung by nonvenomous insect and other nonvenomous arthropods, initial encounter W57.XXXA [address] [address] 08 Nov, 2017 Ulcer of right foot, unspecified ulcer stage L97.519 and Other diabetic neurological complication associated with type 2 diabetes mellitus E11.[address] [address]- [address] Nov, [place] [address] [place] [id number] [place] [address] 59414- 2993 Nov, Type 2 diabetes mellitus with diabetic polyneuropathy E11.42 ; terminologist current use of insulin Z79.4 ; Hypertension I10 ; Hypertriglyceridemia E78.1 ; Vitamin D deficiency E55.9 ; Anxiety associated with depression F41.8 ; Chronic pain G89.29 ; OAB (overactive bladder) N32.81 ; Gastroesophageal reflux disease without esophagitis K21.9 ; Other obesity due to excess calories E66.09 and Body mass index (BMI) of 31.0-31.9 in adult Z68.[address] [address] October, Onychomycosis B35.1 ; Ulcer of right foot, unspecified ulcer stage L97.519 and Diabetes mellitus type 2, uncomplicated E11.9 [place] [address] [address]- [address] Jul, OM (onychomycosis) B35.1 and Other diabetic neurological complication associated with type 2 diabetes mellitus E11.49 [facility] [address] [address] Jun, Impacted cerumen of right ear H61.21 [place] [address] [address]- [address] Feb, [facility] [place] [address] [address] Jan, Bronchitis J40 [place] [address] [address]- 267[address] Jan, Hypertension I10 [place] [address] [address]- [address] Jan, [facility] [address] [id number] Dec, Dental examination Z01.20 [place] [address] [address]- [address] Nov, [place] [address] [address]- [address] October, OM (onychomycosis) B35.1 ; Other hammer toe(s) (acquired), right foot M20.41 and Other diabetic neurological complication associated with type 2 diabetes mellitus E11.49 [place] [address] [address]- [address] Aug, [place] [address] 7[address]31- 8328 Aug, Type 2 diabetes mellitus with hyperglycemia E11.65 ; Osteopenia M85.80 ; Hypertension I10 ; Hypertriglyceridemia E78.1 ; Chronic pain G89.29 ; Anxiety associated with depression F41.8 ; Vitamin D deficiency E55.9 and Atypical pigmented lesion L81.9 [place] [id number] [place] [address] 99005- 3269 Aug, [place] [address] [place] [id number] [place] [address] 98711- 6654 Jul, [place] [address] [address]- [address] Apr, [address] [address]- [address] Apr, Type 2 diabetes mellitus with hyperglycemia E11.65 and Osteopenia M85.80 [place] [id number] [place] [address]32- 3256 Mar, [address] [address]- [address] Jan, [place] [id number] [place] [address] 79724- 1186 Dec, Type 2 diabetes mellitus with hyperglycemia E11.65 ; Hypertension I10 ; Hypertriglyceridemia E78.1 ; Onycholysis L60.1 ; Chronic pain G89.29 ; Anxiety associated with depression F41.8 and OM (onychomycosis) B35.1 [place] [id number] [place] [address]13- 1234 Nov, [place] [id number] [place] [address] 11790- 3133 Nov, Type 2 diabetes mellitus with hyperglycemia E11.65 ; Radiculopathy due to disorder of intervertebral disc of lumbar spine M51.16 ; Degenerative disc disease, cervical M50.30 ; Degenerative disc disease, lumbar M51.36 and Degenerative disc disease, 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 [place] [id number] [place] [address] 74060- 2951 October, History of spinal stenosis Z87.39 [place] [address] [address] October, History of spinal stenosis Z87.39 [place] [address] [place] [id number] [place] [address] 77174- 3882 October, OM (onychomycosis) B35.1 [place] [address] [place] [address] [address] October, OM (onychomycosis) B35.1 [place] [address] [place] [id number] [place] [address] 80331- 0684 October, OM (onychomycosis) B35.1 [place] [address] [place] [id number] [place] [address] 93968- 9725 October, [place] [address] [place] [id number] [place] [address] 67742- 0926 October, Hypertension I10 ; Chronic pain G89.29 ; Peripheral neuropathy G62.9 ; Pain in right hip M25.551 ; Pain in left hip M25.552 ; History of spinal stenosis Z87.39 and Diabetes mellitus without complication E11.9 [place] [address] [place] [address] 59233- 0710 Sep, Type 2 diabetes mellitus without complications E11.9 ; Hypertension I10 ; Hypertriglyceridemia E78.1 ; Chronic pain G89.29 ; Anxiety associated with depression F41.8 ; Peripheral neuropathy G62.9 and OM ( onychomycosis) B35.1 [place] [address] [address] Jul, [place] [address] [place] [address] 07624- 4464 Jun, Diabetes mellitus type 2, uncomplicated E11.9 [place] [address] [address] Jun, [place] [address] [place] [id number] [place] [address] 98937- 3214 May, [facility] [address] [address] May, [facility] [address] [place] [id number] [place] [address] 703307- 3705 May, Diabetes mellitus without complication E11.9 [facility] [address] [place] [id number] [place] [address] 563999- 6530 May, Diabetes mellitus without complication E11.9 and Hospital discharge follow-up Z09 [facility] [address] [place] [id number] [place] [address] 01658- 6060 Apr, [facility] [address] [place] [id number] [place] [address] 26866- 8112 Apr, [facility] [address] [place] [id number] [place] [address] 64832- 1099 Apr, Dysuria R30.0 and Urinary tract infection N39.0 [place] [address] [place] [id number] [place] [address] 76499- 6879 Apr, [facility] [address] [place] [id number] [place] [address] 88821- 7171 Mar, [facility] [address] [place] [id number] [place] [address] 41831- 4388 Mar, Diarrhea 787.91 and Diabetes mellitus without mention of complication, type II or unspecified type, uncontrolled 250.02 [facility] [address] [place] [address] 64572- 7719 14 Feb, 2015 Diarrhea 787.91 ; Diabetes mellitus without mention of complication, type II or unspecified type, uncontrolled 250.02 ; Other chronic pain 338.29 ; Depression 311 and Essential hypertension 401.9 [facility] [address] [place] [address] 976769- 9978 Dec, [facility] [address] [place] [id number] [place] [address] 61424- 5037 Dec, [facility] [address] [place] [id number] [place] [address] 14562- 2180 Dec, [facility] [address] [place] [id number] [place] [address] 870011- 3621 Dec, Diabetes mellitus without mention of complication, type II or unspecified type, uncontrolled 250.02 ; Essential hypertension, benign 401.1 ; Hypercholesterolemia 272.0 ; Depression 311 ; Neuropathy 355.9 and Post-nasal drip 784.91 [facility] [address] [place] [id number] [place] [address] 59560- 7246 Nov, [facility] [address] [place] [id number] [place] [address] [id number] Nov, Dental examination V72.2 [place] [address] [place] [id number] [place] [address] 36721- 8816 October, Diarrhea 787.91 ; Diabetes mellitus without mention of complication, type II or unspecified type, uncontrolled 250.02 and Abdominal pain 789.00 [facility] [address] [place] [id number] [place] [address] 27843- 7961 October, Diarrhea 787.91 ; Diabetes mellitus without mention of complication, type II or unspecified type, uncontrolled 250.02 and Abdominal pain 789.00 [facility] [address] [place] [address] 98975- 3806 Sep, [facility] [address] [place] [id number] [place] [address] 49485- 3272 Sep, [facility] [address] [place] [id number] [place] [address] 37309- 7946 Aug, [facility] [address] [place] [id number] [place] [address] 33339- 1196 Aug, [facility] [address] [place] [id number] [place] [address] 44815- 7506 Jul, [facility] [address] [place] [id number] [place] [address] 37310- 1076 Jul, [facility] [place] [facility] [address] [id number] [place] [address]- 3726 Jul, [facility] [place] [facility] [address] [id number] [place] [address]- 7829 Jul, [facility] [place] [facility] [address] [id number] [place] [address]- 8899 Jun, [facility] [place] [facility] [address] [id number] [place] [address]- 9691 Jun, [facility] [place] [facility] [address] [id number] [place] [address]- 2055 Jun, [facility] [place] [facility] [address] [id number] [place] [address]- 2292 Jun, [facility] [place] [facility] [address] [id number] [place] [address]- 4929 Mar, [facility] [place] [facility] [address] [id number] [place] [address]- 8090 Mar, [facility] [place] [facility] [address] [id number] [place] [address]- 5953 Mar, [facility] [place] [facility] [address] [id number] [place] [address]- 0055 Mar, [facility] [place] [facility] [address] [id number] [place] [address]- 9857 Jan, [facility] [place] [facility] [address] [id number] [place] [address]- 3595 Jan, [facility] [place] [facility] [address] [id number] [place] [address]- 2100 Jan, [facility] [place] [facility] [address] [id number] [place] [address]- 2161 Jan, [facility] [place] [facility] [address] [id number] [place] [address]- 1916 Dec, [facility] [place] [facility] [address] [id number] [place] [address]- 3223 Dec, [facility] [address] [facility] [id number] [address]- 5608 Nov, [facility] [address] [facility] [id number] [address]- 2272 Nov, [facility] [address] [facility] [id number] [address]- 8764 October, [facility] [address] [facility] [id number] [address]- 2233 October, [facility] [address] [facility] [id number] [address]- 2755 October, [facility] [address] [facility] [id number] [address]- 6826 October, IMMUNIZATIONS No Known Immunizations SOCIAL HISTORY Never Assessed REASON FOR VISIT 3 mo f/u. Consult Dr. Smith;[facility] RT(R) PLAN OF CARE Activity Details Follow Up 2 Weeks Reason: VITAL SIGNS Height 69 in 2017-11-04 Blood pressure systolic 142 mmHg 2017-11-04 Blood pressure diastolic 78 mmHg 2017-11-04 MEDICATIONS Medication Instructions Dosage Frequency Start Date End Date Duration Status Vitamin D3 5000 UNIT TAKE ONE TABLET BY MOUTH ONCE DAILY 90 Unknown Lovastatin 20 mg Orally Once a day 1 tablet with a meal 24h 30 Unknown BD Pen Needle Ultrafine 16ZA0HM as directed 12h 50 Unknown ProAir HFA 108 (90 Base) MCG/ACT Inhalation every 4 hrs 2 puffs as needed 4h Jan, 7 days Unknown Lisinopril 20 mg Orally Once a day 1 tablet 24h 90 Unknown Lancets - 1 time per day October, Unknown Terbinafine HCl 250 MG Orally MUST HAVE LABWORK FOR REFILL Once a day 1 tablet 24h Sep, Unknown Cholecalciferol 5000 UNIT Orally Once a day- start once 80564 unit rx is completed. 1 tablet Apr, Unknown BD Pen Needle Joann U/F [id number] USE DIRECTED TWICE DAILY 50 Unknown Venlafaxine HCl ER 150 MG Orally Once a day 1 capsule with food 24h 30 Unknown Omeprazole 20 mg Orally Once a day 1 capsule 24h 30 Unknown Aspirin 81 mg Orally Once a day 1 tablet by Oral route 1 time per day 24h October, Unknown Tradjenta 5 mg Orally Once a day 1 tablet 24h Dec, 30 day(s) Unknown Levemir FlexTouch 100 UNIT/ML Subcutaneous 2 times a day INJECT 30 UNITS 12h 50 Unknown MetFORMIN HCl ER 500 mg Orally twice a day 2 tablets 12h Feb, 30 day(s) Unknown Calcium 500 + D 500 mg(1,250mg) -200 unit 1 Tablet 1 time per day October, Unknown Cephalexin 500 MG Orally every 8 hrs 1 capsule 8h October, October, 7 days Active Neurontin 300 MG Orally Three times a day 1 capsule by Oral route 3 times per day PRN for pain 8h Jul, 30 days Unknown RESULTS No Results PROCEDURES Procedure Date Ordered Result Body Site DEBRIDE NAIL, 1-5 November 04, 2017 DEBRIDE SKIN/TISSUE November 04, 2017 [facility] VISIT ESTABLISHED PATIENT November 04, 2017 INSTRUCTIONS MEDICATIONS ADMINISTERED No Known Medications MEDICAL (GENERAL) HISTORY Type Description Date Medical History type II diabetes Medical History hypertension Medical History hyperlipidemia Medical History Other chronic pain Surgical History hysterectomy 1996 Surgical History cholecystectomy Hospitalization History [facility]; chest pain. Negative work up Hospitalization History [facility]; chest pain. Negative work up Hospitalization History Severe Kidney Infection 2014 Hospitalization History C6 corpectomy-- 02/02/16 Hospitalization History back surgery--, Dr. Aguilar 05/05
--- OUTSIDE RECORDS SUMMARY | 2018-11-03 08:05 | XMS REPORT ---
Author Author JULIO SUZE Organization [facility] Address [address] [place] [address] Care Team Providers Care Bench Inspector Name Role Phone SUZE KIM Unavailable PROBLEMS Type Condition ICD9-CM Code HYI86-MU Code Onset Dates Condition Status SNOMED Code Problem Other hammer toe(s) (acquired), right foot M20.41 Active 359605612 Problem Other diabetic neurological complication associated with type 2 diabetes mellitus E11.49 Active 788578293 Problem Ulcer of right foot, unspecified ulcer stage L97.519 Active 22935550 Problem Type 2 diabetes mellitus with diabetic polyneuropathy E11.42 Active 71261040 Problem Degenerative disc disease, 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 49963683 Problem Other obesity due to excess calories E66.09 Active 048855977 Problem Radiculopathy due to disorder of intervertebral disc of lumbar spine M51.16 Active [id number] Problem OAB (overactive bladder) N32.81 Active 473758488 Problem Type 2 diabetes mellitus with diabetic polyneuropathy, without long- term current use of insulin E11.42 Active 61104712 Problem skilled nursing current use of insulin Z79.4 Active 435570200 Problem Gastroesophageal reflux disease without esophagitis K21.9 Active 156248364 Problem Hypertriglyceridemia E78.1 Active 976039761 Problem Hypertension I10 Active 18574216 Problem Degenerative disc disease, lumbar M51.36 Active 28461649 Problem Degenerative disc disease, cervical M50.30 Active 31518552 Problem History of spinal stenosis Z87.39 Active 811669071 Problem Onycholysis L60.1 Active 69034289 Problem Anxiety associated with depression F41.8 Active 556280040 Problem Osteopenia M85.80 Active 648400318 Problem Chronic pain G89.29 Active 45370284 Problem Vitamin D deficiency E55.9 Active 28409164 ALLERGIES No Known Allergies ENCOUNTERS Encounter Location Date Diagnosis [facility] [address] [facility] [id number] [place] [address]17[address]98 May, [place] [address] [address] Jan, [place] [address] [address] Dec, [place] [address] [address] Dec, [place] [address] [address] Nov, OAB (overactive bladder) N32.81 [facility] [address] [address] 14 Nov, 2017 Insect bite (nonvenomous), right lower leg, initial encounter S80.861A and Bitten or stung by nonvenomous insect and other nonvenomous arthropods, initial encounter W57.XXXA [address] [address] 08 Nov, 2017 Ulcer of right foot, unspecified ulcer stage L97.519 and Other diabetic neurological complication associated with type 2 diabetes mellitus E11.[address] [address] Nov, [address] [address] Nov, Type 2 diabetes mellitus with diabetic polyneuropathy E11.42 ; 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 ; Hypertension I10 ; Hypertriglyceridemia E78.1 ; Vitamin D deficiency E55.9 ; Anxiety associated with depression F41.8 ; Chronic pain G89.29 ; OAB (overactive bladder) N32.81 ; Gastroesophageal reflux disease without esophagitis K21.9 ; Other obesity due to excess calories E66.09 and Body mass index (BMI) of 31.0-31.9 in adult Z68.[address] [address] October, Onychomycosis B35.1 ; Ulcer of right foot, unspecified ulcer stage L97.519 and Diabetes mellitus type 2, uncomplicated E11.9 [place] [address] [address] Jul, OM (onychomycosis) B35.1 and Other diabetic neurological complication associated with type 2 diabetes mellitus E11.49 [facility] [address] [address] Jun, Impacted cerumen of right ear H61.21 [place] [address] [address] Feb, [facility] [place] [address] [address] Jan, Bronchitis J40 [place] [address] [address] Jan, Hypertension I10 [place] [address] [address] Jan, [facility] [address] [id number] Dec, Dental examination Z01.20 [place] [address] [address] Nov, [place] [address] [address] October, OM (onychomycosis) B35.1 ; Other hammer toe(s) (acquired), right foot M20.41 and Other diabetic neurological complication associated with type 2 diabetes mellitus E11.49 [place] [address] [address] Aug, [place] [address] [address] Aug, Type 2 diabetes mellitus with hyperglycemia E11.65 ; Osteopenia M85.80 ; Hypertension I10 ; Hypertriglyceridemia E78.1 ; Chronic pain G89.29 ; Anxiety associated with depression F41.8 ; Vitamin D deficiency E55.9 and Atypical pigmented lesion L81.9 [place] [id number] [place] [address]- [address] Aug, [place] [address] [address] [place] [id number] [place] [address] 15[address]- 94[address] Jul, [place] [address] [address] Apr, [address] [address] Apr, Type 2 diabetes mellitus with hyperglycemia E11.65 and Osteopenia M85.80 [place] [id number] [place] [address]261- 2242 Mar, [address] [address] Jan, [place] [id number] [place] [address] 7[address]43- 29[address] Dec, Type 2 diabetes mellitus with hyperglycemia E11.65 ; Hypertension I10 ; Hypertriglyceridemia E78.1 ; Onycholysis L60.1 ; Chronic pain G89.29 ; Anxiety associated with depression F41.8 and OM (onychomycosis) B35.1 [place] [id number] [place] [address] 01884- [address]57 Nov, [place] [id number] [place] [address] 9[address]30- 1582 Nov, Type 2 diabetes mellitus with hyperglycemia E11.65 ; Radiculopathy due to disorder of intervertebral disc of lumbar spine M51.16 ; Degenerative disc disease, cervical M50.30 ; Degenerative disc disease, lumbar M51.36 and Degenerative disc disease, 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 [place] [id number] [place] [address]- [address] October, History of spinal stenosis Z87.39 [place] [address] [address] October, History of spinal stenosis Z87.39 [place] [address] [address] [place] [id number] [place] [address]- 27[address] October, OM (onychomycosis) B35.1 [place] [address] [address] [place] [id number] [place] [address]- 4110 October, OM (onychomycosis) B35.1 [place] [address] [address] [place] [id number] [place] [address] 09290- 5[address] October, OM (onychomycosis) B35.1 [place] [address] [address] [place] [id number] [place] [address] 58[address]- 9517 October, [place] [address] [place] [id number] [place] [address] 65183- 97[address] October, Hypertension I10 ; Chronic pain G89.29 ; Peripheral neuropathy G62.9 ; Pain in right hip M25.551 ; Pain in left hip M25.552 ; History of spinal stenosis Z87.39 and Diabetes mellitus without complication E11.9 [place] [address] [place] [address] 95961- 1653 Sep, Type 2 diabetes mellitus without complications E11.9 ; Hypertension I10 ; Hypertriglyceridemia E78.1 ; Chronic pain G89.29 ; Anxiety associated with depression F41.8 ; Peripheral neuropathy G62.9 and OM ( onychomycosis) B35.1 [place] [address] [address] Jul, [place] [address] [place] [id number] [place] [address] 93427- 9588 Jun, Diabetes mellitus type 2, uncomplicated E11.9 [place] [address] [address] Jun, [place] [address] [place] [id number] [place] [address] 17310- 7137 May, [facility] [address] [place] [address] 81640- 57[address] May, [facility] [address] [place] [id number] [place] [address] 164393- 8604 May, Diabetes mellitus without complication E11.9 [facility] [address] [place] [id number] [place] [address] 747607- 0196 May, Diabetes mellitus without complication E11.9 and Hospital discharge follow-up Z09 [facility] [address] [place] [id number] [place] [address] 80158- 4705 Apr, [facility] [address] [place] [id number] [place] [address] 46988- 0886 Apr, [facility] [address] [place] [id number] [place] [address] 02814- 5[address] Apr, Dysuria R30.0 and Urinary tract infection N39.0 [facility] [address] [place] [id number] [place] [address] 85159- 4365 Apr, [facility] [address] [place] [id number] [place] [address] 39517- 1363 Mar, [facility] [address] [place] [id number] [place] [address] 81760- 8924 Mar, Diarrhea 787.91 and Diabetes mellitus without mention of complication, type II or unspecified type, uncontrolled 250.02 [facility] [address] [place] [address] 24367- 6982 14 Feb, 2015 Diarrhea 787.91 ; Diabetes mellitus without mention of complication, type II or unspecified type, uncontrolled 250.02 ; Other chronic pain 338.29 ; Depression 311 and Essential hypertension 401.9 [facility] [address] [place] [address] [id number]- 8098 Dec, [facility] [address] [place] [id number] [place] [address] 33521- 8907 Dec, [facility] [address] [place] [id number] [place] [address] 13415- 4216 Dec, [facility] [address] [place] [id number] [place] [address] 391122- 8322 Dec, Diabetes mellitus without mention of complication, type II or unspecified type, uncontrolled 250.02 ; Essential hypertension, benign 401.1 ; Hypercholesterolemia 272.0 ; Depression 311 ; Neuropathy 355.9 and Post-nasal drip 784.91 [facility] [address] [place] [id number] [place] [address] 36787- 7586 Nov, [facility] [address] [place] [id number] [place] [address] [id number] Nov, Dental examination V72.2 [facility] [address] [place] [id number] [place] [address] 66948- 0066 October, Diarrhea 787.91 ; Diabetes mellitus without mention of complication, type II or unspecified type, uncontrolled 250.02 and Abdominal pain 789.00 [facility] [address] [place] [id number] [place] [address] 14770- 7856 October, Diarrhea 787.91 ; Diabetes mellitus without mention of complication, type II or unspecified type, uncontrolled 250.02 and Abdominal pain 789.00 [facility] [address] [place] [address] 97117- 9516 Sep, [facility] [address] [place] [id number] [place] [address] 31465- 5946 Sep, [facility] [address] [place] [id number] [place] [address] 13554- 6076 Aug, [facility] [address] [place] [id number] [place] [address] 33000- 3186 Aug, [facility] [address] [place] [id number] [place] [address] 63125- 4546 Jul, [facility] [address] [place] [id number] [place] [address] 04117- 4176 Jul, [facility] [place] [facility] [address] [id number] [place] [address]- [address] Jul, [facility] [place] [facility] [address] [id number] [place] Jul, [facility] [place] [facility] [address] [id number] [place] [address]- 0110 Jun, [facility] [place] [facility] [address] [id number] [place] [address]- 6305 Jun, [facility] [place] [facility] [address] [id number] [place] [address]- 3383 Jun, [facility] [place] [facility] [address] [id number] [place] [address]- 5335 Jun, [facility] [place] [facility] [address] [id number] [place] [address]- 9771 Mar, [facility] [place] [facility] [address] [id number] [place] [address]- 5823 Mar, [facility] [place] [facility] [address] [id number] [place] [address]- 6841 Mar, [facility] [place] [facility] [address] [id number] [place] [address]- 5605 Mar, [facility] [place] [facility] [address] [id number] [place] [address]- 0096 Jan, [facility] [place] [facility] [address] [id number] [place] [address]- 6124 Jan, [facility] [place] [facility] [address] [id number] [place] [address]- 2591 Jan, [facility] [place] [facility] [address] [id number] [place] [address]- 9660 Jan, [facility] [place] [facility] [address] [id number] [place] [address]- 6948 Dec, [facility] [place] [facility] [address] [id number] [place] [address]- 1380 Dec, [facility] [address] [facility] [id number] [place] [address]- 8045 Nov, [facility] [address] [facility] [id number] [place] [address]- 4546 Nov, [facility] [address] [facility] [id number] [address]- 4124 October, [facility] [address] [facility] [id number] [address]- 7409 October, [facility] [address] [facility] [id number] [address]- 5532 October, [facility] [address] [facility] [id number] [address]- 7696 October, IMMUNIZATIONS No Known Immunizations SOCIAL HISTORY Never Assessed REASON FOR VISIT Diabetes follow up. MARILYN Sood, bilateral shoulder and chest pain. PLAN OF CARE Activity Details Follow Up 3 Months, prn Reason:CHM/DM VITAL SIGNS Height 69 in 2017-11-18 Weight 211.6 lbs 2017-11-18 Temperature 97.4 degrees Fahrenheit 2017-11-18 Heart Rate 99 bpm 2017-11-18 Respiratory Rate 22 2017-11-18 BMI 31.24 kg/m2 2017-11-18 Blood pressure systolic 122 mmHg 2017-11-18 Blood pressure diastolic 68 mmHg 2017-11-18 MEDICATIONS Medication Instructions Dosage Frequency Start Date End Date Duration Status Tylenol 500mg Orally as needed 2 cap Active Levemir FlexTouch 100 UNIT/ML Subcutaneous 2 times a day INJECT 40 UNITS 12h Active Venlafaxine HCl ER 150 MG Orally Once a day 1 capsule with food 24h Active Trazodone HCl 50 MG Orally Once a day 1 tablet at bedtime 24h Active BD Pen Needle Ultrafine [id number] as directed 12h 50 Active Lovastatin 20 mg Orally Once a day 1 tablet with a meal 24h Active Neurontin 300 MG Orally Three times a day 1 capsule by Oral route 3 times per day PRN for pain 8h Jul, Active Omeprazole 20 mg Orally Once a day 1 capsule 24h Active Ibuprofen 800 MG Orally Three times a day 1 tablet with food or milk as needed 8h Nov, Jan, 30 days Active MetFORMIN HCl ER 500 mg Orally twice a day 2 tablets 12h Feb, Active Lancets - 1 time per day October, Active Vitamin D3 5000 UNIT TAKE ONE TABLET BY MOUTH ONCE DAILY Active VESIcare 5 MG Orally Once a day 1 tablet 24h Active Lisinopril 20 mg Orally Once a day 1 tablet 24h Active Aspirin 81 mg Orally Once a day 1 tablet by Oral route 1 time per day 24h October, Active RESULTS Name Result Date Reference Range A1C (IN HOUSE) 2017-11-18 A1C IN HOUSE 8.7 4.3 - 5.6 % Previous A1c 11.7 Lot [id number] Exp date 08/2019 MICROALBUMIN, URINE (IN HOUSE) 2017-11-18 MICROALBUMIN normal Lot # [id number] Exp date 06/06 Clarity clear Color yellow ALB 30 CRE 200 A:C (IN HOUSE) 30 Control Control Lot # Exp date PROCEDURES Procedure Date Ordered Result Body Site GLYCATED HEMOGLOBIN TEST November 18, 2017 MICROALBUMIN, SEMIQUANT November 18, 2017 [facility] VISIT ESTABLISHED PATIENT November 18, 2017 INSTRUCTIONS MEDICATIONS ADMINISTERED No Known Medications MEDICAL (GENERAL) HISTORY Type Description Date Medical History type II diabetes Medical History hypertension Medical History hyperlipidemia Medical History Other chronic pain Surgical History hysterectomy 1996 Surgical History cholecystectomy Hospitalization History [facility]; chest pain. Negative work up Hospitalization History [facility]; chest pain. Negative work up Hospitalization History Severe Kidney Infection 2014 Hospitalization History C6 corpectomy--[facility] 02/02/16 Hospitalization History back surgery--Dr. Lauren NGUYEN 05/05
--- OUTSIDE RECORDS SUMMARY | 2018-11-03 08:06 | XMS REPORT ---
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09 Active 780654230 Problem Radiculopathy due to disorder of intervertebral disc of lumbar spine M51.16 Active [id number] Problem OAB (overactive bladder) N32.81 Active 758701327 Problem Type 2 diabetes mellitus with diabetic polyneuropathy, without long- term current use of insulin E11.42 Active 73834671 Problem [facility] current use of insulin Z79.4 Active 693192016 Problem Gastroesophageal reflux disease without esophagitis K21.9 Active 580797076 Problem Hypertriglyceridemia E78.1 Active 853511029 Problem Hypertension I10 Active 76548100 Problem Degenerative disc disease, lumbar M51.36 Active 35480197 Problem Degenerative disc disease, cervical M50.30 Active 38820500 Problem History of spinal stenosis Z87.39 Active 419909080 Problem Onycholysis L60.1 Active 35442738 Problem Anxiety associated with depression F41.8 Active 625657362 Problem Osteopenia M85.80 Active 442305118 Problem Chronic pain G89.29 Active 65614617 Problem Vitamin D deficiency E55.9 Active 26673221 ALLERGIES No Information ENCOUNTERS Encounter Location Date Diagnosis [facility] [address] [facility] [id number] [place] [address] 00958- 1473 May, [place] [id number] [place] [address] 43760- 9061 Dec, [place] [address] [place] [id number] [place] [address] 07268- 1627 Dec, [place] [address] [place] [id number] [place] [address] 38371- 0574 Nov, OAB (overactive bladder) N32.81 [facility] [address] [place] [id number] [place] [address] 67701 -9156 Nov, Insect bite (nonvenomous), right lower leg, initial encounter S80.861A and Bitten or stung by nonvenomous insect and other nonvenomous arthropods, initial encounter W57.XXXA [place] [address] [place] [id number] [place] [address] 05495- 5564 Nov, Ulcer of right foot, unspecified ulcer stage L97.519 and Other diabetic neurological complication associated with type 2 diabetes mellitus E11.49 [place] [address] [place] [id number] [place] [address] 28205- 5429 Nov, [place] [address] [place] [id number] [place] [address] 33350- 2411 Nov, Type 2 diabetes mellitus with diabetic [...] index (BMI) of 31.0-31.9 in adult Z68.31 [place] [address] [place] [address] 39080- 8957 October, Onychomycosis B35.1 ; Ulcer of right foot, unspecified ulcer stage L97.519 and Diabetes mellitus type 2, uncomplicated E11.9 [place] [address] [place] [id number] [place] [address] 47394- 9884 Jul, OM (onychomycosis) B35.1 and Other diabetic neurological complication associated with type 2 diabetes mellitus E11.49 [facility] [address] [place] [id number] [place] [address] 99591 -7989 Jun, Impacted cerumen of right ear H61.21 [place] [address] 35747- 1595 Feb, [facility] [address] 53459 -7618 Jan, Bronchitis J40 [place] [address] 18544- 8364 Jan, Hypertension I10 [address] 8[address]68- 8373 Jan, [facility] [address] [id number] Dec, Dental examination Z01.20 [place] [address] 28256- 8488 Nov, [place] [address] [place] [id number] [place] [address] 86881- 3558 October, OM (onychomycosis) B35.1 ; Other hammer toe(s) (acquired), right foot M20.41 and Other diabetic neurological complication associated with type 2 diabetes mellitus E11.49 [place] [address] [place] [id number] [place] [address] 04362- 5308 Aug, [place] [address] 05683- 9749 Aug, Type 2 diabetes mellitus with hyperglycemia E11.65 ; Osteopenia M85.80 ; Hypertension I10 ; Hypertriglyceridemia E78.1 ; Chronic pain G89.29 ; Anxiety associated with depression F41.8 ; Vitamin D deficiency E55.9 and Atypical pigmented lesion L81.9 [place] [address] [place] [id number] [place] [address] 18936- 0964 Aug, [place] [address] [place] [id number] [place] [address] 49034- 1819 Jul, [place] [address] [place] [id number] [place] [address] 05794- 0221 Apr, [place] [address] 27562- 5355 Apr, Type 2 diabetes mellitus with hyperglycemia E11.65 and Osteopenia M85.[address] 62758- 3512 Mar, [place] [address] [place] [id number] [place] [address] 09745- 4398 Jan, [address] 42672- 7775 Dec, Type 2 diabetes mellitus with hyperglycemia E11.65 ; Hypertension I10 ; Hypertriglyceridemia E78.1 ; Onycholysis L60.1 ; Chronic pain G89.29 ; Anxiety associated with depression F41.8 and OM (onychomycosis) B35.1 [place] [id number] [place] [address] 41612- 4796 Nov, [place] [id number] [place] [address] 51835- 4422 Nov, Type 2 diabetes mellitus with hyperglycemia E11.65 ; Radiculopathy due to disorder of intervertebral disc of lumbar spine M51.16 ; Degenerative disc disease, cervical M50.30 ; Degenerative disc disease, lumbar M51.36 and Degenerative disc disease, 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 [place] [id number] [place] [address] 74893- 2344 October, History of spinal stenosis Z87.39 [place] [id number] [place] [address] 07917- 9836 October, History of spinal stenosis Z87.39 [place] [address] [address] 6890 October, OM (onychomycosis) B35.1 [place] [address] [place] [address] 80062- 4991 October, OM (onychomycosis) B35.1 [place] [address] [address]- 1193 October, OM (onychomycosis) B35.1 [place] [address] [place] [address] 13002- 6363 October, [place] [address] [place] [id number] [place] [address] 27709- 2218 October, Hypertension I10 ; Chronic pain G89.29 ; Peripheral neuropathy G62.9 ; Pain in right hip M25.551 ; Pain in left hip M25.552 ; History of spinal stenosis Z87.39 and Diabetes mellitus without complication E11.9 [place] [address] [place] [address] 41306- 8038 Sep, Type 2 diabetes mellitus without complications E11.9 ; Hypertension I10 ; Hypertriglyceridemia E78.1 ; Chronic pain G89.29 ; Anxiety associated with depression F41.8 ; Peripheral neuropathy G62.9 and OM ( onychomycosis) B35.1 [place] [address] [address]- 2355 Jul, [place] [address] [address]- 9523 Jun, Diabetes mellitus type 2, uncomplicated E11.9 [place] [address] [place] [id number] [place] [address] 06555- 1626 Jun, [place] [address] [address]- 2043 May, [place] [address] [place] [address] 07098- 7589 May, [facility] [address] [address] May, Diabetes mellitus without complication E11.9 [facility] [address] [place] [id number] [place] [address] 68050- 7566 May, Diabetes mellitus without complication E11.9 and Hospital discharge follow-up Z09 [facility] [address] [place] [id number] [place] [address] 49427- 8360 Apr, [facility] [address] [place] [id number] [place] [address] 91055- 0015 Apr, [facility] [address] [place] [id number] [place] [address] 835964- 9343 Apr, Dysuria R30.0 and Urinary tract infection N39.0 [place] [id number] [place] [address] 83158- 2554 Apr, [facility] [address] [place] [id number] [place] [address] 85326- 2399 Mar, [facility] [address] [place] [id number] [place] [address] 001170- 8318 Mar, Diarrhea 787.91 and Diabetes mellitus without mention of complication, type II or unspecified type, uncontrolled 250.02 [place] [id number] [place] [address] 08491- 8990 Feb, Diarrhea 787.91 ; Diabetes mellitus without mention of complication, type II or unspecified type, uncontrolled 250.02 ; Other chronic pain 338.29 ; Depression 311 and Essential hypertension 401.9 [facility] [address] [place] [id number] [place] [address] 700372- 6446 Dec, [facility] [address] [place] [id number] [place] [address] 302689- 6611 Dec, [facility] [address] [place] [id number] [place] [address] 90484- 2075 Dec, [facility] [address] [place] [id number] [place] [address] 94539- 2586 Dec, Diabetes mellitus without mention of complication, type II or unspecified type, uncontrolled 250.02 ; Essential hypertension, benign 401.1 ; Hypercholesterolemia 272.0 ; Depression 311 ; Neuropathy 355.9 and Post-nasal drip 784.91 [facility] [address] [place] [id number] [place] [address] 98386- 8796 Nov, [facility] [address] [place] [id number] [place] [address] [id number] Nov, Dental examination V72.2 [facility] [address] 47555- 0356 October, Diarrhea 787.91 ; Diabetes mellitus without mention of complication, type II or unspecified type, uncontrolled 250.02 and Abdominal pain 789.00 [facility] [address] [place] [id number] [place] [address] 89871- 6026 October, Diarrhea 787.91 ; Diabetes mellitus without mention of complication, type II or unspecified type, uncontrolled 250.02 and Abdominal pain 789.00 [facility] [address] [place] [id number] [place] [address] 05981- 1036 Sep, [facility] [address] [place] [id number] [place] [address] 26543360- 9406 Sep, [facility] [address] [place] [id number] [place] [address] 15876- 9566 Aug, [facility] [address] [place] [id number] [place] [address] 77744- 7896 Aug, [facility] [address] [place] [id number] [place] [address] 44883- 7876 Jul, [facility] [address] [place] [id number] [place] [address] 97018- 3286 Jul, [facility] [address] [place] [id number] [place] [address] 63159- 5196 Jul, [facility] [place] [facility] [address] [id number] [place] [address]- 3873 Jul, [facility] [place] [facility] [address] [id number] [place] [address]- 6580 Jun, [facility] [place] [facility] [address] [id number] [place] [address]- 2966 Jun, [facility] [place] [facility] [address] [id number] [place] [address]- 9554 Jun, [facility] [place] [facility] [address] [id number] [place] [address]- 6430 Jun, [facility] [place] [facility] [address] [id number] [place] [address]- 8214 Mar, [facility] [place] [facility] [address] [id number] [place] [address]- 5213 Mar, [facility] [place] [facility] [address] [id number] [place] [address]- 9281 Mar, [facility] [place] [facility] [address] [id number] [place] [address]- 1597 Mar, [facility] [place] [facility] [address] [id number] [place] [address]- 5502 Jan, [facility] [place] [facility] [address] [id number] [place] [address]- 1562 Jan, [facility] [place] [facility] [address] [id number] [place] [address]- 9006 Jan, [facility] [place] [facility] [address] [id number] [place] [address]- 5774 Jan, [facility] [place] [facility] [address] [id number] [place] [address]- 1628 Dec, [facility] [place] [facility] [address] [id number] [place] [address]- 8256 Dec, [facility] [place] [facility] [address] [id number] [place] [address]- 7457 Nov, [facility] [address] [facility] [id number] [address]- 8126 Nov, [facility] [address] [facility] [id number], [place] [address]- 1316 October, [facility] [address] [facility] [id number], [place] [address]- 2326 October, [facility] [address] [facility] [id number], [place] [address]- 5916 October, [facility] [address] [facility] [id number], [place] [address]- 1236 October, IMMUNIZATIONS No Known Immunizations SOCIAL HISTORY Never Assessed REASON FOR VISIT 3 mo f/u. Consult Dr. Smith;Riley RT(R) PLAN OF CARE Activity Details Follow Up 3 Months Reason: VITAL SIGNS Height 69 in 2017-08-12 Blood pressure systolic 136 mmHg 2017-08-12 Blood pressure diastolic 88 mmHg 2017-08-12 MEDICATIONS Unknown Medications RESULTS No Results PROCEDURES Procedure Date Ordered Result Body Site DEBRIDE NAIL, 1-5 Aug 12, 2017 [facility] VISIT ESTABLISHED PATIENT Aug 12, 2017 INSTRUCTIONS MEDICATIONS ADMINISTERED No Known Medications MEDICAL (GENERAL) HISTORY Type Description Date Medical History type II diabetes Medical History hypertension Medical History hyperlipidemia Medical History Other chronic pain Surgical History hysterectomy 1996 Surgical History cholecystectomy Hospitalization History [facility]; chest pain. Negative work up Hospitalization History [facility]; chest pain. Negative work up Hospitalization History Severe Kidney Infection 2014 Hospitalization History C6 corpectomy--[facility]RE[facility] 02/02/16 Hospitalization History back surgery--Dr. Lauren NGUYEN 05/05
--- OUTSIDE RECORDS SUMMARY | 2018-11-03 08:06 | XMS REPORT ---
Author Author [facility] Address [address] [place] [address] Care Team Providers Care Sweeping Compound Blender Name Role Phone SHIRLEY SANTIAGO Unavailable PROBLEMS Type Condition ICD9-CM Code LFR12-IJ Code Onset Dates Condition Status SNOMED Code Problem Pain in left hip M25.552 Active 266487915 Problem Type 2 diabetes mellitus with hyperglycemia E11.65 Active 021586948530986 Problem Pain in right hip M25.551 Active 494817452506975 Problem Other hammer toe(s) (acquired), right foot M20.41 Active 610959265 Problem Diabetic autonomic neuropathy associated with type 2 diabetes mellitus E11.43 Active 006682557 Problem Vitamin D deficiency E55.9 Active 05278719 Problem Onycholysis L60.1 Active 77181341 Problem Other diabetic neurological complication associated with type 2 diabetes mellitus E11.49 Active 186868359 Problem Osteopenia M85.80 Active 721260973 Problem Degenerative disc disease, lumbar M51.36 Active 08092027 Problem Degenerative disc disease, cervical M50.30 Active 98404675 Problem Radiculopathy due to disorder of intervertebral disc of lumbar spine M51.16 Active 460407467159362 Problem Degenerative disc disease, 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 43800685 Problem Hypertension I10 Active 99302285 Problem Anxiety associated with depression F41.8 Active 499360910 Problem Peripheral neuropathy G62.9 Active 22535747 Problem Chronic pain G89.29 Active 73523433 Problem Hypertriglyceridemia E78.1 Active 743860204 Problem History of spinal stenosis Z87.39 Active 878066842 ALLERGIES No Known Allergies ENCOUNTERS Encounter Location Date Diagnosis [facility] [address] [facility] [id number] [address] October, [facility] [address] [facility] [id number], [place] [address] Jul, OM (onychomycosis) B35.1 and Other diabetic neurological complication associated with type 2 diabetes mellitus E11.49 [facility] [address] [address] Jun, Impacted cerumen of right ear H61.21 [place] [address] [address] Feb, [facility] [address] [address] Jan, Bronchitis J40 [place] [address] [address] Jan, Hypertension I10 [place] [address] [address] Jan, [facility] [address] [id number] Dec, Dental examination Z01.20 [place] [address] [address] Nov, [place] [address] [address] October, OM (onychomycosis) B35.1 ; Other hammer toe(s) (acquired), right foot M20.41 and Other diabetic neurological complication associated with type 2 diabetes mellitus E11.49 [place] [address] [place] [id number] [place] [address] Aug, [place] [address] [address] Aug, Type 2 diabetes mellitus with hyperglycemia E11.65 ; Osteopenia M85.80 ; Hypertension I10 ; Hypertriglyceridemia E78.1 ; Chronic pain G89.29 ; Anxiety associated with depression F41.8 ; Vitamin D deficiency E55.9 and Atypical pigmented lesion L81.9 [place] [address] [address] Aug, [place] [address] [address] Jul, [place] [address] [place] [id number] [place] [address] Apr, [place] [address] [place] [id number] [place] [address] Apr, Type 2 diabetes mellitus with hyperglycemia E11.65 and Osteopenia M85.80 [place] [address] [place] [id number] [place] [address] Mar, [place] [address] [place] [id number] [place] [address] Jan, [place] [address] [place] [id number] [place] [address] Dec, Type 2 diabetes mellitus with hyperglycemia E11.65 ; Hypertension I10 ; Hypertriglyceridemia E78.1 ; Onycholysis L60.1 ; Chronic pain G89.29 ; Anxiety associated with depression F41.8 and OM (onychomycosis) B35.1 [place] [address] [place] [id number] [place] [address] Nov, [place] [address] [place] [address] Nov, Type 2 diabetes mellitus with hyperglycemia E11.65 ; Radiculopathy due to disorder of intervertebral disc of lumbar spine M51.16 ; Degenerative disc disease, cervical M50.30 ; Degenerative disc disease, lumbar M51.36 and Degenerative disc disease, 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 [place] [address], [place] [address] October, History of spinal stenosis Z87.39 [place] [address] [place] [id number] [place] [address] October, History of spinal stenosis Z87.39 [place] [address] [place] [id number] [place] [address] October, OM (onychomycosis) B35.1 [place] [address] [address] October, OM (onychomycosis) B35.1 [place] [address] [id number] [address] October, OM (onychomycosis) B35.1 [place] [address] [place] [id number] [place] [address] October, [place] [address] [place] [id number] [place] [address] October, Hypertension I10 ; Chronic pain G89.29 ; Peripheral neuropathy G62.9 ; Pain in right hip M25.551 ; Pain in left hip M25.552 ; History of spinal stenosis Z87.39 and Diabetes mellitus without complication E11.9 [place] [address] [place] [id number] [place] [address] Sep, Type 2 diabetes mellitus without complications E11.9 ; Hypertension I10 ; Hypertriglyceridemia E78.1 ; Chronic pain G89.29 ; Anxiety associated with depression F41.8 ; Peripheral neuropathy G62.9 and OM ( onychomycosis) B35.1 [place] [address], [place] [address] Jul, [place] [address] [place] [id number] [place] [address] Jun, Diabetes mellitus type 2, uncomplicated E11.9 [place] [address] [place] [address] Jun, [place] [address] [place] [id number] [place] [address] 062366[address] May, [place] [address] [place] [address] 899829- [address] May, [place] [address] [place] [id number] [place] [address] May, Diabetes mellitus without complication E11.9 [facility] [address], [place] [address] May, Diabetes mellitus without complication E11.9 and Hospital discharge follow-up Z09 [facility] [address], [place] [address] Apr, [place] [address] [place] [id number] [place] [address] 8[address] Apr, [place] [address] [place] [address] Apr, Dysuria R30.0 and Urinary tract infection N39.0 [place] [address] [place] [id number] [place] [address] Apr, [place] [address] [place] [id number] [place] [address] 848108- [address] Mar, [place] [address] [place] [id number] [place] [address] Mar, Diarrhea 787.91 and Diabetes mellitus without mention of complication, type II or unspecified type, uncontrolled 250.02 [place] [address], [place] [address] 14 Feb, 2015 Diarrhea 787.91 ; Diabetes mellitus without mention of complication, type II or unspecified type, uncontrolled 250.02 ; Other chronic pain 338.29 ; Depression 311 and Essential hypertension 401.9 [facility] [address] [address] Dec, [place] [address] [address] Dec, [place] [address] [place] [address] 9[address] Dec, [facility] [address] [address] Dec, Diabetes mellitus without mention of complication, type II or unspecified type, uncontrolled 250.02 ; Essential hypertension, benign 401.1 ; Hypercholesterolemia 272.0 ; Depression 311 ; Neuropathy 355.9 and Post-nasal drip 784.91 [facility] [address] [place] [address] [id number]- [address] Nov, [facility] [address] [id number] Nov, Dental examination V72.2 [facility] [address] [place] [id number] [place] [address]- [address] October, Diarrhea 787.91 ; Diabetes mellitus without mention of complication, type II or unspecified type, uncontrolled 250.02 and Abdominal pain 789.00 [facility] [address] [place] [id number] [place] [address] 9[address]07[address] October, Diarrhea 787.91 ; Diabetes mellitus without mention of complication, type II or unspecified type, uncontrolled 250.02 and Abdominal pain 789.00 [facility] [address] [place] [id number] [place] [address] 86015[address] 3[address] Sep, [facility] [address] [place] [id number] [place] [address] 53[address] 97[address] Sep, [facility] [address] [place] [id number] [place] [address] 83147- 24[address] Aug, [facility] [address] [place] [id number] [place] [address] 21772- 4472 Aug, [facility] [address] [place] [id number] [place] [address] [id number]- 8621 Jul, [facility] [address] [place] [address] 87835- 59[address] Jul, [facility] [address] [place] [id number] [place] [address] [id number]- 9700 Jul, [facility] [address] [place] [id number] [place] [address] 16043726- 2564 Jul, [facility] [place] [facility] [address] [facility] [id number] [place] [address] Jun, [facility] [place] [facility] [address] [id number] [place] [address] Jun, [facility] [place] [facility] [address] [id number] [place] [address] Jun, [facility] [place] [facility] [address] [id number] [place] [address] Jun, [facility] [place] [facility] [address] [id number] [place] [address] 160[address] Mar, [facility] [place] [facility] [address] [id number] [place] [address] Mar, [facility] [place] [facility] [address] [id number] [place] [address]- [address] Mar, [facility] [place] [facility] [address] [id number] [place] [address]- [address] Mar, [facility] [place] [facility] [address] [id number] [place] [address] Jan, [facility] [place] [facility] [address] [id number] [place] [address] Jan, [facility] [place] [facility] [address] [id number] [place] [address] Jan, [facility] [place] [facility] [address] [id number] [place] [address]- 47[address] Jan, [facility] [place] [facility] [address] [id number] [place] [address]- 7005 Dec, [facility] [place] [facility] [address] [id number] [place] [address]- 8482 Dec, [facility] [place] [facility] [address] [id number] [place] [address]- 7931 Nov, [facility] [place] [facility] [address] [id number] [place] [address]- 3052 Nov, [facility] [address] [facility] [id number], [place] [address] October, [facility] [address] [facility] [id number] [address] October, [facility] [address] [facility] [id number], [place] [address] October, [facility] [address] [facility] [id number], [place] [address] October, IMMUNIZATIONS No Known Immunizations SOCIAL HISTORY Never Assessed REASON FOR VISIT cough, nasal drainage started Sat JStrasserRN PLAN OF CARE Activity Details Follow Up prn Reason: VITAL SIGNS Height 69 in 2017-02-14 Weight 208.8 lbs 2017-02-14 Temperature 98.6 degrees Fahrenheit 2017-02-14 Heart Rate 88 bpm 2017-02-14 Respiratory Rate 22 2017-02-14 BMI 30.83 kg/m2 2017-02-14 Blood pressure systolic 142 mmHg 2017-02-14 Blood pressure diastolic 88 mmHg 2017-02-14 MEDICATIONS Medication Instructions Dosage Frequency Start Date End Date Duration Status ProAir HFA 108 (90 Base) MCG/ACT Inhalation every 4 hrs 2 puffs as needed 4h Jan, 7 days Active Cholecalciferol 5000 UNIT Orally Once a day- start once 16538 unit rx is completed. 1 tablet Apr, Active Levemir FlexTouch 100 UNIT/ML Subcutaneous 2 times a day INJECT 30 UNITS 12h 90 days Active Aspirin 81 mg Orally Once a day 1 tablet by Oral route 1 time per day 24h October, Active Lovastatin 20 mg Orally Once a day must have appt for refills 1 tablet with a meal 30 Active Lovastatin 20 mg Orally Once a day 1 tablet with a meal 24h 30 days Active Vitamin D3 5000 UNIT TAKE ONE TABLET BY MOUTH ONCE DAILY 90 Active Lisinopril 20 MG TAKE ONE TABLET BY MOUTH ONCE DAILY 90 Active BD Pen Needle Joann U/F [id number] USE DIRECTED TWICE DAILY 50 Active Venlafaxine HCl ER 150 MG Orally Once a day 1 capsule with food 24h Aug 30 Active Calcium 500 + D 500 mg(1,250mg) -200 unit 1 Tablet 1 time per day October, Active MetFORMIN HCl ER (OSM) 1000 MG TAKE ONE TABLET BY MOUTH TWICE DAILY WITH A MEAL 30 Active BD Pen Needle Ultrafine [id number] as directed 12h 50 Active PredniSONE 20 MG Orally Once a day 2 tablet 24h 28 Jan, 2017 Feb, 5 days Active Lisinopril 20 mg Orally Once a day 1 tablet 24h 90 days Active Lancets - 1 time per day October, Active Omeprazole 20 mg Orally Once a day 1 capsule 24h 30 Active RESULTS No Results PROCEDURES Procedure Date Ordered Result Body Site [facility] VISIT ESTABLISHED PATIENT Feb 14, 2017 INSTRUCTIONS MEDICATIONS ADMINISTERED No Known Medications MEDICAL (GENERAL) HISTORY Type Description Date Medical History type II diabetes Medical History hypertension Medical History hyperlipidemia Medical History Other chronic pain Medical History Other chronic pain Surgical History hysterectomy 1996 Surgical History cholecystectomy Hospitalization History [facility]; chest pain. Negative work up Hospitalization History [facility]; chest pain. Negative work up Hospitalization History Severe Kidney Infection 2014 Hospitalization History C6 corpectomy--[facility] 02/02/16 Hospitalization History back surgery--Dr. Lauren NGUYEN 05/05
--- OUTSIDE RECORDS SUMMARY | 2018-11-03 08:07 | XMS REPORT ---
Author Author JULIO SUZE Organization [facility] Address [address] [place] [address] Care Team Providers Care Security Ambassador Name Role Phone KIMSUZE Weeks Unavailable PROBLEMS Type Condition ICD9-CM Code UJY19-YE Code Onset Dates Condition Status SNOMED Code Problem Pain in left hip M25.552 Active 917356178 Problem Type 2 diabetes mellitus with hyperglycemia E11.65 Active 048931764901651 Problem Pain in right hip M25.551 Active 332595785942458 Problem Other hammer toe(s) (acquired), right foot M20.41 Active 868022354 Problem Diabetic autonomic neuropathy associated with type 2 diabetes mellitus E11.43 Active 996376238 Problem Vitamin D deficiency E55.9 Active 13176026 Problem Onycholysis L60.1 Active 11800430 Problem Other diabetic neurological complication associated with type 2 diabetes mellitus E11.49 Active 596262790 Problem Osteopenia M85.80 Active 662444451 Problem Degenerative disc disease, lumbar M51.36 Active 37982958 Problem Degenerative disc disease, cervical M50.30 Active 35537123 Problem Radiculopathy due to disorder of intervertebral disc of lumbar spine M51.16 Active 766285032646015 Problem Degenerative disc disease, 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 20595742 Problem Hypertension I10 Active 98854438 Problem Anxiety associated with depression F41.8 Active 766413116 Problem Peripheral neuropathy G62.9 Active 07003287 Problem Chronic pain G89.29 Active 39518692 Problem Hypertriglyceridemia E78.1 Active 028245795 Problem History of spinal stenosis Z87.39 Active 943687727 ALLERGIES No Information ENCOUNTERS Encounter Location Date Diagnosis [facility] [address] [facility] [id number] [address] October, [facility] [address] [facility] [id number], [place] [address] Jul, OM (onychomycosis) B35.1 and Other diabetic neurological complication associated with type 2 diabetes mellitus E11.49 [facility] [address] [address] Jun, Impacted cerumen of right ear H61.21 [place] [address] [address] Feb, [facility] [address] [address] Jan, Bronchitis J40 [place] [address] [address] Jan, Hypertension I10 [place] [address] [address] Jan, [facility] [address] [id number] Dec, Dental examination Z01.20 [place] [address] [address] Nov, [place] [address] [address] October, OM (onychomycosis) B35.1 ; Other hammer toe(s) (acquired), right foot M20.41 and Other diabetic neurological complication associated with type 2 diabetes mellitus E11.49 [place] [address] [address] Aug, [place] [address] [address] Aug, Type 2 diabetes mellitus with hyperglycemia E11.65 ; Osteopenia M85.80 ; Hypertension I10 ; Hypertriglyceridemia E78.1 ; Chronic pain G89.29 ; Anxiety associated with depression F41.8 ; Vitamin D deficiency E55.9 and Atypical pigmented lesion L81.9 [place] [address] [address] Aug, [place] [address] [address] Jul, [place] [address] [place] [id number] [place] [address] Apr, [place] [address] [place] [id number] [place] [address] Apr, Type 2 diabetes mellitus with hyperglycemia E11.65 and Osteopenia M85.80 [place] [address] [place] [id number] [place] [address] Mar, [place] [address] [place] [id number] [place] [address] Jan, [place] [address] [place] [id number] [place] [address] Dec, Type 2 diabetes mellitus with hyperglycemia E11.65 ; Hypertension I10 ; Hypertriglyceridemia E78.1 ; Onycholysis L60.1 ; Chronic pain G89.29 ; Anxiety associated with depression F41.8 and OM (onychomycosis) B35.1 [place] [address] [place] [address] Nov, [place] [address] [place] [id number] [place] [address] Nov, Type 2 diabetes mellitus with hyperglycemia E11.65 ; Radiculopathy due to disorder of intervertebral disc of lumbar spine M51.16 ; Degenerative disc disease, cervical M50.30 ; Degenerative disc disease, lumbar M51.36 and Degenerative disc disease, 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 [place] [address] [address] October, History of spinal stenosis Z87.39 [place] [address] [place] [id number] [place] [address] October, History of spinal stenosis Z87.39 [place] [address] [place] [address] October, OM (onychomycosis) B35.1 [place] [address] [address] October, OM (onychomycosis) B35.1 [place] [address] [place] [id number] [place] [address] October, OM (onychomycosis) B35.1 [place] [address] [place] [id number] [place] [address] October, [place] [address] [place] [id number] [place] [address] October, Hypertension I10 ; Chronic pain G89.29 ; Peripheral neuropathy G62.9 ; Pain in right hip M25.551 ; Pain in left hip M25.552 ; History of spinal stenosis Z87.39 and Diabetes mellitus without complication E11.9 [place] [address] [place] [id number] [place] [address] Sep, Type 2 diabetes mellitus without complications E11.9 ; Hypertension I10 ; Hypertriglyceridemia E78.1 ; Chronic pain G89.29 ; Anxiety associated with depression F41.8 ; Peripheral neuropathy G62.9 and OM ( onychomycosis) B35.1 [place] [address] [place] [address] Jul, [place] [address] [place] [address] Jun, Diabetes mellitus type 2, uncomplicated E11.9 [place] [address] [place] [address] Jun, [place] [address] [place] [id number] [place] [address] May, [place] [address] [place] [id number] [place] [address] May, [place] [address] [place] [id number] [place] [address] May, Diabetes mellitus without complication E11.9 [facility] [address] [id number] [address] May, Diabetes mellitus without complication E11.9 and Hospital discharge follow-up Z09 [facility] [address] [address] Apr, [place] [address] [place] [id number] [place] [address] Apr, [place] [address] [place] [id number] [place] [address] 8[address] Apr, Dysuria R30.0 and Urinary tract infection N39.0 [place] [id number] [place] [address] Apr, [place] [address] [place] [id number] [place] [address]- [address] Mar, [place] [address] [place] [address] [place] [address] Mar, Diarrhea 787.91 and Diabetes mellitus without mention of complication, type II or unspecified type, uncontrolled 250.02 [place] [address] [place] [address]- [address] 14 Feb, 2015 Diarrhea 787.91 ; Diabetes mellitus without mention of complication, type II or unspecified type, uncontrolled 250.02 ; Other chronic pain 338.29 ; Depression 311 and Essential hypertension 401.9 [facility] [address] [address] Dec, [facility] [address], [place] [address] Dec, [place] [address] [place] [id number] [place] [address] Dec, [facility] [address] [address] Dec, Diabetes mellitus without mention of complication, type II or unspecified type, uncontrolled 250.02 ; Essential hypertension, benign 401.1 ; Hypercholesterolemia 272.0 ; Depression 311 ; Neuropathy 355.9 and Post-nasal drip 784.91 [facility] [address] [place] [id number] [place] [address] Nov, [facility] [address] [id number] Nov, Dental examination V72.2 [facility] [address] [place] [id number] [place] [address] October, Diarrhea 787.91 ; Diabetes mellitus without mention of complication, type II or unspecified type, uncontrolled 250.02 and Abdominal pain 789.00 [facility] [address] [place] [id number] [place] [address] October, Diarrhea 787.91 ; Diabetes mellitus without mention of complication, type II or unspecified type, uncontrolled 250.02 and Abdominal pain 789.00 [facility] [address] [place] [id number] [place] [address] Sep, [facility] [address] [place] [id number] [place] [address] 58[address]- 7971 Sep, [facility] [address] [place] [id number] [place] [address]- 6077 Aug, [facility] [address] [place] [address] 424[address]- 4773 Aug, [facility] [address] [place] [address] 9[address]- [address]279 Jul, [facility] [address] [place] [address] 30[address]- 4626 Jul, [facility] [address] [place] [id number] [place] [address] 52[address]- 3279 Jul, [facility] [address] [place] [address] 85242048- [address] Jul, [facility] [address] [place] [id number] [place] [address] Jun, [facility] [place] [facility] [address] [id number] [place] [address]- [address] Jun, [facility] [place] [facility] [address] [id number] [place] [address]- [address] Jun, [facility] [place] [facility] [address] [id number] [place] [address]- 6[address] Jun, [facility] [place] [facility] [address] [id number] [place] [address]- 6[address] Mar, [facility] [place] [facility] [address] [id number] [place] [address]- 1155 Mar, [facility] [place] [facility] [address] [id number] [place] [address]- 6[address] Mar, [facility] [place] [facility] [address] [id number] [place] [address]- 9201 Mar, [facility] [place] [facility] [address] [id number] [place] [address]- 3078 Jan, [facility] [place] [facility] [address] [id number] [place] [address]- 3318 Jan, [facility] [place] [facility] [address] [id number] [place] [address]- 9986 Jan, [facility] [place] [facility] [address] [id number] [place] [address]- 3561 Jan, [facility] [place] [facility] [address] [id number] [place] [address]- 1029 Dec, [facility] [place] [facility] [address] [id number] [place] [address]- 4518 Dec, [facility] [place] [facility] [address] [id number] [place] [address]- 2134 Nov, [facility] [place] [facility] [address] [id number] [place] [address]- 0740 Nov, [facility] [address] [facility] [id number] [place] [address] October, [facility] [address] [facility] [id number] [address] October, [facility] [address] [facility] [id number], [place] [address] October, [facility] [address] [facility] [id number] [address] October, IMMUNIZATIONS No Known Immunizations SOCIAL HISTORY Never Assessed REASON FOR VISIT Metformin ER note PLAN OF CARE VITAL SIGNS MEDICATIONS Medication Instructions Dosage Frequency Start Date End Date Duration Status MetFORMIN HCl ER 500 mg Orally twice a day 2 tablets 12h Feb, 30 day(s) Active RESULTS No Results PROCEDURES No Known procedures INSTRUCTIONS MEDICATIONS ADMINISTERED No Known Medications MEDICAL (GENERAL) HISTORY Type Description Date Medical History type II diabetes Medical History hypertension Medical History hyperlipidemia Medical History Other chronic pain Medical History Other chronic pain Surgical History hysterectomy 1996 Surgical History cholecystectomy Hospitalization History [facility]; chest pain. Negative work up Hospitalization History [facility]; chest pain. Negative work up Hospitalization History Severe Kidney Infection 2014 Hospitalization History C6 corpectomy--[facility] 02/02/16 Hospitalization History back surgery--Dr. Lauren NGUYEN 05/05
--- OUTSIDE RECORDS SUMMARY | 2018-11-03 08:11 | XMS REPORT | Continuity of Care Document ---
Author Organization Unknown Address Unknown Allergies Active Description Code Type Severity Reaction Onset Reported/Identified Relationship to Patient Clinical Status Yes metformin 500 mg tablet Drug Allergy N/A N/A 11/05/2013 Yes No Known Drug Allergies [id number] Drug Allergy Unknown N/A 03/22/2018 Medications There is no data. Problems Date Dx Coded Attending Type Code Diagnosis Diagnosed By ZAID WOOSD Ot M48.02 SPINAL STENOSIS, CERVICAL REGION 12/23/2009 Ot 462 10/15/2013 ADRIA DIALLO APRN Ot 250.02 DIAB RENE WO COMPL, TYPE II OR UNSPEC TY 11/05/2013 JENN SPRINGER DO 250.02 DIABETES II UNCONTROLLED (UNCOMPLICATED) 11/05/2013 JENN SPRINGER DO K 250.60 DIABETES WITH NEUROLOGICAL MANIFESTATIONS TYPE II OR UNSPECIFIED TYPE NOT STATED UNCONTROLLED 11/05/2013 HRONDA SPRINGER DOA K 338.29 OTHER CHRONIC PAIN 11/05/2013 RHONDA SPRINGER DOA K 401.1 HYPERTENSION, BENIGN ESSENTIAL 11/05/2013 RHONDA SPRINGER DOA K V15.81 PERSONAL HISTORY OF NONCOMPLIANCE WITH MEDICAL TREATMENT PRESENTING HAZARDS TO HEALTH 11/05/2013 JENN SPRINGER DO K V65.3 COUNSELING - DIETARY 11/05/2013 JENN SPRINGER DO K 250.02 DIABETES II UNCONTROLLED (UNCOMPLICATED) 11/05/2013 JENN SPRINGER DO K 250.60 DIABETES WITH NEUROLOGICAL MANIFESTATIONS TYPE II OR UNSPECIFIED TYPE NOT STATED UNCONTROLLED 11/05/2013 RHONDA SPRINGER DOA K 338.29 OTHER CHRONIC PAIN 11/05/2013 RHONDA SPRINGER DOA K 401.1 HYPERTENSION, BENIGN ESSENTIAL 11/05/2013 RHONDA SPRINGER DOA K V15.81 PERSONAL HISTORY OF NONCOMPLIANCE WITH MEDICAL TREATMENT PRESENTING HAZARDS TO HEALTH 11/05/2013 RHONDA SPRINGER DOA K V65.3 COUNSELING - DIETARY 11/05/2013 JENN SPRINGER DO K 250.02 DIABETES II UNCONTROLLED (UNCOMPLICATED) 11/05/2013 SPRINGER DO, JENN K 250.60 DIABETES WITH NEUROLOGICAL MANIFESTATIONS TYPE II OR UNSPECIFIED TYPE NOT STATED UNCONTROLLED 11/05/2013 SPRINGER DO, JENN K 338.29 OTHER CHRONIC PAIN 11/05/2013 SPRINGER DO JENN K 401.1 HYPERTENSION, BENIGN ESSENTIAL 11/05/2013 SPRINGER DO, JENN K V15.81 PERSONAL HISTORY OF NONCOMPLIANCE WITH MEDICAL TREATMENT PRESENTING HAZARDS TO HEALTH 11/05/2013 GIAN PEREIRA JENN K V65.3 COUNSELING - DIETARY 11/05/2013 MASOOD FLORENCE DDS 250.02 DIABETES II UNCONTROLLED (UNCOMPLICATED) 11/05/2013 MASOOD FLORENCE DDS 250.60 DIABETES WITH NEUROLOGICAL MANIFESTATIONS TYPE II OR UNSPECIFIED TYPE NOT STATED UNCONTROLLED 11/05/2013 MASOOD FLORENCE DDS 338.29 OTHER CHRONIC PAIN 11/05/2013 MASOOD FLORENCE DDS 401.1 HYPERTENSION, BENIGN ESSENTIAL 11/05/2013 MASOOD FLORENCE DDS V15.81 PERSONAL HISTORY OF NONCOMPLIANCE WITH MEDICAL [...] JENN K 366.9 UNSPECIFIED CATARACT 12/31/2013 SPRINGER DO JENN K 367.0 HYPERMETROPIA 12/31/2013 SPRINGER DO, [...] JENN K 372.03 OTHER MUCOPURULENT CONJUNCTIVITIS 04/02/2014 FLORNECE DDS, MASOOD 372.03 OTHER MUCOPURULENT CONJUNCTIVITIS 04/02/2014 SPRINGER DO, JENN K 372.03 OTHER MUCOPURULENT CONJUNCTIVITIS 03/20/2015 MATTHEW AMAYA [facility] Ot V76.12 03/20/2015 KATLIN FAULKNER MD Ot E11.9 TYPE 2 DIABETES MELLITUS WITHOUT COMPLIC 03/20/2015 KATLIN FAULKNER MD Ot R10.31 RIGHT LOWER QUADRANT PAIN 03/20/2015 KATLIN FAULKNER MD Ot R19.7 DIARRHEA, UNSPECIFIED 03/20/2015 KATLIN FAULKNER MD Ot Z79.4 [facility] (CURRENT) USE OF INSULIN 03/20/2015 MATTHEW AMAYA [facility] Ot V76.12 03/29/2015 Ot E11.9 TYPE 2 DIABETES MELLITUS WITHOUT COMPLIC 03/29/2015 Ot I10 ESSENTIAL ( PRIMARY) HYPERTENSION 03/29/2015 Ot N13.5 CROSSING VESSEL AND STRICTURE OF URETER 03/29/2015 Ot N39.0 URINARY TRACT INFECTION, SITE NOT SPECIF 03/29/2015 Ot R10.9 UNSPECIFIED ABDOMINAL PAIN 03/29/2015 Ot Z79.4 [facility] ( CURRENT) USE OF INSULIN 04/22/2015 MATTHEW AMAYA INSURANCE ACCOUNT EXECUTIVE Ot V76.12 05/02/2015 MATTHEW AMYAA INSURANCE ACCOUNT EXECUTIVE Ot V76.12 05/05/2015 MARK LANDAVERDE, JAIMIE F [...] UPPER ABDOMINAL PAIN, UNSPECIFIED 05/09/2015 MATTHEW AMAYA INSURANCE ACCOUNT EXECUTIVE Ot V76.12 11/27/2015 MATTHEW AMAYA INSURANCE ACCOUNT EXECUTIVE Ot V76.12 OT SCREEN MAMMO-MALIGN NEOPLASM OF DERIK 11/28/2015 SUZE KIM APRN Ot M51.34 OTHER INTERVERTEBRAL DISC DEGENERATION, 12/03/2015 KIM, SUZE R DATA 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 Ot M50.30 OTHER CERVICAL DISC DEGENERATION, UNSP C 12/03/2015 SUZE KIM R DATA 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 Ot M51.16 INTERVERTEBRAL DISC DISORDERS W RADICULO 12/03/2015 SUZE KIM R DATA 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 Ot M51.34 OTHER INTERVERTEBRAL DISC DEGENERATION, 12/03/2015 SUZE KIM R DATA 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 Ot M51.36 OTHER INTERVERTEBRAL DISC DEGENERATION, 12/23/2015 MATTHEW AMAYA INSURANCE ACCOUNT EXECUTIVE Ot V76.12 OT SCREEN MAMMO-MALIGN NEOPLASM OF DERIK 12/23/2015 SUZE KIM R DATA 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 Ot M50.30 OTHER CERVICAL DISC DEGENERATION, UNSP C 12/23/2015 SUZE KIM R DATA 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 Ot M51.16 INTERVERTEBRAL DISC DISORDERS W RADICULO 12/23/2015 SUZE KIM R DATA 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 Ot M51.34 OTHER INTERVERTEBRAL DISC DEGENERATION, 12/23/2015 SUZE KIM R DATA 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 Ot M51.36 OTHER INTERVERTEBRAL DISC DEGENERATION, 12/24/2015 SUZE KIM R DATA 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 Ot M50.30 OTHER CERVICAL DISC DEGENERATION, UNSP C 12/24/2015 SUZE KIM R DATA 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 Ot M51.16 INTERVERTEBRAL DISC DISORDERS W RADICULO 12/24/2015 SUZE KIM R DATA 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 Ot M51.34 OTHER INTERVERTEBRAL DISC DEGENERATION, 12/24/2015 SUZE KIM R DATA 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 Ot M51.36 OTHER INTERVERTEBRAL DISC DEGENERATION, 01/16/2016 SUZE KIM R DATA 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 Ot M50.30 OTHER CERVICAL DISC DEGENERATION, UNSP C 01/16/2016 SUZE KIM R DATA 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 Ot M51.16 INTERVERTEBRAL DISC DISORDERS W RADICULO 01/16/2016 SUZE KIM R DATA 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 Ot M51.34 OTHER INTERVERTEBRAL DISC DEGENERATION, 01/16/2016 SUZE KIM R DATA 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 Ot M51.36 OTHER INTERVERTEBRAL DISC DEGENERATION, 01/16/2016 SUZE KIM R DATA 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 Ot M50.30 OTHER CERVICAL DISC DEGENERATION, UNSP C 01/16/2016 SUZE KIM R DATA 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 Ot M51.16 INTERVERTEBRAL DISC DISORDERS W RADICULO 01/16/2016 SUZE KIM R DATA 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 Ot M51.34 OTHER INTERVERTEBRAL DISC DEGENERATION, 01/16/2016 SUZE KIM R DATA 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 Ot M51.36 OTHER INTERVERTEBRAL DISC DEGENERATION, 01/19/2016 [...] M54.12 RADICULOPATHY, CERVICAL REGION 04/13/2016 MATTHEW AMAYA INSURANCE ACCOUNT EXECUTIVE Ot V76.12 OTH SCREEN MAMMO-MALIGN NEOPLASM OF DERIK 04/13/2016 SUZE KIM APRN Ot M50.30 OTHER CERVICAL DISC DEGENERATION, UNSP C 04/13/2016 SUZE KIM APRN Ot M51.16 INTERVERTEBRAL DISC DISORDERS W RADICULO 04/13/2016 SUZE KIM APRN Ot M51.34 OTHER INTERVERTEBRAL DISC DEGENERATION, 04/13/2016 SUZE KIM APRN Ot M51.36 OTHER INTERVERTEBRAL DISC DEGENERATION, 04/13/2016 ANTHONY URIBE MD, Ot E11.9 TYPE 2 DIABETES MELLITUS WITHOUT COMPLIC 04/13/2016 ANTHONY URIBE MD Ot N39.0 URINARY TRACT INFECTION, SITE NOT SPECIF 04/13/2016 ANTHONY URIBE MD, Ot R30.0 DYSURIA 04/13/2016 ANTHONY URIBE MD, Ot Z79.82 TALENT ACQUISITION PROGRAM MANAGER (CURRENT) USE OF ASPIRIN 04/13/2016 ANTHONY URIBE MD Ot Z79.84 [facility] (CURRENT) USE OF ORAL HYPOGLYC 04/13/2016 ANTHONY URIBE MD Ot Z79.899 OTHER TALENT ACQUISITION PROGRAM MANAGER (CURRENT) DRUG THERAPY 04/14/2016 MATTHEW AMAYA Iza INSURANCE ACCOUNT EXECUTIVE Ot V76.12 OTH SCREEN MAMMO-MALIGN NEOPLASM OF DERIK 04/14/2016 SUZE KIM DATA 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 Ot M50.30 OTHER CERVICAL DISC DEGENERATION, UNSP C 04/14/2016 SUZE KIM DATA 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 Ot M51.16 INTERVERTEBRAL DISC DISORDERS W RADICULO 04/14/2016 SUZE KIM DATA 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 Ot M51.34 OTHER INTERVERTEBRAL DISC DEGENERATION, 04/14/2016 SUZE KIM DATA 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 Ot M51.36 OTHER INTERVERTEBRAL DISC DEGENERATION, 04/15/2016 ANTHONY URIBE MD, Ot E11.9 TYPE 2 DIABETES MELLITUS WITHOUT COMPLIC 04/15/2016 ANTHONY URIBE MD, Ot N39.0 URINARY TRACT INFECTION, SITE NOT SPECIF 04/15/2016 ANTHONY URIBE MD Ot R30.0 DYSURIA 04/15/2016 ANTHONY URIBE MD Ot Z79.82 TALENT ACQUISITION PROGRAM MANAGER (CURRENT) USE OF ASPIRIN 04/15/2016 ANTHONY URIBE MD Ot Z79.84 [facility] (CURRENT) USE OF ORAL HYPOGLYC 04/15/2016 ANTHONY URIBE MD Ot Z79.899 OTHER [facility] (CURRENT) DRUG THERAPY 04/15/2016 LAY MURILLO MD [...] MD, Ot R30.0 DYSURIA 04/19/2016 ANTHONY URIBE MD, Ot Z79.82 [facility] (CURRENT) USE OF ASPIRIN 04/19/2016 ANTHONY URIBE MD, Ot Z79.84 TALENT ACQUISITION PROGRAM MANAGER (CURRENT) USE OF ORAL HYPOGLYC 04/19/2016 ANTHONY URIBE MD, Ot Z79.899 OTHER TALENT ACQUISITION PROGRAM MANAGER (CURRENT) DRUG THERAPY 04/27/2016 LAY MURILLO MD [...] SPINAL STENOSIS, LUMBAR REGION 06/18/2016 MATTHEW AMAYA INSURANCE ACCOUNT EXECUTIVE Ot V76.12 OTH SCREEN MAMMO-MALIGN NEOPLASM OF DERIK 06/18/2016 SUZE KIM DATA 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 Ot M50.30 OTHER CERVICAL DISC DEGENERATION, UNSP C 06/18/2016 SUZE KIM DATA 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 Ot M51.16 INTERVERTEBRAL DISC DISORDERS W RADICULO 06/18/2016 SUZE KIM DATA 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 Ot M51.34 OTHER INTERVERTEBRAL DISC DEGENERATION, 06/18/2016 SUZE KIM DATA 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 Ot M51.36 OTHER INTERVERTEBRAL DISC DEGENERATION, 06/22/2016 RALPH MATIAS MD Ot N12 TUBULO-INTERSTITIAL NEPHRITIS, NOT SPCF 07/01/2016 RALPH MATIAS MD Ot N12 TUBULO-INTERSTITIAL NEPHRITIS, NOT SPCF 07/12/2016 RALPH MATIAS MD Ot N12 TUBULO-INTERSTITIAL NEPHRITIS, NOT SPCF 07/30/2016 RALPH MATIAS MD Ot N12 TUBULO-INTERSTITIAL NEPHRITIS, NOT SPCF 08/31/2016 LAY MURILLO MD Ot Z48.89 ENCOUNTER FOR OTHER SPECIFIED SURGICAL A 08/31/2016 LAY MURILLO MD, Ot Z98.1 ARTHRODESIS STATUS 08/31/2016 LAY MURILLO MD, Ot Z48.89 ENCOUNTER FOR OTHER SPECIFIED SURGICAL A 08/31/2016 LAY MURILLO MD, Ot Z98.1 ARTHRODESIS STATUS 09/08/2016 ADRIA DIALLO APRN Ot E11.9 TYPE 2 DIABETES MELLITUS WITHOUT COMPLIC 09/08/2016 ADRIA DIALLO DATA 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 Ot N30.91 CYSTITIS, UNSPECIFIED WITH HEMATURIA 09/08/2016 ADRIA DIALLO DATA 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 Ot R51 HEADACHE 09/08/2016 ADRIA DIALLO DATA 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 Ot Z79.84 TALENT ACQUISITION PROGRAM MANAGER (CURRENT) USE OF ORAL HYPOGLYC 09/08/2016 ADRIA DIALLO DATA 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 Ot Z79.899 OTHER TALENT ACQUISITION PROGRAM MANAGER (CURRENT) DRUG THERAPY 09/09/2016 ADRIA DIALLO DATA 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 Ot E11.9 TYPE 2 DIABETES MELLITUS WITHOUT COMPLIC 09/09/2016 ADRIA DIALLO DATA 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 Ot N30.91 CYSTITIS, UNSPECIFIED WITH HEMATURIA 09/09/2016 ADRIA DIALLO DATA 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 Ot R51 HEADACHE 09/09/2016 ADRIA DIALLO DATA 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 Ot Z79.84 [facility] (CURRENT) USE OF ORAL HYPOGLYC 09/09/2016 ADRIA DIALLO DATA 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 Ot Z79.899 OTHER [facility] (CURRENT) DRUG THERAPY 09/13/2016 MATTHEW AMAYA INSURANCE ACCOUNT EXECUTIVE Ot V76.12 OTH SCREEN MAMMO-MALIGN NEOPLASM OF DERIK 09/13/2016 SUZE KIM DATA 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 Ot M50.30 OTHER CERVICAL DISC DEGENERATION, UNSP C 09/13/2016 SUZE KIM DATA 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 Ot M51.16 INTERVERTEBRAL DISC DISORDERS W RADICULO 09/13/2016 SUZE KIM DATA 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 Ot M51.34 OTHER INTERVERTEBRAL DISC DEGENERATION, 09/13/2016 SUZE KIM DATA 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 Ot M51.36 OTHER INTERVERTEBRAL DISC DEGENERATION, 09/13/2016 RALPH MATIAS MD Ot N12 TUBULO-INTERSTITIAL NEPHRITIS, NOT SPCF 09/13/2016 RALPH MATIAS MD Ot N12 TUBULO-INTERSTITIAL NEPHRITIS, NOT SPCF 09/13/2016 LAY MURILLO MD, Ot Z48.89 ENCOUNTER FOR OTHER SPECIFIED SURGICAL A 09/13/2016 LAY MURILLO MD, Ot Z98.1 ARTHRODESIS STATUS 09/13/2016 ANTHONY URIBE MD Ot I10 ESSENTIAL (PRIMARY) HYPERTENSION 09/13/2016 ANTHONY URIBE MD Ot R11.2 NAUSEA WITH VOMITING, UNSPECIFIED 09/13/2016 ANTHONY URIBE MD Ot R19.7 DIARRHEA, UNSPECIFIED 09/13/2016 ANTHONY URIBE MD Ot Z79.4 [facility] (CURRENT) USE OF INSULIN 09/13/2016 ANTHONY URIBE MD Ot Z79.84 [facility] (CURRENT) USE OF ORAL HYPOGLYC 09/13/2016 ANTHONY URIBE MD Ot Z79.899 OTHER [facility] (CURRENT) DRUG THERAPY 09/14/2016 ANTHONY URIBE MD Ot I10 ESSENTIAL (PRIMARY) HYPERTENSION 09/14/2016 ANTHONY URIBE MD Ot R11.2 NAUSEA WITH VOMITING, UNSPECIFIED 09/14/2016 ANTHONY URIBE MD Ot R19.7 DIARRHEA, UNSPECIFIED 09/14/2016 ANTHONY URIBE MD Ot Z79.4 TALENT ACQUISITION PROGRAM MANAGER (CURRENT) USE OF INSULIN 09/14/2016 ANTHONY URIBE MD Ot Z79.84 [facility] (CURRENT) USE OF ORAL HYPOGLYC 09/14/2016 ANTHONY URIBE MD Ot Z79.899 OTHER TALENT ACQUISITION PROGRAM MANAGER (CURRENT) DRUG THERAPY 09/15/2016 ANTHONY URIBE MD Ot I10 ESSENTIAL (PRIMARY) HYPERTENSION 09/15/2016 ANTHONY URIBE MD Ot R11.2 NAUSEA WITH VOMITING, UNSPECIFIED 09/15/2016 ANTHONY URIBE MD Ot R19.7 DIARRHEA, UNSPECIFIED 09/15/2016 ANTHONY URIBE MD Ot Z79.4 [facility] (CURRENT) USE OF INSULIN 09/15/2016 ANTHONY URIBE MD Ot Z79.84 [facility] (CURRENT) USE OF ORAL HYPOGLYC 09/15/2016 ANTHONY URIBE MD Ot Z79.899 OTHER [facility] (CURRENT) DRUG THERAPY 09/18/2016 ANTHONY URIBE MD Ot I10 ESSENTIAL (PRIMARY) HYPERTENSION 09/18/2016 ANTHONY URIBE MD Ot R11.2 NAUSEA WITH VOMITING, UNSPECIFIED 09/18/2016 ANTHONY URIBE MD, Ot R19.7 DIARRHEA, UNSPECIFIED 09/18/2016 ANTHONY URIBE MD Ot Z79.4 TALENT ACQUISITION PROGRAM MANAGER (CURRENT) USE OF INSULIN 09/18/2016 ANTHONY URIBE MD Ot Z79.84 [facility] (CURRENT) USE OF ORAL HYPOGLYC 09/18/2016 ANTHONY URIBE MD, Ot Z79.899 OTHER TALENT ACQUISITION PROGRAM MANAGER (CURRENT) DRUG THERAPY 09/24/2016 LAY MURILLO MD [...] GIDDINESS 10/26/2016 HANNAH MCGRATH MD Ot Z79.4 TALENT ACQUISITION PROGRAM MANAGER (CURRENT) USE OF INSULIN 10/26/2016 HANNAH MCGRATH MD Ot Z79.82 [facility] (CURRENT) USE OF ASPIRIN 10/26/2016 HANNAH MCGRATH MD Ot Z79.84 TALENT ACQUISITION PROGRAM MANAGER (CURRENT) USE OF ORAL HYPOGLYC 10/26/2016 HANNAH MCGRATH MD Ot Z79.899 OTHER TALENT ACQUISITION PROGRAM MANAGER (CURRENT) DRUG THERAPY 11/10/2016 ZAID WOODS Ot M48.02 SPINAL STENOSIS, CERVICAL REGION 11/25/2016 ZAID WOODS Ot M48.02 SPINAL STENOSIS, CERVICAL REGION 06/28/2017 HANNAH MCGRATH MD Ot E11.40 TYPE 2 DIABETES MELLITUS WITH DIABETIC N 06/28/2017 HANNAH MCGRATH MD Ot F32.9 MAJOR DEPRESSIVE DISORDER, SINGLE EPISOD 06/28/2017 ALCIDES LANDAVERDE, HANNAH Kline Ot I10 ESSENTIAL (PRIMARY) HYPERTENSION 06/28/2017 HANNAH MCGRATH MD, Ot K21.9 GASTRO-ESOPHAGEAL REFLUX DISEASE WITHOUT 06/28/2017 HANNAH MCGRATH MD, Ot M79.1 MYALGIA 06/28/2017 HANNAH MCGRATH MD Ot R07.89 OTHER CHEST PAIN 06/28/2017 HANNAH MCGRATH MD, Ot Z79.4 [facility] (CURRENT) USE OF INSULIN 06/28/2017 HANNAH MCGRATH MD, Ot Z79.82 [facility] (CURRENT) USE OF ASPIRIN 06/28/2017 HANNAH MCGRATH MD, Ot Z82.49 FAMILY HX OF ISCHEM HEART DIS AND OTH DI 06/28/2017 HANNAH MCGRATH MD, Ot Z87.440 PERSONAL HISTORY OF URINARY (TRACT) INFE 06/28/2017 HANNAH MCGRATH MD, Ot Z87.442 PERSONAL HISTORY OF URINARY CALCULI 06/28/2017 HANNAH MCGRATH MD, Ot Z90.710 ACQUIRED ABSENCE OF BOTH CERVIX AND UTER 06/29/2017 MATTHEW AMAYA INSURANCE ACCOUNT EXECUTIVE Ot V76.12 OTH SCREEN MAMMO-MALIGN NEOPLASM OF DERIK 06/29/2017 SUZE KIM APRN Ot M50.30 OTHER CERVICAL DISC DEGENERATION, UNSP C 06/29/2017 SUZE KIM APRN Ot M51.16 INTERVERTEBRAL DISC DISORDERS W RADICULO 06/29/2017 SUZE KIM APRN Ot M51.34 OTHER INTERVERTEBRAL DISC DEGENERATION, 06/29/2017 SUZE KIM APRN Ot M51.36 OTHER INTERVERTEBRAL DISC DEGENERATION, 06/29/2017 RALPH MATIAS MD Ot N12 TUBULO-INTERSTITIAL NEPHRITIS, NOT SPCF 06/29/2017 RALPH MATIAS MD Ot N12 TUBULO-INTERSTITIAL NEPHRITIS, NOT SPCF 06/29/2017 CHIDI LANDAVERDE, LAY Couch Ot Z48.89 ENCOUNTER FOR OTHER SPECIFIED SURGICAL A 06/29/2017 CHIDI LANDAVERDE, LAY Couch Ot Z98.1 ARTHRODESIS STATUS 06/30/2017 HANNAH MCGRATH MD, Ot E11.40 TYPE 2 DIABETES MELLITUS WITH DIABETIC N 06/30/2017 HANNAH MCGRATH MD Ot F32.9 MAJOR DEPRESSIVE DISORDER, SINGLE EPISOD 06/30/2017 HANNAH MCGRATH MD Ot I10 ESSENTIAL (PRIMARY) HYPERTENSION 06/30/2017 HANNAH MCGRATH MD, Ot K21.9 GASTRO-ESOPHAGEAL REFLUX DISEASE WITHOUT 06/30/2017 HANNAH MCGRATH MD Ot M79.1 MYALGIA 06/30/2017 HANNAH MCGRATH MD Ot R07.89 OTHER CHEST PAIN 06/30/2017 HANNAH MCGRATH MD, Ot Z79.4 [facility] (CURRENT) USE OF INSULIN 06/30/2017 HANNAH MCGRATH MD Ot Z79.82 [facility] (CURRENT) USE OF ASPIRIN 06/30/2017 HANNAH MCGRATH MD Ot Z82.49 FAMILY HX OF ISCHEM HEART DIS AND OTH DI 06/30/2017 HANNAH MCGRATH MD Ot Z87.440 PERSONAL HISTORY OF URINARY (TRACT) INFE 06/30/2017 HANNAH MCGRATH MD Ot Z87.442 PERSONAL HISTORY OF URINARY CALCULI 06/30/2017 HANNAH MCGRATH MD Ot Z90.710 ACQUIRED ABSENCE OF BOTH CERVIX AND UTER 07/04/2017 HANNAH MCGRATH MD, Ot E11.40 TYPE 2 DIABETES MELLITUS WITH DIABETIC N 07/04/2017 HANNAH MCGRATH MD, Ot F32.9 MAJOR DEPRESSIVE DISORDER, SINGLE EPISOD 07/04/2017 HANNAH MCGRATH MD Ot I10 ESSENTIAL (PRIMARY) HYPERTENSION 07/04/2017 HANNAH MCGRATH MD, Ot K21.9 GASTRO-ESOPHAGEAL REFLUX DISEASE WITHOUT 07/04/2017 HANNAH MCGRATH MD Ot M79.1 MYALGIA 07/04/2017 HANNAH MCRGATH MD Ot R07.89 OTHER CHEST PAIN 07/04/2017 HANNAH MCGRATH MD Ot Z79.4 [facility] (CURRENT) USE OF INSULIN 07/04/2017 HANNAH MCGRATH MD Ot Z79.82 TALENT ACQUISITION PROGRAM MANAGER (CURRENT) USE OF ASPIRIN 07/04/2017 ALCIDES LANDAVERDE, HANNAH Kline Ot Z82.49 FAMILY HX OF ISCHEM HEART DIS AND OTH DI 07/04/2017 ALCIDES LANDAVERDE, HANNAH Kline Ot Z87.440 PERSONAL HISTORY OF URINARY (TRACT) INFE 07/04/2017 HANNAH MCGRATH MD Ot Z87.442 PERSONAL HISTORY OF URINARY CALCULI 07/04/2017 HANNAH MCGRATH MD, Ot Z90.710 ACQUIRED ABSENCE OF BOTH CERVIX AND UTER 03/09/2018 MATTHEW AMAYA INSURANCE ACCOUNT EXECUTIVE Ot V76.12 OTH SCREEN MAMMO-MALIGN NEOPLASM OF DERIK 03/09/2018 SUZE KIM APRN Ot M50.30 OTHER CERVICAL DISC DEGENERATION, UNSP C 03/09/2018 SUZE KIM APRN Ot M51.16 INTERVERTEBRAL DISC DISORDERS W RADICULO 03/09/2018 SUZE KIM APRN Ot M51.34 OTHER INTERVERTEBRAL DISC DEGENERATION, 03/09/2018 SUZE KIM APRN Ot M51.36 OTHER INTERVERTEBRAL DISC DEGENERATION, 03/09/2018 POLLY LANDAVERDE, RALPH Malone Ot N12 TUBULO-INTERSTITIAL NEPHRITIS, NOT SPCF 03/09/2018 POLLY LANDAVERDE, RALPH Malone Ot N12 TUBULO-INTERSTITIAL NEPHRITIS, NOT SPCF 03/09/2018 LAY MURILLO MD Ot Z48.89 ENCOUNTER FOR OTHER SPECIFIED SURGICAL A 03/09/2018 CHIDI LANDAVERDE, LAY Couch Ot Z98.1 ARTHRODESIS STATUS 03/19/2018 CRISTINA HARDY DO Ot R19.7 DIARRHEA, UNSPECIFIED 03/19/2018 CRISTINA HARDY DO Ot R19.7 DIARRHEA, UNSPECIFIED 03/22/2018 CRISTINA HARDY DO Ot R19.7 DIARRHEA, UNSPECIFIED 03/22/2018 CRISTINA HARDY DO Ot Z01.818 ENCOUNTER FOR OTHER PREPROCEDURAL EXAMIN 03/22/2018 CRISTINA HARDY DO Ot Z01.818 ENCOUNTER FOR OTHER PREPROCEDURAL EXAMIN 03/22/2018 CRISTINA HARDY DO Ot R19.7 DIARRHEA, UNSPECIFIED 03/22/2018 CRISTINA HARDY DO Ot Z01.818 ENCOUNTER FOR OTHER PREPROCEDURAL EXAMIN 03/22/2018 CRISTINA HARDY DO Ot Z01.818 ENCOUNTER FOR OTHER PREPROCEDURAL EXAMIN 03/23/2018 CRISTINA HARDY DO Ot Z01.818 ENCOUNTER FOR OTHER PREPROCEDURAL EXAMIN Procedures Code Description Performed By Performed On FOOT EXAM PERFORMED 11/05/2013 3008F BODY MASS INDEX DOCD 11/05/2013 58650 EYE EXAM PERFORMED 11/05/2013 49320 MEDICAL NUTRITION INDIV IN 11/05/2013 FOOT EXAM PERFORMED 04/02/2014 46004 A1C (IN-HOUSE) 04/02/2014 31558 CMP 04/02/2014 82607 A1C (IN-HOUSE) 08/02/2014 [id number] EXCISION OF CERVICAL VERTEBRAL JOINT, OP 02/02/2016 [id number] EXCISION OF CERVICAL VERTEBRAL DISC, OPE 02/02/2016 [id number] FUSION 2-6 C JT W INTBD FUS [...] ABO+Rh group OP NRG Transfusion band number [id number] NRG Blood group antibody screen NEGATIVE NRG [...] culture - 04/13/16 09:30 Bacterial urine culture [id number] NRG COLONY COUNT 10,000/ML - 100,000/ML NRG [...] measurement by glucometer (mass/volume) 256 mg/dL 70-110 [id number] - 06/30/16 08:09 Serum or plasma urea [...] 06/28/17 19:02 Myoglobin, serum 35.0 ng/mL 10.0-92.0 CMP - 02/16/18 09:21 GLUCOSE 179 mg/dL 65-99 UREA NITROGEN (BUN) 10 mg/dL 7-25 CREATININE 0.53 mg/dL 0.50-0.99 eGFR NON-AFR. TAJIK 98 mL/min/1.73m2 > OR=60 eGFR 114 mL/min/1.73m2 > OR=60 BUN/CREATININE RATIO NOT APPLICABLE (calc) 6-22 SODIUM 138 mmol/L 135-146 POTASSIUM 4.4 mmol/L 3.5-5.3 CHLORIDE 103 mmol/L 98-110 CARBON DIOXIDE 30 mmol/L 20-32 CALCIUM 9.7 mg/dL 8.6-10.4 PROTEIN, TOTAL 6.5 g/dL 6.1-8.1 ALBUMIN 4.3 g/dL 3.6-5.1 GLOBULIN 2.2 g/dL (calc) 1.9-3.7 ALBUMIN/GLOBULIN RATIO 2.0 (calc) 1.0-2.5 BILIRUBIN, TOTAL 0.5 mg/dL 0.2-1.2 ALKALINE PHOSPHATASE 76 U/L 33-130 AST 16 U/L 10-35 ALT 15 U/L 6-29 Stool occult blood screen - 03/16/18 10:00 Stool gastrointestinal hemoglobin detection POSITIVE NEGATIVE C DIFFICILE AG + TOXIN A/B. - 03/16/18 10:00 RESULTS NEGATIVE FOR ANTIGEN AND TOXIN A/B [facility] [id number] - 03/16/18 10:00 [id number] SEE COMMEN NRG QUANTITY OF GROWTH . [facility] Stool bacteria identification by culture - 03/16/18 10:00 QUANTITY OF GROWTH . [facility] Stool bacteria identification by culture SEE REPORT NRG NEGATIVE FOR 0157 NEGATIVE FOR E COLI 0157 NRG NEGATIVE FOR CAMPY NEGATIVE FOR CAMPYLOBACTER NRG NEGATIVE FOR SHIGELLA NEGATIVE FOR SHIGELLA NRG NEGATIVE FOR SALMONELLA NEGATIVE FOR SALMONELLA NRG VITAMIN D, 25-H - 09/12/18 12:38 VITAMIN D,25-OH,TOTAL,IA 44 ng/mL 30-100 Encounters ACCT No. Visit Date/Time Discharge Status Pt. Type Provider Facility Loc./Unit Complaint [id number] 08/02/2014 15:41:00 08/02/2014 23:59:59 CLS Outpatient JENN SPRINGER DO [id number] 07/04/2014 00:00:00 07/04/2014 23:59:59 CLS Outpatient MASOOD FLORENCE DDS [id number] 04/02/2014 11:25:00 04/02/2014 23:59:59 CLS Outpatient JENN SPRINGER DO [id number] 12/14/2013 09:56:00 12/14/2013 23:59:59 CLS Outpatient JENN SPRINGER DO [id number] 11/05/2013 12:39:00 11/05/2013 23:59:59 CLS Outpatient JENN SPRINGER DO [id number] 03/28/2018 10:15:00 03/28/2018 23:59:59 CLS Preadmit CRISTINA HARDY DO [facility] ENDO SCREENING [id number] 03/22/2018 15:00:00 03/22/2018 15:11:00 DIS Outpatient CRISTINA HARDY DO [facility] PREOP COLONOSCOPY [id number] 03/20/2018 01:50:00 03/20/2018 23:59:59 CLS Preadmit CRISTINA HARDY DO [facility] LAB LOOSE STOOL [id number] 03/20/2018 01:35:00 03/20/2018 23:59:59 CLS Preadmit CRISTINA HARDY DO [facility] LAB LOOSE STOOLS [id number] 03/16/2018 10:03:00 03/19/2018 00:01:00 DIS Outpatient CRISTINA HARDY DO [facility] LAB LOOSE STOOL [id number] 03/09/2018 11:14:00 03/19/2018 00:01:00 DIS Outpatient CRISTINA HARDY DO [facility] LAB LOOSE STOOLS [id number] 06/28/2017 17:26:00 06/28/2017 20:47:00 DIS Emergency HANNAH MCGRATH MD [facility] ER UPPER BACK PAIN [id number] 10/21/2016 09:30:00 11/25/2016 09:35:00 DIS Outpatient ZAID WOODS [facility] REHAB CERVICAL LUMBAR STENOSIS W/ RADICULOPATHY;S/PL3-5 [id number] 10/26/2016 18:06:00 10/26/2016 22:06:00 DIS Emergency HANNAH MCGRATH MD [facility] ER HEADACHE/HEARTBURN/ STOMACH PAIN [id number] 09/13/2016 13:12:00 09/13/2016 17:22:00 DIS Emergency ANTHONY URIBE MD [facility] ER VOMITING/DIARRHEA [id number] 09/08/2016 16:50:00 09/08/2016 18:49:00 DIS Emergency ADRIA DIALLO APRN [facility] ER HEADACHE [id number] 08/30/2016 11:38:00 08/30/2016 23:59:59 CLS Outpatient LAY MURILLO MD [facility] RAD POST FUSION Z48.81 [id number] 06/30/2016 08:00:00 06/30/2016 23:59:59 CLS Outpatient RALPH MATIAS MD [facility] RAD PYELONEPHRITIS [id number] 06/18/2016 10:33:00 06/18/2016 23:59:59 CLS Outpatient RALPH MATIAS MD [facility] RAD RIGHT PYELONEPHRITIS [id number] 04/26/2016 07:30:00 04/27/2016 13:19:00 DIS Outpatient LAY MURILLO MD [facility] SDC SPINAL STENOSIS [id number] 04/15/2016 09:40:00 04/15/2016 10:05:00 DIS Outpatient LAY MURILLO MD [facility] PREOP SPINAL STENOSIS [id number] 04/13/2016 09:12:00 04/13/2016 11:24:00 DIS Emergency ANTHONY URIBE MD [facility] ER ABD PAIN/HEADACHE LOSS OF BLADDER CONTROL [id number] 02/02/2016 05:59:00 02/04/2016 13:20:00 DIS Inpatient LAY MURILLO MD [facility] 4TH STENOSIS [id number] 01/19/2016 13:46:00 01/19/2016 16:08:00 DIS Outpatient LAY MURILLO MD [facility] PREOP STENOSIS [id number] 11/27/2015 15:44:00 11/27/2015 23:59:59 CLS Outpatient SUZE KIM DATA 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 [facility] RAD RADICULOPATHY, DDD [id number] 05/09/2015 17:40:00 05/09/2015 21:07:00 DIS Emergency ALCIDES LANDAVERDE, HANNAH Kline [facility] ER TINGLING IN LT ARM AND ABD PAIN [id number] 05/02/2015 04:33:00 05/05/2015 16:56:00 DIS Inpatient MARK LANDAVERDE, JAIMIE Morin [facility] 4TH [id number] 03/20/2015 17:07:00 03/20/2015 20:00:00 DIS Emergency LUCIE LANDAVERDE, KATLIN Field [facility] ER ABD PAIN,DIARRHEA [id number] 10/15/2013 11:48:00 10/15/2013 13:31:00 DIS Emergency ADRIA DIALLO DATA 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 [facility] ER HIGH BLOOD SUGAR [id number] 10/10/2013 14:44:00 10/10/2013 23:59:59 CLS Outpatient MATTHEW 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
[2018-11-03] MEDS: TETRACAINE 0.5% OPHTH SOLN 4 ML BTL (SINGLE DOSE ONLY) OU PRN ×4 (08:12→08:32)
[2018-11-03 08:15] VITALS: BP 158/78
[2018-11-03] MEDS: PHENYLEPHRINE 10% OPHTH (NEO-SYN) 5 ML BTL OU SCH ×3 (08:19→08:32)
[2018-11-03] MEDS: CYCLOPENTOLATE 1% (CYCLOGYL) 2 ML DROPS OP SCH ×3 (08:19→08:32)
[2018-11-03] MEDS ORDERED: MIDAZOLAM 2 MG/2 ML (VERSED) VIAL ONE (08:28)
[2018-11-03] MEDS ORDERED: MIDAZOLAM 2 MG/2 ML (VERSED) VIAL IV ONE (08:30)
--- NOTE | 2018-11-03 08:43 | Ophthalmologist Pre-Op Note ---
Pre-Operative Progress Note H&P Reviewed The H&P was reviewed, patient examined and no changes noted. Date H&P Reviewed: November 03, 2018 Time H&P Reviewed: 08:42 Pre-Op Dx Cataract, Right Eye KENNETH MELENDEZ MD November 03, 2018 08:43
--- NOTE | 2018-11-03 09:07 | Ophthalmology Operative Report ---
Cataract removal/placement IOL PREOPERATIVE DIAGNOSIS: Cataract Right Eye POSTOPERATIVE DIAGNOSIS: Cataract Right Eye PROCEDURE: Cataract removal and placement of posterior chamber implant, right eye SURGEON: Jim Melendez ANESTHESIA: Topical with sedation COMPLICATIONS: None ESTIMATED BLOOD LOSS: Minimal DESCRIPTION OF PROCEDURE: After proper informed consent was obtained, the patient, a 68 female, was taken to the Operating Room and the right eye was anesthetized with tetracaine. The right eye was then prepped and draped in the usual manner. A wire lid speculum was placed. A paracentesis was made at the left hand position. Preservative free lidocaine was injected into the anterior chamber followed by viscoelastic. A clear corneal incision was made in the temporal position. A capsulorrhexis was preformed and the central nuclear and cortical material were removed. The posterior capsule was polished and Yordy 20.0 AU00T0 IOL was placed into the capsular bag. The residual viscoelastic was aspirated and balanced saline solution was injected into the anterior chamber. Moxifloxacin was injected into the anterior chamber. The wound was checked and found to be water tight. The patient tolerated the procedure well without complications. JIM MELENDEZ MD November 03, 2018 09:07
[2018-11-03 09:17] VITALS: BP 120/88
[2018-11-03] MEDS ORDERED: acetaZOLAMIDE ER 500 MG CAP (DIAMOX SEQUELS) PO ONE (09:30)
--- NOTE | 2018-11-03 13:14 | Anesthesia-General Post-Op ---
MAC Patient Condition Mental Status/LOC: Same as Preop Cardiovascular: Satisfactory Nausea/Vomiting: Absent Respiratory: Satisfactory Pain: Controlled Complications: Absent Post Op Complications Complications None Follow Up Care/Instructions Patient Instructions None needed. Anesthesiology Discharge Order Discharge Order Patient was seen after the procedure and she was doing well, no complaints, stable vital signs, no apparent adverse anesthesia problems. BENSON ZHANG DO November 03, 2018 13:14
== END 2018-11-03 09:17 | disposition home or self-care (01) ==
LOC: SDC 07:55
PROVIDERS: ATTEND Specialist
DX: H25.11 Age-related nuclear cataract, right eye (principal); E11.36 Type 2 diabetes mellitus with diabetic cataract; I10 Essential (primary) hypertension; K21.9 Gastro-esophageal reflux disease without esophagitis; F32.9 Major depressive disorder, single episode, unspecified; Z79.82 Long term (current) use of aspirin; Z79.4 Long term (current) use of insulin; Z79.899 Other long term (current) drug therapy
CPT/HCPCS: 82962

== ENCOUNTER 2018-11-22 05:57 | Outpatient (CLI) | payer MEDICARE, MEDICAID ==
[~2018-11-22 05:57] MED LIST changes: -TRAZ-189 PO; +TRAZ-222 PO
== END 2018-11-22 16:19 | disposition home or self-care (01) ==
LOC: PREOP 05:57
PROVIDERS: ATTEND Specialist
DX: Z01.818 Encounter for other preprocedural examination (principal)

== ENCOUNTER 2018-11-24 08:20 | Day surgery (SDC) | payer MEDICARE, MEDICAID ==
[~2018-11-24] VITALS: Ht 175.3 cm; Wt 90.8 kg
[2018-11-24] MEDS ORDERED: TIMOLOL MALEATE 0.5% 5 ML (TIMOPTIC) BTL OU PRN (08:30)
[2018-11-24] MEDS ORDERED: MOXIFLOXACIN OPHTH SOLN 5 MG/ML 0.3 ML SYRINGE OP ONE (08:30)
[2018-11-24] MEDS ORDERED: POVIDONE (BETADINE) OPHTH SOLN 5% 30 ML OP ONE (08:30)
[2018-11-24] MEDS ORDERED: LIDOCAINE PF 1% 2 ML AMP IR PRN (08:30)
[2018-11-24] MEDS: TETRACAINE 0.5% OPHTH SOLN 4 ML BTL (SINGLE DOSE ONLY) OU PRN ×4 (08:31→08:56)
[2018-11-24] MEDS: PHENYLEPHRINE 10% OPHTH (NEO-SYN) 5 ML BTL OU SCH ×3 (08:44→08:56)
[2018-11-24] MEDS: CYCLOPENTOLATE 1% (CYCLOGYL) 2 ML DROPS OP SCH ×3 (08:44→08:56)
[2018-11-24 08:50] VITALS: BP 133/81
--- NOTE | 2018-11-24 09:19 | Ophthalmologist Pre-Op Note ---
Pre-Operative Progress Note H&P Reviewed The H&P was reviewed, patient examined and no changes noted. Date H&P Reviewed: Nov 24, 2018 Time H&P Reviewed: 09:19 Pre-Op Dx Cataract, Left Eye KENNETH MELENDEZ MD Nov 24, 2018 09:19
[2018-11-24] MEDS ORDERED: MIDAZOLAM 2 MG/2 ML (VERSED) VIAL ONE (09:22)
--- NOTE | 2018-11-24 09:43 | Ophthalmology Operative Report ---
Cataract removal/placement IOL PREOPERATIVE DIAGNOSIS: Cataract Left Eye POSTOPERATIVE DIAGNOSIS: Cataract Left Eye PROCEDURE: Cataract removal and placement of posterior chamber implant, left eye SURGEON: Jim Melendez ANESTHESIA: Topical with sedation COMPLICATIONS: None ESTIMATED BLOOD LOSS: Minimal DESCRIPTION OF PROCEDURE: After proper informed consent was obtained, the patient, a 68 female, was taken to the Operating Room and the left eye was anesthetized with tetracaine. The left eye was then prepped and draped in the usual manner. A wire lid speculum was placed. A paracentesis was made at the left hand position. Preservative free lidocaine was injected into the anterior chamber followed by viscoelastic. A clear corneal incision was made in the temporal position. A capsulorrhexis was preformed and the central nuclear and cortical material were removed. The posterior capsule was polished and an Yordy 20.5 AU00T0 was placed into the capsular bag. The residual viscoelastic was aspirated and balanced saline solution was injected into the anterior chamber. Moxifloxacin was injected into the anterior chamber. The wound was checked and found to be water tight. The patient tolerated the procedure well without complications. JIM MELENDEZ MD Nov 24, 2018 09:43
[2018-11-24 09:55] VITALS: BP 146/69
[2018-11-24] MEDS ORDERED: acetaZOLAMIDE ER 500 MG CAP (DIAMOX SEQUELS) PO ONE (10:00)
--- NOTE | 2018-11-24 10:27 | Anesthesia-General Post-Op ---
MAC Patient Condition Mental Status/LOC: Same as Preop Cardiovascular: Satisfactory Nausea/Vomiting: Absent Respiratory: Satisfactory Pain: Controlled Complications: Absent Post Op Complications Complications None Follow Up Care/Instructions Patient Instructions None needed. Anesthesiology Discharge Order Discharge Order Patient is doing well, no complaints, stable vital signs, no apparent adverse anesthesia problems. No complications reported per nursing. JERRICA CHENG CRNA Nov 24, 2018 10:27
--- OUTSIDE RECORDS SUMMARY | 2018-11-24 13:29 | XMS REPORT | Continuity of Care Document ---
Author Organization Unknown Address Unknown Allergies Active Description Code Type Severity Reaction Onset Reported/Identified Relationship to Patient Clinical Status Yes metformin 500 mg tablet Drug Allergy N/A N/A 11/05/2013 Yes No Known Drug Allergies [id number] Drug Allergy Unknown N/A 03/22/2018 Medications There [...] FLORENCE DDS, MASOOD 367.20 ASTIGMATISM UNSPECIFIED 12/31/2013 FLROENCE DDS, MASOOD 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 12/31/2013 SPRINGER DO, [...] 372.03 OTHER MUCOPURULENT CONJUNCTIVITIS 03/20/2015 MATTHEW AMAYA [facility] Ot V76.12 03/20/2015 KATLIN FAULKNER MD Ot E11.9 TYPE 2 DIABETES MELLITUS WITHOUT COMPLIC 03/20/2015 KATLIN FAULKNER MD Ot R10.31 RIGHT LOWER QUADRANT PAIN 03/20/2015 KATLIN FAULKNER MD Ot R19.7 DIARRHEA, UNSPECIFIED 03/20/2015 KATLIN FAULKNER MD Ot Z79.4 ASSISTED (CURRENT) USE OF INSULIN 03/20/2015 MATTHEW AMAYA [facility] Ot V76.12 03/29/2015 Ot E11.9 TYPE 2 DIABETES MELLITUS WITHOUT COMPLIC 03/29/2015 Ot I10 ESSENTIAL (PRIMARY) HYPERTENSION 03/29/2015 Ot N13.5 CROSSING VESSEL AND STRICTURE OF URETER 03/29/2015 Ot N39.0 URINARY TRACT INFECTION, SITE NOT SPECIF 03/29/2015 Ot R10.9 UNSPECIFIED ABDOMINAL PAIN 03/29/2015 Ot Z79.4 CNA (CURRENT) USE OF INSULIN 04/22/2015 MATTHEW AMAYA [facility] Ot V76.12 05/02/2015 [facility]W AMA[facility] Ot V76.12 05/05/2015 MARK LANDAVERDE, JAIMIE F [...] UPPER ABDOMINAL PAIN, UNSPECIFIED 05/09/2015 MAT[facility]W AMAYA [facility] Ot V76.12 11/27/2015 [facility] A[facility] Ot V76.12 OT SCREEN MAMMO-MALIGN NEOPLASM OF DERIK 11/28/2015 SUZE KIM APRN Ot M51.34 OTHER INTERVERTEBRAL DISC DEGENERATION, 12/03/2015 KIM, SUZE R INVENTORY MANAGER Ot M50.30 OTHER CERVICAL DISC DEGENERATION, UNSP C 12/03/2015 SUZE KIM R INVENTORY MANAGER Ot M51.16 INTERVERTEBRAL DISC DISORDERS W RADICULO 12/03/2015 SUZE KIM R INVENTORY MANAGER Ot M51.34 OTHER INTERVERTEBRAL DISC DEGENERATION, 12/03/2015 SUZE KIM R INVENTORY MANAGER Ot M51.36 OTHER INTERVERTEBRAL DISC DEGENERATION, 12/23/2015 [facility] Ot V76.12 OT SCREEN MAMMO-MALIGN NEOPLASM OF DERIK 12/23/2015 SUZE KIM R INVENTORY MANAGER Ot M50.30 OTHER CERVICAL DISC DEGENERATION, UNSP C 12/23/2015 SUZE KIM R INVENTORY MANAGER Ot M51.16 INTERVERTEBRAL DISC DISORDERS W RADICULO 12/23/2015 SUZE KIM R INVENTORY MANAGER Ot M51.34 OTHER INTERVERTEBRAL DISC DEGENERATION, 12/23/2015 SUZE KIM R INVENTORY MANAGER Ot M51.36 OTHER INTERVERTEBRAL DISC DEGENERATION, 12/24/2015 SUZE KIM R INVENTORY MANAGER Ot M50.30 OTHER CERVICAL DISC DEGENERATION, UNSP C 12/24/2015 SUZE KIM R INVENTORY MANAGER Ot M51.16 INTERVERTEBRAL DISC DISORDERS W RADICULO 12/24/2015 SUZE KIM R INVENTORY MANAGER Ot M51.34 OTHER INTERVERTEBRAL DISC DEGENERATION, 12/24/2015 SUZE KIM R INVENTORY MANAGER Ot M51.36 OTHER INTERVERTEBRAL DISC DEGENERATION, 01/16/2016 SUZE KIM R INVENTORY MANAGER Ot M50.30 OTHER CERVICAL DISC DEGENERATION, UNSP C 01/16/2016 SUZE KIM R INVENTORY MANAGER Ot M51.16 INTERVERTEBRAL DISC DISORDERS W RADICULO 01/16/2016 SUZE KIM R INVENTORY MANAGER Ot M51.34 OTHER INTERVERTEBRAL DISC DEGENERATION, 01/16/2016 SUZE KIM R INVENTORY MANAGER Ot M51.36 OTHER INTERVERTEBRAL DISC DEGENERATION, 01/16/2016 SUZE KIM R INVENTORY MANAGER Ot M50.30 OTHER CERVICAL DISC DEGENERATION, UNSP C 01/16/2016 SUZE KIM R INVENTORY MANAGER Ot M51.16 INTERVERTEBRAL DISC DISORDERS W RADICULO 01/16/2016 SUZE KIM R INVENTORY MANAGER Ot M51.34 OTHER INTERVERTEBRAL DISC DEGENERATION, 01/16/2016 SUZE KIM R INVENTORY MANAGER Ot M51.36 OTHER INTERVERTEBRAL DISC DEGENERATION, 01/19/2016 [...] M54.12 RADICULOPATHY, CERVICAL REGION 04/13/2016 MATTHEW AMAYA [facility] OFFIC[facility] Ot V76.12 OTH SCREEN MAMMO-MALIGN NEOPLASM OF [...] DYSURIA 04/13/2016 ANTHONY URIBE MD, Ot Z79.82 CNA (CURRENT) USE OF ASPIRIN 04/13/2016 ANTHONY URIBE MD Ot Z79.84 CNA (CURRENT) USE OF ORAL HYPOGLYC 04/13/2016 ANTHONY URIBE MD Ot Z79.899 OTHER ASSISTED (CURRENT) DRUG THERAPY 04/14/2016 [facility]THEW AMAYA [facility] Ot V76.12 OTH SCREEN MAMMO-MALIGN NEOPLASM OF DERIK 04/14/2016 SUZE KIM INVENTORY MANAGER Ot M50.30 OTHER CERVICAL DISC DEGENERATION, UNSP C 04/14/2016 SUZE KIM INVENTORY MANAGER Ot M51.16 INTERVERTEBRAL DISC DISORDERS W RADICULO 04/14/2016 SUZE KIM INVENTORY MANAGER Ot M51.34 OTHER INTERVERTEBRAL DISC DEGENERATION, 04/14/2016 SUZE KIM INVENTORY MANAGER Ot M51.36 OTHER INTERVERTEBRAL DISC DEGENERATION, 04/15/2016 ANTHONY URIBE MD, Ot E11.9 TYPE 2 DIABETES MELLITUS WITHOUT COMPLIC 04/15/2016 ANTHONY URIBE MD, Ot N39.0 URINARY TRACT INFECTION, SITE NOT SPECIF 04/15/2016 ANTHONY URIBE MD Ot R30.0 DYSURIA 04/15/2016 ANTHONY URIBE MD Ot Z79.82 CNA (CURRENT) USE OF ASPIRIN 04/15/2016 ANTHONY URIBE MD Ot Z79.84 ASSISTED (CURRENT) USE OF ORAL HYPOGLYC 04/15/2016 ANTHONY URIBE MD Ot Z79.899 OTHER CNA (CURRENT) DRUG THERAPY 04/15/2016 LAY MURILLO MD [...] DYSURIA 04/19/2016 ANTHONY URIBE MD, Ot Z79.82 CNA (CURRENT) USE OF ASPIRIN 04/19/2016 ANTHONY URIBE MD, Ot Z79.84 CNA (CURRENT) USE OF ORAL HYPOGLYC 04/19/2016 ANTHONY URIBE MD, Ot Z79.899 OTHER ASSISTED (CURRENT) DRUG THERAPY 04/27/2016 LAY MURILLO MD [...] SPINAL STENOSIS, LUMBAR REGION 06/18/2016 [facility] AMA[facility] OFFIC[facility] Ot V76.12 OTH SCREEN MAMMO-MALIGN NEOPLASM OF DERIK 06/18/2016 SUZE KIM INVENTORY MANAGER Ot M50.30 OTHER CERVICAL DISC DEGENERATION, UNSP C 06/18/2016 SUZE KIM INVENTORY MANAGER Ot M51.16 INTERVERTEBRAL DISC DISORDERS W RADICULO 06/18/2016 SUZE KIM INVENTORY MANAGER Ot M51.34 OTHER INTERVERTEBRAL DISC DEGENERATION, 06/18/2016 SUZE KIM INVENTORY MANAGER Ot M51.36 OTHER INTERVERTEBRAL DISC DEGENERATION, 06/22/2016 [...] DIABETES MELLITUS WITHOUT COMPLIC 09/08/2016 ADRIA DIALLO INVENTORY MANAGER Ot N30.91 CYSTITIS, UNSPECIFIED WITH HEMATURIA 09/08/2016 ADRIA DIALLO INVENTORY MANAGER Ot R51 HEADACHE 09/08/2016 ADRIA DIALLO INVENTORY MANAGER Ot Z79.84 ASSISTED (CURRENT) USE OF ORAL HYPOGLYC 09/08/2016 ADRIA DIALLO INVENTORY MANAGER Ot Z79.899 OTHER CNA (CURRENT) DRUG THERAPY 09/09/2016 ADRIA DIALLO INVENTORY MANAGER Ot E11.9 TYPE 2 DIABETES MELLITUS WITHOUT COMPLIC 09/09/2016 ADRIA DIALLO INVENTORY MANAGER Ot N30.91 CYSTITIS, UNSPECIFIED WITH HEMATURIA 09/09/2016 ADRIA DIALLO INVENTORY MANAGER Ot R51 HEADACHE 09/09/2016 ADRIA DIALLO INVENTORY MANAGER Ot Z79.84 CNA (CURRENT) USE OF ORAL HYPOGLYC 09/09/2016 ADRIA DIALLO INVENTORY MANAGER Ot Z79.899 OTHER ASSISTED (CURRENT) DRUG THERAPY 09/13/2016 [facility] AMAYA [facility] OFFIC[facility] Ot V76.12 OTH SCREEN MAMMO-MALIGN NEOPLASM OF DERIK 09/13/2016 SUZE KIM INVENTORY MANAGER Ot M50.30 OTHER CERVICAL DISC DEGENERATION, UNSP C 09/13/2016 SUZE KIM INVENTORY MANAGER Ot M51.16 INTERVERTEBRAL DISC DISORDERS W RADICULO 09/13/2016 SUZE KIM INVENTORY MANAGER Ot M51.34 OTHER INTERVERTEBRAL DISC DEGENERATION, 09/13/2016 SUZE KIM INVENTORY MANAGER Ot M51.36 OTHER INTERVERTEBRAL DISC DEGENERATION, 09/13/2016 [...] UNSPECIFIED 09/13/2016 ANTHONY URIBE MD Ot Z79.4 CNA (CURRENT) USE OF INSULIN 09/13/2016 ANTHONY URIBE MD Ot Z79.84 CNA (CURRENT) USE OF ORAL HYPOGLYC 09/13/2016 ANTHONY URIBE MD Ot Z79.899 OTHER CNA (CURRENT) DRUG THERAPY 09/14/2016 ANTHONY URIBE MD Ot I10 ESSENTIAL (PRIMARY) HYPERTENSION 09/14/2016 ANTHONY URIBE MD Ot R11.2 NAUSEA WITH VOMITING, UNSPECIFIED 09/14/2016 ANTHONY URIBE MD Ot R19.7 DIARRHEA, UNSPECIFIED 09/14/2016 ANTHONY URIBE MD Ot Z79.4 ASSISTED (CURRENT) USE OF INSULIN 09/14/2016 ANTHONY URIBE MD Ot Z79.84 ASSISTED (CURRENT) USE OF ORAL HYPOGLYC 09/14/2016 ANTHONY URIBE MD Ot Z79.899 OTHER ASSISTED (CURRENT) DRUG THERAPY 09/15/2016 ANTHONY URIBE MD Ot I10 ESSENTIAL (PRIMARY) HYPERTENSION 09/15/2016 ANTHONY URIBE MD Ot R11.2 NAUSEA WITH VOMITING, UNSPECIFIED 09/15/2016 ANTHONY URIBE MD Ot R19.7 DIARRHEA, UNSPECIFIED 09/15/2016 ANTHONY URIBE MD Ot Z79.4 CNA (CURRENT) USE OF INSULIN 09/15/2016 ANTHONY URIBE MD Ot Z79.84 CNA (CURRENT) USE OF ORAL HYPOGLYC 09/15/2016 ANTHONY URIBE MD Ot Z79.899 OTHER CNA (CURRENT) DRUG THERAPY 09/18/2016 ANTHONY URIBE MD Ot I10 ESSENTIAL (PRIMARY) HYPERTENSION 09/18/2016 ANTHONY URIBE MD Ot R11.2 NAUSEA WITH VOMITING, UNSPECIFIED 09/18/2016 ANTHONY URIBE MD, Ot R19.7 DIARRHEA, UNSPECIFIED 09/18/2016 ANTHONY URIBE MD Ot Z79.4 CNA (CURRENT) USE OF INSULIN 09/18/2016 ANTHONY URIEB MD Ot Z79.84 ASSISTED (CURRENT) USE OF ORAL HYPOGLYC 09/18/2016 ANTHONY URIBE MD, Ot Z79.899 OTHER ASSISTED (CURRENT) DRUG THERAPY 09/24/2016 LAY MURILLO MD [...] GIDDINESS 10/26/2016 HANNAH MCGRATH MD Ot Z79.4 ASSISTED (CURRENT) USE OF INSULIN 10/26/2016 HANNAH MCGRATH MD Ot Z79.82 ASSISTED (CURRENT) USE OF ASPIRIN 10/26/2016 HANNAH MCGRATH MD Ot Z79.84 CNA (CURRENT) USE OF ORAL HYPOGLYC 10/26/2016 HANNAH MCGRATH MD Ot Z79.899 OTHER ASSISTED (CURRENT) DRUG THERAPY 11/10/2016 ZAID WOODS Ot [...] PAIN 06/28/2017 HANNAH MCGRATH MD, Ot Z79.4 ASSISTED (CURRENT) USE OF INSULIN 06/28/2017 HANNAH MCGRATH MD, Ot Z79.82 ASSISTED (CURRENT) USE OF ASPIRIN 06/28/2017 HANNAH MCGRATH MD, Ot Z82.49 FAMILY HX OF ISCHEM HEART DIS AND OTH DI 06/28/2017 HANNAH MCGRATH MD, Ot Z87.440 PERSONAL HISTORY OF URINARY (TRACT) INFE 06/28/2017 HANNAH MCGRATH MD, Ot Z87.442 PERSONAL HISTORY OF URINARY CALCULI 06/28/2017 HANNAH MCGRATH MD, Ot Z90.710 ACQUIRED ABSENCE OF BOTH CERVIX AND UTER 06/29/2017 [facility] A[facility] OFF[facility] Ot V76.12 OTH SCREEN MAMMO-MALIGN NEOPLASM OF [...] PAIN 06/30/2017 HANNAH MCGRATH MD, Ot Z79.4 CNA (CURRENT) USE OF INSULIN 06/30/2017 HANNAH MCGRATH MD Ot Z79.82 ASSISTED (CURRENT) USE OF ASPIRIN 06/30/2017 HANNAH MCGRATH [...] MCGRATH MD Ot M79.1 MYALGIA 07/04/2017 HANNAH MCGRATH MD Ot R07.89 OTHER CHEST PAIN 07/04/2017 HANNAH MCGRATH MD Ot Z79.4 CNA (CURRENT) USE OF INSULIN 07/04/2017 HANNAH MCGRATH MD Ot Z79.82 ASSISTED (CURRENT) USE OF ASPIRIN 07/04/2017 ALCIDES LANDAVERDE, HANNAH Kline Ot Z82.49 FAMILY HX OF ISCHEM HEART DIS AND OTH DI 07/04/2017 ALCIDES LANDAVERDE, HANNAH Kline Ot Z87.440 PERSONAL HISTORY OF URINARY (TRACT) INFE 07/04/2017 HANNAH MCGRATH MD Ot Z87.442 PERSONAL HISTORY OF URINARY CALCULI 07/04/2017 HANNAH MCGRATH MD, Ot Z90.710 ACQUIRED ABSENCE OF BOTH CERVIX AND UTER 03/09/2018 [facility] A[facility] OFFIC[facility] Ot V76.12 OTH SCREEN MAMMO-MALIGN NEOPLASM OF [...] Ot Z01.818 ENCOUNTER FOR OTHER PREPROCEDURAL EXAMIN 11/02/2018 KENNETH MELENDEZ MD, Ot Z01.818 ENCOUNTER FOR OTHER PREPROCEDURAL EXAMIN 11/08/2018 KENNETH MELENDEZ MD Ot E11.36 TYPE 2 DIABETES MELLITUS WITH DIABETIC C 11/08/2018 KENNETH MELENDEZ MD, Ot F32.9 MAJOR DEPRESSIVE DISORDER, SINGLE EPISOD 11/08/2018 KENNETH MELENDEZ MD, Ot H25.11 AGE-RELATED NUCLEAR CATARACT, RIGHT EYE 11/08/2018 KENNETH MELENDEZ MD, Ot I10 ESSENTIAL (PRIMARY) HYPERTENSION 11/08/2018 KENNETH MELENDEZ MD, Ot K21.9 GASTRO-ESOPHAGEAL REFLUX DISEASE WITHOUT 11/08/2018 KENNETH MELENDEZ MD, Ot Z79.4 ASSISTED (CURRENT) USE OF INSULIN 11/08/2018 KENNETH MELENDEZ MD, Ot Z79.82 ASSISTED (CURRENT) USE OF ASPIRIN 11/08/2018 KENNETH MELENDEZ MD, Ot Z79.899 OTHER CNA (CURRENT) DRUG THERAPY Procedures Code Description Performed By Performed On FOOT EXAM PERFORMED 11/05/2013 3008F BODY MASS INDEX DOCD 11/05/2013 34979 EYE EXAM PERFORMED 11/05/2013 94396 MEDICAL NUTRITION INDIV IN 11/05/2013 FOOT EXAM PERFORMED 04/02/2014 31843 A1C (IN-HOUSE) 04/02/2014 82217 CMP 04/02/2014 79599 A1C (IN-HOUSE) 08/02/2014 [id number] EXCISION OF CERVICAL VERTEBRAL JOINT, OP 02/02/2016 [id number] EXCISION OF CERVICAL VERTEBRAL DISC, OPE 02/02/2016 [id number] FUSION 2-6 C JT W INTBD FUS DEV, ANT ANGELINE 02/02/2016 Results Test Result Range Methicillin resistant Staphylococcus aureus (MRSA) screening culture - 01/19/16 14:30 Methicillin resistant Staphylococcus aureus (MRSA) screening [...] Automated erythrocyte mean corpuscular hemoglobin concentration measurement (mass/volume) 35 g/dL 32-36 Automated erythrocyte distribution width ratio 12.9 % 10.0- 14.5 Automated blood platelet count (count/volume) 282 10*3/uL [...] Blood monocytes automated count (number/volume) 0.5 10*3 0.0- 1.0 Automated eosinophil count 0.1 10*3/uL 0.0-0.3 Automated blood basophil count (count/volume) 0.0 10*3/uL 0.0-0.1 Blood type T Indirect antibody screen panel - 01/19/16 14:35 ABO+Rh group OP NRG Blood group antibody screen NEGATIVE NRG Capillary blood glucose measurement by glucometer (mass/volume) - 02/02/16 06:15 Capillary blood glucose measurement by glucometer (mass/volume) 208 mg/dL 70-110 Blood type T Indirect antibody screen panel - 02/02/16 06:16 ABO+Rh group OP NRG Transfusion band number [id number] NRG Blood group antibody screen NEGATIVE NRG Capillary blood glucose measurement by glucometer (mass/volume) - 02/02/16 10:55 Capillary blood glucose measurement by glucometer (mass/volume) 260 mg/dL 70-110 Capillary blood glucose measurement by glucometer (mass/volume) - 02/02/16 16:08 Capillary blood glucose measurement by glucometer (mass/volume) 225 mg/dL 70-110 Capillary blood glucose measurement by glucometer (mass/volume) - 02/02/16 20:56 Capillary blood glucose measurement by glucometer (mass/volume) 234 mg/dL 70-110 Capillary blood glucose measurement by glucometer (mass/volume) - 02/03/16 05:15 Capillary blood glucose measurement by glucometer (mass/volume) 144 mg/dL 70-110 Capillary blood glucose measurement by glucometer (mass/volume) - 02/03/16 10:51 Capillary blood glucose measurement by glucometer (mass/volume) 350 mg/dL 70-110 Capillary blood glucose measurement by glucometer (mass/volume) - 02/03/16 15:59 Capillary blood glucose measurement by glucometer (mass/volume) 279 mg/dL 70-110 Capillary blood glucose measurement by glucometer (mass/volume) - 02/03/16 20:50 Capillary blood glucose measurement by glucometer (mass/volume) 238 mg/dL 70-110 Capillary blood glucose measurement by glucometer (mass/volume) - 02/04/16 05:12 Capillary blood glucose measurement by glucometer (mass/volume) 203 mg/dL 70-110 Capillary blood glucose measurement by glucometer (mass/volume) - 02/04/16 08:32 Capillary blood glucose measurement by glucometer (mass/volume) 215 mg/dL 70-110 Capillary blood glucose measurement by glucometer (mass/volume) - 02/04/16 11:19 Capillary blood glucose measurement by glucometer (mass/volume) [...] Automated erythrocyte mean corpuscular hemoglobin concentration measurement (mass/volume) 34 g/dL 32-36 Automated erythrocyte distribution width ratio 13.1 % 10.0- 14.5 Automated blood platelet count (count/volume) 310 10*3/uL [...] Blood monocytes automated count (number/volume) 1.0 10*3 0.0- 1.0 Automated eosinophil count 0.1 10*3/uL 0.0-0.3 Automated [...] Serum or plasma aspartate aminotransferase measurement (enzymatic activity/volume) 14 U/L 5-34 Serum or plasma alanine aminotransferase measurement (enzymatic activity/volume) 19 U/L 0-55 Serum or plasma protein [...] sediment leukocyte count by microscopy (number/high power field) TNTC NRG Bacteria detection in urine sediment [...] culture - 04/13/16 09:30 Bacterial urine culture [id number] NRG COLONY COUNT 10,000/ML - 100,000/ML NRG [...] resistant Staphylococcus aureus (MRSA) screening culture - 04/15/16 10:00 Methicillin resistant Staphylococcus aureus (MRSA) screening culture NEG NRG Capillary blood glucose measurement by glucometer (mass/volume) - 04/26/16 07:41 Capillary blood glucose measurement by glucometer (mass/volume) 248 mg/dL 70-110 Capillary blood glucose measurement by glucometer (mass/volume) - 04/26/16 10:12 Capillary blood glucose measurement by glucometer (mass/volume) 278 mg/dL 70-110 Capillary blood glucose measurement by glucometer (mass/volume) - 04/26/16 15:34 Capillary blood glucose measurement by glucometer (mass/volume) 295 mg/dL 70-110 Capillary blood glucose measurement by glucometer (mass/volume) - 04/26/16 21:04 Capillary blood glucose measurement by glucometer (mass/volume) 284 mg/dL 70-110 Capillary blood glucose measurement by glucometer (mass/volume) - 04/27/16 05:07 Capillary blood glucose measurement by glucometer (mass/volume) 153 mg/dL 70-110 Capillary blood glucose measurement by glucometer (mass/volume) - 04/27/16 10:59 Capillary blood glucose measurement by glucometer (mass/volume) 256 mg/dL 70-110 [id number] - 06/30/16 08:09 Serum or plasma urea [...] Automated erythrocyte mean corpuscular hemoglobin concentration measurement (mass/volume) 35 g/dL 32-36 Automated erythrocyte distribution width ratio 13.3 % 10.0- 14.5 Automated blood platelet count (count/volume) 272 10*3/uL [...] Blood monocytes automated count (number/volume) 1.2 10*3 0.0- 1.0 Automated eosinophil count 0.1 10*3/uL 0.0-0.3 Automated blood basophil count (count/volume) 0.0 10*3/uL 0.0-0.1 Erythrocyte sedimentation rate by westergren method - 09/08/16 17:05 Erythrocyte sedimentation rate by westergren method 4 mm 0- 30 Comprehensive metabolic panel - 09/08/16 17:05 Serum [...] Serum or plasma aspartate aminotransferase measurement (enzymatic activity/volume) 25 U/L 5-34 Serum or plasma alanine aminotransferase measurement (enzymatic activity/volume) 19 U/L 0-55 Serum or plasma protein [...] sediment leukocyte count by microscopy (number/high power field) [HPF] NRG Bacteria detection in urine sediment [...] - 09/08/16 17:11 Bacterial urine culture FOOTNOTE NR Complete blood count (CBC) with automated white [...] Automated erythrocyte mean corpuscular hemoglobin concentration measurement (mass/volume) 34 g/dL 32-36 Automated erythrocyte distribution width ratio 13.6 % 10.0- 14.5 Automated blood platelet count (count/volume) 279 10*3/uL [...] Blood monocytes automated count (number/volume) 0.6 10*3 0.0- 1.0 Automated eosinophil count 0.1 10*3/uL 0.0-0.3 Automated [...] Serum or plasma aspartate aminotransferase measurement (enzymatic activity/volume) 24 U/L 5-34 Serum or plasma alanine aminotransferase measurement (enzymatic activity/volume) 20 U/L 0-55 Serum or plasma protein [...] sediment leukocyte count by microscopy (number/high power field) RARE NRG Bacteria detection in urine sediment [...] gravity of urine by test strip 1.010 1.016-1.022 Urine protein assay by test strip, [...] sediment leukocyte count by microscopy (number/high power field) [HPF] NRG Bacteria detection in urine sediment [...] Automated erythrocyte mean corpuscular hemoglobin concentration measurement (mass/volume) 34 g/dL 32-36 Automated erythrocyte distribution width ratio 12.9 % 10.0- 14.5 Automated blood platelet count (count/volume) 304 10*3/uL [...] Blood monocytes automated count (number/volume) 0.8 10*3 0.0- 1.0 Automated eosinophil count 0.1 10*3/uL 0.0-0.3 Automated [...] Serum or plasma aspartate aminotransferase measurement (enzymatic activity/volume) 17 U/L 5-34 Serum or plasma alanine aminotransferase measurement (enzymatic activity/volume) 22 U/L 0-55 Serum or plasma protein measurement (mass/volume) 6.6 g/dL 6.4-8.2 Serum or plasma albumin measurement (mass/volume) 4.1 g/dL 3.2-4.5 Magnesium - 10/26/16 19:08 Magnesium 1.6 mg/dL 1.8-2.4 Serum or plasma troponin i.cardiac measurement (mass/volume) - 10/26/16 19:08 Serum or plasma troponin i.cardiac measurement (mass/volume) < ng/mL <0.30 Myoglobin, serum - 10/26/16 19:08 Myoglobin, serum 24.5 ng/mL 10.0-92.0 Serum or plasma thyrotropin measurement by detection limit <=0.05 miu/l (units/volume) - 10/26/16 19:08 Serum or plasma thyrotropin measurement by detection limit <=0.05 miu/l (units/volume) 1.15 u[iU]/mL 0.35-4.94 Complete blood count (CBC) [...] Automated erythrocyte mean corpuscular hemoglobin concentration measurement (mass/volume) 35 g/dL 32-36 Automated erythrocyte distribution width ratio 12.6 % 10.0- 14.5 Automated blood platelet count (count/volume) 289 10*3/uL [...] Blood monocytes automated count (number/volume) 1.0 10*3 0.0- 1.0 Automated eosinophil count 0.1 10*3/uL 0.0-0.3 Automated [...] measurement in platelet poor plasma (mass/volume) - 06/28/17 19:02 Fibrin D-dimer FEU measurement in platelet [...] Serum or plasma aspartate aminotransferase measurement (enzymatic activity/volume) 16 U/L 5-34 Serum or plasma alanine aminotransferase measurement (enzymatic activity/volume) 19 U/L 0-55 Serum or plasma protein measurement (mass/volume) 6.3 g/dL 6.4-8.2 Serum or plasma albumin measurement (mass/volume) 3.8 g/dL 3.2-4.5 Magnesium - 06/28/17 19:02 Magnesium 1.2 mg/dL 1.8-2.4 Serum or plasma troponin i.cardiac measurement (mass/volume) - 06/28/17 19:02 Serum or plasma troponin i.cardiac measurement (mass/volume) < ng/mL <0.30 Myoglobin, serum - 06/28/17 19:02 Myoglobin, serum 35.0 ng/mL 10.0-92.0 CMP - 02/16/18 09:21 GLUCOSE 179 mg/dL 65-99 UREA NITROGEN (BUN) 10 mg/dL 7-25 CREATININE 0.53 mg/dL 0.50-0.99 eGFR NON-AFR. BRITISH 98 mL/min/1.73m2 > OR=60 eGFR 114 mL/min/1.73m2 [...] RESULTS NEGATIVE FOR ANTIGEN AND TOXIN A/B NRG [id number] - 03/16/18 10:00 [id number] SEE COMMEN NRG QUANTITY OF GROWTH . NRG Stool bacteria identification by culture - 03/16/18 10:00 QUANTITY OF GROWTH . NRG Stool bacteria identification by culture SEE REPORT NRG NEGATIVE FOR 0157 NEGATIVE FOR E COLI 0157 NRG NEGATIVE FOR CAMPY NEGATIVE FOR CAMPYLOBACTER NRG NEGATIVE FOR SHIGELLA NEGATIVE FOR SHIGELLA NRG NEGATIVE FOR SALMONELLA NEGATIVE FOR SALMONELLA NRG VITAMIN D, 25-H - 09/12/18 12:38 VITAMIN D,25-OH,TOTAL,IA 44 ng/mL 30-100 Capillary blood glucose measurement by glucometer (mass/volume) - 11/03/18 08:29 Capillary blood glucose measurement by glucometer (mass/volume) 203 mg/dL 70-110 Capillary blood glucose measurement by glucometer (mass/volume) - 11/24/18 08:42 Capillary blood glucose measurement by glucometer (mass/volume) 179 mg/dL 70-110 Encounters ACCT No. Visit Date/Time Discharge Status Pt. Type Provider Facility Loc./Unit Complaint [id number] 08/02/2014 15:41:00 08/02/2014 23:59:59 CLS Outpatient JENN SPRINGER DO [id number] 07/04/2014 00:00:00 07/04/2014 23:59:59 CLS Outpatient LUDIVINA SNOWMASOOD [id number] 04/02/2014 11:25:00 04/02/2014 23:59:59 CLS Outpatient JENN SPRINGER DO [id number] 12/14/2013 09:56:00 12/14/2013 23:59:59 CLS Outpatient JENN SPRINGER DO [id number] 11/05/2013 12:39:00 11/05/2013 23:59:59 CLS Outpatient JENN SPRINGER DO [id number] 11/22/2018 05:57:00 11/22/2018 16:19:00 DIS Outpatient KENNETH MELENDEZ MD [facility] PREOP CATARACT LEFT EYE [id number] 11/03/2018 07:55:00 11/03/2018 09:17:00 DIS Outpatient KENNETH MELENDEZ MD [facility] SDC CATARACT RIGHT EYE [id number] 11/01/2018 05:36:00 11/02/2018 09:31:00 DIS Outpatient KENNETH MELENDEZ MD [facility] PREOP CATARACT RIGHT EYE [id number] 03/28/2018 10:15:00 03/28/2018 23:59:59 CLS Preadmit CRISTINA HARDY DO [facility] ENDO SCREENING [id number] 03/22/2018 15:00:00 03/22/2018 15:11:00 DIS Outpatient CRISTINA HARDY DO [facility] PREOP COLONOSCOPY [id number] 03/20/2018 01:50:00 03/20/2018 23:59:59 CLS Preadmit CRISTINA HARDY DO [facility] LAB LOOSE STOOL [id number] 03/20/2018 01:35:00 03/20/2018 23:59:59 CLS Preadmit CRISTINA HARDY DO [facility] LAB LOOSE STOOLS [id number] 03/16/2018 10:03:00 03/19/2018 00:01:00 DIS Outpatient CRISTINA HARDY DO [facility] LOOSE STOOL [id number] 03/09/2018 11:14:00 03/19/2018 00:01:00 DIS Outpatient CRISTINA HARDY DO [facility] LOOSE STOOLS [id number] 06/28/2017 17:26:00 06/28/2017 20:47:00 DIS Emergency HANNAH MCGRATH MD [facility] ER UPPER BACK PAIN [id number] 10/21/2016 09:30:00 11/25/2016 09:35:00 DIS Outpatient ZAID WOODS [facility] REHAB CERVICAL LUMBAR STENOSIS W/ RADICULOPATHY;S/PL3-5 [id number] 10/26/2016 18:06:00 10/26/2016 22:06:00 DIS Emergency HANNAH MCGRATH MD [facility] ER HEADACHE/HEARTBURN/STOMACH PAIN [id number] 09/13/2016 13:12:00 09/13/2016 17:22:00 DIS Emergency ANTHONY URIBE MD [facility] ER VOMITING/DIARRHEA [id number] 09/08/2016 16:50:00 09/08/2016 18:49:00 DIS Emergency ADRIA DIALLO APRN [facility] ER HEADACHE [id number] 08/30/2016 11:38:00 08/30/2016 23:59:59 CLS Outpatient LAY MURILLO MD [facility] RAD POST FUSION Z48.81 [id number] 06/30/2016 08:00:00 06/30/2016 23:59:59 CLS Outpatient RALPH MATIAS MD [facility] RAD PYELONEPHRITIS [id number] 06/18/2016 10:33:00 06/18/2016 23:59:59 CLS Outpatient RALPH MATIAS MD [facility] RAD RIGHT PYELONEPHRITIS [id number] 04/26/2016 07:30:00 04/27/2016 13:19:00 DIS Outpatient LAY MURILLO MD [facility] SDC SPINAL STENOSIS [id number] 04/15/2016 09:40:00 04/15/2016 10:05:00 DIS Outpatient LAY MURILLO MD [facility] PREOP SPINAL STENOSIS [id number] 04/13/2016 09:12:00 04/13/2016 11:24:00 DIS Emergency ANTHONY URIBE MD [facility] ER ABD PAIN/HEADACHE LOSS OF BLADDER CONTROL [id number] 02/02/2016 05:59:00 02/04/2016 13:20:00 DIS Inpatient LAY MURILLO MD [facility] 4TH STENOSIS [id number] 01/19/2016 13:46:00 01/19/2016 16:08:00 DIS Outpatient LAY MURILLO MD [facility] PREOP STENOSIS [id number] 11/27/2015 15:44:00 11/27/2015 23:59:59 CLS Outpatient KIM SUZE R INVENTORY MANAGER [facility] RAD RADICULOPATHY, DDD [id number] 05/09/2015 17:40:00 05/09/2015 21:07:00 DIS Emergency ALCIDES LANDAVERDE, HANNAH Kline [facility] ER TINGLING IN LT ARM AND ABD PAIN [id number] 05/02/2015 04:33:00 05/05/2015 16:56:00 DIS Inpatient MARK LANDAVERDE, JAIMIE Morin [facility] 4TH [id number] 03/20/2015 17:07:00 03/20/2015 20:00:00 DIS Emergency LUCIE LANDAVERDE, KATLIN Field [facility] ER ABD PAIN,DIARRHEA [id number] 10/15/2013 11:48:00 10/15/2013 13:31:00 DIS Emergency ADRIA DIALLO INVENTORY MANAGER [facility] ER HIGH BLOOD SUGAR [id number] 10/10/2013 14:44:00 10/10/2013 23:59:59 CLS Outpatient MATTHEW [facility] SAFETY OFFICER [facility] RAD SCREENING [id number] 11/24/2018 10:00:00 PEN Preadmit KENNETH MELENDEZ MD [facility] SDC CATARACT LEFT EYE [id number] 03/29/2015 02:04:00 Document Registration [id number] 12/22/2009 23:27:00 Document Registration [id number] 11/07/2018 17:10:00 11/07/2018 23:59:59 CLS Outpatient FLORECITA NAVARRO [facility] [id number] 09/12/2018 11:40:00 Document Registration [id number] 02/16/2018 08:00:00 Document Registration
== END 2018-11-24 09:55 | disposition home or self-care (01) ==
LOC: SDC 08:20
PROVIDERS: ATTEND Specialist
DX: H25.12 Age-related nuclear cataract, left eye (principal); E11.36 Type 2 diabetes mellitus with diabetic cataract; I10 Essential (primary) hypertension; K21.9 Gastro-esophageal reflux disease without esophagitis; F32.9 Major depressive disorder, single episode, unspecified; Z79.82 Long term (current) use of aspirin; Z79.84 Long term (current) use of oral hypoglycemic drugs; Z79.899 Other long term (current) drug therapy
CPT/HCPCS: 82962

== ENCOUNTER 2019-03-20 05:32 | Outpatient (CLI) | payer MEDICARE, MEDICAID ==
[~2019-03-20] VITALS: Ht 172 cm; Wt 101.8 kg
[~2019-03-20 05:32] MED LIST changes: -OMEP20CA12 PO; +OMEP20CA13 PO
== END 2019-03-20 11:05 | disposition home or self-care (01) ==
LOC: PREOP 05:32
PROVIDERS: ATTEND Surgery
DX: Z01.818 Encounter for other preprocedural examination (principal)

== ENCOUNTER 2019-03-27 10:00 | Day surgery (SDC) | payer MEDICARE, MEDICAID ==
[~2019-03-27] VITALS: Ht 172 cm; Wt 101.8 kg
[2019-03-27] MEDS ORDERED: LACTATED RINGERS 1,000 ML IV ONE (10:16)
[2019-03-27] MEDS ORDERED: LACTATED RINGERS 1,000 ML IV STA (10:27)
--- NOTE | 2019-03-27 10:27 | Progress Note-Pre Operative ---
Pre-Operative Progress Note H&P Reviewed The H&P was reviewed, patient examined and no changes noted. Date Seen by Provider: Mar 27, 2019 Time Seen by Provider: 10: Date H&P Reviewed: Mar 27, 2019 Time H&P Reviewed: : Pre-Operative Diagnosis: screening colon CRISTINA HARDY DO Mar 27, 2019 10:27
[2019-03-27 10:38] VITALS: BP 148/69
[2019-03-27] MEDS ORDERED: PROPOFOL INJECTION 50 ML IV ONE (10:48)
[2019-03-27 11:35] VITALS: BP 81/58
[2019-03-27 11:40] VITALS: BP 148/59
[2019-03-27 11:45] VITALS: BP 148/59
[2019-03-27 12:15] VITALS: BP 158/85
[2019-03-27 12:19] VITALS: BP 158/85
--- NOTE | 2019-03-27 13:16 | Progress Note-Post Operative ---
Post-Operative Progess Note Surgeon (s)/Marine Animal Trainer (s) Surgeon CRISTINA HARDY DO Marine Animal Trainer: na Pre-Operative Diagnosis screening colon Post-Operative Diagnosis simgoid and rectal polyp Procedure & Operative Findings Date of Procedure 03/27/19 Procedure Performed/Findings colonoscopy c snare polypectomy and hot bx polypectomy Anesthesia Type per developmental writing instructor Estimated Blood Loss Estimated blood loss (mL): none Specimens/Packing Specimens Removed sigmoid polyp, rectal polyp CRISTINA HARDY DO Mar 27, 2019 13:16
--- NOTE | 2019-03-27 13:36 | Anesthesia-General Post-Op ---
MAC Patient Condition Mental Status/LOC: Same as Preop Cardiovascular: Satisfactory Nausea/Vomiting: Absent Respiratory: Satisfactory Pain: Controlled Complications: Absent Post Op Complications Complications None Follow Up Care/Instructions Patient Instructions None needed. Anesthesiology Discharge Order Discharge Order Patient is doing well, no complaints, stable vital signs, no apparent adverse anesthesia problems. No complications reported per nursing. LEOPOLDO KEEN CRNA Mar 27, 2019 13:36
--- NOTE | 2019-03-27 18:50 | OPERATIVE REPORT ---
DATE OF SERVICE: 03/27/2019 PREOPERATIVE DIAGNOSIS: Screening colonoscopy. POSTOPERATIVE DIAGNOSIS: Sigmoid and rectal polyp. PROCEDURE: Colonoscopy with snare polypectomy and hot biopsy polypectomy. SURGEON: Cristina Pizano DO ANESTHESIA: Per STONE POLISHER. ESTIMATED BLOOD LOSS: None. COMPLICATIONS: None. INDICATIONS: The patient is a 68-year-old female due for screening colonoscopy. She understands risks and benefits of procedure and wished to proceed with procedure. Consent was signed in the chart. DESCRIPTION OF PROCEDURE: The patient was taken to the endoscopy suite, placed in left lateral recumbent position. Timeout was performed. Digital rectal exam was performed. There were no palpable polyps, masses or ulcerations. Scope was inserted in the rectum, advanced all the way to the cecum with minimal difficulty. Prep was adequate. There were no polyps, masses or ulcerations in the cecum, ascending, transverse, descending colon. In the sigmoid colon, there is polyp, which snare polypectomy was performed. Polyp was obtained for specimen. Scope was continued to be slowly retracted back. No other polyps, masses or ulcerations within the sigmoid colon. Once in the rectum, scope was retroflexed noting a small polyp, which hot biopsy polypectomy was performed. Scope was returned to its normal position, no other pathology noted. Scope was then slowly retracted back to completely remove noting no other pathology. The patient tolerated procedure well without any complications. She was taken to recovery room in stable condition. RECOMMENDATIONS: The patient will need repeat colonoscopy in 5 years. Any issues before that be seen at that time. The patient will follow up in 2 weeks to discuss pathology results and see how she is doing at that time. Job ID: [id number] DocumentID: [id number] Dictated Date: 03/27/2019 13:18:17 French Edge Operator Date: 03/27/2019 18:50:01 Dictated By: CRISTINA PIZANO DO
== END 2019-03-27 12:35 | disposition home or self-care (01) ==
LOC: ENDO 10:00
PROVIDERS: ATTEND Surgery
DX: Z12.11 Encounter for screening for malignant neoplasm of colon (principal); D12.5 Benign neoplasm of sigmoid colon; D12.8 Benign neoplasm of rectum; I10 Essential (primary) hypertension; E11.40 Type 2 diabetes mellitus with diabetic neuropathy, unspecified; E78.5 Hyperlipidemia, unspecified; M19.90 Unspecified osteoarthritis, unspecified site; M51.36 Other intervertebral disc degeneration, lumbar region; F32.9 Major depressive disorder, single episode, unspecified; Z79.84 Long term (current) use of oral hypoglycemic drugs; Z90.710 Acquired absence of both cervix and uterus; Z90.49 Acquired absence of other specified parts of digestive tract; Z79.82 Long term (current) use of aspirin; Z79.899 Other long term (current) drug therapy
CPT/HCPCS: 82962

== ENCOUNTER 2019-05-01 12:30 | Outpatient (CLI) | payer MEDICARE, MEDICAID ==
[~2019-05-01] VITALS: Ht 172 cm; Wt 90.9 kg
== END 2019-05-01 13:42 | disposition home or self-care (01) ==
LOC: PREOP 12:30
PROVIDERS: ATTEND Urology
DX: Z01.818 Encounter for other preprocedural examination (principal)

== ENCOUNTER 2019-05-02 05:51 | Day surgery (SDC) | payer MEDICARE, MEDICAID ==
[~2019-05-02] VITALS: Ht 172.7 cm; Wt 97.3 kg
[2019-05-02] VITALS (11 sets, daily range): BP systolic 123–152; BP diastolic 53–78
[2019-05-02] MEDS ORDERED: LACTATED RINGERS 1,000 ML IV PRN (06:06)
[2019-05-02] MEDS ORDERED: cefTRIAXone FOR IV USE 1,000 MG in WATER (STERILE) FOR INJECTION 10 ML IV ONE (06:15)
[2019-05-02] MEDS ORDERED: LIDOCAINE PF 2% 5 ML (XYLOCAINE) VIAL ONE (06:47)
[2019-05-02] MEDS ORDERED: ONDANSETRON 4 MG/2 ML (SDV) Z0FRAN ONE (06:47)
[2019-05-02] MEDS ORDERED: MIDAZOLAM 2 MG/2 ML (VERSED) VIAL ONE (06:47)
[2019-05-02] MEDS ORDERED: SEVOFLURANE (ULTANE) 15 ML INHAL SOLN ONE ×4 (06:47→08:00)
[2019-05-02] MEDS ORDERED: proPOfol 200 MG/20 ML (DIPRIVAN) VIAL IV ONE (06:47)
[2019-05-02] MEDS ORDERED: fentaNYL INJECTION 100 MCG/2 ML AMP ONE (06:47)
[2019-05-02] MEDS ORDERED: ROCURONIUM 10 MG/ML 5 ML SYRINGE IV ONE (06:47)
[2019-05-02] MEDS ORDERED: LIDOCAINE/EPI 1%-1:100,000 (XYLOCAINE) 20ML ONE (07:13)
[2019-05-02] MEDS ORDERED: ESTRADIOL VAGINAL CREAM 42.5 GM (ESTRACE) VG ONE (07:13)
--- NOTE | 2019-05-02 07:16 | Progress Note-Pre Operative ---
Pre-Operative Progress Note H&P Reviewed The H&P was reviewed, patient examined and no changes noted. Date Seen by Provider: May 02, 2019 Time Seen by Provider: 07:15 Date H&P Reviewed: May 02, 2019 Time H&P Reviewed: 07:15 Pre-Operative Diagnosis: MIXED INCONTINENCE, OAB, ISD, POSSIBLE CYSTOCELE RALPH MATIAS MD May 02, 2019 07:16 POS
--- NOTE | 2019-05-02 08:22 | Progress Note-Post Operative ---
Post-Operative Progess Note Surgeon (s)/Director Of Rooms (s) Surgeon RALPH MATIAS MD Director Of Rooms: NONE Pre-Operative Diagnosis MIXED INCONTINENCE, OAB, ISD, POSSIBLE CYSTOCELE Post-Operative Diagnosis SAME Procedure & Operative Findings Date of Procedure 05/02/19 Procedure Performed/Findings ANTERIOR REPAIR, PVS, AND CYSTOSCOPY Anesthesia Type GENERAL Estimated Blood Loss Estimated blood loss (mL): NEGLIGIBLE Specimens/Packing Specimens Removed NONE TO PATHOLOGY Packin GM ESTRACE VAGINAL PACK RALPH MATIAS MD May 02, 2019 08:22 POS
[2019-05-02] MEDS ORDERED: MILK OF MAGNESIA 400 MG/5 ML 30 ML UDC PO PRN (08:30)
[2019-05-02] MEDS ORDERED: HYDROcodone/APAP 10 MG/325 MG (LORTAB) TAB PO PRN (08:30)
[2019-05-02] MEDS ORDERED: ONDANSETRON 4 MG/2 ML (SDV) Z0FRAN IVP PRN (08:45)
[2019-05-02] MEDS ORDERED: morphine INJ 10 MG/ML 1ML (SYR OR VIAL) IVP ONE (08:45)
[2019-05-02] MEDS ORDERED: fentaNYL INJECTION 100 MCG/2 ML AMP IVP ONE (08:45)
[2019-05-02] MEDS ORDERED: SIMvastatin 10 MG (ZOCOR) TAB PO ONE (09:00)
[2019-05-02] MEDS ORDERED: lisINopril 40 MG (PRINIVIL) TABLET PO SCH (09:00)
--- NOTE | 2019-05-02 09:20 | NUR ---
JOB GORDON presented to unit via BED from RECOVERY, accompanied by Karma MORGAN CANE WEIGHER AFTER HAVING SURGERY. VS taken. JOB GORDON oriented to bed controls, call light, TV, heat, and A/C controls. REPORT RECEIVED.
[2019-05-02] MEDS: LACTATED RINGERS 1,000 ML IV SCH ×2 (09:39→18:28)
--- NOTE | 2019-05-02 09:50 | NUR ---
IV TUBING CONVERTED TO PUMP TUBING. FRESH ICE WATER PROVIDED. INITIAL PHYSICAL ASSESSMENT COMPLETED; SEE INTERVENTION FOR FURTHER. SEO TO D/D. THIGH SCDS ON BILATERALLY. PT'S PURSE PROVIDED PER REQUEST, GOING TO CONTACT DAUGHTER. CALL LIGHT WITHIN REACH.
--- NOTE | 2019-05-02 10:06 | Anesthesia-General Post-Op ---
General Patient Condition Mental Status/LOC: Same as Preop Cardiovascular: Satisfactory Nausea/Vomiting: Absent Respiratory: Satisfactory Pain: Controlled Complications: Absent Post Op Complications Complications None Follow Up Care/Instructions Patient Instructions None needed. Anesthesia/Patient Condition Patient Condition Patient is doing well, no complaints, stable vital signs, no apparent adverse anesthesia problems. No complications reported per nursing. REYES PARADA CRNA May 02, 2019 10:06 POS
--- NOTE | 2019-05-02 10:46 | NUR ---
DR. MATIAS CALLED, HOME MEDICATIONS VERIFIED AND TO BE CONTINUED EXCEPT FOR ASA.
--- NOTE | 2019-05-02 10:50 | NUR ---
PHARMACY CALLED. LOVASTATIN NOT ON FORMULARY, TO USE SIMVASTATIN AND USE HALF OF NORMAL DOSAGE PER ADRIA.
[2019-05-02] MEDS ORDERED: LEVOFLOXACIN 250 MG/50 ML IVPB 50 ML ONE (11:46)
[2019-05-02] MEDS ORDERED: lisINopril 20 MG (PRINIVIL) TABLET ONE (11:50)
[2019-05-02] MEDS: DOCUSATE SODIUM 100 MG (COLACE) CAP PO SCH ×2 (11:53→21:26)
[2019-05-02] MEDS: KETOROLAC 30 MG/ML VIAL IV PRN ×2 (11:53→18:29)
[2019-05-02] MEDS: lisINopril 20 MG (PRINIVIL) TABLET PO SCH (11:53)
[2019-05-02] MEDS: VITAMIN D3 5,000 UNITS (CHOLECALCIFEROL ) CAPSULE PO SCH (11:53)
--- NOTE | 2019-05-02 13:00 | NUR ---
PT SITTING UP ON THE SIDE OF THE BED TO EAT LUNCH. NO NEEDS VOICED AT THIS TIME.
--- NOTE | 2019-05-02 13:16 | OPERATIVE REPORT ---
DATE OF SERVICE: 05/02/2019 PREOPERATIVE DIAGNOSES: Mixed urinary incontinence with overactive bladder, possible ISD, possible cystocele. POSTOPERATIVE DIAGNOSES: Mixed urinary incontinence with overactive bladder, possible ISD, possible cystocele. OPERATION PERFORMED: Anterior repair with pubovaginal sling and cystoscopy. SURGEON: Awais Matias MD ANESTHESIA: General. COMPLICATIONS: None. DESCRIPTION OF PROCEDURE: Under satisfactory general anesthesia, the patient in extended lithotomy position, genitalia were prepped and draped in the usual sterile fashion with separate vaginal prep. Dooley catheter was inserted. The bladder was drained. Anterior vaginal wall was infiltrated with local lidocaine and epinephrine. There was 1 to 2+ cystocele. An incision was made in the midline and vertically the anterior vaginal wall, carried with sharp dissection all around. The fascia was then approximated with interrupted 2-0 Vicryl sutures. There was excellent support of the bladder. I went ahead and passed the Solyx device on both sides using the described technique. The sling was sitting nicely under the mid urethra with no twist or tension and passage of a curved hemostat easily between it and the underlying tissue. The Dooley catheter was removed and cystoscopy was performed to confirm the integrity of the bladder, ureteral orifices and urethra with no foreign body and presence of the sling at the mid urethra. The bladder was left at least half full. Cystoscope was removed. Valsalva maneuver was performed and it was negative. Dooley catheter was reinserted draining clear fluid. The edges of the anterior vaginal mucosa was freshened and then sharply excised. Then, the mucosa was approximated with a running 2-0 Rapide type suture interlocking. 2 grams Estrace vaginal pack was inserted. Estimated blood loss negligible. None of which was replaced. Needle, sponge, instrument counts were correct x2. The patient tolerated the procedure and anesthesia well and was sent to recovery room in stable condition. Job ID: [id number] DocumentID: [id number] Dictated Date: 05/02/2019 08:30:10 Acid Operator Date: 05/02/2019 13:16:00 Dictated By: AWAIS MATIAS MD
--- NOTE | 2019-05-02 18:40 | NUR ---
PT HAS BEEN SITTING UP IN THE CHAIR, REQUESTING TO GET UP TO THE BATHROOM. NO SUCCESS IN BM. VAG PACKING FELL OUT WHILE IN THE BATHROOM. PT BACK TO BED. SCDS ON THIGHS BILATERALLY. SEO TO D/D. BLANKETS ON PER REQUEST. NEW BAG OF FLUIDS HUNG AND INFUSING @ 50 ML/HR/PUMP. TORADOL GIVEN IVP; SEE EMAR FOR FURTHER. PT DENIES ANY NEEDS OR QUESTIONS AT THIS TIME. CALL LIGHT WITHIN REACH.
--- NOTE | 2019-05-02 18:45 | NUR ---
DR. MATIAS NOTIFIED THAT PT'S VAG PACKING JUST FELL OUT. NO NEW ORDERS RECEIVED.
[2019-05-02] MEDS ORDERED: SIMvastatin 10 MG (ZOCOR) TAB PO SCH (21:00)
--- NOTE | 2019-05-02 21:35 | NUR ---
Called supervisor coremaker for [employer] that is sched to give to pt & was not stocked by pharmacy, will give when it is rc'd.
[2019-05-03 00:50] VITALS: BP 127/67
[2019-05-03] MEDS ORDERED: traZODone 100 MG (DESYREL) TAB ONE (01:01)
[2019-05-03 05:00] VITALS: BP 144/70
[2019-05-03] MEDS: LACTATED RINGERS 1,000 ML IV SCH (05:04)
[2019-05-03 08:00] VITALS: BP 139/91
--- NOTE | 2019-05-03 08:00 | NUR ---
A.M. ASSESSMENT COMPLETED VSS. DENIES PAIN AT THIS TIME. ASSISTED UP TO THE BATHROOM. VOIDED 200 CC. BACK TO BED. BLADDER SCAN FINN X3 WITH 0/7/2 MLS READING OF RESIDUAL. AMBULATED TO CHAIR TO EAT BREAKFAST.
--- NOTE | 2019-05-03 08:15 | NUR ---
IV TO SALINE LOCK.
[2019-05-03] MEDS: DOCUSATE SODIUM 100 MG (COLACE) CAP PO SCH (08:19)
[2019-05-03] MEDS: lisINopril 20 MG (PRINIVIL) TABLET PO SCH (08:19)
[2019-05-03] MEDS ORDERED: LEVOFLOXACIN 250 MG/50 ML IVPB 50 ML IV NR (08:23)
--- NOTE | 2019-05-03 08:40 | NUR ---
UP TO THE BATHROOM. + BM. VOIDED IN TOILET WITHOUT MEASURING. PERICARE WITH PAD CHANGE. SCANT VAGINAL BLEEDING. DENIES DIZZINESS WITH AMBULATION.
[2019-05-03] MEDS: VITAMIN D3 5,000 UNITS (CHOLECALCIFEROL ) CAPSULE PO SCH (08:43)
--- NOTE | 2019-05-03 10:00 | NUR ---
DR. MATIAS HERE TO SEE PT. PLAN FOR DISCHARGE.
--- NOTE | 2019-05-03 10:02 | Progress Note - Urology ---
Progress Note-Urology Progress Notes/Assess & Plan Progress/Assessment & Plan VOIDING WELL. EMPTIES WELL. PVR 0. DRY. HAPPY. DISCHARGE WITH INSTRUCTIONS Final Diagnosis CYSTOCELE AND INCONTINENCE RALPH MATIAS MD May 03, 2019 10:02 POS
--- NOTE | 2019-05-03 10:05 | Discharge Inst-Urology ---
Discharge Inst-Urology Reconcile Patient Problems Problems Reviewed?: Yes Final Diagnosis CYSTOCELE AND INCONTINENCE Patient Instructions/Follow Up Plan/Assessment/Instructions Please make appointment to been seen in office in 2 weeks. Rest till then and off ASA Showers, no bath Keep bowels soft and moving Increase oral fluids for 48 hours and then as needed. Diet as tolerated. If questions or concerns contact your physician Or seek help at emergency department. RALPH MATIAS MD May 03, 2019 10:05 POS
--- NOTE | 2019-05-03 10:40 | NUR ---
STATES NO RIDE UNTIL AROUND 1300. ENCOURAGED PT TO REST AND ALSO TO DO I.S. Q 2HOURS W/A.
[2019-05-03] MEDS ORDERED: CIPR-225 PO (10:44)
[2019-05-03] MEDS ORDERED: TRAM-42 PO (10:48)
--- NOTE | 2019-05-03 12:00 | NUR ---
CONTINUES TO VOID WITHOUT PROBLEMS. DENIES NEED FOR PAIN MEDICATION.
[2019-05-03 12:20] VITALS: BP 150/78
--- NOTE | 2019-05-03 12:30 | NUR ---
PT STATES "WAITED TOO LONG TO GET UP TO VOID." STATES WAS RESTING AND "KEPT PUTTING IT OFF.". SOME URINE ON THE FLOOR. GETTING DRESSED FOR DISCHARGE.
[2019-05-03 12:45] VITALS: BP 120/68
--- NOTE | 2019-05-03 12:55 | NUR ---
DISCHARGE INSTRUCTIONS REVIEWED WITH COPY TO PT. [facility] CALLED TO [facility] PER PT REQUEST. STATES UNDERSTANDING OF ALL INSTRUCTIONS AND NEED TO F/U SCHEDULED AND NEEDED.
[2019-05-03 13:25] VITALS: BP 120/68
--- NOTE | 2019-05-03 13:25 | NUR ---
DISMISSED FROM [facility] VIA W/C TO FAMILY CAR IN STABLE CONDITION ACC BY GRANDSON AND FRIEND.
[2019-05-03] MEDS ORDERED: traZODone 100 MG (DESYREL) TAB PO SCH (21:00)
== END 2019-05-03 13:25 | disposition home or self-care (01) ==
LOC: SDC 05:51 → EDSTATUS 08:00 → WS 09:20 → SDC 05-03 13:25
PROVIDERS: ATTEND Urology
DX: N32.81 Overactive bladder (principal)
CPT/HCPCS: 82962; 87081; 94664

== ENCOUNTER → 2019-06-26 | Outpatient (CLI) | payer MEDICARE, MEDICAID ==
[~2019-06-26] MED LIST changes: +CIPR-225 PO; +TRAM-42 PO
--- NOTE | 2019-06-26 17:18 | Diagnostic Imaging Report ---
INDICATION: Routine screening. COMPARISON: Comparison is made with prior mammogram from 10/10/2013. TECHNIQUE: 2-D and 3-D bilateral screening mammography was performed. The current study was also evaluated with a Computer Aided Detection (CAD) system. 3-D tomosynthesis was also performed and reviewed. FINDINGS: Scattered fibroglandular densities are identified bilaterally. Extensive vascular calcifications are again noted. There is a density just below the skin surface in the medial left breast. This could represent a sebaceous cyst. Further evaluation of this area with ultrasound is recommended. No other mass is detected. No malignant-appearing microcalcifications are seen. Axillae are unremarkable. IMPRESSION: Medial left breast density, approximately 9 o'clock location just below the skin surface. This may represent a sebaceous cyst. Further evaluation with ultrasound is recommended. ACR BI-RADS Category 0: Incomplete. (Needs additional imaging evaluation). Result letter will be mailed to the patient. Note: At least 10% of breast cancer is not imaged by mammography. Dictated by: Dictated on workstation # [id number]
== END ==
LOC: RAD 15:11
PROVIDERS: ATTEND Physician Assistant
DX: Z12.31 Encounter for screening mammogram for malignant neoplasm of breast (principal); R92.8 Other abnormal and inconclusive findings on diagnostic imaging of breast
CPT/HCPCS: 77067

== ENCOUNTER → 2019-08-28 | Outpatient (CLI) | payer MEDICARE, MEDICAID ==
[~2019-08-28] MED LIST changes: +METF500T19 PO; -METF500T8 PO; -OMEP20CA13 PO; +OMEP20CA18 PO; -TRAZ-222 PO; +TRZ50T PO
== END | disposition home or self-care (01) ==
LOC: PREOP 05:37
PROVIDERS: ATTEND Urology
DX: Z01.818 Encounter for other preprocedural examination (principal)

== ENCOUNTER 2019-09-09 11:26 | Emergency (ER) | payer MEDICARE, MEDICAID ==
[~2019-09-09] VITALS: Ht 175.2 cm; Wt 97.2 kg
--- NOTE | 2019-09-09 11:57 | ED General ---
General Chief Complaint: Abdominal/GI Problems Stated Complaint: BODY ACHES/ABD PAIN Source of Information: Patient Exam Limitations: No Limitations History of Present Illness Date Seen by Provider: Sep 09, 2019 Time Seen by Provider: 11:55 Initial Comments To Er with c/o 1 week history of general body aches, lower abdominal pain mostly right sided, chills but no measured fever. Chronic cough unchanged in nature. No travel outside of [facility] in 3 weeks and currently no COVID19 cases in this [facility]. No shortness of breath. Afebril here despite no use of antipyretics here. Timing/Duration: 1 Week Associated Systoms: Cough, Nausea/Vomiting Allergies and Home Medications Allergies Coded Allergies: No Known Drug Allergies (Unverified , 05/01/19) Home Medications Cholecalciferol (Vitamin D3) 5,000 Unit Capsule, 5,000 UNIT PO DAILY, (Reported) Insulin Determir 1,000 Units/10 Ml Soln, 40 UNITS SQ BID, (Reported) USES NO MATTER WHAT BS IS Levofloxacin 500 Mg Tablet, 500 MG PO DAILY Prescribed by: ADRIA DIALLO on 09/09/19 1335 Lisinopril 20 Mg Tablet, 20 MG PO DAILY, (Reported) Lovastatin 20 Mg Tablet, 20 MG PO DAILY, (Reported) Omeprazole 20 Mg Capsule.dr, 20 MG PO DAILY Prescribed by: HANNAH BUSTOS on 10/26/16 2149 Promethazine HCl 25 Mg Tablet, 12.5 MG PO Q6H PRN for NAUSEA/VOMITING Prescribed by: ADRIA DIALLO on 09/09/19 1335 Tramadol HCl 50 Mg Tablet, 50-100 MG PO Q4H Prescribed by: YEHUDA BULL on 05/03/19 1048 Trazodone HCl 50 Mg Tablet, 100 MG PO HS, (Reported) Venlafaxine HCl 150 Mg Cap.er.24h, 150 MG PO DAILY, (Reported) Patient Home Medication List Home Medication List Reviewed: Yes Review of Systems Review of Systems Constitutional: see HPI, chills; No fever EENTM: see HPI Respiratory: cough (chronic and unchange); No short of breath Cardiovascular: no symptoms reported Genitourinary: see HPI, frequency, incontinence Musculoskeletal: no symptoms reported Skin: no symptoms reported Psychiatric/Neurological: No Symptoms Reported Hematologic/Lymphatic: No Symptoms Reported Immunological/Allergic: no symptoms reported Past Htkijfu-Sfmtkj-Aceofn Hx Patient Social History 2nd Hand Smoke Exposure: No Recent Foreign Travel: No Contact w/Someone Who Travel: No Recent Hopitalizations: No Immunizations Up To Date Tetanus Booster (TDap): More than 5yrs PED Vaccines UTD: No Date of Pneumonia Vaccine: Feb 26, 2019 Seasonal Allergies Seasonal Allergies: Yes Past Medical History Surgeries: Yes (NECK AND BACK SURGERY, FX ARM) Gallbladder, Hysterectomy Respiratory: No Currently Using CPAP: No Currently Using BIPAP: No Cardiac: Yes High Cholesterol, Hypertension Neurological: Yes (VERY LITTLE NEUROPATHY IN FEET) Neuropathy 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 Disorders: No Female 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 Disorders: Denies 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 Sexually Transmitted Disease: No HIV/AIDS: No Genitourinary: Yes Kidney Stones Gastrointestinal: Yes Gastroesophageal Reflux Musculoskeletal: Yes (STENOSIS) Degenerate Disk Disease, Arthritis Endocrine: Yes Diabetes, Insulin dep HEENT: Yes (GLASSES) Loss of Vision: Denies Hearing Impairment: Denies Cancer: No Psychosocial: Yes Anxiety, Depression Integumentary: No Blood Disorders: Yes (HX OF ANEMIA PRIOR TO HYSTERECTOMY) Adverse Reaction/Blood Tranf: No (HAS HAD BLOOD TRANSFUSION WITH NO PROBLEMS) Family Medical History Arthritis 19 MOTHER Cataracts 19 FATHER 19 MOTHER Hypercholesterolemia 19 FATHER Hypertension 19 FATHER No Pertinent Family Hx Physical Exam Vital Signs Vital Signs - First Documented 09/09/19 09/09/19 11:30 13:08 Temp 37.6 Pulse 110 Resp 18 B/P (MAP) 161/86 (111) Pulse Ox 99 O2 Delivery Room Air Capillary Refill : Height, Weight, BMI Height: 5'9.00" Weight: 200lbs. 3.0oz. 90.532568xl; 32.62 BMI Method:Stated General Appearance: No Apparent Distress, WD/WN, Anxious Eyes: Bilateral Eye Normal Inspection, Bilateral Eye PERRL, Bilateral Eye EOMI HEENT: PERRL/EOMI, TMs Normal Neck: Full Range of Motion, Normal Inspection Respiratory: No Accessory Muscle Use, No Respiratory Distress Gastrointestinal: Normal Bowel Sounds, Soft, Tenderness (RLQ) Extremity: Normal Capillary Refill, Normal Inspection Neurologic/Psychiatric: Alert, Oriented x3 Skin: Normal Color, Warm/Dry Progress/Results/Core Measures Suspected Sepsis SIRS Temperature: Pulse: Respiratory Rate: Laboratory Tests 09/09/19 11:45: White Blood Count 15.3H Blood Pressure / Mean: Laboratory Tests 09/09/19 11:45: Creatinine 0.83, Platelet Count 274, Total Bilirubin 0.7 Results/Orders Lab Results Laboratory Tests Test 09/09/19 11:45 09/09/19 11:46 09/09/19 12:20 Range/Units White Blood Count 15.3 H 4.3-11.0 10^3/uL Red Blood Count 4.78 4.35-5.85 10^6/uL Hemoglobin 13.9 11.5-16.0 G/DL Hematocrit 42 35-52 % Mean Corpuscular Volume 87 80-99 FL Mean Corpuscular Hemoglobin 29 25-34 PG Mean Corpuscular Hemoglobin Concent 33 32-36 G/DL Red Cell Distribution Width 13.2 10.0-14.5 % Platelet Count 274 130-400 10^3/uL Mean Platelet Volume 10.4 7.4-10.4 FL Neutrophils (%) (Auto) 92 H 42-75 % Lymphocytes (%) (Auto) 4 L 12-44 % Monocytes (%) (Auto) 4 0-12 % Eosinophils (%) (Auto) 1 0-10 % Basophils (%) (Auto) 0 0-10 % Neutrophils # (Auto) 14.0 H 1.8-7.8 X 10^3 Lymphocytes # (Auto) 0.6 L 1.0-4.0 X 10^3 Monocytes # (Auto) 0.6 0.0-1.0 X 10^3 Eosinophils # (Auto) 0.1 0.0-0.3 10^3/uL Basophils # (Auto) 0.0 0.0-0.1 10^3/uL Neutrophils % (Manual) 89 % Lymphocytes % (Manual) 3 % Monocytes % (Manual) 1 % Band Neutrophils 7 % Hypersegmented Neutrophils MODERATE Dohle Bodies SLIGHT Blood Morphology Comment NORMAL Sodium Level 137 135-145 MMOL/L Potassium Level 3.6 3.6-5.0 MMOL/L Chloride Level 101 98-107 MMOL/L Carbon Dioxide Level 23 21-32 MMOL/L Anion Gap 13 5-14 MMOL/L Blood Urea Nitrogen 9 7-18 MG/DL Creatinine 0.83 0.60-1.30 MG/DL Estimat Glomerular Filtration Rate > 60 BUN/Creatinine Ratio 11 Glucose Level 332 H 70-105 MG/DL Calcium Level 8.8 8.5-10.1 MG/DL Corrected Calcium 8.7 8.5-10.1 MG/DL Total Bilirubin 0.7 0.1-1.0 MG/DL Aspartate Amino Transf (AST/SGOT) 13 5-34 U/L Alanine Aminotransferase (ALT/SGPT) 17 0-55 U/L Alkaline Phosphatase 111 40-136 U/L Total Protein 7.0 6.4-8.2 GM/DL Albumin 4.1 3.2-4.5 GM/DL C-Reactive Protein High Sensitivity 1.88 H 0.00-0.50 MG/DL Procalcitonin 0.07 <0.10 NG/ML Urine Color YELLOW Urine Clarity CLOUDY Urine pH 6.0 5-9 Urine Specific [place] 1.025 H 1.016-1.022 Urine Protein 1+ H NEGATIVE Urine Glucose (UA) 3+ H NEGATIVE Urine Ketones 1+ H NEGATIVE Urine Nitrite NEGATIVE NEGATIVE Urine Bilirubin NEGATIVE NEGATIVE Urine Urobilinogen 0.2 < = 1.0 MG/DL Urine Leukocyte Esterase 1+ H NEGATIVE Urine RBC (Auto) 1+ H NEGATIVE Urine RBC NONE /HPF Urine WBC TNTC H /HPF Urine Squamous Epithelial Cells 10-25 H /HPF Urine Crystals NONE /LPF Urine Bacteria MODERATE H /HPF Urine Casts NONE /LPF Urine Mucus SMALL H /LPF Urine Culture Indicated YES Micro Results Microbiology 09/09/19 Influenza Types A,B Antigen (TAMEKA) - Final, Complete My Orders Orders - ADRIA DIALLO APRN Cbc With Automated Diff (09/09/19 11:52) Comprehensive Metabolic Panel (09/09/19 11:52) Ua Culture If Indicated (09/09/19 11:52) Ed Iv/Invasive Line Start (09/09/19 11:52) Ct Abdomen/Pelvis W (09/09/19 11:52) Ketorolac Injection (Toradol Injection) (09/09/19 12:00) Ondansetron Injection (Zofran Injectio (09/09/19 12:00) Lactated Ringers (Lr 1000 Ml Iv Solution (09/09/19 12:00) Chest Pa/Lat (2 View) (09/09/19 11:58) Influenza A And B Antigens (09/09/19 11:59) Manual Differential (09/09/19 11:45) Hs C Reactive Protein (09/09/19 12:02) Procalcitonin (Pct) (09/09/19 12:02) Iohexol Injection (Omnipaque 350 Mg/Ml 1 (09/09/19 12:45) Received Contrast (Hold Metformin- Contr (09/09/19 12:45) Ns (Ivpb) (Sodium Chloride 0.9% Ivpb Bag (09/09/19 12:45) Urine Culture (09/09/19 12:20) Ceftriaxone For Iv Use (Rocephin For I (09/09/19 12:45) Acetaminophen Tablet (Tylenol Tablet) (09/09/19 13:00) Medications Given in ED Current Medications Medications Dose Ordered Sig/Asuncion Route Start Time Stop Time Status Last Admin Dose Admin Acetaminophen 1,000 mg ONCE ONCE PO 09/09/19 13:00 09/09/19 13:01 DC 09/09/19 13:05 1,000 MG Ceftriaxone Sodium 1000 mg/ Sterile Water 10 ml @ 200 mls/hr ONCE ONCE IV 09/09/19 12:45 09/09/19 12:47 DC 09/09/19 12:48 200 MLS/HR Iohexol 100 ml ONCE ONCE IV 09/09/19 12:45 09/09/19 12:46 DC 09/09/19 12:36 100 ML Ketorolac Tromethamine 15 mg ONCE ONCE IVP 09/09/19 12:00 09/09/19 12:01 DC 09/09/19 12:09 15 MG Ondansetron HCl 4 mg ONCE ONCE IVP 09/09/19 12:00 09/09/19 12:01 DC 09/09/19 12:09 4 MG Sodium Chloride 100 ml ONCE ONCE IV 09/09/19 12:45 09/09/19 12:46 DC 09/09/19 12:36 100 ML Vital Signs/I&O 09/09/19 09/09/19 09/09/19 11:30 13:08 13:45 Temp 37.6 Pulse 110 106 100 Resp 18 18 18 B/P (MAP) 161/86 (111) 154/86 (108) 144/60 Pulse Ox 99 94 94 O2 Delivery Room Air Room Air Capillary Refill : Diagnostic Imaging Diagonstic Imaging: Xray, CT Comments NAME: [facility] REC#: [id number] PT STATUS: REG ER : 1950 PHYSICIAN: ADRIA DIALLO APRN ADMIT DATE: 09/09/19/ER Draft Date of Exam:09/09/19 CT ABDOMEN/PELVIS W PROCEDURE: CT abdomen and pelvis with contrast. TECHNIQUE: Multiple contiguous axial images were obtained through the abdomen and pelvis after administration of intravenous contrast. Auto Exposure Controls were utilized during the CT exam to meet ALARA standards for radiation dose reduction. INDICATION: Abdominal pain. Comparison made with prior examination of 06/30/2016. FINDINGS: The heart size is normal. The lung bases are clear. There is a trace pericardial effusion. There are a few tiny cysts in the liver. There is no biliary duct dilatation. Gallbladder surgically absent. Spleen is normal. The pancreas and adrenal glands are unremarkable. There is a cyst in the right kidney. There is no evidence of nephrolithiasis or obstructive uropathy. The aorta is nonaneurysmal. The bowel gas pattern is nonspecific. No free air. No ascites. No focal inflammatory changes. There is no pelvic mass, adenopathy or free fluid. There are mild degenerative changes in the spine. IMPRESSION: Benign hepatic and renal cysts. Trace pericardial effusion. No other acute abnormality in the abdomen or pelvis. Dictated on workstation # [id number] Dict: 09/09/19 1311 Trans: 09/09/19 1315 [facility] [id number] Interpreted by: BRENDA POE MD Electronically signed by: Departure Communication (Admissions) 1319 , feeling better denies nausea at this time. She is receiving 1 g of Rocephin here 1 L of IV fluids. I'll prescribe Levaquin outpatient and phenergan when necessary. Looking at prior visits, shes been tachycardic on each of those as well. She is nontoxic appearing, alert, pleasant. Impression Primary Impression: UTI (urinary tract infection) Qualified Codes: N30.00 - Acute cystitis without hematuria Additional Impression: Right lower quadrant pain Disposition: HOME, SELF-CARE Condition: Improved Departure-Patient Inst. Decision time for Depature: 13:20 Referrals: [facility] (PCP) Primary Care Physician FLORECITA NAVARRO APRN (Family) Primary Care Physician Patient Instructions: Urinary Tract Infection, Adult (DC) Add. Discharge Instructions: 1. Return to ER for any concerns 2. Return to ER for any high fevers, vomiting that prevents U from taking antibiotics or worsening symptoms. Use the nausea medication today as needed, start the antibiotics tomorrow. Scripts Promethazine HCl (Promethazine Tablet) 25 Mg Tablet 12.5 MG PO Q6H PRN for NAUSEA/VOMITING, #10 TAB Prov: ADRIA DIALLO APRN 09/09/19 Levofloxacin (Levaquin) 500 Mg Tablet 500 MG PO DAILY, #5 TAB Prov: ADRIA DIALLO APRN 09/09/19 ADRIA DIALLO APRN Sep 09, 2019 11:57
[2019-09-09 11:58] LABS: BASOPHILS % (AUTO) 0 % (0-10); EOSINOPHILS # (AUTO) 0.1 10^3/uL (0.0-0.3); EOSINOPHILS % (AUTO) 1 % (0-10); HEMATOCRIT 42 % (35-52); HEMOGLOBIN 13.9 G/DL (11.5-16.0); LYMPHOCYTES # (AUTO) 0.6 X 10^3 (1.0-4.0); LYMPHOCYTES % (AUTO) 4 % (12-44); MEAN CORPUSCULAR HEMOGLOBIN 29 PG (25-34); MEAN CORPUSCULAR HGB CONC 33 G/DL (32-36); MEAN CORPUSCULAR VOLUME 87 FL (80-99); MEAN PLATELET VOLUME 10.4 FL (7.4-10.4); MONOCYTES # (AUTO) 0.6 X 10^3 (0.0-1.0); MONOCYTES % (AUTO) 4 % (0-12); NEUTROPHILS % (AUTO) 92 % (42-75); PLATELET COUNT 274 10^3/uL (130-400); RED CELL DISTRIBUTION WIDTH 13.2 % (10.0-14.5); WHITE BLOOD COUNT 15.3 10^3/uL (4.3-11.0)
[2019-09-09] MEDS ORDERED: LACTATED RINGERS 1,000 ML IV SCH (12:00)
[2019-09-09] MEDS ORDERED: ONDANSETRON 4 MG/2 ML (SDV) Z0FRAN IVP ONE (12:00)
[2019-09-09] MEDS ORDERED: KETOROLAC 30 MG/ML VIAL IVP ONE (12:00)
[2019-09-09 12:12] LABS: ALANINE AMINOTRANSFERASE 17 U/L (0-55); ALBUMIN 4.1 GM/DL (3.2-4.5); ALKALINE PHOSPHATASE 111 U/L (40-136); BILIRUBIN,TOTAL 0.7 MG/DL (0.1-1.0); BUN/CREATININE RATIO 11; CALCIUM 8.8 MG/DL (8.5-10.1); CARBON DIOXIDE 23 MMOL/L (21-32); CHLORIDE 101 MMOL/L (98-107); CREATININE SERUM 0.83 MG/DL (0.60-1.30); GFR ESTIMATED > 60; GLUCOSE 332 MG/DL (70-105); POTASSIUM 3.6 MMOL/L (3.6-5.0); SODIUM 137 MMOL/L (135-145)
[2019-09-09 12:14] LABS: BAND NEUTROPHILS 7 %; HYPERSEGMENTED NEUT MODERATE; LYMPHOCYTES % (MANUAL) 3 %; MONOCYTES % (MANUAL) 1 %; NEUTROPHILS % (MANUAL) 89 %; RBC MORPH NORMAL
[2019-09-09 12:26] LABS: BILIRUBIN,URINE NEGATIVE (NEGATIVE); CLARITY,URINE CLOUDY; COLOR,URINE YELLOW; GLUCOSE, URINE (UA) 3+ (NEGATIVE); KETONES,URINE 1+ (NEGATIVE); LEUKOCYTE ESTERASE ,URINE 1+ (NEGATIVE); NITRITE,URINE NEGATIVE (NEGATIVE); PROTEIN,URINE 1+ (NEGATIVE)
[2019-09-09 12:34] LABS: BACTERIA,URINE MODERATE /HPF; WBC,URINE TNTC /HPF
[2019-09-09] MEDS ORDERED: NS 100 ML (IVPB) BAG IV ONE (12:45)
[2019-09-09] MEDS ORDERED: cefTRIAXone FOR IV USE 1,000 MG in WATER (STERILE) FOR INJECTION 10 ML IV ONE (12:45)
[2019-09-09] MEDS ORDERED: HOLD METFORMIN - RECEIVED CONTRAST 20 ML VIAL IV SCH (12:45)
[2019-09-09] MEDS ORDERED: IOHEXOL 350 MG/ML 100 ML (OMNIPAQUE 350) VIAL IV ONE (12:45)
[2019-09-09] MEDS ORDERED: ACETAMINOPHEN 500 MG TAB (TYLENOL) PO ONE (13:00)
--- NOTE | 2019-09-09 13:05 | NUR ---
TO ROOM FLUIDS INFUSING PATIENT REPORTS THAT SHE IS FEELING BETTER.
[2019-09-09 13:08] VITALS: BP 154/86
--- NOTE | 2019-09-09 13:12 | Diagnostic Imaging Report ---
INDICATION: Pain. Comparison made with prior examination of 06/28/2017. FINDINGS: The heart size, mediastinal configuration, and pulmonary vascularity are within normal limits. There is no pleural effusion, pneumothorax, or pneumonia. The osseous structures are unremarkable. IMPRESSION: No acute cardiopulmonary abnormality. Dictated by: Dictated on workstation # [id number]
--- NOTE | 2019-09-09 13:15 | Diagnostic Imaging Report ---
PROCEDURE: CT abdomen and pelvis with contrast. TECHNIQUE: Multiple contiguous axial images were obtained through the abdomen and pelvis after administration of intravenous contrast. Auto Exposure Controls were utilized during the CT exam to meet ALARA standards for radiation dose reduction. INDICATION: Abdominal pain. Comparison made with prior examination of 06/30/2016. FINDINGS: The heart size is normal. The lung bases are clear. There is a trace pericardial effusion. There are a few tiny cysts in the liver. There is no biliary duct dilatation. Gallbladder surgically absent. Spleen is normal. The pancreas and adrenal glands are unremarkable. There is a cyst in the right kidney. There is no evidence of nephrolithiasis or obstructive uropathy. The aorta is nonaneurysmal. The bowel gas pattern is nonspecific. No free air. No ascites. No focal inflammatory changes. There is no pelvic mass, adenopathy or free fluid. There are mild degenerative changes in the spine. IMPRESSION: Benign hepatic and renal cysts. Trace pericardial effusion. No other acute abnormality in the abdomen or pelvis. Dictated by: Dictated on workstation # [id number]
[2019-09-09] MEDS ORDERED: LEVO500T2 PO (13:35)
[2019-09-09] MEDS ORDERED: PROM25TA14 PO (13:35)
[2019-09-09 13:45] VITALS: BP 144/60
== END 2019-09-09 13:45 | disposition home or self-care (01) ==
LOC: EDUNIT# 11:26 → ER 11:28
DX: N39.0 Urinary tract infection, site not specified (principal); I10 Essential (primary) hypertension; E78.00 Pure hypercholesterolemia, unspecified; E11.40 Type 2 diabetes mellitus with diabetic neuropathy, unspecified; K21.9 Gastro-esophageal reflux disease without esophagitis; F41.9 Anxiety disorder, unspecified; F32.9 Major depressive disorder, single episode, unspecified; Z82.49 Family history of ischemic heart disease and other diseases of the circulatory system
CPT/HCPCS: 36415; 71046; 74177; 80053; 81000; 84145; 85007; 85027; 86141; 87077; 87088; 87186; 87804

== ENCOUNTER 2021-01-06 13:38 | Emergency (ER) | payer MEDICARE, MEDICAID ==
[~2021-01-06] VITALS: Ht 175 cm; Wt 97.0 kg
[~2021-01-06 13:38] MED LIST changes: +LEVO500T2 PO; -LISI-552 PO; +LISI20TA26 PO; +METF-865 PO; -METF500T19 PO; -OXYC-465 PO; +OXYC-556 PO; +PROM25TA14 PO; -SULF1TAB35 PO; +SULF1TAB38 PO
--- NOTE | 2021-01-06 14:40 | ED Back Pain ---
General Chief Complaint: Back Problems Stated Complaint: BACK PAIN Source of Information: Patient Exam Limitations: No Limitations History of Present Illness Date Seen by Provider: Jan 06, 2021 Time Seen by Provider: 13:57 Initial Comments This is a 70 yo female who presented to the ER with c/o right low back pain that started 12 days ago. Has tried over the counter Tylenol and Ibuprofen with no pain relief. No fever, chills, cough, chest pain, nausea/vomiting, abdominal pain. Allergies and Home Medications Allergies Coded Allergies: No Known Drug Allergies (Unverified , 05/01/19) Home Medications Cefuroxime Axetil 250 Mg Tablet, 250 MG PO BID Prescribed by: ODALYS RAMOS on 01/06/21 1615 Cholecalciferol (Vitamin D3) 5,000 Unit Capsule, 5,000 UNIT PO DAILY, (Reported) Cyclobenzaprine HCl 10 Mg Tablet, 10 MG PO Q8H PRN for PAIN-MILD (1-4) Prescribed by: ODALYS RAMOS on 01/06/21 1556 Insulin Determir 1,000 Units/10 Ml Soln, 40 UNITS SQ BID, (Reported) USES NO MATTER WHAT BS IS Levofloxacin 500 Mg Tablet, 500 MG PO DAILY Prescribed by: ADRIA DIALLO on 09/09/19 1335 Lisinopril 20 Mg Tablet, 20 MG PO DAILY, (Reported) Lovastatin 20 Mg Tablet, 20 MG PO DAILY, (Reported) Omeprazole 20 Mg Capsule.dr, 20 MG PO DAILY Prescribed by: HANNAH BUSTOS on 10/26/16 2149 Promethazine HCl 25 Mg Tablet, 12.5 MG PO Q6H PRN for NAUSEA/VOMITING Prescribed by: ADRIA DIALLO on 09/09/19 1335 Tramadol HCl 50 Mg Tablet, 50-100 MG PO Q4H Prescribed by: YEHUDA BULL on 05/03/19 1048 Trazodone HCl 50 Mg Tablet, 100 MG PO HS, (Reported) Venlafaxine HCl 150 Mg Cap.er.24h, 150 MG PO DAILY, (Reported) Patient Home Medication List Home Medication List Reviewed: Yes Review of Systems Constitutional: no symptoms reported EENTM: no symptoms reported Respiratory: no symptoms reported Gastrointestinal: no symptoms reported Genitourinary: no symptoms reported Musculoskeletal: see HPI Skin: no symptoms reported Psychiatric/Neurological: No Symptoms Reported Past Ogdvcsv-Rvwvem-Kfovxi Hx Immunizations Up To Date Tetanus Booster (TDap): More than 5yrs PED Vaccines UTD: No Seasonal Allergies Seasonal Allergies: Yes Past Medical History Surgeries: Yes (NECK AND BACK SURGERY, FX ARM) Gallbladder, Hysterectomy Respiratory: No Currently Using CPAP: No Currently Using BIPAP: No Cardiac: Yes High Cholesterol, Hypertension Neurological: Yes (VERY LITTLE NEUROPATHY IN FEET) Neuropathy 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 Disorders: No Female 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 Sexually Transmitted Disease: No HIV/AIDS: No Genitourinary: Yes Kidney Stones Gastrointestinal: Yes Gastroesophageal Reflux Musculoskeletal: Yes (STENOSIS) Degenerate Disk Disease, Arthritis Endocrine: Yes Diabetes, Insulin dep HEENT: Yes (GLASSES) Loss of Vision: Denies Hearing Impairment: Denies Cancer: No Psychosocial: Yes Anxiety, Depression Integumentary: No Blood Disorders: Yes (HX OF ANEMIA PRIOR TO HYSTERECTOMY) Adverse Reaction/Blood Tranf: No (HAS HAD BLOOD TRANSFUSION WITH NO PROBLEMS) Family Medical History Arthritis 19 MOTHER Cataracts 19 FATHER 19 MOTHER Hypercholesterolemia 19 FATHER Hypertension 19 FATHER No Pertinent Family Hx Physical Exam Vital Signs Vital Signs - First Documented 01/06/21 14:00 Temp 37.0 Pulse 90 Resp 18 B/P (MAP) 120/ Pulse Ox 98 O2 Delivery Room Air Capillary Refill : Height, Weight, BMI Height: 5'9.00" Weight: 200lbs. 3.0oz. 90.492356aj; 31.00 BMI Method:Stated General Appearance: No Apparent Distress, WD/WN HEENT: PERRL/EOMI, Normal ENT Inspection Neck: Full Range of Motion, Normal Inspection, Non Tender Cardiovascular: Regular Rate, Rhythm, No Edema, Normal Peripheral Pulses Respiratory: Lungs Clear, Normal Breath Sounds, No Accessory Muscle Use Gastrointestinal: Normal Bowel Sounds, Non Tender, Soft Back: Normal Inspection, No CVA Tenderness, No Vertebral Tenderness, Other (right sided low back tenderness) Extremity: Normal Capillary Refill, Normal Inspection Neurologic/Psychiatric: Alert, Oriented x3, No Motor/Sensory Deficits, Normal Mood/Affect Skin: Normal Color, Warm/Dry Progress/Results/Core Measures Results/Orders Lab Results Laboratory Tests Test 01/06/21 15:36 Range/Units Urine Color YELLOW Urine Clarity CLEAR Urine pH 6.0 5-9 Urine Specific [place] 1.025 H 1.016-1.022 Urine Protein NEGATIVE NEGATIVE Urine Glucose (UA) NEGATIVE NEGATIVE Urine Ketones NEGATIVE NEGATIVE Urine Nitrite NEGATIVE NEGATIVE Urine Bilirubin NEGATIVE NEGATIVE Urine Urobilinogen 0.2 < = 1.0 MG/DL Urine Leukocyte Esterase 1+ H NEGATIVE Urine RBC (Auto) NEGATIVE NEGATIVE Urine RBC NONE /HPF Urine WBC 10-25 H /HPF Urine Squamous Epithelial Cells NONE /HPF Urine Crystals NONE /LPF Urine Bacteria LARGE H /HPF Urine Casts NONE /LPF Urine Mucus NEGATIVE /LPF Urine Culture Indicated YES Micro Results Microbiology 01/06/21 Urine Culture - Preliminary, Resulted Escherichia coli My Orders Orders - ODALYS RAMOS APRN Ua Culture If Indicated (01/06/21 13:57) Ketorolac Injection (Toradol Injection) (01/06/21 15:00) Urine Culture (01/06/21 15:36) Medications Given in ED Vital Signs/I&O 01/06/21 01/06/21 14:00 16:49 Temp 37.0 37.0 Pulse 90 90 Resp 18 18 B/P (MAP) 120/ 120/78 Pulse Ox 98 98 O2 Delivery Room Air Departure Impression Primary Impression: Low back pain Additional Impression: UTI (urinary tract infection) Disposition: 01 HOME, SELF-CARE Condition: Improved Departure-Patient Inst. Decision time for Depature: 15:45 Referrals: [facility] (PCP) Primary Care Physician FLORECITA NAVARRO APRN (Family) Primary Care Physician Patient Instructions: Low Back Pain in Adults Add. Discharge Instructions: Plan: 1. Use Tylenol and Ibuprofen as needed for pain with Flexeril. Do not drive while taking Flexeril. Do not take your Trazadone if you take Flexeril. 2. Use ice/heat 20 minutes at a time to help with pain. 3. May use over the counter Lidocaine patches or Biofreeze. 4. Follow up with your doctor if your symptoms persist. 5. Take antibiotics as directed and complete full course. 6. Return for any new, concerning, or worsening symptoms. All discharge instructions reviewed with patient and/or family. Voiced understanding. Scripts Cefuroxime Axetil (Cefuroxime) 250 Mg Tablet 250 MG PO BID for 10 Days, #20 TAB 0 Refills Prov: ODALYS RAMOS APRN 01/06/21 Cyclobenzaprine HCl (Cyclobenzaprine HCl) 10 Mg Tablet 10 MG PO Q8H PRN for PAIN-MILD (1-4), #14 TAB 0 Refills Prov: ODALYS RAMOS APRN 01/06/21 ODALYS RAMOS APRN Jan 06, 2021 14:40
[2021-01-06] MEDS ORDERED: KETOROLAC 30 MG/ML VIAL IM ONE (15:00)
[2021-01-06 15:41] LABS: BILIRUBIN,URINE NEGATIVE (NEGATIVE); CLARITY,URINE CLEAR; COLOR,URINE YELLOW; GLUCOSE, URINE (UA) NEGATIVE (NEGATIVE); KETONES,URINE NEGATIVE (NEGATIVE); LEUKOCYTE ESTERASE ,URINE 1+ (NEGATIVE); NITRITE,URINE NEGATIVE (NEGATIVE); PROTEIN,URINE NEGATIVE (NEGATIVE)
[2021-01-06 15:49] LABS: BACTERIA,URINE LARGE /HPF
[2021-01-06] MEDS ORDERED: CYCL10TA9 PO (15:56)
[2021-01-06] MEDS ORDERED: CEFU250T80 PO (16:15)
[2021-01-06 16:49] VITALS: BP 120/78
== END 2021-01-06 16:48 | disposition home or self-care (01) ==
LOC: EDUNIT# 13:38 → ER 13:40
DX: M54.5 Low back pain (principal); N39.0 Urinary tract infection, site not specified; I10 Essential (primary) hypertension; E78.00 Pure hypercholesterolemia, unspecified; F32.9 Major depressive disorder, single episode, unspecified; F41.9 Anxiety disorder, unspecified; E11.9 Type 2 diabetes mellitus without complications; K21.9 Gastro-esophageal reflux disease without esophagitis; Z79.899 Other long term (current) drug therapy; Z79.4 Long term (current) use of insulin
CPT/HCPCS: 81000; 87077; 87088

== ENCOUNTER 2021-01-09 14:23 | Emergency (ER) | payer MEDICARE, MEDICAID ==
[~2021-01-09] VITALS: Ht 175.2 cm; Wt 97.0 kg
[~2021-01-09 14:23] MED LIST changes: +CEFU250T80 PO; +CYCL10TA9 PO
[2021-01-09 16:11] LABS: BILIRUBIN,URINE NEGATIVE (NEGATIVE); CLARITY,URINE CLEAR; COLOR,URINE YELLOW; GLUCOSE, URINE (UA) NEGATIVE (NEGATIVE); KETONES,URINE TRACE (NEGATIVE); LEUKOCYTE ESTERASE ,URINE NEGATIVE (NEGATIVE); NITRITE,URINE NEGATIVE (NEGATIVE); PROTEIN,URINE TRACE (NEGATIVE)
[2021-01-09 16:40] LABS: BACTERIA,URINE TRACE /HPF; WBC,URINE 0-2 /HPF; YEAST,URINE FEW /HPF
[2021-01-09] MEDS ORDERED: FLUC150T PO (16:59)
--- NOTE | 2021-01-09 16:59 | ED GU-Female ---
General Chief Complaint: - Urinary Stated Complaint: UTI;BACK PAIN Nursing Triage Note: PT TO ED IN WHEELCHAIR. PT REPORTS BEING SEEN IN ED ON TUESDAY AND DIAGNOSED WITH A UTI. PT REPORTS TAKING CEFUROXIME AND OMEPERAZOLE. PT REPORTS YESTERDAY, "EVERYTHING WENT BLACK, BUT I DIDN'T PASS OUT." PT REPORTS PAPERWORK STATED THERE COULD BE A DRUG INTERACTION AND IS CONCERNED AND WANTED TO BE SEEN. PT DENIES URINARY SYMPTOMS AT THIS TIME. PT REPORTS CHRONIC BACK PAIN. History of Present Illness Date Seen by Provider: Jan 09, 2021 Time Seen by Provider: 16:00 Initial Comments 70-year-old female reports a possible reaction or interaction with her antibiotic and other medications. She reports yesterday having a spell where she got dizzy and then everything went black but she did not pass out. She has not had similar symptoms since then. She is continuing to take her antibiotics and her home medications. She is diabetic but does not check her glucose regularly. She reports drinking a significant amount of water but when further asked she drinks approximately 216 ounces of water a day. She denies any GI upset, headache or other symptoms related to her new medications. Reviewed culture results which showed E. coli which her antibiotic is sensitive to. Timing/Duration: yesterday Severity/Quality: mild Associated Symptoms: denies symptoms Allergies and Home Medications Allergies Coded Allergies: No Known Drug Allergies (Unverified , 05/01/19) Home Medications Cefuroxime Axetil 250 Mg Tablet, 250 MG PO BID Prescribed by: ODALYS RAMOS on 01/06/21 1615 Cholecalciferol (Vitamin D3) 5,000 Unit Capsule, 5,000 UNIT PO DAILY, (Reported) Cyclobenzaprine HCl 10 Mg Tablet, 10 MG PO Q8H PRN for PAIN-MILD (1-4) Prescribed by: ODALYS RAMOS on 01/06/21 1556 Fluconazole 150 Mg Tablet, 150 MG PO DAILY Take 1 pill today and repeat in 3 days. Prescribed by: APOLINAR MANTILLA on 01/09/21 1659 Insulin Determir 1,000 Units/10 Ml Soln, 40 UNITS SQ BID, (Reported) USES NO MATTER WHAT BS IS Levofloxacin 500 Mg Tablet, 500 MG PO DAILY Prescribed by: ADRIA DIALLO on 09/09/19 1335 Lisinopril 20 Mg Tablet, 20 MG PO DAILY, (Reported) Lovastatin 20 Mg Tablet, 20 MG PO DAILY, (Reported) Omeprazole 20 Mg Capsule.dr, 20 MG PO DAILY Prescribed by: HANNAH BUSTOS on 10/26/16 214 Promethazine HCl 25 Mg Tablet, 12.5 MG PO Q6H PRN for NAUSEA/VOMITING Prescribed by: ADRIA DIALLO on 09/09/19 1335 Tramadol HCl 50 Mg Tablet, 50-100 MG PO Q4H Prescribed by: YEHUDA BULL on 05/03/19 1048 Trazodone HCl 50 Mg Tablet, 100 MG PO HS, (Reported) Venlafaxine HCl 150 Mg Cap.er.24h, 150 MG PO DAILY, (Reported) Patient Home Medication List Home Medication List Reviewed: Yes Review of Systems Review of Systems Constitutional: no symptoms reported, see HPI All Other Systemes Reviewed Negative Unless Noted: Yes Past Oxpgwkh-Oapajk-Aalqbr Hx Patient Social History Tobacco Use?: No Substance use?: No Alcohol Use?: No Pt feels they are or have been: No Immunizations Up To Date Tetanus Booster (TDap): More than 5yrs PED Vaccines UTD: No Seasonal Allergies Seasonal Allergies: Yes Past Medical History Surgeries: Yes (NECK AND BACK SURGERY, FX ARM) Gallbladder, Hysterectomy Respiratory: No Currently Using CPAP: No Currently Using BIPAP: No Cardiac: Yes High Cholesterol, Hypertension Neurological: Yes (VERY LITTLE NEUROPATHY IN FEET) Neuropathy 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 Disorders: No 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 Sexually Transmitted Disease: No HIV/AIDS: No Genitourinary: Yes Kidney Stones Gastrointestinal: Yes Gastroesophageal Reflux Musculoskeletal: Yes (STENOSIS) Degenerate Disk Disease, Arthritis Endocrine: Yes Diabetes, Insulin dep HEENT: Yes (GLASSES) Loss of Vision: Denies Hearing Impairment: Denies Cancer: No Psychosocial: Yes Anxiety, Depression Integumentary: No Blood Disorders: Yes (HX OF ANEMIA PRIOR TO HYSTERECTOMY) Adverse Reaction/Blood Tranf: No (HAS HAD BLOOD TRANSFUSION WITH NO PROBLEMS) Family Medical History Reviewed Nursing Family Hx Arthritis 19 MOTHER Cataracts 19 FATHER 19 MOTHER Hypercholesterolemia 19 FATHER Hypertension 19 FATHER No Pertinent Family Hx Physical Exam Vital Signs Vital Signs - First Documented 01/09/21 15:55 Temp 36.5 Pulse 94 Resp 18 B/P (MAP) 144/76 (98) Pulse Ox 97 O2 Delivery Room Air Capillary Refill : Less Than 3 Seconds Height, Weight, BMI Height: 5'9.00" Weight: 200lbs. 3.0oz. [id number]; 31.00 BMI Method:Stated General Appearance: WD/WN, no apparent distress Cardiovascular: normal peripheral pulses, regular rate, rhythm Respiratory: chest non-tender, lungs clear, normal breath sounds Gastrointestinal: normal bowel sounds, non tender, soft Back: normal inspection, no CVA tenderness, no vertebral tenderness Neurologic/Psychiatric: no motor/sensory deficits, alert, normal mood/affect, oriented x 3 Skin: normal color, warm/dry Progress/Results/Core Measures Suspected Sepsis SIRS Temperature: Pulse: 94 Respiratory Rate: 18 Blood Pressure 144 /76 Mean: 98 Results/Orders Lab Results Laboratory Tests Test 01/09/21 15:55 Range/Units Urine Color YELLOW Urine Clarity CLEAR Urine pH 6.0 5-9 Urine Specific Newberry >=1.030 1.016-1.022 Urine Protein TRACE H NEGATIVE Urine Glucose (UA) NEGATIVE NEGATIVE Urine Ketones TRACE H NEGATIVE Urine Nitrite NEGATIVE NEGATIVE Urine Bilirubin NEGATIVE NEGATIVE Urine Urobilinogen 0.2 < = 1.0 MG/DL Urine Leukocyte Esterase NEGATIVE NEGATIVE Urine RBC (Auto) NEGATIVE NEGATIVE Urine RBC NONE /HPF Urine WBC 0-2 /HPF Urine Squamous Epithelial Cells 5-10 /HPF Urine Crystals NONE /LPF Urine Bacteria TRACE /HPF Urine Casts NONE /LPF Urine Mucus NEGATIVE /LPF Urine Yeast FEW H /HPF Urine Culture Indicated YES My Orders Orders - APOLINAR MANTILLA Ua Culture If Indicated (01/09/21 14:57) Urine Culture (01/09/21 15:55) Vital Signs/I&O 01/09/21 01/09/21 15:55 17:13 Temp 36.5 36.5 Pulse 94 94 Resp 18 18 B/P (MAP) 144/76 (98) 144/76 (98) Pulse Ox 97 97 O2 Delivery Room Air Room Air Capillary Refill : Less Than 3 Seconds Blood Pressure Mean: 98 Departure Impression Primary Impression: Urinary tract infection Qualified Codes: N30.00 - Acute cystitis without hematuria Disposition: HOME, SELF-CARE Condition: Improved Departure-Patient Inst. Decision time for Depature: 16:45 Referrals: [facility] (PCP) Primary Care Physician LFORECITA NAVARRO APRN (Family) Primary Care Physician Patient Instructions: Urinary Tract Infection, Adult (DC) Add. Discharge Instructions: Continue to take your antibiotics and home medications as prescribed. You must increase your water intake, 16 ounces every 2 hours while awake. Follow-up with your primary care provider if symptoms are not improving or worsen. Return to the emergency department for new, urgent healthcare needs. All discharge instructions reviewed with patient and/or family. Voiced understanding. Scripts Fluconazole (Diflucan) 150 Mg Tablet 150 MG PO DAILY, #2 TAB 0 Refills Take 1 pill today and repeat in 3 days. Prov: APOLINAR MANTILLA 01/09/21 APOLINAR MANTILLA Jan 09, 2021 16:59
[2021-01-09 17:13] VITALS: BP 144/76
== END 2021-01-09 17:15 | disposition home or self-care (01) ==
LOC: EDUNIT# 14:23 → ER 14:25
DX: N39.0 Urinary tract infection, site not specified (principal); I10 Essential (primary) hypertension; E11.40 Type 2 diabetes mellitus with diabetic neuropathy, unspecified; E78.00 Pure hypercholesterolemia, unspecified; K21.9 Gastro-esophageal reflux disease without esophagitis; F41.9 Anxiety disorder, unspecified; F32.9 Major depressive disorder, single episode, unspecified; Z79.4 Long term (current) use of insulin; Z79.899 Other long term (current) drug therapy
CPT/HCPCS: 81000; 87088; 99282

== ENCOUNTER 2021-06-03 14:09 | Emergency (ER) | payer MEDICARE, MEDICAID ==
[~2021-06-03] VITALS: Ht 172 cm; Wt 90.0 kg
[~2021-06-03 14:09] MED LIST changes: +CYCL10TA25 PO; -CYCL10TA9 PO; +FLUC150T PO
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
--- NOTE | 2021-06-03 15:21 | Diagnostic Imaging Report ---
INDICATION: Hematoma. EXAMINATION: A two view right tibia-fibula was performed. FINDINGS: No fracture or dislocation. Vascular calcifications are present. There is arthritis to the knee and ankle joints. No opaque foreign body or gas. IMPRESSION: No acute bony abnormality. Dictated by: Dictated on workstation # [id number]
[2021-06-03] MEDS ORDERED: TRAM-42 PO (15:26)
[2021-06-03 15:55] VITALS: BP 126/97
== END 2021-06-03 15:59 | disposition home or self-care (01) ==
LOC: EDUNIT# 14:09 → ER 14:10
DX: S80.11XA Contusion of right lower leg, initial encounter (principal); S16.1XXA Strain of muscle, fascia and tendon at neck level, initial encounter; E11.40 Type 2 diabetes mellitus with diabetic neuropathy, unspecified; E78.00 Pure hypercholesterolemia, unspecified; I10 Essential (primary) hypertension; F41.9 Anxiety disorder, unspecified; F32.9 Major depressive disorder, single episode, unspecified; Z90.710 Acquired absence of both cervix and uterus; Z79.4 Long term (current) use of insulin; Z79.899 Other long term (current) drug therapy; V49.40XA Driver injured in collision with unspecified motor vehicles in traffic accident, initial encounter; Y92.410 Unspecified street and highway as the place of occurrence of the external cause
CPT/HCPCS: 70450; 71046; 72125; 73590

== ENCOUNTER 2022-01-31 15:38 | Emergency (ER) | payer MEDICARE, MEDICAID ==
[~2022-01-31] VITALS: Ht 172 cm; Wt 98.0 kg
[~2022-01-31 15:38] MED LIST changes: -VENL150C PO; +VENL150C3 PO
--- NOTE | 2022-01-31 16:20 | ED EENT ---
History of Present Illness General Chief Complaint: Oral/Throat Problems Stated Complaint: SORE ON TONGUE, LOW BP Nursing Triage Note: PT TO ED W/ C/O SORE TO TONGUE ONSET X4 DAYS. REPORTS WAS SEEN AT [facility] ET PRESCRIBED MAGIC MOUTH WASH BUT DENIES IMPROVEMENT. REPORTS UNABLE TO EAT ET THAT HER BLOOD SUGARS ARE "LOW". ALSO C/O SORE THROAT. NO OTHER C/O VOICED. History of Present Illness Date Seen by Provider: Jan 31, 2022 Time Seen by Provider: 16:00 Initial Comments 71 year old female with small ulceration to right side of tongue. Complains that she is having difficulty eating, secondary to pain. Concerned with glucose since she isn't eating much. Accucheck 92. Severity: mild Location: mouth Prearrival Treatment: prescription meds Associated Symptoms: denies symptoms; No drooling, No fever, No malaise; poor fluid intake, poor solids intake; No voice change Allergies and Home Medications Allergies Coded Allergies: No Known Drug Allergies (Unverified , 05/01/19) Patient Home Medication List Home Medication List Reviewed: Yes Cefuroxime Axetil (Cefuroxime) 250 Mg Tablet, 250 MG PO BID Prescribed by: ODALYS RAMOS on 01/06/21 1615 Cholecalciferol (Vitamin D3) (Vitamin D3) 5,000 Unit Capsule, 5,000 UNIT PO DAILY, (Reported) Entered as Reported by: RTES STINSON on 03/22/18 1506 Cyclobenzaprine HCl (Cyclobenzaprine HCl) 10 Mg Tablet, 10 MG PO Q8H PRN for PAIN-MILD (1-4) Prescribed by: ODALYS RAMOS on 01/06/21 1556 Fluconazole (Diflucan) 150 Mg Tablet, 150 MG PO DAILY Prescribed by: APOLINAR MANTILLA on 01/09/21 1659 Insulin Determir (Levemir) 1,000 Units/10 Ml Soln, 40 UNITS SQ BID, (Reported) Entered as Reported by: TRES STINSON on 01/19/16 1404 Levofloxacin (Levaquin) 500 Mg Tablet, 500 MG PO DAILY Prescribed by: ADRIA DIALLO on 09/09/19 1335 Lisinopril (Lisinopril) 20 Mg Tablet, 20 MG PO DAILY, (Reported) Entered as Reported by: ADA MAHMOOD on 05/02/15927 Lovastatin (Lovastatin) 20 Mg Tablet, 20 MG PO DAILY, (Reported) Entered as Reported by: TRES STINSON on 03/22/18 1506 Omeprazole (Omeprazole) 20 Mg Capsule.dr, 20 MG PO DAILY Prescribed by: HANNAH BUSTOS on 10/26/16 2149 Promethazine HCl (Promethazine Tablet) 25 Mg Tablet, 12.5 MG PO Q6H PRN for NAUSEA/VOMITING Prescribed by: ADRIA DIALLO on 09/09/19 1335 Tramadol HCl (Ultram) 50 Mg Tablet, 50-100 MG PO Q4H Prescribed by: YEHUDA BULL on 05/03/19 1048 Tramadol HCl (Ultram) 50 Mg Tablet, 50 MG PO Q6H Prescribed by: ADRIA DIALLO on 06/03/21 1527 Trazodone HCl (Trazodone HCl) 50 Mg Tablet, 100 MG PO HS, (Reported) Entered as Reported by: TRES STINSON on 03/22/18 1506 Venlafaxine HCl (Effexor Xr) 150 Mg Cap.er.24h, 150 MG PO DAILY, (Reported) Entered as Reported by: ADA MAHMOOD on 05/02/15927 Review of Systems Review of Systems Constitutional: no symptoms reported, see HPI Mouth: see HPI, pain All Other Systems Reviewed Negative Unless Noted: Yes Past Ihmaodm-Icrpfe-Givpjq Hx Patient Social History Tobacco Use?: No Use of E-Cig and/or Vaping dev: No Substance use?: No Alcohol Use?: No Pt feels they are or have been: No Immunizations Up To Date Tetanus Booster (TDap): More than 5yrs PED Vaccines UTD: No Seasonal Allergies Seasonal Allergies: Yes Past Medical History Surgery/Hospitalization HX: DIABETIC Surgeries: Yes (NECK AND BACK SURGERY, FX ARM) Gallbladder, Hysterectomy Respiratory: No Currently Using CPAP: No Currently Using BIPAP: No Cardiac: Yes High Cholesterol, Hypertension Neurological: Yes (VERY LITTLE NEUROPATHY IN FEET) Neuropathy 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 Disorders: No Female 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 Disorders: Denies 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 Sexually Transmitted Disease: No HIV/AIDS: No Genitourinary: Yes Kidney Stones Gastrointestinal: Yes Gastroesophageal Reflux Musculoskeletal: Yes (STENOSIS) Degenerate Disk Disease, Arthritis Endocrine: Yes Diabetes, Insulin dep HEENT: Yes (GLASSES) Loss of Vision: Denies Hearing Impairment: Denies Cancer: No Psychosocial: Yes Anxiety, Depression Integumentary: No Blood Disorders: Yes (HX OF ANEMIA PRIOR TO HYSTERECTOMY) Adverse Reaction/Blood Tranf: No (HAS HAD BLOOD TRANSFUSION WITH NO PROBLEMS) Family Medical History Reviewed Nursing Family Hx Arthritis 19 MOTHER Cataracts 19 FATHER 19 MOTHER Hypercholesterolemia 19 FATHER Hypertension 19 FATHER No Pertinent Family Hx Physical Exam Vital Signs Vital Signs - First Documented 01/31/22 15:42 Temp 36.9 Pulse 96 Resp 20 B/P (MAP) 142/66 (91) Pulse Ox 96 O2 Delivery Room Air Height, Weight, BMI Height: 5'9.00" Weight: 200lbs. 3.0oz. 90.959071zk; 33.00 BMI Method:Stated General Appearance: WD/WN, no apparent distress Ears: bilateral ear auricle normal, bilateral ear canal normal, bilateral ear TM normal Nose: normal inspection; No discharge Mouth/Throat: pharynx normal; No dental tenderness, No excessive drooling, No tonsillar exudate; other (small ulceration to right side of tongue, no erythema or active bleeding) Neck: non-tender, full range of motion, supple, normal inspection; No lymphadenopathy (R), No lymphadenopathy (L) Cardiovascular: normal peripheral pulses, regular rate, rhythm Respiratory: chest non-tender, lungs clear, normal breath sounds Neurologic/Psychiatric: alert, normal mood/affect, oriented x 3 Skin: normal color, warm/dry Progress/Results/Core Measures Results/Orders Lab Results Laboratory Tests Test 01/31/22 15:45 Range/Units Glucometer 92 70-110 MG/DL My Orders Orders - APOLINAR MANTILLA Accucheck Stat ONCE (01/31/22 15:46) Vital Signs/I&O 01/31/22 15:42 Temp 36.9 Pulse 96 Resp 20 B/P (MAP) 142/66 (91) Pulse Ox 96 O2 Delivery Room Air Blood Pressure Mean: 91 FSBG Bedside Testing Finger Stick Blood Glucose: 92 Progress Progress Note : Time: 16:00 Progress Note Patient taking ice chips. Encouraged to use OTC pain relief ointments. Departure Impression Primary Impression: Oral ulceration Disposition: 01 HOME, SELF-CARE Condition: Improved Departure-Patient Inst. Decision time for Depature: 16:15 Referrals: [facility] (PCP) Primary Care Physician MARGARET CABALLERO APRN (Family) Primary Care Physician Patient Instructions: Mouth Sores (DC) Add. Discharge Instructions: Continue to use the Magic mouthwash as prescribed. Warm salt water gargles every 2 hours. Obtain Orajel or other newm-sig-qvwbvav ointment for dental pain and apply to ulceration every 2 hours. Uses Straw and drink on the left side of your mouth. Adjust insulin if you are not eating as much or your glucose decreases. Follow up at [facility] or with your Primary Care Provider at [facility] if not improving. Return to the emergency department for new, urgent healthcare needs. All discharge instructions reviewed with patient and/or family. Voiced understanding. APOLINAR MANTILLA Jan 31, 2022 16:20
[2022-01-31 16:27] VITALS: BP 127/76
== END 2022-01-31 16:27 | disposition home or self-care (01) ==
LOC: EDUNIT# 15:38 → ER 15:39
DX: K12.1 Other forms of stomatitis (principal); E11.9 Type 2 diabetes mellitus without complications; Z79.4 Long term (current) use of insulin
CPT/HCPCS: 82947

== ENCOUNTER 2022-04-15 12:46 | Outpatient (RCR) | payer MEDICARE, MEDICAID | END 2022-04-19 | disposition home or self-care (01) | PROVIDERS: ATTEND Orthopaedic Surgery | DX: M17.0 Bilateral primary osteoarthritis of knee (principal); E11.9 Type 2 diabetes mellitus without complications; I73.9 Peripheral vascular disease, unspecified; M25.552 Pain in left hip; I10 Essential (primary) hypertension ==

== ENCOUNTER 2022-05-18 10:19 | Outpatient (RCR) | payer MEDICARE, MEDICAID | END 2022-05-19 | disposition home or self-care (01) | PROVIDERS: ATTEND Orthopaedic Surgery | DX: M17.0 Bilateral primary osteoarthritis of knee (principal); E11.9 Type 2 diabetes mellitus without complications; I73.9 Peripheral vascular disease, unspecified; M25.552 Pain in left hip; I10 Essential (primary) hypertension ==

== ENCOUNTER 2022-06-08 11:25 | Outpatient (RCR) | payer MEDICARE, MEDICAID | END 2022-06-08 11:54 | disposition home or self-care (01) | PROVIDERS: ATTEND Orthopaedic Surgery | DX: M17.0 Bilateral primary osteoarthritis of knee (principal); I73.9 Peripheral vascular disease, unspecified; E11.9 Type 2 diabetes mellitus without complications; M25.552 Pain in left hip ==

== ENCOUNTER 2022-08-16 10:42 | Outpatient (RCR) | payer MEDICARE, MEDICAID | END 2022-08-17 | disposition home or self-care (01) | PROVIDERS: ATTEND Nurse Practitioner Family | DX: M17.11 Unilateral primary osteoarthritis, right knee (principal); M25.562 Pain in left knee ==

== ENCOUNTER → 2022-09-17 | Outpatient (RCR) | payer MEDICARE, MEDICAID | END | disposition home or self-care (01) | PROVIDERS: ATTEND Nurse Practitioner Family | DX: M17.11 Unilateral primary osteoarthritis, right knee (principal); M25.562 Pain in left knee; E11.9 Type 2 diabetes mellitus without complications ==

== ENCOUNTER 2022-10-08 15:11 | Outpatient (RCR) | payer MEDICARE, MEDICAID | END 2022-10-08 15:50 | disposition home or self-care (01) | PROVIDERS: ATTEND Nurse Practitioner Family | DX: M17.11 Unilateral primary osteoarthritis, right knee (principal); M25.562 Pain in left knee; E11.9 Type 2 diabetes mellitus without complications ==

== ENCOUNTER 2022-12-01 05:35 | Outpatient (CLI) | payer MEDICARE, MEDICAID ==
[~2022-12-01] VITALS: Ht 172.7 cm; Wt 102.5 kg
[2022-12-02] MEDS ORDERED: DULA3PEN SQ (12:35)
[2022-12-02] MEDS ORDERED: INSU100I14 SQ (12:35)
[2022-12-02] MEDS ORDERED: CELE100C84 PO (12:35)
[2022-12-02] MEDS ORDERED: TRZ50T PO (12:35)
== END 2022-12-02 12:38 | disposition home or self-care (01) ==
LOC: PREOP 05:35
PROVIDERS: ATTEND Surgery
DX: Z01.818 Encounter for other preprocedural examination (principal)

== ENCOUNTER 2022-12-09 10:57 | Day surgery (SDC) | payer MEDICARE, MEDICAID ==
[~2022-12-09] VITALS: Ht 173 cm; Wt 102.5 kg
[~2022-12-09 10:57] MED LIST changes: +CELE100C84 PO; +DULA3PEN SQ; +INSU100I14 SQ
[2022-12-09] MEDS ORDERED: LACTATED RINGERS 1,000 ML IV STA (11:06)
[2022-12-09 11:18] VITALS: BP 159/70
[2022-12-09] MEDS ORDERED: PROPOFOL INJECTION 50 ML IV ONE (12:37)
[2022-12-09 13:15] VITALS: BP 108/53
[2022-12-09 13:25] VITALS: BP 113/56
--- NOTE | 2022-12-09 13:55 | Discharge Inst-Simple/Standard ---
Discharge Inst-Standard Patient Instructions/Follow Up Plan of Care/Instructions/FU: 2 weeks Harinder Activity as Tolerated: Yes Discharge Diet: Regular Diet (high fiber) CRISTINA HARDY DO Dec 09, 2022 13:55
--- NOTE | 2022-12-09 13:56 | Progress Note-Post Operative ---
Post-Operative Progess Note Surgeon (s)/Product Development Technician (s) Surgeon CRISTINA HARDY DO Product Development Technician: na Pre-Operative Diagnosis chronic diarrhea Post-Operative Diagnosis colon polyps Procedure & Operative Findings Date of Procedure 12/09/22 Procedure Performed/Findings colonoscopy c hot bx polypectomy x 4 and random cold biopsies Anesthesia Type per java scala developer Estimated Blood Loss Estimated blood loss (mL): none Specimens/Packing Specimens Removed colon polyps, random colon CRISTINA HARDY DO Dec 09, 2022 13:56
[2022-12-09 14:10] VITALS: BP 142/66
--- NOTE | 2022-12-09 14:52 | Anesthesia-General Post-Op ---
MAC Patient Condition Mental Status/LOC: Same as Preop Cardiovascular: Satisfactory Nausea/Vomiting: Absent Respiratory: Satisfactory Pain: Controlled Complications: Absent Post Op Complications Complications None Follow Up Care/Instructions Patient Instructions None needed. Anesthesiology Discharge Order Discharge Order Patient was doing well after the procedure with no complaints, stable vital signs, no apparent adverse anesthesia problems. No complications reported per nursing. BENSON ZHANG DO Dec 09, 2022 14:52
--- NOTE | 2022-12-10 04:27 | OPERATIVE REPORT ---
DATE OF SERVICE: 12/09/2022 PREOPERATIVE DIAGNOSIS: Chronic diarrhea. POSTOPERATIVE DIAGNOSIS: Colon polyps. PROCEDURE: Colonoscopy with hot biopsy polypectomy x4 and random cold biopsies. SURGEON: Cristina Pizano DO ANESTHESIA: General. ESTIMATED BLOOD LOSS: None. COMPLICATIONS: None. INDICATIONS: The patient is a 72-year-old female with chronic diarrhea. She understands risks and benefits of procedure and wished to proceed. Consent was signed and in chart. DESCRIPTION OF PROCEDURE: The patient was taken to the endoscopy suite, placed in left lateral recumbent position. Timeout was performed. Digital rectal exam was performed. No palpable polyps, masses or ulcerations. Scope was inserted in the rectum and advanced all the way to the cecum with minimal difficulty. Prep was adequate. Scope was then slowly retracted back. No polyps, masses or ulcerations in the cecum. Ascending colon had a polyp, which hot biopsy polypectomy was performed. Scope was then continuously retracted back in the transverse colon where 2 polyps were present near each other, which hot biopsy polypectomies were performed. Scope was then continuously retracted back and another polyp in the transverse colon was present, which hot biopsy polypectomy was performed. Scope was then continuously retracted back, noting no other polyps, masses or ulcerations within the remainder of the transverse, descending and sigmoid colon. Scope was being retracted back, cold biopsies randomly were obtained. Once in the rectum, scope was retroflexed noting no other pathology. Scope was returned to its normal position, slowly withdrawn until completely removed. The patient tolerated the procedure well without complications, taken to recovery room in stable condition. RECOMMENDATIONS: The patient will follow up on biopsies in 2 weeks. Recommend high fiber diet. The patient did not need any further colonoscopies unless warranted by symptomatology and if benefits outweigh the risks. Further recommendation pending biopsy results. Job ID: [id number] DocumentID: [id number] Dictated Date: 12/09/2022 23:23:55 Pole Framer Date: 12/10/2022 04:24:00 Dictated By: CRISTINA PIZANO DO
== END 2022-12-09 14:15 | disposition home or self-care (01) ==
LOC: ENDO 10:57
PROVIDERS: ATTEND Surgery
DX: D12.2 Benign neoplasm of ascending colon (principal); D12.3 Benign neoplasm of transverse colon; K52.9 Noninfective gastroenteritis and colitis, unspecified; E11.40 Type 2 diabetes mellitus with diabetic neuropathy, unspecified; Z79.4 Long term (current) use of insulin; Z79.85 Long-term (current) use of injectable non-insulin antidiabetic drugs
CPT/HCPCS: 82947

== ENCOUNTER → 2022-12-14 | Outpatient (CLI) | payer MEDICARE, MEDICAID ==
[~2022-12-14] MED LIST changes: +MV,I66.7 PO; +MV-M1TAB20 PO
--- NOTE | 2022-12-14 16:50 | Diagnostic Imaging Report ---
INDICATION: Postmenopausal screening COMPARISON: Baseline FINDINGS: AP Spine L1-L4: [BMD (g/cm2): 1.638] [T-Score: 3.6] [Z-Score: 4.2] [BMD Previous: NA] [BMD % Change: NA] LT Hip Neck: [BMD (g/cm2): 1.325] [T-Score: 2.1] [Z-Score: 3.1] LT Hip Total: [BMD (g/cm2):1.273] [T-Score:2.1] [Z-Score: 2.8] [BMD Previous: NA] [BMD % Change: NA] RT Hip Neck: [BMD (g/cm2):1.000] [T-Score:-0.3] [Z-Score:0.8] RT Hip Total: [BMD (g/cm2):1.093] [T-score:0.7] [Z-Score:1.4] [BMD Previous:NA] [BMD % Change:NA] *Indicates significant change from prior examination based on 95% confidence level. World Health Organization criteria for BMD interpretation classify patients as Normal (T-score at or above -1.0), Osteopenic (T-score between -1.0 and -2.5) or Osteoporotic (T-score at or below -2.5). LIMITATIONS AND MODIFICATION: None. FRACTURE RISK (FRAX SCORE): The ten year probability of (%): Major Osteoporotic Fracture: [NA] Hip Fracture: [NA] IMPRESSION: 1. Normal bone mineral density. 2. Baseline examination. 3. See below National Osteoporosis Foundation guidelines on when to potentially initiate pharmacologic therapy. Based on the National Osteoporosis Foundation Guidelines, pharmacologic treatment should be initiated in any of the following, unless clinical conditions suggest otherwise: * Any patient with prior fragility fracture of the hip or vertebrae. A spine fracture indicates 5X risk for subsequent spine fracture and 2X risk for subsequent hip fracture. * Osteoporosis (T-score <-2.5). * Postmenopausal women and men age 50 and older with low bone mass/osteopenia (T-score between -1.0 and -2.5) by DXA and 10-year major osteoporotic fracture greater than 20% or a 10-year probability of hip fracture greater than 3%. These fracture risks are supplied above in the FRAX score, if applicable. * Clinician judgement and/or patient preferences may indicate treatment for people with 10-year fracture probabilities above or below these levels. Dictated by: Dictated on workstation # [id number]
== END ==
LOC: RAD 08:51
PROVIDERS: ATTEND Nurse Practitioner Family
DX: M85.80 Other specified disorders of bone density and structure, unspecified site (principal); E55.9 Vitamin D deficiency, unspecified
CPT/HCPCS: 77080

== ENCOUNTER 2022-12-15 05:40 | Outpatient (CLI) | payer MEDICARE, MEDICAID ==
[~2022-12-15] VITALS: Ht 172.7 cm; Wt 102.3 kg
[~2022-12-15 05:40] MED LIST changes: -MV,I66.7 PO; -MV-M1TAB20 PO
[2022-12-15] MEDS ORDERED: ASPI-999 PO (13:40)
[2022-12-15] MEDS ORDERED: MV-M1TAB20 PO (13:40)
[2022-12-15] MEDS ORDERED: MV,I66.7 PO (13:40)
== END 2022-12-15 13:42 | disposition home or self-care (01) ==
LOC: PREOP 05:40
PROVIDERS: ATTEND Specialist
DX: Z01.818 Encounter for other preprocedural examination (principal)

== ENCOUNTER 2022-12-24 08:44 | Day surgery (SDC) | payer MEDICARE, MEDICAID ==
[~2022-12-24] VITALS: Ht 172.7 cm; Wt 102.3 kg
[~2022-12-24 08:44] MED LIST changes: +MV,I66.7 PO; +MV-M1TAB20 PO
[2022-12-24] MEDS ORDERED: PHENYLEPHRINE 10% OPHTH (NEO-SYN) 5 ML BTL OU PRN (09:15)
[2022-12-24] MEDS ORDERED: TROPICAMIDE 1% OPH SOLN (MYDRIACYL) 15 ML BTL OU PRN (09:15)
[2022-12-24] MEDS ORDERED: TETRACAINE 0.5% OPHTH SOLN 4 ML BTL (SINGLE DOSE ONLY) OU PRN (09:15)
[2022-12-24 09:57] VITALS: BP 132/67
--- NOTE | 2022-12-24 10:16 | Ophthalmologist Pre-Op Note ---
Pre-Operative Progress Note H&P Reviewed The H&P was reviewed, patient examined and no changes noted. Date H&P Reviewed: Dec 24, 2022 Time H&P Reviewed: 10:16 Pre-Op Dx Secondary Cataract, Bilateral Eyes KENNETH MELENDEZ MD Dec 24, 2022 10:16
--- NOTE | 2022-12-24 10:16 | Ophthalmology Operative Report ---
YAG Capsulotomy PREOPERATIVE DIAGNOSIS: Secondary Cataract Bilateral POSTOPERATIVE DIAGNOSIS: Secondary Cataract Bilateral PROCEDURE: YAG Capsulotomy, Bilateral SURGEON: Jim Melendez ANESTHESIA: Topical anesthesia COMPLICATIONS: None ESTIMATED BLOOD LOSS: Minimal DESCRIPTION OF PROCEDURE: After proper informed consent was obtained, the patient's, a 72 female , received one drop of Tropicamide and one drop of Tetracaine in each eye. The patient was then placed at the YAG laser and using a power of [4.5 ] millijoules and bursts [23 ] right eye and [ 27] left eye were used to fashion a central capsulotomy. The patient tolerated the procedure well without complications. JIM MELENDEZ MD Dec 24, 2022 10:16
== END 2022-12-24 09:57 | disposition home or self-care (01) ==
LOC: SDC 08:44
PROVIDERS: ATTEND Specialist
DX: E11.36 Type 2 diabetes mellitus with diabetic cataract (principal); H26.40 Unspecified secondary cataract